=== PATIENT | female | born 1975 | race Caucasian/White ===

== ENCOUNTER → 2020-04-29 12:45 | Outpatient (REF) | payer OTHER, SELFPAY ==
--- NOTE | 2020-04-29 14:28 | ECG_ITS ---
Test Reason : RO6.02 Blood Pressure : / mmHG Vent. Rate : 089 BPM Atrial Rate : 089 BPM P-R Int : 178 ms QRS Dur : 166 ms QT Int : 414 ms P-R-T Axes : 062 001 133 degrees QTc Int : 503 ms Normal sinus rhythm Left bundle branch block Abnormal ECG When compared with ECG of 08-MAR-2016 20:16, Left bundle branch block is now Present Referred By: Hellen Giraldo Electronically Signed By:NAEEM MCCANN MD
== END ==
LOC: HO.CARD 12:45
PROVIDERS: PCP Family Medicine; Referring Provider Family Medicine; Visit Provider Surgery
DX: R06.02 Shortness of breath (principal); E66.9 Obesity, unspecified; E11.9 Type 2 diabetes mellitus without complications; K59.09 Other constipation; Z79.899 Other long term (current) drug therapy; Z79.84 Long term (current) use of oral hypoglycemic drugs; Z87.891 Personal history of nicotine dependence; Z71.3 Dietary counseling and surveillance
CPT/HCPCS: 93005

== ENCOUNTER → 2020-05-07 10:12 | Outpatient (BNVA) | payer OTHER, SELFPAY | PROVIDERS: PCP Family Medicine; Referring Provider Family Medicine; Visit Provider Physician Assistant | DX: Z76.89 Persons encountering health services in other specified circumstances (principal) ==

== ENCOUNTER → 2020-06-02 10:49 | Outpatient (BNVA) | payer OTHER, SELFPAY | PROVIDERS: PCP Family Medicine; Visit Provider Physician Assistant | DX: Z76.89 Persons encountering health services in other specified circumstances (principal) ==

== ENCOUNTER 2020-06-06 12:34 | Outpatient (REF) | payer OTHER, SELFPAY ==
[2020-06-06 13:17] LABS: MANUAL DIFF FLAG NO
[2020-06-06 13:20] LABS: Basophils Absolute Auto 0.1 X10*3/uL (0.0-0.2); Basophils Percent Auto 0.6 % (0-2); Eosinophils Absolute Auto 0.1 X10*3/uL (0.0-0.4); Eosinophils Percent Auto 1.2 % (0-4); Hematocrit 41.3 % (37-47); Hemoglobin 13.4 g/dl (12.0-16.0); Imm Gran Abs Auto 0.03 X10*3/uL (0.00-0.03); Imm Gran Pct Auto 0.3 % (0.0-0.4); Lymphocytes Absolute Auto 3.1 X10*3/uL (1.2-4.9); Lymphocytes Percent Auto 28.8 % (20-40); Mean Corpuscular HGB Conc 32.4 g/dl (31.0-35.0); Mean Corpuscular Hemoglobin 29.3 pg (27.0-33.0); Mean Corpuscular Volume 90.2 fL (80-98); Monocytes Absolute Auto 0.7 X10*3/uL (0.1-1.2); Monocytes Percent Auto 6.8 % (2-11); Neutrophils Absolute Auto 6.6 X10*3/uL (2.0-8.3); Neutrophils Percent Auto 62.3 % (45-73); Platelet Count 274 X10*3/uL (160-400); Red Blood Count 4.58 X10*6/uL (4.20-5.50); Red Cell Distribution Width 12.5 % (11.0-16.0); White Blood Count 10.6 X10*3/uL (4.8-10.8)
[2020-06-06 13:49] LABS: Albumin Level 4.2 g/dL (3.5-5.0); Anion Gap 13 (12-20); Blood Urea Nitrogen 17 mg/dL (9-16); Carbon Dioxide 27 mmol/L (22-29); Chloride 105 mmol/L (96-108); Estimated Glomerular Filt Rate > 60; Glucose Random 112 mg/dL (60-115); Potassium 4.5 mmol/l (3.3-5.1); Sodium 140 mmol/L (135-145)
[2020-06-06 14:07] LABS: Glucose Urine UA NEG (NEG); Leukocyte Esterase Urine NEG (NEG); Nitrite Urine NEG (NEG); PH 5.5 (5.0-8.0); Specific Gravity - Urine 1.025 (1.005-1.025); Urine Blood NEG (NEG); Urine Ketones NEG (NEG); Urine Protein NEG (NEG-TRACE)
[2020-06-06 14:09] LABS: Appearance Urine CLEAR; Color Urine YELLOW
== END 2020-06-06 12:35 | disposition home or self-care (01) ==
LOC: HO.LAB 12:34
PROVIDERS: Visit Provider Surgery
DX: Z01.818 Encounter for other preprocedural examination (principal)
CPT/HCPCS: 36415; 80048; 81003; 82040; 85025

== ENCOUNTER 2020-06-11 14:37 | Inpatient (IN) | payer OTHER, SELFPAY ==
[2020-06-05 11:52] VITALS: BMI 39.6
--- NOTE | 2020-06-10 13:00 | P.CONAN_ITS ---
Documented by User: Reina Wahl 06/10/20 13:07 HPI - Anesthesia Eval Consult details Narrative: 44yo F for Gastrectomy Sleeve Cardiac cleared at low risk. No futher testing warranted. [facility] Past Medical History Medical History (Updated 06/10/20 @ 13:01 by Reina Wahl) ADD (attention deficit disorder) Cervicalgia Depression GERD (gastroesophageal reflux disease) History of colitis History of melanoma History of thyroid nodule Left bundle branch block (LBBB) on electrocardiogram PCOS (polycystic ovarian syndrome) Sleep apnea Type 2 diabetes mellitus Family History Family History Father Asthma Heart disease HTN (hypertension) Type 2 diabetes mellitus Skin cancer Mother Skin cancer PCOS (polycystic ovarian syndrome) Son Asthma Daughter No problems noted. Paternal Uncle Lung cancer Sister No problems noted. Surgical History Surgical History (Updated 06/05/20 @ 11:10 by Jada Solomon) History of foot surgery History of fundoplication History of melanoma excision Hx of shoulder surgery S/P carpal tunnel release S/P cervical spinal fusion S/P laparoscopic cholecystectomy Social History Social History (Updated 06/05/20 @ 11:32 by Jada Solomon) Alcohol intake: current Alcohol intake frequency: a few times a month Smoking Status: Former smoker Narrative Narrative: Pt with w/u for CP 01/2020. Pt was under a lot of stress after witnessing family member . EKG without acute change, trops negative, MIBI false postive d/t LBBB. Cath showed no evidence of ischemia. Meds Allergies Allergy/AdvReac Type Severity Reaction Status Date / Time Bactrim Allergy Unknown does not Uncoded 06/05/20 11:38 work while on Metformin Home Medications Medication Instructions Recorded Confirmed Type atorvastatin 40 mg tablet 40 mg PO BEDTIME 04/29/20 06/05/20 History bupropion HCl 300 mg 24 hr tablet, 150 mg PO QAM 04/29/20 06/05/20 History extended release buspirone 10 mg tablet 25 mg PO BID 04/29/20 06/05/20 History dulaglutide 0.75 mg/0.5 mL 0.75 mg SUBCUT QWEEK 04/29/20 06/05/20 History subcutaneous pen injector duloxetine 60 mg capsule,delayed 60 mg PO BEDTIME 04/29/20 06/05/20 History release flash glucose sensor #1 ea 10/27/20 History gabapentin 600 mg tablet 600 mg PO BEDTIME 04/29/20 06/05/20 History lisinopril 10 1 tab PO DAILY 04/29/20 06/05/20 History mg-hydrochlorothiazide 12.5 mg tablet mesalamine 400 mg capsule (with 800 mg PO TID 04/29/20 06/05/20 History delayed release tablets inside) metformin 500 mg tablet,extended 2,000 mg PO DAILY 04/29/20 06/05/20 History release 24 hr pen needle, diabetic 31 gauge x #1200 ea 04/29/20 History 5/16 solifenacin 5 mg tablet 5 mg PO QAM 04/29/20 06/05/20 History trazodone 50 mg tablet 50 mg PO BEDTIME 04/29/20 06/05/20 History triamcinolone acetonide 55 mcg 1 spray INTRANASAL NEEDED 04/29/20 06/05/20 History nasal spray aerosol insulin NPH isoph U-100 human 60 unit SUBCUT BEDTIME 06/05/20 06/05/20 History [Humulin N NPH U-100 Insulin] Exam Exam Date and Time: June 10, 2020 1300 Height,Weight and Vital Signs: Height 5 ft 4 in Weight 104.78 kg Pertinent Lab Results Pertinent Lab Results: Laboratory Tests 06/06/20 12:50 Blood Type O Positive Antibody Screen NEGATIVE Laboratory Tests 03/22/20 06/06/20 06/06/20 08:02 12:50 12:50 WBC 10.6 Hgb 13.4 Hct 41.3 Plt Count 274 Sodium 140 Potassium 4.5 Chloride 105 Carbon Dioxide 27 BUN 17 H Creatinine 0.82 Cholesterol 101 Narrative Narrative: EKG 04/2020 Normal sinus rhythm Left bundle branch block Assessment and Plan Assessment Anesthesia Assessment: Chart Reviewed Documented by User: Gaby Anti 06/11/20 10:37 [facility] Past Medical History Medical History (Updated 06/10/20 @ 13:01 by Reina Wahl) ADD (attention deficit disorder) Cervicalgia Depression GERD (gastroesophageal reflux disease) History of colitis History of melanoma History of thyroid nodule Left bundle branch block (LBBB) on electrocardiogram PCOS (polycystic ovarian syndrome) Sleep apnea Type 2 diabetes mellitus Family History Family History Father Asthma Heart disease HTN (hypertension) Type 2 diabetes mellitus Skin cancer Mother Skin cancer PCOS (polycystic ovarian syndrome) Son Asthma Daughter No problems noted. Paternal Uncle Lung cancer Sister No problems noted. Surgical History Surgical History (Updated 06/05/20 @ 11:10 by Jada Solomon) History of foot surgery History of fundoplication History of melanoma excision Hx of shoulder surgery S/P carpal tunnel release S/P cervical spinal fusion S/P laparoscopic cholecystectomy Social History Social History (Updated 06/05/20 @ 11:32 by Jada Solomon) Alcohol intake: current Alcohol intake frequency: a few times a month Smoking Status: Former smoker Meds Allergies Allergy/AdvReac Type Severity Reaction Status Date / Time Bactrim Allergy Unknown does not Uncoded 06/05/20 11:38 work while on Metformin Home Medications Medication Instructions Recorded Confirmed Type atorvastatin 40 mg tablet 40 mg PO BEDTIME 04/29/20 06/05/20 History bupropion HCl 300 mg 24 hr tablet, 150 mg PO QAM 04/29/20 06/05/20 History extended release buspirone 10 mg tablet 25 mg PO BID 04/29/20 06/05/20 History dulaglutide 0.75 mg/0.5 mL 0.75 mg SUBCUT QWEEK 04/29/20 06/05/20 History subcutaneous pen injector duloxetine 60 mg capsule,delayed 60 mg PO BEDTIME 04/29/20 06/05/20 History release flash glucose sensor #1 ea 04/29/20 History gabapentin 600 mg tablet 600 mg PO BEDTIME 04/29/20 06/05/20 History lisinopril 10 1 tab PO DAILY 04/29/20 06/05/20 History mg-hydrochlorothiazide 12.5 mg tablet mesalamine 400 mg capsule (with 800 mg PO TID 04/29/20 06/05/20 History delayed release tablets inside) metformin 500 mg tablet,extended 2,000 mg PO DAILY 04/29/20 06/05/20 History release 24 hr pen needle, diabetic 31 gauge x #1200 ea 04/29/20 History 5/16 solifenacin 5 mg tablet 5 mg PO QAM 04/29/20 06/05/20 History trazodone 50 mg tablet 50 mg PO BEDTIME 04/29/20 06/05/20 History triamcinolone acetonide 55 mcg 1 spray INTRANASAL NEEDED 04/29/20 06/05/20 History nasal spray aerosol insulin NPH isoph U-100 human 60 unit SUBCUT BEDTIME 06/05/20 06/05/20 History [Humulin N NPH U-100 Insulin] Exam Airway Mallampati Class: I TM Dist: >3cm Neck ROM: Full Loose/Missing/Broken Teeth: No Heart: RRR Lungs: CTA Assessment and Plan Assessment Anesthesia Assessment: Anesthesia Plan Discussed and Chart Reviewed Final Anesthetic Review NPO: Yes ASA Class: III Final Preanesthetic Review: Meds/Allgs Chart Reviewed, Consent Obtained/Reviewed and Anes Risks/Benef Reviewed Patient Risk: Intermediate Procedure Risk: Low Anesthetic Plan Anesthetic Plan: GA Disposition: Standard PACU
--- NOTE | 2020-06-10 17:24 | MHC.SHP ---
Pre-Procedural Eval Section B Chief Complaint: obesity Allergies: Allergies Allergy/AdvReac Type Severity Reaction Status Date / Time Bactrim Allergy Unknown does not Uncoded 06/05/20 11:38 work while on Metformin Plan Patient has been examined and remains a candidate for the planned procedure
[2020-06-11] VITALS (13 sets, daily range): BP systolic 130–160; BP diastolic 66–95; PULSE 91–103; RESP 12–20; TEMP 36.3–38.1; O2SAT 96–99
[2020-06-11 09:55] LABS: COVID-19 Test Negative (Negative); IDNOW Serial# 9DD0AD1C
[2020-06-11] MEDS: Lactated Ringers 1,000 ML 125 ML IVCONT ×3 (11:04→23:20)
[2020-06-11 14:26] LABS: Glucose, Whole Blood 122 mg/dL (60-115)
--- NOTE | 2020-06-11 14:37 | P.BOP_ITS ---
Brief Operative Note Date of Service: 06/11/20 Pre-op diagnosis: gastroesophageal reflux disease, sleep apnea, BMI 39, obesity, type 2 diabetes, history of Grace fundoplication Post-op diagnosis: other ( same plus hiatal hernia) Procedure: laparoscopic takedown of Grace fundoplication, repair of hiatal hernia, laparoscopic sleeve gastrectomy, Keith block, intraoperative endoscopy Implants: none Surgeon: Hellen Girlado MD Anesthesia: GETA Sample Stitcher: Monica Rebollar Estimated blood loss (mL): 30 Pathology: other ( partial gastrectomy) Condition: stable Disposition: PACU
--- NOTE | 2020-06-11 14:39 | P.OP_ITS ---
Operative Note Operative Note Date of Service: 06/11/20 Narrative: Patient was brought into the operating room and placed on the operating room table in the supine position. General anesthesia was induced. Normal DVT prophylaxis was instituted and the patient received 2 grams of cefotetan preoperatively. The abdomen was then prepped and draped in the normal sterile fashion. A safety time-out was performed. A mixture of 1% lidocaine with epinephrine and ?% Marcaine plain was used to a nesthetize the planned incision site in the left upper quadrant. A #11 scalpel was used to make a 5 mm left upper quadrant transverse incision through which a veress needle was placed. Three pops were heard going through the fascia. A saline drop test was used to confirm that the veress needle was intraabdominal. An optiview technique was then used to place a 5mm port in the left upper quadrant. A 5 mm 30 degree laproscope was then placed through this port and the abdominal cavity was surveyed and was normal. The patient was placed in reverse Trendelenburg positioning. A ray liver retractor was then placed in the subxyphoid position and it was used to hold up the left lobe of the liver to the abdominal wall. This was secured to the bed using the liver retractor eldridge. A IZABELA block was then performed for pain control on the right side of the abdomen. A 5 mm port was placed in the right upper quadrant near the falciform ligament. A 12 mm port was then placed in the mid epigastrium. One additional 5 mm port was placed in the left upper quadrant just to the left of the placement of the first port. I then performed a IZABELA block on the left side of the abdomen. Patient had a history of a Grace fundoplication many years ago. The medial stomach was adherent to the overlying left lobe of the liver. We took down the adhesions of the stomach to the left lobe of the liver. We cleared off the phrenoesophageal ligament bilaterally. We never saw any sutures of the stomach to itself or to the right or left crura. Once we cleared all the adhesions surrounding the renal esophageal ligament and took down the remainder of the short gastric vessels, we realized there was no evidence of a wrapping of the stomach. The stomach was lying flat the esophagus appeared to be in normal condition without any evidence of wrap. There was a hiatal hernia that was about 2-3 cm in size. I reapproximated the left and right crura anteriorly with a total of 2 stitches of 2-0 ethibond and a laparoscopic knot pusher. There was no residual hiatal hernia. We divided the short gastric vessels from about 4-5 cm from the pylorus. I had anesthesia place a 34 Maldivian orogastric tube into the distal antrum to use as a sizing tool for gastric pouch size. I divided the short gastric vessels up to the angle of His. We then started the creation of the gastric pouch by firing a 60 mm purple load endostapler up the stomach about 4-5 cm from the pylorus. We completed the creation of the gastric pouch using a total of 4 firings of a 60 mm purple load stapler. We had anesthesia remove the orogastric tube, then we clamped across the distal antrum using a fired 60 mm endostapler. We flattened the patient and then instilled normal saline surrounding the newly created staple line. I then perfo rmed an on-table endoscopy. I passed the gastroscopy into the posterior oropharynx and down the esophagus evaluating the esophageal mucosa which was normal. There was no evidence of hiatal hernia. I passed the gastroscope into the gastric pouch and insufflated the gastric pouch. There was healthy pink mucosa and no evidence of active bleeding. There was no evidence of leak on laparoscopy. I desufflated the gastric pouch and removed the endoscope. I removed the endostapler from the abdomen and suctioned the fluid from the left upper quadrant. I then removed the partial gastrectomy specimen through the epigastric 12 mm port site. I reapproximated the 12 mm port using a 0 maxon suture with a laparoscopic suture passer. I instilled local anesthetic into the fascial closure site and tied the suture down at a pressure of 8-10 mm of Hg. There was no residual fascial defect. We removed the liver retractor and the left upper quadrant 5 mm ports under direct visualization. There was no evidence of any active bleeding. I desufflated the abdomen through the last remaining port and removed the laparoscope and 5 mm port. We reapproximated all incisions with a 4-0 monocryl subcuticular stitch. We cleaned and dried the abdominal skin and applied dermabond skin glue. All count were correct at the end of the case. The patient was awake and in stable condition prior to extubation and transfer to the recovery room.
[2020-06-11] MEDS: oxyCODONE HCl Immed Release 5 MG TABLET 10 MG PO (15:12)
[2020-06-11] MEDS: Famotidine/PF 20 MG/2 ML VIAL IVPUSH ×2 (15:13→20:48)
[2020-06-11] MEDS: HYDROmorphone HCl 0.5 MG/0.5 ML SYRINGE 0.25 MG IVPUSH ×2 (16:42→20:48)
[2020-06-11 16:46] LABS: Glucose, Whole Blood 159 mg/dL (60-115)
[2020-06-11] MEDS: ondansetron HCL 4 MG/2 ML VIAL IVPUSH ×2 (16:47→23:20)
[2020-06-11] MEDS: oxyCODONE HCl Immed Release 5 MG TABLET PO (19:18)
[2020-06-11 20:29] LABS: Glucose, Whole Blood 172 mg/dL (60-115)
[2020-06-11] MEDS: Insulin Lispro 100 UNIT/ML 3 ML VIAL SUBCUT (20:48)
[2020-06-11] MEDS: busPIRone HCl 10 MG TABLET 25 MG PO (20:49)
[2020-06-11] MEDS: traZODone HCL 50 MG TABLET PO (20:49)
[2020-06-11] MEDS: Gabapentin 600 MG TABLET PO (20:49)
[2020-06-11] MEDS: DULoxetine HCl 60 MG CAPSULE.DR PO (20:49)
[2020-06-11] MEDS: 0.9 % Sodium Chloride Flush 3 ML SYRINGE IVFLUSH (20:50)
[2020-06-12 00:50] VITALS: RESP 17
[2020-06-12] MEDS: HYDROmorphone HCl 0.5 MG/0.5 ML SYRINGE 0.25 MG IVPUSH ×2 (00:50→04:44)
[2020-06-12 03:27] VITALS: BP 134/69; PULSE 93; RESP 20; TEMP 37.1; O2SAT 95
[2020-06-12] MEDS: Metoclopramide HCl 10 MG/2 ML VIAL IVPUSH (04:04)
[2020-06-12] MEDS: Omeprazole 40 MG CAPSULE.DR PO (04:27)
[2020-06-12 04:44] VITALS: RESP 18
[2020-06-12] MEDS: ondansetron HCL 4 MG/2 ML VIAL IVPUSH (05:54)
[2020-06-12 06:36] LABS: MANUAL DIFF FLAG NO
[2020-06-12 06:53] LABS: Basophils Absolute Auto 0.1 X10*3/uL (0.0-0.2); Basophils Percent Auto 0.3 % (0-2); Eosinophils Percent Auto 0.1 % (0-4); Hematocrit 37.7 % (37-47); Hemoglobin 12.6 g/dl (12.0-16.0); Imm Gran Pct Auto 0.6 % (0.0-0.4); Lymphocytes Absolute Auto 2.8 X10*3/uL (1.2-4.9); Lymphocytes Percent Auto 16.1 % (20-40); Mean Corpuscular HGB Conc 33.4 g/dl (31.0-35.0); Mean Corpuscular Hemoglobin 29.6 pg (27.0-33.0); Mean Corpuscular Volume 88.5 fL (80-98); Mean Platelet Volume 10.9 fL (9.4-12.3); Monocytes Percent Auto 5.9 % (2-11); Neutrophils Absolute Auto 13.4 X10*3/uL (2.0-8.3); Platelet Count 268 X10*3/uL (160-400); Red Blood Count 4.26 X10*6/uL (4.20-5.50); Red Cell Distribution Width 12.3 % (11.0-16.0); White Blood Count 17.4 X10*3/uL (4.8-10.8)
[2020-06-12 07:24] LABS: Anion Gap 13 (12-20); Blood Urea Nitrogen 13 mg/dL (9-16); Calcium 8.6 mg/dL (8.4-10.2); Carbon Dioxide 26 mmol/L (22-29); Chloride 105 mmol/L (96-108); Estimated Glomerular Filt Rate > 60; Glucose Random 113 mg/dL (60-115); Potassium 4.4 mmol/l (3.3-5.1); Sodium 140 mmol/L (135-145)
[2020-06-12 07:46] VITALS: BP 145/78; PULSE 83; RESP 20; TEMP 36.8; O2SAT 96
[2020-06-12 08:27] LABS: Glucose, Whole Blood 119 mg/dL (60-115)
[2020-06-12] MEDS: busPIRone HCl 10 MG TABLET 25 MG PO (08:28)
[2020-06-12] MEDS: buPROPion HCl XL 150 MG TAB.ER.24H PO (08:28)
[2020-06-12] MEDS: Famotidine/PF 20 MG/2 ML VIAL IVPUSH (08:28)
[2020-06-12] MEDS: lisinopriL 10 MG TABLET PO (08:29)
[2020-06-12] MEDS: Lactated Ringers 1,000 ML 125 ML IVCONT (08:29)
--- NOTE | 2020-06-12 09:51 | HO.POSTANES ---
Post Anesthesia Evaluation Post Anesthesia Evaluation Vital Signs: Vital Signs Temp Pulse Resp BP Pulse Ox 06/12/20 07:46 98.3 F 83 20 145/78 H 96 06/12/20 04:44 18 06/12/20 03:27 98.7 F 93 20 134/69 95 06/12/20 00:50 17 06/11/20 23:14 98.7 F 91 20 145/95 H 97 Anesthesia: General Endotracheal-GETA Mental Status: Awake Pain Control: Satisfactory Nausea/Vomiting: None Hydration: Adequate Anesthesia-Related Issues: No Anes. Related Issues
--- NOTE | 2020-06-12 10:17 | PM.PNGS ---
Subjective Subjective Date of Service: 06/12/20 Interval history: Pod #1 s/p lap takedown Grace fundoplication, sleeve gastrectomy, and hiatal hernia repair. Doing well. Tolerating stage 3 diet, ambulating in hallway. Pain well controlled. Denies nausea or vomiting. Vitals and labs reviewed and are within limit for post op day 1. On exam, patient is well appearing, abdomen is soft, nd, mild appropriate incisional tenderness. Incisions c/d/I with dermabond in place. Plan: d/c home today. Follow up with me in 2 weeks. Physical Exam Vital Signs: Vital Signs: Last Vital Signs Temp 98.3 F 06/12/20 07:46 Pulse 83 06/12/20 07:46 Resp 20 06/12/20 07:46 BP 145/78 H 06/12/20 07:46 Pulse Ox 96 06/12/20 07:46 Body Mass Index 39.6 Const: General: cooperative, healthy appearing, comfortable, no acute distress and awake GI: Inspection: Yes incision (Clean dry intact with Dermabond in place) and Yes obesity Palpation (GI): Soft to palpation and Tenderness to palpation present (GI) (Mild appropriate incisional tenderness) Extrem: General: Yes normal to inspection, Yes no pedal edema and Yes no calf tenderness Progress Note: A&P Assessment and plan (1) History of sleeve gastrectomy: Status: Acute Assessment and Plan: This is a 45-year-old lady on postoperative day 1. Status post Grace fundoplication takedown, sleeve gastrectomy, and paraesophageal hernia repair. Patient is doing well she is tolerating stage 3 diet, her pain is well controlled. She will be discharged home to follow up with me again in 2 weeks. (2) Status post repair of paraesophageal diaphragmatic hernia: Status: Acute Fall Risk Details Current Medications: Current Medications Generic Name Dose Route Start Last Admin Trade Name Freq PRN Reason Stop Dose Admin Albuterol Sulfate 2.5 mg 06/11/20 10:33 Albuterol Sulfate (0.083%) 2.5 Mg/3 Ml Vial.Neb INHALE ONCE PRN Wheezing Bupropion HCl 150 mg 06/11/20 14:30 06/12/20 08:28 Bupropion Hcl Xl 150 Mg Tab.Er.24h PO 150 mg DAILY CHERRY Administration Buspirone HCl 25 mg 06/11/20 21:00 06/12/20 08:28 Buspirone Hcl 10 Mg Tablet PO 25 mg BID CHERRY Administration Duloxetine HCl 60 mg 06/11/20 21:00 06/11/20 20:49 Duloxetine Hcl 60 Mg Capsule.Dr PO 60 mg BEDTIME CHERRY Administration Famotidine 20 mg 06/11/20 14:45 06/12/20 08:28 Famotidine/Pf 20 Mg/2 Ml Vial IVPUSH 20 mg BID CHERRY Administration Fentanyl 50 mcg 06/11/20 10:33 Fentanyl Citrate/Pf 100 Mcg/2 Ml Vial IVPUSH Q5M PRN Pain, Severe (Pain Scale 7-10) Fentanyl 25 mcg 06/11/20 10:33 Fentanyl Citrate/Pf 100 Mcg/2 Ml Vial IVPUSH Q5M PRN Pain, Moderate (Pain Scale 4-6 Gabapentin 600 mg 06/11/20 21:00 06/11/20 20:49 Gabapentin 600 Mg Tablet PO 600 mg BEDTIME CHERRY Administration Hydromorphone HCl 0.25 mg 06/11/20 14:37 06/12/20 04:44 Hydromorphone Hcl 0.5 Mg/0.5 Ml Syringe IVPUSH 0.25 mg Q4H PRN Administration Pain, Moderate (Pain Scale 4-6 Lactated Ringer's 1,000 mls @ 125 mls/hr 06/11/20 09:00 06/12/20 08:29 Lr IVCONT 125 mls/hr .Q8H CHERRY Administration Promethazine HCl 6.25 mg/ 50.25 mls @ 201 mls/hr 06/11/20 10:33 Sodium Chloride IV ONCE PRN Nausea and Vomiting Acetaminophen 1,000 mg in 100 mls @ 16.7 mls/hr 06/11/20 18:00 06/12/20 05:53 Ofirmev IV 16.7 mls/hr .Q6H CHERRY Administration Insulin Human Lispro 0 unit 06/11/20 16:30 06/12/20 08:34 Insulin Lispro 100 Unit/Ml 3 Ml Vial SUBCUT Not Given QIDACHS [facility] Lisinopril 10 mg 06/12/20 09:00 06/12/20 08:29 Lisinopril 10 Mg Tablet PO 10 mg DAILY CHERRY Administration Protocol Metoclopramide HCl 10 mg 06/11/20 14:37 06/12/20 04:04 Metoclopramide Hcl 10 Mg/2 Ml Vial IVPUSH 10 mg Q6H PRN Administration Nausea Non-Formulary Medication 5 mg 06/11/20 14:30 Solifenacin PO QAM CHERRY Ondansetron HCl 4 mg 06/11/20 14:45 06/12/20 05:54 Ondansetron Hcl 4 Mg/2 Ml Vial IVPUSH 4 mg Q8H CHERRY Administration Sodium Chloride 3 ml 06/11/20 16:00 06/12/20 08:30 0.9 % Sodium Chloride Flush 3 Ml Syringe IVFLUSH Not Given QSHIFT CHERRY Trazodone HCl 50 mg 06/11/20 21:00 06/11/20 20:49 Trazodone Hcl 50 Mg Tablet PO 50 mg BEDTIME CHERRY Administration Time Spent With Patient Time: Total time spent is greater than 50% in coordination of care (as documented) at patient's floor/unit and/or counseling patient: Time with patient: less than 15 minutes
--- NOTE | 2020-06-12 11:04 | MHC.CM.PN ---
PT ADMITTED S/P LAP GASTRIC SLEEVE, DISCHARGE HOME W/NO SERVICES, TO TRANSPORT
--- NOTE | 2020-06-12 11:47 | MHC.CM.PN ---
DISCHARGE NOTE: PT DISCHARGED HOME, SELF CARE
--- NOTE | 2020-07-01 11:09 | P.DS_ITS ---
DS: Providers Provider Date of admission: 06/11/20 14:37 Primary care physician: Andree Yoo MD DS: Diagnosis Discharge Diagnosis (1) History of sleeve gastrectomy: Status: Acute (2) Status post repair of paraesophageal diaphragmatic hernia: Status: Acute DS: Medications Discharge Medications Home Medications: Home Medications Medication Instructions Recorded Confirmed atorvastatin 40 mg tablet 40 mg PO BEDTIME 04/29/20 06/24/20 bupropion HCl 300 mg 24 hr tablet, 150 mg PO QAM 04/29/20 06/24/20 extended release buspirone 10 mg tablet 25 mg PO BID 04/29/20 06/24/20 duloxetine 60 mg capsule,delayed 60 mg PO BEDTIME 04/29/20 06/24/20 release flash glucose sensor #1 ea 04/29/20 06/24/20 gabapentin 600 mg tablet 600 mg PO BEDTIME 04/29/20 06/24/20 lisinopril 10 1 tab PO DAILY 04/29/20 06/24/20 mg-hydrochlorothiazide 12.5 mg tablet mesalamine 400 mg capsule (with 800 mg PO TID 04/29/20 06/24/20 delayed release tablets inside) solifenacin 5 mg tablet 5 mg PO QAM 04/29/20 06/24/20 trazodone 50 mg tablet 50 mg PO BEDTIME 04/29/20 06/24/20 triamcinolone acetonide 55 mcg 1 spray INTRANASAL NEEDED 04/29/20 06/24/20 nasal spray aerosol calcium citrate 1,000 mg tablet 1,000 mg PO BID tab 06/24/20 06/24/20 [id number]-[id number] 45 mg-folic cap PO 06/24/20 06/24/20 acid 800 mcg-vit K 120 mcg capsule Previous Rx's Medication Instructions Recorded acetaminophen 500 mg tablet 1,000 mg PO Q6H PRN #30 tab 06/02/20 ondansetron HCl 4 mg tablet 4 mg PO Q6H PRN #30 tab 06/02/20 simethicone 80 mg chewable tablet 80 mg PO TID-QID PRN #30 tab 06/02/20 omeprazole 40 mg capsule,delayed 20 mg PO BID #60 cap 06/03/20 release DS: Summary Time Spent with Patient Time attestation: DATE OF SERVICE: June 11, 2020 ADMITTING DIAGNOSES: morbid obesity DISCHARGE DIAGNOSES: same, s/p laparoscopic sleeve gastrectomy and hiatal hernia PROCEDURE PERFORMED: laparoscopic sleeve gastrectomy and repair of hiatal hernia DISCHARGE MEDICATIONS: 1. Simethicone 80mg q4h prn gas 2. Ondansetron 4mg po tid prn nausea 3. Famotidine 20mg po bid 4. Docusate sodium 100mg po bid DISCHARGE INSTRUCTIONS: The patient should continue on the stage III bariatric diet, which includes 3 protein shakes of at least 20- 30g of protein on a daily basis. The patient was encouraged to avoid drinking liquids with her protein shakes. She should wait 30-45 minutes in between her meals and drinking water. She should drink at least 40-60 ounces of water on a daily basis. She should ambulate while at home to avoid any blood clots in her lower extremities. She should call with any questions or concerns such as increase in abdominal pain, persistent nausea, vomiting, redness and drainage from her incisions, fever, chills, shortness of breast, or chest pain beyond what is normal for her. The patient should avoid all heavy lifting greater than 5 pounds for the next 4 weeks. The patient is already scheduled to follow up with me in 2 weeks' time, but should call the office with any questions prior to that follow up appointment. The patient should not advance her diet until she is seen in the office for the 2 week appointment. HOSPITAL COURSE: The patient was admitted after undergoing laparoscopic sleeve gastrectomy. She was started on stage II diet and was tolerating well without nausea or vomiting. Her pain was controlled on IV Dilaudid. All labs were within normal limits. On post-operative day #2 she was feeling better, nausea and epigastric pain improved and she was tolerating stage III bariatric diet well. She was discharged home. DISCHARGE DISPOSITION: Home.Total time spent providing and/or coordinating discharge services: 30 minutes Physical Exam Vital Signs: Vital Signs: Last Vital Signs Temp 98.3 F 06/12/20 07:46 Pulse 83 06/12/20 07:46 Resp 20 06/12/20 07:46 BP 145/78 H 06/12/20 07:46 Pulse Ox 96 06/12/20 07:46 Body Mass Index 39.6 DS: Data Data Completed and Pending Completed studies during hospitalization [Text1]: Pending at discharge 06/11/20 13:36 Surgical [PTH] Routine Procedures Excision of Stomach, Percutaneous Endoscopic Approach, Vertical (06/11/20) Repair Diaphragm, Percutaneous Endoscopic Approach (06/11/20) Repair Esophagogastric Junction, Percutaneous Endoscopic Approach (06/11/20) Labs on day of discharge: 06/06/20 12:50 Type and Screen Routine 06/11/20 08:56 Acetaminophen [Ofirmev] 1,000 mg in 100 ml IV PREOP cefoTEtan disod/Dextrose,Iso [Cefotan] 2 gm in 50 ml IV PREOP 06/11/20 08:56 Glucose, blood poc AM PRE-OP 06/11/20 09:00 Lactated Ringers [Lr] 1,000 ml IVCONT 125 mls/hr 06/11/20 09:15 COVID-19 ID NOW ([place]) Stat 06/11/20 09:38 Glucose, Whole Blood Routine 06/11/20 10:33 Albuterol Sulfate (0.083%) [Ventolin (0.083%)] 2.5 mg INHALE ONCE PRN Promethazine HCL [Phenergan] 6.25 mg 0.9 % Sodium Chloride [Ns] 50 ml IV ONCE fentaNYL citrate/PF [Sublimaze] 25 mcg IVPUSH Q5M PRN fentaNYL citrate/PF [Sublimaze] 50 mcg IVPUSH Q5M PRN oxyCODONE HCl Immed Release [Roxicodone] 10 mg PO ONCE PRN oxyCODONE HCl Immed Release [Roxicodone] 5 mg PO ONCE PRN 06/11/20 10:49 Acetaminophen [Ofirmev] 1,000 mg in 100 ml IV As directed cefoTEtan disodium [Cefotan] 2 gm .ROUTE .STK-MED ONE 06/11/20 11:49 Ketamine HCl/NS 50 mg IVPUSH .STK-MED ONE Lidocaine HCl 2 % MPF [Xylocaine 2 % MPF] 5 ml .ROUTE .STK-MED ONE Midazolam HCl/PF [Versed] 2 mg .ROUTE .STK-MED ONE Rocuronium [place] [Zemuron] 100 mg IV .STK-MED ONE dexAMETHasone sod phosphate [Decadron] 4 mg .ROUTE .STK-MED ONE fentaNYL citrate/PF [Sublimaze] 50 mcg .ROUTE .STK-MED ONE ondansetron HCL [Zofran] 4 mg .ROUTE .STK-MED ONE propofoL [Diprivan] 200 mg IVPUSH .STK-MED ONE 06/11/20 12:06 Bupivacaine MPF 0.25 % [Sensorcaine-MPF 0.25% 10 ML] 10 ml .ROUTE .STK-MED ONE Lidocaine HCl 1%/Epi 1:100,000 [Xylocaine 1 %-Epi 1:100,000] 20 ml .ROUTE .STK-MED ONE 06/11/20 12:14 Lidocaine HCl 1%/Epi 1:100,000 [Xylocaine 1 %-Epi 1:100,000] 20 ml .ROUTE .STK-MED ONE 06/11/20 12:40 Esmolol HCl [Brevibloc] 100,000 mcg .ROUTE .STK-MED ONE 06/11/20 13:00 Sugammadex Sodium [Bridion] 200 mg IVPUSH .K-MED ONE 06/11/20 13:36 Surgical [PTH] Routine 06/11/20 13:37 HYDROmorphone HCl [Dilaudid] 2 mg .ROUTE .STK-MED ONE 06/11/20 14:30 buPROPion HCl XL [Wellbutrin XL] 150 mg PO DAILY solifenacin 5 mg PO QAM 06/11/20 14:34 Transfer Order Routine 06/11/20 14:37 Ambulate Q4H WHILE AWAKE Compression Therapy QSHIFT Head of bed elevation DIRECTED Incentive Spirometry Q1HR WHILE AWAKE Intake and Output Q4HR Up ad mitul .Continous Vital Signs Q4H Code Status Routine HYDROmorphone HCl [Dilaudid] 0.25 mg IVPUSH Q4H PRN Metoclopramide HCl [Reglan] 10 mg IVPUSH Q6H PRN 06/11/20 14:45 Acetaminophen [Ofirmev] 1,000 mg in 100 ml IV 16.7 mls/hr Famotidine/PF [Pepcid/PF] 20 mg IVPUSH BID ondansetron HCL [Zofran] 4 mg IVPUSH Q8H 06/11/20 Lunch Bariatric Phase 2 Diet 06/11/20 16:00 0.9 % Sodium Chloride Flush [NS Flush] 3 ml IVFLUSH QSHIFT 06/11/20 16:30 Insulin Lispro [Humalog] See Dose Instructions SUBCUT QIDACHS 06/11/20 16:36 Glucose, Whole Blood Routine 06/11/20 18:00 Acetaminophen [Ofirmev] 1,000 mg in 100 ml IV 16.7 mls/hr 06/11/20 20:14 Glucose, blood poc QIDACHS 06/11/20 20:15 Glucose, Whole Blood Routine 06/11/20 21:00 DULoxetine HCl [Cymbalta] 60 mg PO BEDTIME Gabapentin [Neurontin] 600 mg PO BEDTIME busPIRone HCl [BuSpar] 25 mg PO BID traZODone HCL [Desyrel] 50 mg PO BEDTIME 06/11/20 23:16 cefoTEtan disodium [Cefotan] 2 gm .ROUTE .STK-MED ONE 06/12/20 00:00 cefoTEtan disodium [Cefotan] 2 gm 0.9 % Sodium Chloride [Ns] 100 ml IV POSTOP@0000 06/12/20 04:10 Omeprazole [PriLOSEC] 40 mg PO ONCE ONE 06/12/20 06:13 Basic Metabolic Panel DAILY@0600 Complete Blood Count Auto Diff DAILY@0600 06/12/20 07:49 Glucose, Whole Blood Routine 06/12/20 09:00 lisinopriL [Zestril] 10 mg PO DAILY Laboratory Last Values WBC 17.4 X10*3/uL (4.8-10.8) H 06/12/20 06:13 RBC 4.26 X10*6/uL (4.20-5.50) 06/12/20 06:13 Hgb 12.6 g/dl (12.0-16.0) 06/12/20 06:13 Hct 37.7 % (37-47) 06/12/20 06:13 MCV 88.5 fL (80-98) 06/12/20 06:13 MCH 29.6 pg (27.0-33.0) 06/12/20 06:13 MCHC 33.4 g/dl (31.0-35.0) 06/12/20 06:13 RDW 12.3 % (11.0-16.0) 06/12/20 06:13 Plt Count 268 X10*3/uL (160-400) 06/12/20 06:13 MPV 10.9 fL (9.4-12.3) 06/12/20 06:13 Immature Gran % (Auto) 0.6 % (0.0-0.4) H 06/12/20 06:13 Neut % (Auto) 77.0 % (45-73) H 06/12/20 06:13 Lymph % (Auto) 16.1 % (20-40) L 06/12/20 06:13 [place] % (Auto) 5.9 % (2-11) 06/12/20 06:13 Eos % (Auto) 0.1 % (0-4) 06/12/20 06:13 Baso % (Auto) 0.3 % (0-2) 06/12/20 06:13 Lymph # (Auto) 2.8 X10*3/uL (1.2-4.9) 06/12/20 06:13 [place] # (Auto) 1.0 X10*3/uL (0.1-1.2) 06/12/20 06:13 Eos # (Auto) 0.0 X10*3/uL (0.0-0.4) 06/12/20 06:13 Baso # (Auto) 0.1 X10*3/uL (0.0-0.2) 06/12/20 06:13 Abs Immat Gran (auto) 0.10 X10*3/uL (0.00-0.03) H 06/12/20 06:13 Absolute Neuts (auto) 13.4 X10*3/uL (2.0-8.3) H 06/12/20 06:13 Absolute Nucleated RBC 0.000 X10*3/uL (0.0-0.012) 06/12/20 06:13 Nucleated RBC % (auto) 0.0 /100WBC (0.0-0.2) 06/12/20 06:13 Sodium 140 mmol/L (135-145) 06/12/20 06:13 Potassium 4.4 mmol/l (3.3-5.1) 06/12/20 06:13 Chloride 105 mmol/L (96-108) 06/12/20 06:13 Carbon Dioxide 26 mmol/L (22-29) 06/12/20 06:13 Anion Gap 13 (12-20) 06/12/20 06:13 BUN 13 mg/dL (9-16) 06/12/20 06:13 Creatinine 0.76 mg/dL (0.5-1.4) 06/12/20 06:13 Estim Creat Clear Calc 108.0 06/12/20 06:13 Estimated GFR > 60 06/12/20 06:13 POC Glucose 119 mg/dL (60-115) H 06/12/20 07:49 Random Glucose 113 mg/dL (60-115) 06/12/20 06:13 Calcium 8.6 mg/dL (8.4-10.2) 06/12/20 06:13 COVID-19 ([facility]) Negative (Negative) 06/11/20 09:15 COVID-19 Clin Com See Note 06/11/20 09:15 Blood Type O Positive 06/06/20 12:50 Antibody Screen NEGATIVE 06/06/20 12:50 Discharge Plan Discharge Patient Disposition: Home, Self-Care Referrals: Andree Yoo MD [Primary Care Provider] - Discharge Medications: Continued omeprazole 40 mg capsule,delayed release(DR/EC) 20 mg PO BID Qty: 60 RF: 2 mesalamine 400 mg capsule (with del rel tablets) 800 mg PO TID RF: 0 solifenacin 5 mg tablet 5 mg PO QAM RF: 0 duloxetine 60 mg capsule,delayed release(DR/EC) 60 mg PO BEDTIME RF: 0 bupropion HCl 300 mg tablet extended release 24 hr 150 mg PO QAM RF: 0 lisinopril-hydrochlorothiazide 10-12.5 mg tablet 1 tab PO DAILY RF: 0 buspirone 10 mg tablet 25 mg PO BID RF: 0 trazodone 50 mg tablet 50 mg PO BEDTIME RF: 0 gabapentin 600 mg tablet 600 mg PO BEDTIME RF: 0 atorvastatin 40 mg tablet 40 mg PO BEDTIME RF: 0 (DME) flash glucose sensor Kit See Rx Instructions ea topical Q2W Qty: 1 RF: 0 triamcinolone acetonide 55 mcg aerosol,spray 1 spray intranasal NEEDED RF: 0 acetaminophen [Tylenol Extra Strength] 500 mg tablet 1,000 mg PO Q6H PRN (Reason: pain) Qty: 30 RF: 1 simethicone [Gas Relief (simethicone)] 80 mg tablet,chewable 80 mg PO TID-QID PRN (Reason: abdominal distention) Qty: 30 RF: 1 ondansetron HCl [Zofran] 4 mg tablet 4 mg PO Q6H PRN (Reason: nausea and vomiting) Qty: 30 RF: 1 Discontinued Humulin N NPH U-100 Insulin 100 unit/mL suspension 60 unit subcut BEDTIME RF: 0 metformin 500 mg tablet extended release 24 hr 2,000 mg PO DAILY RF: 0 famotidine [Pepcid AC] 20 mg tablet 20 mg PO DAILY Qty: 30 RF: 1 No Action Bariatric Multivitamins 45 mg iron- 800 mcg-120 mcg capsule PO RF: 0 calcium citrate 1,000 mg tablet 1,000 mg PO BID RF: 0 Discharge Orders: Discharge Order (Routine); Ordered 06/12/20 Ordered By: Hellen Giraldo Activity on Discharge: No heavy lifting Discharge Date/Time: 06/12/20 11:33 Activity Restrictions/Additional Instructions: No tub baths, sex or returning to work until discussed at first post op appointment. No exercise, alcohol, tobacco or illegal drug use. Continue to use incentive spirometer hourly while awake. Walk in home for 5- 10 minutes every 2 hours during the first week. Continue phase 3 diet until first post op appointment. Follow all instructions in the bariatric handbook and call with any questions.Discharge Instructions 1. Please call your doctor or come back to the emergency room should any new symptoms arise. 2. You will receive a courtesy call from [facility] 24-48 hours after discharge. 3. Activity: abstain from alcohol, practice limited stair climbing, no bending, no driving, no exercise, no illicit substances, no lifting, no sex, no tub bath, no work. 4. Diet: continue stage 3 protein shakes until your [address] Giraldo. 5. Dressing Change/Wound Care: Your incision is covered by surgical glue. If the area is tender, you may apply an ice pack for short intervals (no more than 20 minutes on, followed by at least 20 minutes off). Do not apply heat. Do not use creams, lotions, or topical antibiotics unless instructed to do so by your surgeon. These can cause infection or allergic reaction. 6. Call your doctor if: - Your temperature exceeds 101.5 F - You experience excessive pain or swelling - You have an unexpected reaction to medication - You have excessive bleeding - You experience continued vomiting/nausea - Your incision begins to separate - Your incision shows signs of infection such as increased redness, swelling, excessive pain, heat, or drainage (light blood or clear fluid is normal) 7. General instructions: No lifting greater than 5 lbs for the next 4 weeks[address] within 24 hours of taking narcotic pain medications. If you do not move your bowels in the next 2 days, please take milk of magnesia over the counter. Please follow the post op diet and do not advance your diet until you are seen in the office in about 2 weeks. Please walk around your home every hour or two to prevent blood clots from forming in your legs. You do not need to wake from sleeping to walk. Please sleep in a bed or couch to prevent kinking at the hips and knees. Please take your incentive spirometer (your lung english composition instructor) home with you and use it for the next few days to prevent pneumonias. You may shower, no hot tubs, baths or swimming pools. Please call the office with any questions or concerns such as increasing abdominal pain, fever, chills, shortness of breath, chest pain, leg pain or swelling, or redness or drainage from your incisions. Please stay on stage 3 diet which includes sugar free clear liquids such as ice pops and jello and broth and crystal light. Avoid all carbonation. Please drink 3 protein shakes with at least 25-30 grams of protein daily or 3 of the Celebrate 4:1 shakes which can be purchased in our office. The Celebrate shakes have all of the bariatric vitamins you need if you consume these shakes. If you are drinking other protein shakes, you will need to purchase the Celebrate multivitamins and calcium that we provide in the office (they will provide all the vitamins you need). Please make sure you are consuming at least 40-60 ounces of water in addition to your 3 protein shakes daily. Do not hesitate to contact the office with any questions at . DATE OF SERVICE: June 11, 2020 ADMITTING DIAGNOSES: obesity, s/p Grace fundoplication DISCHARGE DIAGNOSES: same, s/p sleeve gastrectomy and paraesophageal hernia repair with Grace fundoplication takedown PROCEDURE PERFORMED: DISCHARGE MEDICATIONS: 1. Simethicone 80mg q4h prn gas 2. Ondansetron 4mg po tid prn nausea 3. Famotidine 20mg po bid 4. Docusate sodium 100mg po bid DISCHARGE INSTRUCTIONS: The patient should continue on the stage III bariatric diet, which includes 3 protein shakes of at least 20- 30g of protein on a daily basis. The patient was encouraged to avoid drinking liquids with her protein shakes. She should wait 30-45 minutes in between her meals and drinking water. She should drink at least 40-60 ounces of water on a daily basis. She should ambulate while at home to avoid any blood clots in her lower extremities. She should call with any questions or concerns such as increase in abdominal pain, persistent nausea, vomiting, redness and drainage from her incisions, fever, chills, shortness of breast, or chest pain beyond what is normal for her. The patient should avoid all heavy lifting greater than 5 pounds for the next 4 weeks. The patient is already scheduled to follow up with me in 2 weeks' time, but should call the office with any questions prior to that follow up appointment. The patient should not advance her diet until she is seen in the office for the 2 week appointment. HOSPITAL COURSE: The patient was admitted after undergoing laparoscopic sleeve gastrectomy. She was started on stage II diet and was tolerating well without nausea or vomiting. Her pain was controlled on IV Dilaudid. All labs were within normal limits. On post-operative day #2 she was feeling better, nausea and epigastric pain improved and she was tolerating stage III bariatric diet well. She was discharged home. DISCHARGE DISPOSITION: Home. Visit Report Forms: Patient Portal Discharge page Care Plan Goals: weight loss Health Concerns: obesity Plan of Treatment: see discharge instructions
== END 2020-06-12 11:33 | disposition home or self-care (01) | DRG 403 ==
PROVIDERS: Nurse Practitioner; Surgery; Admitting Provider Physician Assistant; PCP Family Medicine; Visit Provider Physician Assistant
PROC: 0DB64Z3 Excision of Stomach, Percutaneous Endoscopic Approach, Vertical (ICD-10-PCS; CPT 43845; principal; 2020-06-11 10:00)
DX: E66.01 Morbid (severe) obesity due to excess calories (principal); E11.9 Type 2 diabetes mellitus without complications; K21.9 Gastro-esophageal reflux disease without esophagitis; Z68.39 Body mass index [BMI] 39.0-39.9, adult; G47.30 Sleep apnea, unspecified; K44.9 Diaphragmatic hernia without obstruction or gangrene; Z98.890 Other specified postprocedural states; Z20.828 Contact with and (suspected) exposure to other viral communicable diseases; Z79.4 Long term (current) use of insulin; Z79.899 Other long term (current) drug therapy
CPT/HCPCS: 36415; 80048; 82947; 85025; 86850; 86900; 86901; 87635; 88307; 88342; 99024; C1776; J0131; J1100; J1170; J2250; J2405; J2765; J3010

== ENCOUNTER → 2020-06-24 10:09 | Outpatient (BNVA) | payer OTHER, SELFPAY | PROVIDERS: PCP Family Medicine; Visit Provider Surgery | DX: Z76.89 Persons encountering health services in other specified circumstances (principal) ==

== ENCOUNTER → 2020-07-10 09:52 | Outpatient (BNVA) | payer OTHER, SELFPAY | PROVIDERS: PCP Family Medicine; Visit Provider Physician Assistant | DX: Z76.89 Persons encountering health services in other specified circumstances (principal) ==

== ENCOUNTER → 2020-08-12 12:42 | Outpatient (BNVA) | payer OTHER, SELFPAY | PROVIDERS: PCP Family Medicine; Visit Provider Dietitian, Registered ==

== ENCOUNTER → 2020-10-10 14:46 | Outpatient (BNVA) | payer OTHER, SELFPAY | PROVIDERS: PCP Family Medicine; Visit Provider Physician Assistant ==

== ENCOUNTER → 2020-12-17 10:28 | Outpatient (BNVA) | payer OTHER, SELFPAY | PROVIDERS: PCP Family Medicine; Visit Provider Physician Assistant ==

== ENCOUNTER → 2021-03-30 13:01 | Outpatient (BNVA) | payer OTHER, SELFPAY | PROVIDERS: PCP Family Medicine; Referring Provider Family Medicine; Visit Provider Surgery ==

== ENCOUNTER 2021-04-03 06:51 | Outpatient (REF) | payer OTHER, SELFPAY ==
[2021-04-03 06:57] LABS: MANUAL DIFF FLAG NO
[2021-04-03 07:17] LABS: Basophils Absolute Auto 0.1 X10*3/uL (0.0-0.2); Basophils Percent Auto 0.6 % (0-2); Eosinophils Absolute Auto 0.3 X10*3/uL (0.0-0.4); Eosinophils Percent Auto 3.1 % (0-4); Hematocrit 36.1 % (37-47); Imm Gran Abs Auto 0.01 X10*3/uL (0.00-0.03); Imm Gran Pct Auto 0.1 % (0.0-0.4); Lymphocytes Percent Auto 33.8 % (20-40); Mean Corpuscular HGB Conc 33.2 g/dl (31.0-35.0); Mean Corpuscular Hemoglobin 30.2 pg (27.0-33.0); Mean Corpuscular Volume 90.9 fL (80-98); Mean Platelet Volume 10.4 fL (9.4-12.3); Monocytes Absolute Auto 0.6 X10*3/uL (0.1-1.2); Monocytes Percent Auto 6.3 % (2-11); Neutrophils Percent Auto 56.1 % (45-73); Platelet Count 249 X10*3/uL (160-400); Red Blood Count 3.97 X10*6/uL (4.20-5.50); Red Cell Distribution Width 12.7 % (11.0-16.0); White Blood Count 8.8 X10*3/uL (4.8-10.8)
[2021-04-03 07:26] LABS: Estimated Average Glucose 154 mg/dL
[2021-04-03 07:51] LABS: Alanine Aminotransferase 10 U/L (0-31); Albumin Level 3.9 g/dL (3.5-5.0); Alkaline Phosphatase 97 U/L (39-117); Anion Gap 9 (12-20); Aspartate Amino Transferase 11 U/L (5-31); Bilirubin Total 0.4 mg/dL (0.0-1.0); Blood Urea Nitrogen 13 mg/dL (9-16); C Reactive Protein 0.16 mg/dL (< or = 0.50); Calcium 9.1 mg/dL (8.4-10.2); Carbon Dioxide 29 mmol/L (22-29); Chloride 106 mmol/L (96-108); Cholesterol 108 mg/dL; Estimated Glomerular Filt Rate > 60; Glucose Fasting 132 mg/dL (60-99); HDL Cholesterol 34 mg/dL; Iron 80 mcg/dL (30-160); LDL Cholesterol Calculated 54 mg/dl; Percent Iron Saturation 26 % (15-50); Sodium 140 mmol/L (135-145); Total Iron Binding Capacity 309 mcg/dL (228-428); Total Protein 6.2 g/dL (6.5-8.0); Triglycerides 100 mg/dL; Unsaturated Iron Binding 229 ug/dL
[2021-04-03 08:04] LABS: Ferritin 21 ng/mL (10-250); TSH reflex Free T4 1.63 uIU/mL (0.32-4.0); Vitamin D 25-OH Total 36.7 ng/mL (>30)
[2021-04-03 08:30] LABS: Vitamin B12 466 pg/mL (200-900)
[2021-04-06 13:27] LABS: Calcium (PTHI) 8.9 mg/dL (8.6-10.2); PTHI 51 pg/mL (14-64)
[2021-04-08 03:17] LABS: Zinc 79 mcg/dL (60-130)
[2021-04-09 00:12] LABS: Vitamin A 45 mcg/dL (38-98)
[2021-04-10 11:31] LABS: Vitamin B1 7 nmol/L (8-30)
== END 2021-04-03 06:52 | disposition home or self-care (01) ==
LOC: HO.LAB 06:51
PROVIDERS: Referring Provider Surgery; Visit Provider Physician Assistant
DX: E66.01 Morbid (severe) obesity due to excess calories (principal); Z68.36 Body mass index [BMI] 36.0-36.9, adult; Z87.19 Personal history of other diseases of the digestive system; Z90.3 Acquired absence of stomach [part of]; Z98.890 Other specified postprocedural states
CPT/HCPCS: 36415; 80053; 80061; 82306; 82607; 82728; 82746; 83036; 83540; 83970; 84425; 84443; 84590; 84630; 85025; 86140

== ENCOUNTER 2023-07-21 10:24 | Outpatient (REF) | payer BC, SELFPAY ==
[2023-07-21 11:10] LABS: Estimated Average Glucose 128 mg/dL; Hemoglobin A1c % 6.1 % (<6.0)
== END 2023-07-21 10:25 | disposition home or self-care (01) ==
LOC: HO.LAB 10:24
PROVIDERS: PCP Family Medicine; Visit Provider Family Medicine
DX: E11.42 Type 2 diabetes mellitus with diabetic polyneuropathy (principal)
CPT/HCPCS: 36415; 83036

== ENCOUNTER 2023-12-12 09:37 | Outpatient (AMB) | payer OTHER, SELFPAY ==
--- NOTE | 2023-12-12 10:05 | HO.SPINEOV ---
Vital Signs 12/12/23 10:10 Height 5 ft 3 in Weight 240 lb BMI 42.5 Intake Visit Reasons: sciatica pain Intake Note: Ms. Okeefe is here today c/o SI Joint pain on both sides. Pega Developer Required: No Allergies Bactrim Allergy (Unknown, Uncoded 04/13/23 15:25) does not work while on Metformin Physical Exam Vital Signs: BMI result Body Mass Index 42.5 Assessment & Plan Assessment & Plan (1) Chronic SI joint pain: Code(s): M53.3 - Sacrococcygeal disorders, not elsewhere classified; G89.29 - Other chronic pain Category: Medical Plan Dear Dr Parson, Thank you for referring Mrs Okeefe to our office today. 48-year-old female with history of L3-S1 fusion, done by Dr. Longoria and Dr Parson, the last 1 in 2022 where she had a large herniated disc at L3-4 and had an extension of her fusion. She has had chronic SI joint pain for many years, even predating her original spinal fusion surgery. The pain is located along the bilateral SI joint toward the buttock. She has pain primarily when sitting but if standing or walking for too long she will also have the discomfort. Sleeping seems to be okay. Long car rides a very difficult. She undergoes periodic SI joint injections, the last 1 being done just a few weeks ago. Generally they will last for number of days but then the effect will wear off and she is right back to where she was originally. She has tried physical therapy without any success. She also takes anti-inflammatories and Tylenol to try to help deal with the pain. She takes Celebrex specifically as her anti-inflammatories, she can not take traditional anti-inflammatories as they give her gastritis. She is coming in today for evaluation of possible SI joint fusion. PMH: She is history of polycystic ovarian syndrome, fibromyalgia, depression, anxiety, left bundle branch block. She is followed by Dr. Francisco at [facility], she had a full workup for this which was negative. History of hypertension, diabetes. Her last A1c was 6.1. She was recently diagnosed by eradicator with ankylosing spondylitis and was started on Humira and Celebrex with decent results. History of C5-6 and C6-7 anterior cervical fusion. She tells me this some kind of complication with the C6-7 and she had have a posterior decompression and fixation. She had a gastric sleeve, cholecystectomy. Denies any heart attacks, strokes, liver disease, kidney disease, bleeding disorders, blood clots Social hx: She has not smoke, drink or use any recreational drugs Medications: Wellbutrin, Cymbalta, BuSpar, pregabalin, Humira, Humulin, Trulicity, Celebrex, atorvastatin, hydrochlorothiazide, mesalamine Allergies: None Physical exam: Patient is awake alert oriented no acute distress, she has full strength of bilateral lower extremities, gait is normal, she has positive SI joint provocative tests including finger Erin test, lateral compression test, Gaenslen test and BRITT testing all give her reproducible discomfort in the SI joint region. She has well-healed incisions in the midline of her lumbar region as well as the paraspinal regions. Imaging review: There are lumbar x-rays and a recent lumbar MRI done at [facility] these were reviewed shows good positioning of interbody cages and hardware. Impression: 48-year-old female h/o L3-S1 fusion, presenting for evaluation of bilateral SI joint pain, left greater than right. She has many of the classic symptoms, and reproducible pain on physical examination with SI joint provocative test. She has had numerous serial SI joint injections which do give her predictable relief for a number of days. She is also higher risk for SI joint issues because of the L3-S1 fusion giving her adjacent segment issues. She also had 2 natural childbirths which can also predispose to SI joint pain. Typically this is something Dr. Romero would offer SI joint fusion. The patient would like to start on the left side because that is where she has more discomfort. We did discuss the Transfasten procedure at length. She understands she will have to be nonweightbearing to her left leg for 3 weeks after mobilize with crutches. She will also have to be offer Trulicity 1 week leading up to surgery, and her Humira 2 weeks prior to surgery. I will review her clinical situation with Dr. Romero and get back to her with the final date and plan for surgery. Thank you for allowing us to care for your patient. The total time spent with this visit with this patient was 45 minutes reviewing history, physical exam, lumbar imaging review, and implementation of treatment plan or further diagnostic testing Cuauhtemoc Romero MD,PhD [facility] Coding Level of Care Code New Pt Level 4 (24348) Diagnoses Chronic SI joint pain M53.3; G89.29
[2023-12-12 10:10] VITALS: BMI 42.5
== END 2023-12-12 11:11 | disposition home or self-care (01) ==
PROVIDERS: PCP Family Medicine; Visit Provider Physician Assistant
DX: M53.3 Sacrococcygeal disorders, not elsewhere classified (principal); G89.29 Other chronic pain
CPT/HCPCS: 99204

== ENCOUNTER → 2023-12-12 09:37 | Outpatient (BNVA) | payer OTHER, SELFPAY | PROVIDERS: PCP Family Medicine; Visit Provider Physician Assistant ==

== ENCOUNTER → 2024-05-08 23:59 | Outpatient (BNV) | payer OTHER, SELFPAY | PROVIDERS: PCP Family Medicine; Visit Provider Internal Medicine | DX: R07.9 Chest pain, unspecified (principal); I95.9 Hypotension, unspecified | CPT/HCPCS: 99223 ==

== ENCOUNTER 2024-12-25 14:12 | Outpatient (AMB) | payer OTHER, SELFPAY ==
--- NOTE | 2024-12-25 14:17 | A.OFFVIS_ITS ---
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 The chest pain began approximately four and a half years ago and is described as constant, throbbing, stabbing, tingling, tiring, hurting, aching, heavy, tight squeezing, radiating, and spreading. The pain is worse at the end of the day, rated at 6/10, and improves slightly upon waking, rated at 4/10. The patient has a history of fibromyalgia diagnosed in 2008, post laminectomy sydrome and sacroiliac joint pain which contributes to her chronic pain syndrome. She experiences widespread body pain, including allodynia , which she describes as her skin hurting like having the flu. She has been managing her fibromyalgia and chronic pain with hydromorphine and pregabalin, which has provided some relief, although she still experiences significant stiffness and pain upon waking. The patient has a significant surgical history, including L3-S1 fusion and C5-C7 cervical fusions. She also underwent sleeve gastrectomy, shoulder surgery and carpal tunnel release on both wrists. She reports persistent pain at previous incision sites and in her shoulders, where she states she has a calcium buildup in the rotator cuff. Patient also reports history of migraines with occipital neuralgia and has underwent head and brain imaging at [facility] within past 1.5 years. The patient has a history of non-ischemic cardiomyopathy, for which she was hospitalized last May and received a pacemaker. Post-procedure, she developed esophageal spasms, which were treated with Dilaudid. She continues to experience chest pain and palpitations, which can occur at any time, including at rest, and are exacerbated by stress and exercise. The patient has a history of melanoma, diagnosed 22 years ago, and a thyroid nodule, both of which are currently resolved. She is a former smoker, having quit after 30 years, and consumes alcohol socially. She denies any illicit drug use. The patient is currently in psychological counseling for depression and receives massage therapy every two weeks, which provides about 40% pain relief. She has a history of previous nerve blocks and is on medications including tizanidine, pregabalin, and Mounjaro injections. - Onset: Approximately four and a half years ago - Quality: Constant, throbbing, stabbing, pulsing, tingling, tiring, hurting, aching, heavy, tight squeezing, radiating, spreading - Severity: 6/10 at the end of the day, 4/10 upon waking - Location: Chest, radiating and spreading - Exacerbating factors: Stress, exercise, end of the day - Relieving factors: Waking up, massage therapy - Affect: The patient is currently in psychological counseling for depression. - Analgesia: Pain managed with tizanidine, pregabalin, and Mounjaro injections. Pain levels are 6/10 at the end of the day and 4/10 upon waking. - Adverse Effects: Hypertension caused by Dilaudid, leading to its cessation. - Activities of Daily Living: Pain impacts daily life, with significant stiffness and pain upon waking. - Aberrant Drug Related Behaviors: None reported. [facility] Medical History Fusion of spine Migraine Fibromyalgia Thyroid nodule Hyperlipidemia Left bundle branch block (LBBB) on electrocardiogram History of colitis History of thyroid nodule PCOS (polycystic ovarian syndrome) Sleep apnea History of melanoma GERD (gastroesophageal reflux disease) Type 2 diabetes mellitus Depression Cervicalgia ADD (attention deficit disorder) Surgical History H/O ovarian cystectomy Hx of cholecystectomy Status post repair of paraesophageal diaphragmatic hernia History of sleeve gastrectomy Hx of shoulder surgery S/P laparoscopic cholecystectomy History of melanoma excision S/P carpal tunnel release S/P cervical spinal fusion History of foot surgery History of fundoplication Family History Father Asthma Heart disease HTN (hypertension) Type 2 diabetes mellitus Skin cancer Mother Skin cancer PCOS (polycystic ovarian syndrome) Son Asthma Daughter No problems noted. Paternal Uncle Lung cancer Sister No problems noted. Social History Household Members: Spouse Housing: House Are you a primary career development coordinator/teacher to a significant other at home: No Do you presently have visiting nurse or other home services: No Alcohol intake: current Alcohol intake frequency: a few times a month Comment: pt sleeping Patient Tobacco Use Status: Former Tobacco user Second Hand Smoke Exposure: No service: No Current occupational status: employed Review of Systems Const Details: - Cardiovascular: Reports chest wall pain with chest pain, palpitations, and hypertension. Denies syncope. - Musculoskeletal: Reports widespread body pain, stiffness, and allodynia. - Neurological: Reports dizziness upon bending. Reports migraines with nausea, occipital neuralgia and tinnitus. - Gastrointestinal: Reports esophageal spasms. - Genitourinary: Reports urinary incontinence. - Psychiatric: Reports depression. All systems reviewed & are unremarkable except as noted in HPI and below Physical Exam Vital Signs: Last Vital Signs Pulse 84 12/25/24 14:22 BP 147/93 H 12/25/24 14:22 Pulse Ox 97 12/25/24 14:22 Oxygen Delivery Method Room Air 12/25/24 14:22 BMI result Body Mass Index 34.9 General: Appears afebrile. Alert and oriented. Mood and affect appropriate. Follows and participates in conversation appropriately. Respiratory effort is unlabored. No cough. Able to transition from sit to stand unassisted. Ambulates with bilaterally normal heel strike and toe off. Chest Chest palpation & inspection: normal inspection of the chest, tenderness pectoral muscle on the left diffusely and sternum, Pacemaker present and No rash Results Reviewed Results Reviewed: Assessment & Plan Assessment & Plan (1) Chest wall pain: Code(s): R07.89 - Other chest pain Category: Medical (2) Thoracic radiculitis: Code(s): M54.14 - Radiculopathy, thoracic region Category: Medical (3) Post laminectomy syndrome: Code(s): M96.1 - Postlaminectomy syndrome, not elsewhere classified Category: Medical (4) Intercostal neuralgia: Code(s): G58.8 - Other specified mononeuropathies Category: Medical Plan The plan involves addressing the patient's chronic pain, particularly focusing on the chest wall pain associated with microvascular dysfunction and fibromyalgia. Given the history of non-ischemic cardiomyopathy and pacemaker insertion, we will obtain medical release to review most recent cardiovascular evaluation to rule out any ongoing cardiac causes of the chest pain. The patient will continue with her current medications, including tizanidine, pregabalin, and Mounjaro injections, while exploring additional pain management options such as therapeutic injections or nerve blocks. She will continue hydromorphine through her current PCP as this allows her to be more functional and less symptomatic. The patient is advised to continue psychological counseling for depression and engage in regular physical activity to manage fibromyalgia symptoms. Massage therapy will be continued as it provides partial relief. Schedule Left T6-T7 Intercostal nerve block with local and fluoroscopy. If no relief, will consider thoracic RADHA and trigger point injections. Expectations, risks and benefits were reviewed. Patient is aware she will be contacted to schedule this procedure. All questions and concerns have been answered and patient agreed with the plan. Follow up after injections and sooner as needed. Patient was informed and verbally consented to the use of an ambient scribe for clinic note documentation during this visit. Coding Level of Care Code New Pt Level 4 (63958) Diagnoses Chest wall pain R07.89 Thoracic radiculitis M54.14 Post laminectomy syndrome M96.1 Intercostal neuralgia G58.8
[2024-12-25 14:22] VITALS: BP 147/93; PULSE 84; O2SAT 97; BMI 34.9
--- OUTSIDE RECORDS SUMMARY | 2024-12-25 17:18 | XMS_ITS | Patient Health Record ---
Author Organization [facility] Address [address] [place] [phone] Care Team Providers Care Clutch Assembler Name Role Phone PRISCILA SALCEDO M.D. Primary Care Provider Unav ailable Corona Hernandez Unavailable [phone] Delaney Heath Unavailable Unavailable Allergies Allergen (clinical drug ingredient) Drug/Non Drug Allergy documented on EMR Reaction Allergy Type Onset Date Status acetaminophen / oxycodone Percocet Unknown Drug Allergy Active oxycodone OxyContin Unknown Drug Allergy Active Reason For Referral No Information Medications Medication SIG (Take, Route, Frequency, Duration) Notes Start Date End Date Status busPIRone HCl 10 MG 2 1/2 tablet Orally Twice a day Active Linzess 290 MCG TAKE 1 CAPSULE AT LEAST 30 MINUTES BEFORE THE FIRST MEAL OF THE DAY for 30 Active Cymbalta 60 MG 1 capsule Orally Once a day for 30 day(s) Active Bariatric Multivitamins/Iron Active Hyoscyamine Sulfate 0.125 MG 1 or 2 tablets under the tongue and allow to dissolve Sublingual Use every 4 to 6 hours if needed for abdominal pain for 30 days Please remind patient to stop her Dicyclomine when she starts her Hyoscyamine. Thanks 11/15/2024 Active Dicyclomine HCl 10 MG 1-2 Orally Every 6 hours prn abdominal pain/cramps/discom fort for 30 day(s) prn 07/24/2019 Active Magnesium Active Mesalamine 400 MG TAKE TWO CAPSULES BY MOUTH THREE TIMES A DAY for 30 Active Myrbetriq 50 MG 1 tablet Orally Once a day for 30 day(s) Active Mounjaro 10 MG/0.5ML INJECT CONTENTS OF 1 PEN UNDER THE SKIN ONCE WEEKLY Subcutaneous for 28 Active Aspir-Low Active Atorvastatin Calcium 40 MG 1 tablet Orally Once a day Active Isosorbide Dinitrate 5 MG TAKE ONE TABLET BY MOUTH TWICE A DAY Oral for 30 Active CeleBREX 100 MG 1 capsule with food Orally Once a day for 30 day(s) Active Farxiga 10 MG TAKE ONE TABLET BY MOUTH EVERY DAY Oral for 30 Active traZODone HCl 50 MG 1 tablet at bedtime as needed Orally Once a day Active Pregabalin 150 MG Oral for 30 Not-Taking Wellbutrin XL 300 MG 1 tablet in the morning Orally Once a day Active Zofran 4 MG 1 tablet Orally Q 6 hours prn nausea for 30 days 11/08/2016 Not-Taking Ondansetron 4 MG 1 tablet on the tongue and allow to dissolve Orally Every 4 to 6 hours if needed for nausea for 30 days 09/19/2024 Active Omeprazole 40 MG 1 capsule 1/2 to 1 hour before morning meal Orally Once a day for 30 days Active Immunizations Vaccine Route Administration Date Status Comme nts Influenza Unknown 03/15/2018 Administered Influenza Unknown 04/05/2019 Administered Influenza Unknown 04/20/2022 Administered Influenza Unknown 05/24/2023 Administered Social History Tobacco Use: Social History Observation Description Date Details (start date - stop date) Former Smoker NA - NA Tobacco Use/Smoking Question Answer Notes Patient is a former smoker When did you start smoking? 11 years old When did you stop smoking? 4 years ago How long has it been since you last smoked? 1-5 years Additional Findings: Tobacco Non-User Ex-cigaret te smoker Alcohol Screen Question Answer Notes Did you have a drink contain ing alcohol in the past year? Yes How often did you have a dri nk containing alcohol in the past year? Monthly or less (1 point) How many drinks did you have on a typical day when you were drinking in the past year? 1 or 2 drinks (0 point) How often did you have 6 or more drinks on one occasion in the past year? Never (0 point) Points 1 Interpretation Negative Section Notes: Smoker; no sig alcohol Stopped smoking 05/2016; no sig alcohol Stopped smoking 05/2016; no sig alcohol Stopped smoking 05/2016; no sig alcohol Stopped smoking 05/2016; no sig alcohol Stopped smoking 05/2016; no sig alcohol Stopped smoking 05/2016; no sig alcohol Stopped smoking 05/2016; no sig alcohol Stopped smoking 05/2016; no sig alcohol Stopped smoking 05/2016; no sig alcohol Problems Problem Type SNOMED Code ICD Code Onset Dates Problem Status W/U Status Risk Notes Problem Colon cancer screening (516123995) Colon cancer screening (Z12.11) Active confirmed Problem Esophageal reflux (815561605) Esophageal reflux (K21.9) Active confirmed Problem 36144305 Colitis (K52.9) Active confirmed Problem 09137229 Hiatal hernia (K44.9) Active confirmed Problem 23395248 Rectal bleed (K62.5) Active confirmed Problem 02853121 Rectal pain (K62.89) Active confirmed Problem 06396683 Constipation, unspecified constipation type (K59.00) Active confirmed Problem History of colitis (451456505) History of colitis (Z87.19) Active confirmed Problem Gastroesophageal reflux disease (903500233) GERD (gastroesophage al reflux disease) (K21.9) Active confirmed Problem 122997667 Irritable bowel syndrome with constipation (K58.1) Active confirmed Problem History of adenomatous polyp of colon (842173003) History of adenomatous polyp of colon (Z86.0101) Active confirmed Vital Signs Temperature 97.8 degrees Fahrenheit 01/11/2024 Blood pressure diastolic 00 mm Hg 07/17/2024 Height 63 in 07/17/2024 Blood pressure systolic 00 mm Hg 07/17/2024 Weight 220 lbs 07/17/2024 BMI 38.97 kg/m2 07/17/2024 Procedures Procedure Date Ordered Date Performed Result Body Sit e COLONOSCOPY 11/14/2024 N/A Encounters Encounter Location Date Provider Diagnosis [facility] [address] [place] [phone] 01/11/2024 Corona Hernandez Constipation, unspecified constipation type K59.00 ; Colitis K52.9 ; GERD (gastroesophageal reflux disease) K21.9 and Esophageal reflux K21.9 [facility] [address] [place] [phone] 07/17/2024 Corona Hernandez Constipation, unspecified constipation type K59.00 ; Colitis K52.9 ; Esophageal reflux K21.9 and Irritable bowel syndrome with constipation K58.1 [facility] [address] [place] [phone] 04/04/2024 Corona Hernandez [facility] [address] [place] [phone] 09/13/2024 Corona Hernandez [facility] [address] [place] [address] 09/21/2024 Corona Hernandez [facility] [address] [place] [address] 09/25/2024 Corona Hernandez [facility] [address] [place] [address] 11/14/2024 Corona Hernandez History of adenomato us polyp of colon Z86.0101 ; Colon cancer screening Z12.11 and History of colitis Z87.19 [facility] [address] [place] [phone] 11/28/2024 Corona Hernandez Assessments Encounter Date Diagnosis (ICD Code) Assessment Notes Treatment Notes Treatment Clinical Notes Section Notes 01/11/2024 Colitis (ICD-10 - K52.9) Overall, Sara appears well. Her colitis remains in clinical remission on her current regimen of mesalamine. I did advise her to continue that on a long-term basis. We did review that she will be due for a followup colonoscopy for screening purposes in 2024. In regard to her constipation it does appear that she has had some mild to moderate improvement as she will have several days in a row without any difficulties, but unfortunately will Then have several days in a row in which she does have constipation and discomfort. I advised her that she should continue her daily Linzess, she showed Increase her stool softeners to twice a day. I also advised her that she might want to go back to using just a little bit of MiraLax daily to see if that can help prevent the episodes of constipation. We also discussed her intermittent use of narcotic pain medication for her back may be the triggering factor for her intermittent episodes of constipation. Therefore, I did advise her that when she does use her pain medications she should take some extra MiraLax around those days to hopefully prevent any narcotic-induced constipation. At this point I advised her to see me in 6 months for followup office visit. When I see her at that visit I will schedule her for a colonoscopy sometime in 2024. I did advise her to contact me in the interim if she has any problems or questions I can be of assistance with. Sara was comfortable with this plan. Thank you again for allowing me to participate in Sara's care. I shall continue to keep you advised of her progress. 01/11/2024 Constipation, unspecified constipation type (ICD-10 - K59.00) Continue the daily Linzess Continue the same Mesalamine regimen Increase the stool softeners to twice a day on a regular basis You can use a little Miralax every day WHEN YOU TAKE A PAIN MEDICATION YOU SHOULD INCREASE THE MIRALAX TO PREVENT CONSTIPATION Continue Miralax and stool softeners Overall, Sara appears well. Her colitis remains in clinical remission on her current regimen of mesalamine. I did advise her to continue that on a long-term basis. We did review that she will be due for a followup colonoscopy for screening purposes in 2024. In regard to her constipation it does appear that she has had some mild to moderate improvement as she will have several days in a row without any difficulties, but unfortunately will Then have several days in a row in which she does have constipation and discomfort. I advised her that she should continue her daily Linzess, she showed Increase her stool softeners to twice a day. I also advised her that she might want to go back to using just a little bit of MiraLax daily to see if that can help prevent the episodes of constipation. We also discussed her intermittent use of narcotic pain medication for her back may be the triggering factor for her intermittent episodes of constipation. Therefore, I did advise her that when she does use her pain medications she should take some extra MiraLax around those days to hopefully prevent any narcotic-induced constipation. At this point I advised her to see me in 6 months for followup office visit. When I see her at that visit I will schedule her for a colonoscopy sometime in 2024. I did advise her to contact me in the interim if she has any problems or questions I can be of assistance with. Sara was comfortable with this plan. Thank you again for allowing me to participate in Sara's care. I shall continue to keep you advised of her progress. 07/17/2024 Colitis (ICD-10 - K52.9) Continue mesalamine for the colitis Overall, Sara appears to be doing well from a GI standpoint. Her colitis appears to be inactive at this time. I advised her to continue her current regimen of mesalamine, as well as her bowel regimen in general in regard to the previous constipation. We did review that she is theoretically due for a colonoscopy this year given the previous history of a tubular adenoma removed in 2019 and her last colonoscopy being in early 2019. However, given all of the recent cardiac history and some ongoing testing, I advised her that it would be best to wait until at least later in the year such that she can be cleared by her carpenters supervisor for the anesthesia and the procedure. She is not having any worrisome symptoms to suggest the need for a more urgent colonoscopy. Her reflux also seems to be stable on her omeprazole and I advised her to continue that as well. If things remain well I will plan to see her in the Fall for a followup visit. If her cardiac issues are stabilized and we can obtain clearance from her carpenters supervisor, I would then plan to schedule her for a colonoscopy thereafter. I did advise her to call me prior to that appointment if she has any problems or questions I can be of assistance with. Sara was comfortable with this plan. Thank you again for allowing me to participate in Sara's care. I shall continue to keep you advised of her progress 07/17/2024 Constipation, unspecified constipation type (ICD-10 - K59.00) Continue bowel regimen Overall, Sara appears to be doing well from a GI standpoint. Her colitis appears to be inactive at this time. I advised her to continue her current regimen of mesalamine, as well as her bowel regimen in general in regard to the previous constipation. We did review that she is theoretically due for a colonoscopy this year given the previous history of a tubular adenoma removed in 2019 and her last colonoscopy being in early 2019. However, given all of the recent cardiac history and some ongoing testing, I advised her that it would be best to wait until at least later in the year such that she can be cleared by her carpenters supervisor for the anesthesia and the procedure. She is not having any worrisome symptoms to suggest the need for a more urgent colonoscopy. Her reflux also seems to be stable on her omeprazole and I advised her to continue that as well. If things remain well I will plan to see her in the Fall for a followup visit. If her cardiac issues are stabilized and we can obtain clearance from her carpenters supervisor, I would then plan to schedule her for a colonoscopy thereafter. I did advise her to call me prior to that appointment if she has any problems or questions I can be of assistance with. Sara was comfortable with this plan. Thank you again for allowing me to participate in Sara's care. I shall continue to keep you advised of her progress 11/14/2024 Colon cancer screening (ICD-10 - Z12.11) 11/14/2024 History of adenomatous polyp of colon (ICD-10 - Z86.0101) 01/11/2024 GERD (gastroesophagea l reflux disease) (ICD-10 - K21.9) Overall, Sara appears well. Her colitis remains in clinical remission on her current regimen of mesalamine. I did advise her to continue that on a long-term basis. We did review that she will be due for a followup colonoscopy for screening purposes in 2024. In regard to her constipation it does appear that she has had some mild to moderate improvement as she will have several days in a row without any difficulties, but unfortunately will Then have several days in a row in which she does have constipation and discomfort. I advised her that she should continue her daily Linzess, she showed Increase her stool softeners to twice a day. I also advised her that she might want to go back to using just a little bit of MiraLax daily to see if that can help prevent the episodes of constipation. We also discussed her intermittent use of narcotic pain medication for her back may be the triggering factor for her intermittent episodes of constipation. Therefore, I did advise her that when she does use her pain medications she should take some extra MiraLax around those days to hopefully prevent any narcotic-induced constipation. At this point I advised her to see me in 6 months for followup office visit. When I see her at that visit I will schedule her for a colonoscopy sometime in 2024. I did advise her to contact me in the interim if she has any problems or questions I can be of assistance with. Sara was comfortable with this plan. Thank you again for allowing me to participate in Sara's care. I shall continue to keep you advised of her progress. 07/17/2024 Esophageal reflux (ICD-10 - K21.9) Overall, Sara appears to be doing well from a GI standpoint. Her colitis appears to be inactive at this time. I advised her to continue her current regimen of mesalamine, as well as her bowel regimen in general in regard to the previous constipation. We did review that she is theoretically due for a colonoscopy this year given the previous history of a tubular adenoma removed in 2019 and her last colonoscopy being in early 2019. However, given all of the recent cardiac history and some ongoing testing, I advised her that it would be best to wait until at least later in the year such that she can be cleared by her carpenters supervisor for the anesthesia and the procedure. She is not having any worrisome symptoms to suggest the need for a more urgent colonoscopy. Her reflux also seems to be stable on her omeprazole and I advised her to continue that as well. If things remain well I will plan to see her in the Fall for a followup visit. If her cardiac issues are stabilized and we can obtain clearance from her carpenters supervisor, I would then plan to schedule her for a colonoscopy thereafter. I did advise her to call me prior to that appointment if she has any problems or questions I can be of assistance with. Sara was comfortable with this plan. Thank you again for allowing me to participate in Sara's care. I shall continue to keep you advised of her progress 11/14/2024 History of colitis (ICD-10 - Z87.19) 01/11/2024 Esophageal reflux (ICD-10 - K21.9) Overall, Sara appears well. Her colitis remains in clinical remission on her current regimen of mesalamine. I did advise her to continue that on a long-term basis. We did review that she will be due for a followup colonoscopy for screening purposes in 2024. In regard to her constipation it does appear that she has had some mild to moderate improvement as she will have several days in a row without any difficulties, but unfortunately will Then have several days in a row in which she does have constipation and discomfort. I advised her that she should continue her daily Linzess, she showed Increase her stool softeners to twice a day. I also advised her that she might want to go back to using just a little bit of MiraLax daily to see if that can help prevent the episodes of constipation. We also discussed her intermittent use of narcotic pain medication for her back may be the triggering factor for her intermittent episodes of constipation. Therefore, I did advise her that when she does use her pain medications she should take some extra MiraLax around those days to hopefully prevent any narcotic-induced constipation. At this point I advised her to see me in 6 months for followup office visit. When I see her at that visit I will schedule her for a colonoscopy sometime in 2024. I did advise her to contact me in the interim if she has any problems or questions I can be of assistance with. Sara was comfortable with this plan. Thank you again for allowing me to participate in Sara's care. I shall continue to keep you advised of her progress. 07/17/2024 Irritable bowel syndrome with constipation (ICD-10 - K58.1) Overall, Sara appears to be doing well from a GI standpoint. Her colitis appears to be inactive at this time. I advised her to continue her current regimen of mesalamine, as well as her bowel regimen in general in regard to the previous constipation. We did review that she is theoretically due for a colonoscopy this year given the previous history of a tubular adenoma removed in 2018 and her last colonoscopy being in early 2019. However, given all of the recent cardiac history and some ongoing testing, I advised her that it would be best to wait until at least later in the year such that she can be cleared by her carpenters supervisor for the anesthesia and the procedure. She is not having any worrisome symptoms to suggest the need for a more urgent colonoscopy. Her reflux also seems to be stable on her omeprazole and I advised her to continue that as well. If things remain well I will plan to see her in the Fall for a followup visit. If her cardiac issues are stabilized and we can obtain clearance from her carpenters supervisor, I would then plan to schedule her for a colonoscopy thereafter. I did advise her to call me prior to that appointment if she has any problems or questions I can be of assistance with. Sara was comfortable with this plan. Thank you again for allowing me to participate in Sara's care. I shall continue to keep you advised of her progress 07/17/2024 Other We will schedule a colonoscopy for you when I see you in the Fall Overall, Sara appears to be doing well from a GI standpoint. Her colitis appears to be inactive at this time. I advised her to continue her current regimen of mesalamine, as well as her bowel regimen in general in regard to the previous constipation. We did review that she is theoretically due for a colonoscopy this year given the previous history of a tubular adenoma removed in 2018 and her last colonoscopy being in early 2019. However, given all of the recent cardiac history and some ongoing testing, I advised her that it would be best to wait until at least later in the year such that she can be cleared by her carpenters supervisor for the anesthesia and the procedure. She is not having any worrisome symptoms to suggest the need for a more urgent colonoscopy. Her reflux also seems to be stable on her omeprazole and I advised her to continue that as well. If things remain well I will plan to see her in the Fall for a followup visit. If her cardiac issues are stabilized and we can obtain clearance from her carpenters supervisor, I would then plan to schedule her for a colonoscopy thereafter. I did advise her to call me prior to that appointment if she has any problems or questions I can be of assistance with. Sara was comfortable with this plan. Thank you again for allowing me to participate in Sara's care. I shall continue to keep you advised of her progress Plan Of Treatment Pending Test Test Name Order Date COLONOSCOPY 11/14/2024 Future Test Test Name Order Date COLONOSCOPY 04/02/2014 COLONOSCOPY 08/29/2018 Next Appt Details Provider Name:Corona Hernandez , 02/08/2025 11:50:00 AM, [address] [facility] , [place], [place], [id number], Provider Name:Corona Hernandez , 03/20/2025 04:20:00 PM, [address] [place] [address], [address], [place], [address], Insurance Providers Payer Name Payer Address Payer Phone Subscriber Number Group Number Insured Name Patient Relationship to Insured Coverage Start Date Coverage End Date [facility] [address] [place] [phone] [id number] GENO SARA Self - patient is the insured Medical (General) History Medical History History ICD Code GERD/HH--did well after refl ux surgery in 2003, but has been on Omeprazole since approx 2010 for reflux; hiatal hernia repaired again during her sleeve gastrectomy surgery in June, Multiple skin cancers, including a melan shavon removed in 2002 NIDDM Denies ID,CVA,Lung disease,renal disease Depression Chest pain--at [facility] in 03/2014--neg. nuc lear ETT and ECHO Sleep apnea-uses CPAP nightly IDDM EGD in March of 2016 rev ealed a small hiatal hernia, but no sign of any esophagitis or ulcer disease-there was some mild gastritis but biopsies were negative for H. pylori-the previous fundoplication seemed intact Colonoscopy in 2013 was nega tive for any polyps, inflammatory bowel disease, nor microscopic colitis--she did have internal hemorrhoids Left bundle branch block Colonoscopy in August 2018 revealed a small tubular adenoma, inflammatory colon polyp, and no evidence of colitis at that time--the terminal ileum appeared normal at that time Hospitalization and colonosc opy in July of 2019 for the evaluation of abdominal pain, rectal bleeding, and CAT scan describing colitis in the area of the transverse colon--- her colonoscopy revealed a segmental colitis involving the transverse colon--the bowel proximal and distal to this appeared normal--biopsies from the transverse colon revealed changes consistent with chronic active colitis and were negative for granulomas; biopsies from the normal appearing descending colon were normal as well--she was started on mesalamine Upper endoscopy 01/2020 with a small HH, no esophagitis, gastric bx neg for Hpylori Sees Dr. Giraldo for weigh t loss and may be having a gastric sleeve surgery in 07/2020 Neg. cardiac catheterization 2019-cardio logist is Dr. Francisco Occipital neuralgia sy with steroi d injections She reports Ankylosing spondylitis Since 02/2024 heart failure --needed CT, MRI, Cardiac ECHO, Cardiac cath, and a pacemaker--seeing Dr. Canela at [facility] Surgical History Surgery Date(Month/Year) Melanoma removed from scalp 2002 Ovarian cyst removal C5/C6 fusion--Dr. Longoria 04/1010 C6/C7 fusion--Dr. 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 Vidal Anal fissure [place] [address] Delaney Bariatric Surgery--sleeve ga strectomy and repair of hiatal hernia---Dr. Giraldo 06/2020 L3-S1 back surgery in 02/2021 L4-L5 back surgery 10/2022 Pacemaker 05/2024
== END 2024-12-25 15:10 | disposition home or self-care (01) ==
LOC: HO.PMC 14:13
PROVIDERS: PCP Family Medicine; Referring Provider Family Medicine; Visit Provider Nurse Practitioner Family
DX: R07.89 Other chest pain (principal); M54.14 Radiculopathy, thoracic region; M96.1 Postlaminectomy syndrome, not elsewhere classified
CPT/HCPCS: 99204

== ENCOUNTER 2025-01-14 12:43 | Outpatient (AMB) | payer OTHER, SELFPAY ==
--- NOTE | 2025-01-14 12:45 | A.OFFVIS_ITS ---
Vital Signs 01/14/25 12:46 Height 5 ft 3 in Weight 196 lb BMI 34.7 BP 144/91 H Blood Pressure Location Lt brachial Position Sitting Respiration 16 Pulse 89 Pulse Source Pulse Oximeter Pulse Oximetry (%) 97 Oxygen Delivery Method Room Air Intake Visit Reasons: Left T6-T7 intercostal NB Cotton Grower Required: No Home Improvement Advisor: Home Improvement Advisor Present Accompanied by: Júnior Aguilar Allergies amlodipine Allergy (Unknown, Verified 01/14/25 12:47) Dizziness Bactrim Allergy (Unknown, Uncoded 01/14/25 12:47) does not work while on Metformin Medication List - Last Reconciled 01/14/25 by Britany Mcgraw LPN aspirin 81 mg PO DAILY bupropion HCl XL 150 mg PO QAM carvedilol 3.125 mg PO BID duloxetine 60 mg PO BEDTIME flash glucose sensor As directed hpbfyhnrczhc-bkb-xzek-FA-vit K 45 mg iron- 800 mcg-120 mcg (Bariatric Multivitamins) caps PO omeprazole 40 mg PO DAILY pregabalin (Lyrica) 150 mg PO BID sucralfate (Carafate) 1 g PO BID tirzepatide (Mounjaro) 10 mg subcut QWEEK tizanidine 4 mg PO TID trazodone 50 mg PO BEDTIME HPI HPI Left T6-T7 intercostal NB: Details: History of Present Illness The patient is a 49-year-old female presenting with chronic pain management concerns. She reports experiencing pain at the pacemaker pocket site, which is a known complication of having a battery implanted under the skin. The pain has been persistent since the pacemaker was replaced due to initial lead misplacement, and it has been exacerbated by her pre-existing C-spine issues and generalized hyperesthesia, with central sensitization. The patient also has a history of fibromyalgia, which has been present for three to four years, characterized by widespread pain and allodynia. She manages her fibromyalgia with medications including Dilaudid, Cymbalta, and Lyrica, although she uses Dilaudid sparingly. The patient has a history of heart failure, which led to the placement of the pacemaker after her ejection fraction dropped to 25%. Her ejection fraction has improved to 50% following the pacemaker insertion. She has undergone multiple surgeries, including neck surgery at C6-7 and L3-S1 posterior fusion, and has a history of skin cancer excisions. Pain Description - Onset: Pocket pain began after pacemaker revision for lead displacement. - Quality: Described as persistent and exacerbated by pre-existing neck issues. - Location: Pacemaker pocket site. - Radiation: Not explicitly mentioned. - Exacerbating factors: Sensitive nerves due to neck issues. - Relieving factors: Not explicitly mentioned. - Interference: Affects daily activities and psychological wellbeing. Physical Exam - Examination of pacemaker pocket site revealed exquisite tenderness overlying the battery. Pain Management - Affect: Pain impacts psychological wellbeing, causing frustration and emotional distress. - Analgesia: Current medications include Dilaudid, Cymbalta, and Lyrica; Dilaudid used sparingly due to concerns about senior care hyperalgesia. - Adverse Effects: Potential for increased allodynia with prolonged Dilaudid use. - Activities of Daily Living: Pain interferes with daily activities and work, requiring intermittent leave. - Aberrant Drug Related Behaviors: No aberrant behaviors reported; Dilaudid used as needed for flares. [facility] Medical History (Updated 01/16/25 @ 12:05 by Pool Read MD) Fusion of spine Migraine Fibromyalgia Thyroid nodule Hyperlipidemia Left bundle branch block (LBBB) on electrocardiogram History of colitis History of thyroid nodule PCOS (polycystic ovarian syndrome) Sleep apnea History of melanoma GERD (gastroesophageal reflux disease) Type 2 diabetes mellitus Depression Cervicalgia ADD (attention deficit disorder) Surgical History H/O ovarian cystectomy Hx of cholecystectomy Status post repair of paraesophageal diaphragmatic hernia History of sleeve gastrectomy Hx of shoulder surgery S/P laparoscopic cholecystectomy History of melanoma excision S/P carpal tunnel release S/P cervical spinal fusion History of foot surgery History of fundoplication Family History Father Asthma Heart disease HTN (hypertension) Type 2 diabetes mellitus Skin cancer Mother Skin cancer PCOS (polycystic ovarian syndrome) Son Asthma Daughter No problems noted. Paternal Uncle Lung cancer Sister No problems noted. Social History Household Members: Spouse Housing: House Are you a primary daycare director to a significant other at home: No Do you presently have visiting nurse or other home services: No Alcohol intake: current Alcohol intake frequency: a few times a month Comment: pt sleeping Patient Tobacco Use Status: Former Tobacco user Second Hand Smoke Exposure: No service: No Current occupational status: employed Physical Exam Vital Signs: Last Vital Signs Pulse 89 01/14/25 12:46 Resp 16 01/14/25 12:46 BP 144/91 H 01/14/25 12:46 Pulse Ox 97 01/14/25 12:46 Oxygen Delivery Method Room Air 01/14/25 12:46 BMI result Body Mass Index 34.7 Assessment & Plan Assessment & Plan (1) Complication of cardiac pulse generator: Code(s): T82.9XXA - Unspecified complication of cardiac and vascular prosthetic device, implant and graft, initial encounter Category: Medical (2) Post laminectomy syndrome: Code(s): M96.1 - Postlaminectomy syndrome, not elsewhere classified Category: Medical (3) Fibromyalgia: Code(s): M79.7 - Fibromyalgia Category: Medical (4) 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 - Recommend trial of low dose naltrexone to manage allodynia and diffuse neuropathic symptoms, with titration starting at 1.5 mg and increasing to a maximum of 6 mg as tolerated. - Advise against further increasing Lyrica dosage due to potential fluid retention and heart failure risk. - Suggest consultation with a pain psychologist for cognitive behavioral therapy to manage pain-related psychological distress and improve strategies mechanisms for exacerbations. - Discuss options for pocket site pain management with implanting garbage man. - Follow-up in four months to assess response to low dose naltrexone and overall pain management. Patient was informed and verbally consented to the use of an ambient scribe for clinic note documentation during this visit. Discussion Notes I discussed with the patient the potential benefits of low dose naltrexone for managing allodynia and fibromyalgia symptoms, explaining the titration process and potential interference with Dilaudid use. We also talked about the importance of not increasing Lyrica dosage due to heart failure risks and the potential benefits of cognitive behavioral therapy with a pain psychologist to address psychological distress related to chronic pain. A follow-up appointment was scheduled for four months to evaluate the effectiveness of the treatment plan. Patient Instructions - Start low dose naltrexone as directed, beginning with 1.5 mg and titrate as instructed. - Do not increase Lyrica dosage without consulting your healthcare provider. - Consider scheduling an appointment with a pain psychologist for cognitive behavioral therapy. - Follow up in four months to review progress and adjust treatment as necessary. 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
[2025-01-14 12:46] VITALS: BP 144/91; PULSE 89; RESP 16; O2SAT 97; BMI 34.7
--- OUTSIDE RECORDS SUMMARY | 2025-01-14 13:37 | XMS_ITS | Clinical Summary ---
Author Organization [facility] Address [address] [place] [id number] Care Team Providers Care Certified Medical Dosimetrist Name Role Phone Andree Yoo MD Primary Care Provider [phone] Allergies Active Allergy Reactions Criticality Noted Date [...] Blood Gluc Sensor (FreeStyle Karmen 3 Sensor) [facility] USE TO TEST BLOOD SUGAR CONTINUOUSLY DIRECTED [...] EDT - 12/11/2024 10:09 PM EDT Emergency [facility] Emergency Department [address] [place] [address] Patrick Aguila MD Chest pain (Primary Dx); [...] Info) Description 03/18/2025 3:30 PM EDT Consult [facility] Cardiology [address] [place] [address] Karo Gonzales MD [address] [place] [facility] [address] [place] [address] Health Maintenance Due Date Last Done Comments [...] resultswithin the time period is included. Pathologist [facility] High Sensitivity Troponin T 12 <15 ng/L 12/11/2024 7:13 PM EDT [facility] Delta (Change) 4(H) <3 12/11/2024 7:13 PM EDT [facility] Comment:Decreased Blood Blood specimen / Unknown 12/11/2024 6:22 PM EDT 12/11/2024 6:47 PM EDT [facility] BLOOD ORDERAB LES Final Result [address] [address], [address] [address] * XR Chest 2 views (12/11/2024 4:13 PM EDT) Anatomical Region Laterality Modality Chest Computed Radiogr aphy 12/11/2024 4:13 PM EDT Impressions 12/11/2024 10:38 PM EDT No acute pulmonary disease. Interpreted by: Gume Kent DO Warp Preparer Attending addendum: Ill-defined sclerotic lesion involving the [...] pulmonary disease. Interpreted by: Gume Kent DO Warp Preparer Attending addendum: Ill-defined sclerotic lesion involving the right humeral head/proximal humerus, likely enchondroma. I personally reviewed the images and the resident's preliminary report and made the MINOR addendum above (RADPAL2). us [facility] IMG DIAGNOSTIC IM AGING ORDERABLES Final Result * 10 Min ECG 12 lead (12/11/2024 3:13 PM EDT) [facility] Ventricular rate 76 BPM EKG [facility] Atrial rate 76 BPM EKG [facility] P-R interval 142 ms EKG [facility] QRS duration 134 ms EKG [facility] Q-T interval 412 ms EKG [facility] QTC calculation (Bazett) 464 ms EKG [facility] P axis 24 degrees EKG [facility] R axis -42 degrees EKG [facility] T axis 53 degrees EKG [facility] 12/11/2024 3:13 PM EDT Narrative EKG [facility] - 12/11/2024 3:24 PM EDT Atrial-sensed ventricular-paced rhythm Abnormal ECG No previous ECGs available Confirmed by MD Farooq Chad ([id number]) on 12/11/2024 3:23:59 PM Procedure Note Alex Farooq MD - 12/11/2024 Atrial-sensed ventricular-paced rhythm Abnormal ECG No previous ECGs available Confirmed by MD Farooq Chad ([id number]) on 12/11/2024 3:23:59 PM Hung Burns MD ECG ORDERABLES Final Result [facility] * (ABNORMAL) Complete Blood Count, with Differential (12/11/2024 2:58 PM EDT) White Blood Cell Count 11.3(H) 4.0 - 11.0 Thou/uL 12/11/2024 3:48 PM EDT [facility] Platelet Count 286 150 - 450 Thou/uL 12/11/2024 3:48 PM EDT [facility] Hemoglobin 14.9 11.7 - 15.7 g/dL 12/11/2024 3:48 PM EDT [facility] Hematocrit 46.9 35.0 - 47.0 % 12/11/2024 3:48 PM EDT [facility] Red Blood Cell Count 5.02 4.00 - 5.40 Mil/uL 12/11/2024 3:48 PM T [facility] MCV 93 80 - 100 fL 12/11/2024 3:48 PM EDT [facility] MCH 29.7 27.0 - 31.0 pg 12/11/2024 3:48 PM EDT [facility] MCHC 31.8 30.0 - 36.0 g/dL 12/11/2024 3:48 PM EDT [facility] RDW 13.4 11.5 - 14.5 % 12/11/2024 3:48 PM EDT [facility] MPV 10.6 7.5 - 12.5 fL 12/11/2024 3:48 PM EDT [facility] Neutrophils Auto 69.1 % 12/12/19 3:48 PM EDT [facility] Immature Granulocytes 0.4 % 12/11/2024 3:48 PM EDT [facility] Lymphocytes Auto 22.0 % 12/12/19 3:48 PM EDT [facility] Monocytes Auto 7.1 % 12/11/2024 3:48 PM EDT [facility] Eosinophils Auto 0.9 % 12/12/19 3:48 PM EDT [facility] Basophils Auto 0.5 % 12/11/2024 3:48 PM EDT [facility] Abs Neutrophils Auto 7.80(H) 2.00 - 7.50 Thou/uL 12/11/2024 3:48 PM EDT [facility] Abs Immature Granulocytes 0.05 0.00 - 0.10 Thou/uL 12/11/2024 3:48 PM EDT [facility] Abs Lymphocytes Auto 2.48 1.50 - 4.50 Thou/uL 12/11/2024 3:48 PM EDT [facility] Abs Monocytes Auto 0.80 0.20 - 1.50 Thou/uL 12/11/2024 3:48 PM EDT [facility] Abs Eosinophils Auto 0.10 0.00 - 0.70 Thou/uL 12/11/2024 3:48 PM EDT [facility] Abs Basophils Auto 0.06 0.00 - 0.20 Thou/uL 12/11/2024 3:48 PM EDT [facility] Blood Blood specimen / Unknown 12/11/2024 2:58 PM EDT 12/11/2024 3:36 PM EDT [facility] BLOOD ORDERAB LES Final Result [address] [address], [address] [address] * Magnesium (12/11/2024 2:58 PM EDT) Magnesium 2.3 1.6 - 2.7 mg/dL 12/11/2024 4:11 PM EDT [facility] Blood Blood specimen / Unknown 12/11/2024 2:58 PM EDT 12/11/2024 3:36 PM EDT [facility] BLOOD ORDERAB LES Final Result [address] [address], [address] [address] * (ABNORMAL) Comprehensive Metabolic Panel (12/11/2024 2:58 PM EDT) Glucose 118(H) 65 - 99 mg/dL 12/11/2024 4:11 PM T [facility] Comment:Fasting: <100 mg/dL, Non-Fasting: <200 mg/dL (ADA 2004) Blood Urea Nitrogen (BUN) 22(H) 8 - 21 mg/dL 12/11/2024 4:11 PM [facility] Creatinine 1.0 0.4 - 1.1 mg/dL 12/11/2024 4:11 PM [facility] eGFR 68 >59 12/11/2024 4:11 PM [facility] Comment:CKD-EPI (2020) in mL /min/1.73 sq meters. Sodium 143 136 - 145 mmol/L [facility] Potassium 4.7 3.4 - 5.3 mmol/L 12/11/2024 4:11 PM [facility] Chloride 107 98 - 107 mmol/L 12/11/2024 4:11 PM [facility] CO2 26 22 - 33 mmol/L 12/11/2024 4:11 PM [facility] Calcium 9.5 8.7 - 10.5 mg/dL 12/11/2024 4:11 PM [facility] Alkaline Phosphatase 101 32 - 122 U/L 12/11/2024 4:11 PM EDT [facility] Aspartate Aminotrans (AST) 16 10 - 50 U/L 12/11/2024 4:11 PM EDT [facility] Alanine Aminotrans (ALT) 18 10 - 50 U/L 12/11/2024 4:11 PM EDT [facility] Bilirubin, Total 0.2 0.2 - 1.0 mg/dL 12/11/2024 4:11 PM EDT [facility] Protein, Total 6.7 6.3 - 8.3 g/dL 12/11/2024 4:11 PM EDT [facility] Albumin 4.0 3.5 - 5.0 g/dL 12/11/2024 4:11 PM EDT [facility] BUN/Creatinine Ratio 22 10.0 - 25.0 Ratio 12/11/2024 4:11 PM EDT [facility] Globulin 2.7 1.5 - 3.9 g/dL 12/11/2024 4:11 PM EDT [facility] Albumin/Globulin Ratio 1.5 1.0 - 3.0 Ratio 12/11/2024 4:11 PM EDT [facility] Anion Gap 10 7 - 17 12/11/2024 4:11 PM EDT [facility] Blood Blood specimen / Unknown 12/11/2024 2:58 PM EDT 12/11/2024 3:36 PM EDT [facility] BLOOD ORDERAB LES Final Result [address] [address], [address] [address] from Last 3 Months Insurance [facility] Care Teams Certified Medical Dosimetrist Relationship Specialty Start Date End Date Andree Yoo MD [address] [place] [address] PCP - General Family Medicine 12/05/24
--- OUTSIDE RECORDS SUMMARY | 2025-01-14 13:37 | XMS_ITS | Clinical Summary ---
Author Organization [facility] Address [address] [place] [address] Care Team Providers Care Composition Worker Name Role Phone Andree Yoo MD Primary Care Provider [phone] Medications Medication Sig Dispensed Refills Start Date [...] Gluc Sensor (FreeStyle Karmen 14 Day Sensor) [facility] USE TO TEST GLUCOSE DIRECTED AND CHANGE [...] test strip 1 strip. 0 01/15/2011 Active lisinopril-hydroC HLOROthiazide (PRINZIDE,ZESTORE TIC) tablet 10-12.5 mg Take 1 tablet by mouth daily. 0 04/27/2017 Active LORazepam (ATIVAN) 0.5 MG tablet Take 1 tablet (0.5 mg total) by mouth daily as needed. 0 07/18/2021 Active traZODone (DESYREL) 50 MG tablet TAKE ONE TO TWO TABLETS BY MOUTH EVERY DAY AT BEDTIME 0 03/18/2023 Active Humira, 2 Pen, 40 MG/0.4ML prefilled pen injectorIndicatio ns:Inflammatory bowel disease,Ankylosin g spondylitis of lumbosacral region (HCC),IBD (inflammatory bowel disease) INJECT 40 MG SUBCUTANEOUSLY EVERY 14 DAYS 4 each 5 01/09/2024 Active pregabalin (LYRICA) 75 MG capsuleIndication s:Inflammatory bowel disease TAKE ONE CAPSULE BY MOUTH EVERY MORNING AND TAKE TWO CAPSULES BY MOUTH EVERY EVENING 540 capsule 0 01/16/2024 Active celecoxib (CeleBREX) 200 MG capsule Take 1 capsule (200 mg total) by mouth daily. 30 capsule 2 01/11/2024 Active Problems Problem Noted Date Diagnosed Date [...] Group Subscriber ID Effective Dates Phone Address [facility] [id number] 2023-Present [address] [facility] [address] [place] [phone] O Care Teams Composition Worker Relationship Specialty Start Date End Date Andree Yoo MD [address] [place] [address] PCP - General Family Medicine 12/29/20
--- OUTSIDE RECORDS SUMMARY | 2025-01-14 13:37 | XMS_ITS | Clinical Summary ---
Author Organization Samanta g[facility] Address [address] [place] [address] Care Team Providers Care Commercial Attorney Name Role Phone Andree Yoo MD Primary Care Provider [phone] Allergies Active Allergy Reactions Criticality Noted Date [...] The MRI of the cervical spine from [facility] dated October 02, 2024 shows mild degenerative [...] of the cervical spine from today at [facility] show some retrolisthesis of C4 [...] 09/03/19 25 Coronary artery disease invo lving [place] coronary artery of [place] heart without angina pectoris 08/03/2024 Atypical chest pain 08/03/2024 Fibromyalgia 08/03/2024 Irritable bowel syndrome with constipation 08/03 Type 2 diabetes mellitus wit hout complication, without long-term current use of insulin ([facility] V24, CMS/[facility] V28) 08/03/2024 Dyslipidemia 08/03/2024 Ulcerative colitis without c omplications (CMS/[facility] V24, CMS/HCC V28) 08/03/2024 Chronic tension-type headache, not intractable 0 08/03/2024 CONSTANCE (generalized anxiety disorder) 08/03/2024 History of gastric restrictive surgery Class 2 severe obesity due t o excess calories with serious comorbidity and body mass index (BMI) of 36.0 to 36.9 in adult [place] [place] [facility] [place] 08/03/2024 Routine general medical exam ination at a health care facility 08/03/2024 Nutritional deficiency 08/03/2024 Vitamin D deficiency 08/03/2024 Chronic systolic congestive heart failure [place] [place] [facility] [place] 08/03/2024 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 [place] [id number] Anahi Mcfarland MD Advice Only (MRI/ED) 10/17/2024 7:50 PM EDT - 10/19/2024 1:08 PM EDT Hospital Encounter [facility] Medical Surgical Unit [address] [place] [address] Juan R Nielsen MD Surendran, [...] HISTORICAL CHOLECYSTECTOMY OTHER SURGICAL HISTORY 04/20/2009 PROCEDURE: OR ARTHRD ANT INTERBODY MIN DSC CRV BELOW [...] mellitus type 2 wit h neurological manifestations ([facility] V24, [facility] V28) 10/19/2011 DX:Diabetes mellitus type 2 with neurological manifestations (HCC) History of melanoma 04/13/2006 DX:History o f melanoma; COMMENT: S/p melanoma, basal cell, squamous cell skin cancers , ++ family hx of same IMO update Leukocytosis 01/08/2011 DX:Leukocytosis Morbid obesity with BMI of 4 0.0-44.9, adult (CMS/HCC V24, CMS/[facility] V28) 04/13/2006 DX:Morbid obesity wit h BMI of 40.0-44.9, adult ([facility]) Obstructive sleep apnea 07/12/2017 DX:Obstr uctive sleep apnea Proteinuria 07/19/2017 DX:Proteinuria Thyroid nodule 12/16/2011 DX:Thyroid nodul e; COMMENT: 6 x9 mm, seen on MRI of cervical spine 12/2011 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 (CMS/HCC V24, [facility]/HCC V28) 07/19/2017 DX:Type 2 diabetes mellitus [...] topic Pneumococcal Vaccine: 50+ Years Completed 07/28/2023 HIB Vaccines Aged Out No [...] complication, without long-term current use of insulin ([facility] V24, [facility] V28) Routine general medical examination at a [facility] care facility COLONOSCOPY Routine 08/30/2018 2:38 PM EST from Last 3 Months or Most Recently Relevant to Health Maintenance Results * ECG-Annotated (12/29/2024) us Provider Onbase ECG ORDERABLES Final Result * ECG 12 lead (12/28/2024 2:25 PM EDT) Only the most recent of2 resultswithin the time period is included. Ventricular Rate ECG 74 BPM GEMUSE Atrial Rate 74 BPM GEMUSE P-R Interval 150 ms GEMUSE QRS Duration 138 ms GEMUSE Q-T Interval 430 ms GEMUSE QTc 477 ms GEMUSE P Wave [place] 24 degrees GEMUSE R [place] -42 degrees GEMUSE T [place] 53 degrees GEMUSE ECG Interpretation Atrial-sense d ventricular- paced rhythm Abnormal ECG When compared with ECG of 28-DEC-2024 11:26, (unconfirmed ) Vent. rate has decreased BY 9 BPM Confirmed by Marcelo FLORES YUFENG ([id number]) on 12/28/2024 7:34:04 PM GEMUSE 12/28/2024 2:25 PM EDT 12/28/2024 7:34 PM EDT us Francesco Velasquez MD ECG ORDERABLES Final Resul t GEMUSE * Troponin I high sensitivity (12/28/2024 2:11 PM EDT) Only the most recent of2 resultswithin the time period is included. High Sensitivity Troponin I 3 <=54 ng/L LAB CHEMISTRY METHOD 12/28/2024 2:53 PM EDT [facility] Blood Venous blood specimen / Unknown Venipuncture / Unknown 12/28/2024 2:11 PM EDT 12/28/2024 2:15 PM EDT Narrative [facility] - 12/28/2024 2:53 PM EDT High levels of biotin in samples may falsely decrease hsTroponin values. Use caution when interpreting hsTroponin results in patients taking biotin who exhibit renal impairment (eGFR <60) or in patients taking more than 20 mg/day of biotin. us Francesco Velasquez MD LAB BLOOD ORDERABLES Final Result [facility] [address] [place] [address], [place] [phone] * XR Thoracic Spine 2 Views (12/28/2024 [...] Signed Date: 12/28/2024 12:30 ET Workstation ID: [id number] Transcribed By: Self Edit Transcribed Date: 12/28/2024 [...] Signed Date: 12/28/2024 12:30 ET Workstation ID: [id number] Transcribed By: Self Edit Transcribed Date: 12/28/2024 12:29 ET us Francesco Velasquez MD IMG XR PROCEDURES Final Res ult * CBC auto differential (12/28/2024 11:39 AM EDT) Only the most recent of3 resultswithin the time period is included. WBC 9.6 4.8 - 10.8 K/mcL LAB HEMETOLOGY METHOD 12/28/2024 12:25 PM EDT [facility] RBC 4.60 3.80 - 4.80 M/mcL LAB HEMETOLOGY METHOD 12/28/2024 12:25 PM EDT [facility] Hemoglobin 14.4 11.5 - 16.0 g/dL LAB HEMETOLOGY METHOD 12/28/2024 12:25 PM EDT [facility] Hematocrit 43.7 35.0 - 47.0 % LAB HEMETOLOGY METHOD 12/28/2024 12:25 PM EDT [facility] MCV 94.6 79.0 - 98.0 FL LAB HEMETOLOGY METHOD 12/28/2024 12:25 PM EDT [facility] MCH 31.2 27.0 - 32.0 pcg LAB HEMETOLOGY METHOD 12/28/2024 12:25 PM EDT [facility] MCHC 33.0 32.0 - 37.0 g/dL LAB HEMETOLOGY METHOD 12/28/2024 12:25 PM EDT [facility] RDW 13.5 11.0 - 15.0 % LAB HEMETOLOGY METHOD 12/28/2024 12:25 PM EDT [facility] Platelets 253 130 - 400 K/mcL LAB HEMETOLOGY METHOD 12/28/2024 12:25 PM EDT [facility] MPV 10.5 7.0 - 11.0 FL LAB HEMETOLOGY METHOD 12/28/2024 12:25 PM EDT [facility] NRBC 0.0 <1.0 % LAB HEMETOLOGY METHOD 12/28/2024 12:25 PM EDT [facility] NRBC Absolute 0.00 <0.10 K/mcL LAB HEMETOLOGY METHOD 12/28[facility]24 [facility] Neutrophils Relative 69.5 % LAB HEMETOLOGY METHOD 12/28/2024 12:25 PM EDT [facility] Lymphocytes Relative 21.8 % LAB HEMETOLOGY METHOD 12/28/2024 12:25 PM EDT [facility] Monocytes Relative 6.4 % LAB HEMETOLOGY METHOD 12/28/2024 12:25 PM EDT [facility] Eosinophils Relative 1.3 % LAB HEMETOLOGY METHOD 12/28/2024 12:25 PM EDT [facility] Basophils Relative 0.7 % LAB HEMETOLOGY METHOD 12/28/2024 12:25 PM EDT [facility] Immature Granulocytes Relative 0.3 % LAB HEMETOLOGY METHOD 12/28/2024 12:25 PM EDT [facility] Neutrophils Absolute 6.68 1.50 - 7.00 K/mcL LAB HEMETOLOGY METHOD 12/28/2024 12:25 PM EDT [facility] Lymphocytes Absolute 2.10 1.00 - 5.00 K/mcL LAB HEMETOLOGY METHOD 12/28/2024 12:25 PM EDT [facility] Monocytes Absolute 0.62 0.20 - 1.00 K/mcL LAB HEMETOLOGY METHOD 12/28/2024 12:25 PM EDT [facility] Eosinophils Absolute 0.13 0.00 - 0.50 K/mcL LAB HEMETOLOGY METHOD 12/28/2024 12:25 PM EDT [facility] Basophils Absolute 0.07 0.00 - 0.20 K/mcL LAB HEMETOLOGY METHOD 12/28/2024 12:25 PM EDT [facility] Immature Granulocytes Absolute 0.03 0.00 - 0.03 K/mcL LAB HEMETOLOGY METHOD 12/28/2024 12:25 PM EDT [facility] Blood Venous blood specimen / Unknown Venipuncture / Unknown 12/28/2024 11:39 AM EDT 12/28/2024 11:53 AM EDT us Francesco Velasquez MD LAB BLOOD ORDERABLES Final Result [facility]) [facility] [address] [place] [address], * B-type natriuretic peptide (12/28/2024 11:39 AM EDT) BNP 22 <=100 pcg/mL LAB CHEMISTRY METHOD 12/28/2024 12:38 PM EDT [facility] Blood Venous blood specimen / Unknown Venipuncture / Unknown 12/28/2024 11:39 AM EDT 12/28/2024 11:53 AM EDT Francesco Velasquez MD LAB BLOOD ORDERABLES Final Result Performing Organization Address [facility]/ZIP Co de Phone Number [facility] [address] [place] [address], [place] [phone] * Magnesium (12/28/2024 11:39 AM EDT) Only the most recent of2 resultswithin the time period is included. Magnesium 2.2 1.9 - 2.6 mg/dL LAB CHEMISTRY METHOD 12/28/2024 12:23 PM EDT [facility] Blood Venous blood specimen / Unknown Venipuncture / Unknown 12/28/2024 11:39 AM EDT 12/28/2024 11:53 AM EDT Francesco Velasquez MD LAB BLOOD ORDERABLES Final Result Performing Organization Address [facility]/ZIP Co de Phone Number [facility] [address] [place] [address], [place] [phone] * Lipase (12/28/2024 11:39 AM EDT) Lipase 39 13 - 75 unit/L LAB CHEMISTRY METHOD 12/28/2024 12:23 PM EDT [facility] Blood Venous blood specimen / Unknown Venipuncture / Unknown 12/28/2024 11:39 AM EDT 12/28/2024 11:53 AM EDT Francesco Velasquez MD LAB BLOOD ORDERABLES Final Result Performing Organization Address [facility]/ZIP Co de Phone Number [facility] [address] [place] [address], [place] [phone] * (ABNORMAL) Comprehensive metabolic panel (12/28/2024 11:39 AM EDT) Sodium 142 133 - 145 mmol/L LAB CHEMISTRY METHOD 12/28/2024 12:23 PM [facility] Potassium 4.3 3.5 - 5.5 mmol/L LAB CHEMISTRY METHOD 12/28/2024 12:23 PM [facility] Chloride 111(H) 96 - 110 mmol/L LAB CHEMISTRY METHOD 12/28/2024 12:23 PM [facility] CO2 28 21 - 32 mmol/L LAB CHEMISTRY METHOD 12/28/2024 12:23 PM [facility] Anion Gap 3 3 - 11 LAB CHEMISTRY METHOD 12/28/2024 12:23 PM [facility] Glucose 120(H) 70 - 100 mg/dL LAB CHEMISTRY METHOD 12/28/2024 12:23 PM [facility] BUN 13 5 - 25 mg/dL LAB CHEMISTRY METHOD 12/28/2024 12:23 PM [facility] Creatinine 0.87 0.50 - 1.10 mg/dL LAB CHEMISTRY METHOD 12/28/2024 12:23 PM [facility] eGFR 81 >=60 mL/min/1. 73m2 LAB CHEMISTRY METHOD 12/28/2024 12:23 PM [facility] Comment:Calculation based on the Chronic Kidney Disease Epidemiology Collaboration (CKD-EPI) equation refit without adjustment for race. BUN/Creatinine Ratio 14.9 LAB CHEMISTRY METHOD 12/28/2024 12:23 PM [facility] Calcium 8.6 8.5 - 10.5 mg/dL LAB CHEMISTRY METHOD 12/28/2024 12:23 PM [facility] AST (SGOT) 12 10 - 42 unit/L LAB CHEMISTRY METHOD 12/28/2024 12:23 PM [facility] ALT (SGPT) 23 10 - 60 unit/L LAB CHEMISTRY METHOD 12/28/2024 12:23 PM EDT [facility] Alkaline Phosphatase 140(H) 42 - 121 unit/L LAB CHEMISTRY METHOD 12/28/2024 12:23 PM EDT [facility] Total Protein 6.4 6.0 - 8.0 g/dL LAB CHEMISTRY METHOD 12/28/2024 12:23 PM EDT [facility] Albumin 3.4 3.2 - 5.0 g/dL LAB CHEMISTRY METHOD 12/28/2024 12:23 PM EDT [facility] Total Bilirubin 0.3 0.0 - 1.4 mg/dL LAB CHEMISTRY METHOD 12/28/2024 12:23 PM EDT [facility] Blood Venous blood specimen / Unknown Venipuncture / Unknown 12/28/2024 11:39 AM EDT 12/28/2024 11:53 AM EDT Francesco Velasquez MD LAB BLOOD ORDERABLES Final Result [facility] [address] [place] [address], [place] [phone] * (ABNORMAL) POCT Glucose, blood (10/19/2024 11:18 AM EDT) Only the most recent of6 resultswithin the time period is included. Glucose POCT 106(H) 70 - 100 mg/dL 10/19/2024 11:19 AM EDT [facility] Blood Capillary blood specimen / Unknown 10/19/2024 11:18 AM EDT 10/19/2024 11:21 AM EDT Nilda Melgar MD LAB POINT OF CARE T EST DOCKED DEVICE UNSOLICITED RESULTS Final Result [facility] [address] [place] [address], [place] [phone] * MR Lumbar Spine wo and w [...] Signed Date: 10/18/2024 12:37 ET Workstation ID: [id number] Transcribed By: Self Edit Transcribed Date: 10/18/2024 [...] Signed Date: 10/18/2024 12:37 ET Workstation ID: [id number] Transcribed By: Self Edit Transcribed Date: 10/18/2024 12:30 ET Kylie FATIMA IMG MRI PROCEDURES Final Resu lt * (ABNORMAL) Basic metabolic panel (10/18/2024 5:34 AM EDT) Only the most recent of2 resultswithin the time period is included. Sodium 138 133 - 145 mmol/L LAB CHEMISTRY METHOD 10/18/2024 7:06 AM [facility] Potassium 3.5 3.5 - 5.5 mmol/L LAB CHEMISTRY METHOD 10/18/2024 7:06 AM [facility] Chloride 104 96 - 110 mmol/L LAB CHEMISTRY METHOD 10/18/2024 7:06 AM [facility] CO2 28 21 - 32 mmol/L LAB CHEMISTRY METHOD 10/18/2024 7:06 AM [facility] Anion Gap 6 3 - 11 LAB CHEMISTRY METHOD 10/18/2024 7:06 AM [facility] Glucose 126(H) 70 - 100 mg/dL LAB CHEMISTRY METHOD 10/18/2024 7:06 AM [facility] BUN 17 5 - 25 mg/dL LAB CHEMISTRY METHOD 10/18/2024 7:06 AM [facility] Creatinine 0.88 0.50 - 1.10 mg/dL LAB CHEMISTRY METHOD 10/18/2024 7:06 AM [facility] eGFR 80 >=60 mL/min/1. 73m2 LAB CHEMISTRY METHOD 10/18/2024 7:06 AM EDT [facility] Comment:Calculation based on the Chronic Kidney Disease Epidemiology Collaboration (CKD-EPI) equation refit without adjustment for race. BUN/Creatinine Ratio 19.3 LAB CHEMISTRY METHOD 10/18/2024 7:06 AM EDT [facility] Calcium 8.8 8.5 - 10.5 mg/dL LAB CHEMISTRY METHOD 10/18/2024 7:06 AM EDT [facility] Blood Venous blood specimen / Unknown Venipuncture / Unknown 10/18/2024 5:34 AM EDT 10/18/2024 6:26 AM EDT us Juan R Nielsen MD LAB BLOOD ORDERABLES Arabella hdz Result [facility] [address] [place] [address], * (ABNORMAL) Hemoglobin A1c (08/17/2024 10:04 AM EST) Hemoglobin A1C 6.2(H) <5.7 % of total Hgb [email or web address] Comment: For someone without known diabetes, a [...] 10:04 AM EST 08/17/2024 10:08 AM EST Narrative [facility] - 08/23/2024 2:28 PM EST FASTING:NO PATIENT NOT FASTING; ADVISED TO RETURN FOR COLLECTION. FASTING: NO us Samanta Arciniega MD LAB BLOOD ORDERABLES Final Res ult [facility] ([facility]) [facility] [address] [place] [phone] * COLONOSCOPY (08/30/2018 2:38 PM EST) Anatomical Region Laterality Modality Endoscopy us Corona Hernandez MD GI~PROCEDURE ORDERABLES Final Re sult from Last 3 Months or Most Recently Relevant to Health Maintenance Insurance [facility] Advance Directives * Full Code - Default [...] currently active code status orders. Care Teams Commercial Attorney Relationship Specialty Start Date End Date Andree Yoo MD [address] [place] [address] PCP - General Internal Medicine 09/25/24
--- OUTSIDE RECORDS SUMMARY | 2025-01-14 13:37 | XMS_ITS ---
Author Name [facility] Organization Unknown Results Test Name/Text Value Interpretation Date Range Source Troponin T SerPl-mCnc 12.0 ng/L 12/11/2024 - [facility] Delta 4.0 Above high normal 12/11/2024 - 3 H [facility] Delta NO PREVIOUS RESULT 12/11/2024 - [facility] Troponin T SerPl-mCnc 16.0 ng/L Above high normal 12/11/2024 - 15 [facility] Magnesium SerPl-mCnc 2.3 mg/dL 12/11/2024 1.6 - 2. 7 [facility] Chloride SerPl-sCnc 107.0 mmol/L 12/11/2024 98 - 1 07 [facility] ALT SerPl-cCnc 18.0 U/L 12/11/2024 10 - 50 [facility] T ALP SerPl-cCnc 101.0 U/L 12/11/2024 32 - 122 [facility] T Prot SerPl-mCnc 6.7 g/dL 12/11/2024 6.3 - 8.[address] Anion Gap Bld-sCnc 10.0 12/11/2024 7 - 17 [facility] Bilirub SerPl-mCnc 0.2 mg/dL 12/11/2024 0.2 - 1 [facility] GFR/BSA.pred SerPlBld JQO-PQM-JeNStm 68.0 12/11/2024 59 - [facility]CT Potassium SerPl-sCnc 4.7 mmol/L 12/11/2024 3.4 - 5 .3 [facility] Albumin SerPl-mCnc 4.0 g/dL 12/11/2024 3.5 - 5 [facility] Globulin Ser Calc-mCnc 2.7 g/dL 12/11/2024 1.5 - 3.9 [facility]CT Creat SerPl-mCnc 1.0 mg/dL 12/11/2024 0.4 - 1.1 HH CCT Sodium SerPl-sCnc 143.0 mmol/L 12/11/2024 136 - 14 5 [facility]CT Calcium SerPl-mCnc 9.5 mg/dL 12/11/2024 8.7 - 10.5 [facility]CT Glucose SerPl-mCnc 118.0 mg/dL Above high normal 12/11/2024 65 - 99 [facility]CT AST SerPl-cCnc 16.0 U/L 12/11/2024 10 - 50 [facility] T Albumin/Glob SerPl 1.5 Ratio 12/11/2024 1 - 3 [facility] CO2 SerPl-sCnc 26.0 mmol/L 12/11/2024 22 - 33 HH CCT BUN SerPl-mCnc 22.0 mg/dL Above high normal 12/11/2024 8 - 2 1 [facility] BUN/Creat SerPl 22.0 Ratio 12/11/2024 10 - 25 HH CCT Imm Granulocytes/leuk NFr Bld Auto 0.4 % 12/11/2024 [facility] Neutrophils num Bld Auto 7.8 Thou/uL Above high normal 12/11/2024 2 - 7.5 [facility] Imm Granulocytes num Bld Auto 0.05 Thou/uL 12/11/2024 0 - 0.1 [facility] Basophils/leuk NFr Bld Auto 0.5 % 12/11/2024 [facility] Monocytes num Bld Auto 0.8 Thou/uL 12/11/2024 0.2 - 1.5 [facility] Basophils num Bld Auto 0.06 Thou/uL 12/11/2024 0 - 0.2 [facility] Neutrophils/leuk NFr Bld Auto 69.1 % 12/11/2024 [facility] RDW RBC Auto-Rto 13.4 % 12/11/2024 11.5 - 14.5 [facility] Monocytes/leuk NFr Bld Auto 7.1 % 12/11/2024 [facility] Lymphocytes/leuk NFr Bld Auto 22.0 % 12/11/2024 [facility] Hgb Bld-mCnc 14.9 g/dL 12/11/2024 11.7 - 15.7 HH[facility] T PMV Bld Auto 10.6 fL 12/11/2024 7.5 - 12.5 [facility] Eosinophil num Bld Auto 0.1 Thou/uL 12/11/2024 0 - 0.7 [facility] WBC num Bld Auto 11.3 Thou/uL Above high normal 12/11/2024 4 - 11 [facility] RBC num Bld Auto 5.02 Mil/uL 12/11/2024 4 - 5.4 [facility] Platelet num Bld Auto 286.0 Thou/uL 12/11/2024 150 - 450 [facility] MCV RBC Auto 93.0 fL 12/11/2024 80 - 100 H[facility] Hct VFr Bld Auto 46.9 % 12/11/2024 35 - 47 HH CCT MCHC RBC Auto-mCnc 31.8 g/dL 12/11/2024 30 - 36 [facility]CT Lymphocytes num Bld Auto 2.48 Thou/uL 12/11/2024 1.5 - 4.5 H[facility]CT MCH RBC Qn Auto 29.7 pg 12/11/2024 27 - [address] Eosinophil/leuk NFr Bld Auto 0.9 % 12/11/2024 [facility] History of Medication Use Medication Directions Dispensed Refills Start Date End Date Stat us tiZANidine (ZANAFLEX) 4 mg tablet 09/03/2024 active isosorbide mononitrate (IMDUR) 30 mg 24 hr tablet Take 2 tablets (60 mg total) by mouth 1 (one) time each day in the morning. 07/20/2024 active solifenacin (VESICARE) 5 MG tablet 5 mg. 10/10/2023 active HumuLIN N NPH Insulin KwikPen 100 unit/mL (3 mL) injection pen INJECT 40 UNITS UNDER THE SKIN ONCE DAILY OR DIRECTED 10/04/2023 active Linzess 290 MCG Cap capsule 290 mcg. 10/04/2023 active HYDROcodone-acetaminophen (NORCO) 5-325 mg per tablet Take 1 tablet by mouth every 6 (six) hours if needed. 08/17/2023 active mesalamine (DELZICOL) [address] capsule Take 800 mg by mouth 3 (three) times a day. 08/15/2023 active methocarbamol (ROBAXIN) 750 MG tablet Take 1 tablet (750 mg total) by mouth 4 (four) times a day for 14 days. 08/09/2023 4 active celecoxib (CeleBREX) 200 MG capsule Take 1 capsule (200 mg total) by mouth daily. 08/09/2023 active methocarbamol (ROBAXIN) 750 MG tablet 750 mg. 08/09/2023 active imiquimod (ALDARA) 5 % cream APPLY A THIN LAYER TO AFFECTED AREAS ABOVE LIP, RIGHT CHEEK AND RIGHT CALF ONCE DAILY ON TUESDAY-TUESDAY FOR 6 WEEKS. EXPECT REDNESS CRUSTING 08/04/2023 active nystatin-triamcinolone (MYCOLOG II) cream 400 mg. 08/04/2023 active pregabalin (Lyrica) 75 MG capsule Take 3 capsules (225 mg total) by mouth 2 (two) times a day. Take (75 mg) in the morning and (150 mg) in the evening by mouth 2 times a day 07/20/2023 active pregabalin (LYRICA) 75 MG capsule Take 225 mg by mouth. 07/20/2023 active traZODone (DESYREL) 50 MG tablet TAKE ONE TO TWO TABLETS BY MOUTH EVERY DAY AT BEDTIME 03/18/2023 active ondansetron (ZOFRAN) 4 MG tablet Take 1 tablet (4 mg total) by mouth. 12/16/2022 active Diclofenac Sodium 1 % GEL Apply 2 g topically. 12/01/2022 active dulaglutide (Trulicity) 3 mg/0.5 mL prefilled pen injection 3 mg. 11/04/2022 active dulaglutide (Trulicity) 3 MG/0.5ML subcutaneous pen-injector INJECT ONE PEN UNDER THE SKIN ONCE A WEEK DIRECTED 11/04/2022 active buPROPion (WELLBUTRIN SR) 150 MG 12 hr tablet Take 1 tablet (150 mg total) by mouth 2 (two) times a day. 01/12/2022 active dicyclomine (BENTYL) 10 MG capsule 1-2 Orally Every 6 hours prn abdominal pain/cramps/disc omfort for 30 day(s) 07/24/2019 active DULoxetine (CYMBALTA) DR capsule 60 mg Take 1 capsule (60 mg total) by mouth daily. 05/30/2018 active glucose blood (FREESTYLE LITE) test strip 1 strip. 01/15/2011 active aspirin 81 mg chewable tablet Chew 1 tablet (81 mg total) 1 (one) time each day. active atorvastatin (LIPITOR) 40 mg tablet Take 1 tablet (40 mg total) by mouth at bedtime. active buPROPion SR (WELLBUTRIN SR) 150 mg 12 hr tablet Take 1 tablet (150 mg total) by mouth 2 (two) times a day. Do not crush, chew, or split. active busPIRone (BUSPAR) 10 mg tablet Take 1 tablet (10 mg total) by mouth 2 (two) times a day. active carvediloL (COREG) 3.125 mg tablet Take 1 tablet (3.125 mg total) by mouth 2 (two) times a day with meals. active celecoxib (CeleBREX) 100 mg capsule 1 capsule (100 mg total) 1 (one) time each day at the same time. active dapagliflozin propanediol (Farxiga) 10 mg tablet Take 1 tablet (10 mg total) by mouth 1 (one) time each day. active darifenacin (ENABLEX) 7.5 mg 24 hr tablet Take 1 tablet (7.5 mg total) by mouth 1 (one) time each day. active dicyclomine (BENTYL) 10 mg capsule TAKE ONE TO TWO CAPSULES BY MOUTH EVERY 6 HOURS NEEDED FOR ABDOMINAL PAIN/CRAMPS/DISC OMFORT active DULoxetine (CYMBALTA) [address] capsule Take 1 capsule (30 mg total) by mouth 1 (one) time each day. Do not crush or chew. Take 2 tablets in a.m. and 1 tablet at noon. active erenumab-aooe (Aimovig Autoinjector) 140 mg/mL injection Inject 1 mL (140 mg total) under the skin every 28 (twenty-eight) days. active hydroCHLOROthiazide (MICROZIDE) 12.5 mg capsule Take 1 capsule (12.5 mg total) by mouth 1 (one) time each day. active linaCLOtide (Linzess) 290 mcg capsule Take 1 capsule (290 mcg total) by mouth 1 (one) time each day. active lisinopril-hydroCHLOROthi azide (PRINZIDE,ZESTORETIC) 10-12.5 mg per tablet Take 1 tablet by mouth 1 (one) time each day. active mesalamine (DELZICOL) 400 mg capsule (with del rel tablets) DR capsule Take 2 capsules (800 mg total) by mouth 2 (two) times a day. active mirabegron (Myrbetriq) 50 mg tablet extended release 24 hr 24 hr tablet 1 tablet (50 mg total) 1 (one) time each day at the same time. active omeprazole (PriLOSEC) [address] capsule TAKE ONE CAPSULE BY MOUTH EVERY DAY 30 MINUTES TO 1 HOUR PRIOR TO FIRST MEAL active pregabalin (LYRICA) 150 mg capsule Take 1 capsule (150 mg total) by mouth 2 (two) times a day. active tirzepatide (Mounjaro) 10 mg/0.5 mL injection Inject 0.5 mL (10 mg total) under the skin every 7 (seven) days. active traZODone (DESYREL) 100 mg tablet Take 1 tablet (100 mg total) by mouth at bedtime. active valproic acid (DEPAKENE) 250 mg capsule TAKE 1 CAPSULE BY MOUTH 3 TIMES A DAY W/ FOOD X3 DAYS, TWICE A DAY X3 DAYS, THEN ONCE A DAY X3 DAYS active Problems Problem Status Onset Date Problem Type Date of Resolution Source Chronic midline low back pain with left-sided sciatica active 2024-09-04 Problem[address] [facility] Degenerative disc disease, lumbar active 2021-08-12 ProblemAct [facility] Class 2 severe obesity due to excess calories with serious comorbidity and body mass index (BMI) of 36.0 to 36.9 in adult active 2024-08-03 ProblemAct [facility] EMG Chronic systolic congestive heart failure active 2024-08-03 ProblemAct [facility] Vitamin D deficiency active 2024-08-03 ProblemAct [facility] Dyslipidemia active 2024-08-03 ProblemAct [facility] Chronic left SI joint pain active 2021-10-20 ProblemAct [facility] CONSTANCE (generalized anxiety disorder) active 2024-08-03 ProblemAct [facility] Ulcerative colitis without complications active 2024-08-03 ProblemAct [facility] Nutritional deficiency active 2024-08-03 ProblemAct [facility] Cervical spondylosis with radiculopathy active 2024-09-04 ProblemAct [facility] Fibromyalgia active 2024-08-03 ProblemAct [facility] Type 2 diabetes mellitus without complication, without long-term current use of insulin active 2024-08-03 ProblemAct [facility] Coronary artery disease involving [place] coronary artery of [place] heart without angina pectoris active 2024-08-03 ProblemAct [facility] Mild episode of recurrent major depressive disorder active 2024-08-03 ProblemAct [facility] G History of gastric restrictive surgery active 2024-08-03 ProblemAct [facility] G Irritable bowel syndrome with constipation active 2024-08-03 ProblemAct [facility] Atypical chest pain active 2024-08-03 ProblemAct [facility] Presence of permanent cardiac pacemaker active 2024-09-02 ProblemAct [facility] Gastroesophageal reflux disease active 2006-04-13 ProblemAct [facility] Hypertension active 2024-09-04 ProblemAct [facility] Chronic tension-type headache, not intractable active 2024-08-03 ProblemAct [facility] Postlaminectomy syndrome, lumbar region active 2023-04-11 ProblemAct [facility] Inflammatory bowel disease active EncounterDiagnosisAct CTTHNE MG Lumbar radiculopathy active 2023-04-11 ProblemAct [facility] Primary generalized hypertrophic osteoarthrosis active EncounterDiagnosisAct [facility]TH NEMG Ankylosing spondylitis of lumbosacral region (HCC) active EncounterDiagnosisAct [facility] MG Fibromyalgia active EncounterDiagnosisAct [facility]THNEMG Biceps muscle strain, left, initial encounter active [facility] Vaccine Date Source Lot Number Status Influenza trivalent, 0.5mL, preservative free (Fluarix; FluLaval; Fluzone) ages 6mo and older (Afluria) 3 years and older 03/29/2024 [facility] [id number] completed Influenza Quadrivalent, 0.5m l, preservative free (Fluarix; FluLaval; Fluzone) ages 6mo and older (Afluria) 3yo and older 08/15/2023 [facility] [id number] completed Pneumococcal conjugate 20 va lent (Prevnar 20, PCV 20) 2mo and older 07/28/2023 [facility] [id number] comple shahid Influenza trivalent, with pr eservative (Fluzone; Afluria) 6mo and older 05/24/2023 [facility] completed Influenza Quadrivalent, 0.5m l, preservative free (Fluarix; FluLaval; Fluzone) ages 6mo and older (Afluria) 3yo and older 06/05/2022 [facility] [id number] completed Influenza trivalent, with pr eservative (Fluzone; Afluria) 6mo and older 04/20/2022 [facility] completed Influenza Quadravalent, MDCK , 0.5ml, preservative free (Flucelvax) 6mo and older 05/03/2021 [facility]_NEMG [id number] completed Influenza Quadrivalent, 0.5m l, preservative free (Fluarix; FluLaval; Fluzone) ages 6mo and older (Afluria) 3yo and older 04/08/2020 [facility]_NEM [id number] completed Influenza Quadrivalent, 0.5m l, preservative free (Fluarix; FluLaval; Fluzone) ages 6mo and older (Afluria) 3yo and older 07/13/2019 [facility]_NEM [id number] completed Influenza trivalent, with pr eservative (Fluzone; Afluria) 6mo and older 04/05/2019 [facility]_NEM completed Influenza Quadravalent, MDCK , 0.5ml, preservative free (Flucelvax) 6mo and older 07/09/2018 [facility] completed Influenza trivalent, with pr eservative (Fluzone; Afluria) 6mo and older 03/15/2018 [facility] completed Influenza trivalent, with pr eservative (Fluzone; Afluria) 6mo and older 08/04/2016 [facility] completed Influenza trivalent, with pr eservative (Fluzone; Afluria) 6mo and older 04/13/2015 [facility] completed Influenza trivalent, with pr eservative (Fluzone; Afluria) 6mo and older 03/24/2013 [facility] [id number] completed Influenza trivalent, with pr eservative (Fluzone; Afluria) 6mo and older 03/18/2012 [facility] completed Influenza trivalent, with pr eservative (Fluzone; Afluria) 6mo and older 03/25/2011 [facility] [id number] completed Tdap Tetanus diptheria acell ular pertussis (Boostrix; Adacel) 7yo and older 07/04/2010 [facility] completed Influenza trivalent, with pr eservative (Fluzone; Afluria) 6mo and older 05/07/2010 [facility] [id number] completed H1N1 Inj Preservative Free 05/07/2009 [facility] [id number] completed Influenza trivalent, with pr eservative (Fluzone; Afluria) 6mo and older 03/13/2009 [facility] [id number] completed Influenza trivalent, with pr eservative (Fluzone; Afluria) 6mo and older 05/01/2008 [facility] [id number] completed Influenza trivalent, with pr eservative (Fluzone; Afluria) 6mo and older 05/18/2007 [facility] [id number] completed MMR, measles mumps and rubel la Live (Priorix; M-M-R II) 12mo and older 12/15/2004 [facility] completed Td, Unspecified 11/27/2004 [facility] completed Encounters Encounter Type Encounter Reason Primary Diagnosis Location Date Emergency Chest pain, unspecified Chest pain, unspecified [facility] 12/11/2024 Ambulatory Weight Loss Other chest pain [facility] 08/17/2024 Ambulatory Establish Care Atherosclerotic heart disease of [place] coronary artery without angina pectoris [facility] 08/03/2024 Ambulatory Strain of muscle, fascia and tendon of other parts of biceps, left arm, initial encounter Strain of muscle, fascia and tendon of other parts of biceps, left arm, initial encounter [facility] 10/18/2023 Ambulatory Dorsalgia, unspecified Dorsalgia, unspecified [facility] 04/11/2023 Care Team Organization Name Specialty Phone Email Start Date End Da te [facility] 12/12/202420[address] [facility] 12/05/2024 [facility] [place] [facility] 10/19/2023 01/09/2025 [facility] 07/26/2023 07/26/2023 [facility] 04/17/2023 10/09/2024 [facility] 04/11/2023 04/11/2023 [facility] PRISCILA SALCEDO Primary Care 04/11/2023 023
--- OUTSIDE RECORDS SUMMARY | 2025-01-14 13:37 | XMS_ITS | Data Portability ---
Author Organization [facility], [address] Address [address] [place] [address] Assessment No assessment recorded. Plan of Treatment Reminders Order Date Submit Date Provider Last Modified By Organization Details Last Modified Time Details Appointments None recorded. Lab rapid strep group A, throat 2023 024 [email or web address] _[facility], [address] [place] [address], [phone], 4 09:10:36 SARS CoV 2 (COVID-19) Ag, QL, IA, upper respiratory specimen 2023 024 [email or web address] _[facility], [address] [place] [address], [phone], 4 09:11:43 Referral None recorded. Procedures None recorded. Surgeries None recorded. Imaging XR, wrist, 3 or more view - Feb 05, pt was holding her dogs leash so her dog can stand still pt believe that the pulling made her wrist to hurt 2023 024 [email or web address] [facility], [address] [place], [address], 12:45:32 Medication Orders None recorded. Patient TargetsNo targets recorded. Patient Instructions Encounter Date Encounter Id Patient Instructions Last Modified By Organization Details Last Modified Time 03/08/2024 [id number] wrist sprain: care instructions [email or web address] Not available 03/08/2024 12:39:20 Reason for Referral None Reported. Results Created Date Observation Date Name Description Value Unit Range Abnormal Flag Note LastModifiedBy Organization Detail LastModifiedTime 12/22/19 24 12/22/2023 SARS CoV 2 (COVI D-19) Ag, QL, IA, upper respi rator y speci men Unknown Analyte negati ve Not Available _ [facility] [address] [place], [address], 12/22/2023 09:10:34 12/22/19 24 12/22/2023 rapid strep group A, throa t Unknown Analyte negati ve Not Available _ [address] [place], [address], 12/22/2023 08:44:29 03/08/20 24 03/08/2024 XR, wrist , 3 or more view No observ ation record ed. [email or web address] [facility] [address] [place], [address], 03/08/2024 19:40:19 Result Notes None recorded. Problems Name Problem SNOMED Code Status Onset Date Resolution Date Notes Provider Name and Address Organization Details Recorded Time Seasonal allergic rhinitis 029835918 Active 2023 Francesco Chow DO [address] , [place], [address], [place] - [facility] 4 09:09:29 Pain of left wrist 478747660486027 Active 2023 Val Herman NP [address] [place], [address], [place] - [facility] 4 12:02:55 Sprain of left wrist 062982682120900 04 Active 2023 Val Herman NP [address] [place], [address], [place] - [facility] 4 [...] Updated DateTime 4 160.02 cm 42.9 kg/m2 989793. 35 g 98.6 [degF] 18 /min 97 % 97 % 91 /min 118/81 mm[Hg] Spring Fowler PA - [facility] 4 08:35:21 Date Recorded Body height Body mass index (BMI) Body weight Oxygen saturation Oxygen saturation in Arterial blood by Pulse oximetry Heart rate Body temperature Systolic And Diastolic Provider Name and Address Organization Details Last Updated DateTime 4 160.02 cm 40.9 kg/m2 494023. 84 g 98 % 98 % 88 [...] SNOMED-CT Code Diagnosis ICD10 Code Diagnosis Note [id number] [address] [address] [address] 10/28/2020 17:19:50 10/28/2020 18:49:55 [id number] [facility] [address] [facility] [address] 04/30/2020 10:52:01 04/30/2020 12:21:11 [id number] Francesco Chow DO [address] [facility] [address] 12/22/2023 08:15:21 12/22/2023 09:15:24 Seasonal allergic rhinitis 014369580 J30.2 See pcp in 3-4 days. Go to ER if anything worsens. Otc tylenol as needed for pain. Symptomati c treatment. All of patients questions have been answered. Patient has understand ing and agreement of all of this. [id number] [place] [address] [address] 03/08/2024 10:46:38 03/08/2024 12:45:32 Pain of left wrist [id number] 34849 M25.532 Sprain of left wrist 313 [id number] S63.502A Prop up your arm on a [...] Pepe Member ID Guarantor Name 03/08/2024 1 [facility] [id number] Sara Okeefe [id number] Sara Okeefe Notes Date Note Type Note Provider Name and Address Organization Details Recorded Time 12/22/2023 text/html sore throat since Tuesday, swollen gland, and pain. has hx of eczema. has post nasal drip and itchy eyes. no fevers. no abd pain or nausea. no head ache. no sinus pressure or pain Francesco Chow, DO [address] [place], [address], [facility] Code 12/22/2023 10:07:21 03/08/2024 text/html 48 YOF presents with left wrist pain . on Feb 05, pt was holding her dogs leash so her dog can stand still pt believe that the pulling made her wrist to hurt Val Herman, FORMULATOR [address] [place], [address], [place] [facility] 03/13/2024 08:25:18 OBGyn Episode No OBEpisode recorded.
== END 2025-01-14 13:22 | disposition home or self-care (01) ==
LOC: HO.PMC 12:44
PROVIDERS: Visit Provider Internal Medicine
DX: G89.29 Other chronic pain (principal); M96.1 Postlaminectomy syndrome, not elsewhere classified; M79.7 Fibromyalgia; T82.9XXA Unspecified complication of cardiac and vascular prosthetic device, implant and graft, initial encounter
CPT/HCPCS: 99214

== ENCOUNTER 2025-02-08 11:37 | Day surgery (SDC) | payer OTHER, SELFPAY ==
--- OUTSIDE RECORDS SUMMARY | 2025-01-08 11:56 | XMS_ITS ---
Author Organization [facility] Address [address] [place] [address] Care Team Providers Care Vp Digital Marketing Social Media And Crm Name Role Phone PRISCILA SALCEDO M.D. Primary Care Provider Unav ailable HernandezCorona Unavailable [phone] Delaney Heath Unavailable Unavailable Problems Problem Type SNOMED Code ICD Code Onset Dates Problem Status W/U Status Risk Notes Problem Epigastric abdominal pain (R10.13) Active confirmed Procedures Procedure Date Ordered Date Performed Result Body Sit e UPPER GI ENDOSCOPY 01/08/2025 N/A Encounters Encounter Location Date Provider Diagnosis [facility] [address] [place] [address] 01/08/2025 Corona Heranndez Epigastric abdominal pain R10.13 and GERD (gastroesophageal reflux disease) K21.9 Assessments Encounter Date Diagnosis (ICD Code) Assessment Notes Treatment Notes Treatment Clinical Notes Section Notes 01/08/2025 Epigastric abdominal pain (ICD-10 - R10.13) 01/08/2025 GERD (gastroesophage al reflux disease) (ICD-10 - K21.9) Plan Of Treatment Pending Test Test Name Order Date UPPER GI ENDOSCOPY 01/08/2025 Next Appt Details Provider Name:Corona Hernandez , 02/08/2025 11:50:00 AM, [address] [place] [address] , [place], [place], [phone], Provider Name:Corona Hernandez , 03/20/2025 04:20:00 PM, [address] [place] [address], [address], [place], [address], Progress Notes * CAROLYN LORAOB: 3 (49 yo F)Acc No.[id number]:01/08/2025 Patient: TEMO CARRANZA :1975 A ge:49 Y S ex:Female Address:[address] [place] [address] Subjective: * Chief Complaints: * * Medical History: * Surgical History: * Hospitalization/Major Diagno stic Procedure: * Medications: Objective: * Vitals: * Physical Examination: Assessment: * Assessment: 1. E pigastric abdominal pain - R10.13 (Primary) 2 . G ERD (gastroesophageal reflux disease) - K21.9 Plan: * Treatment: 2.?GERD (gastroesophageal reflux disease)?Procedure: UPPER GI ENDOSCOPY* with MAC * Procedure Codes: 4 3235 UPPR GI ENDOSCOPY, DIAGNOSIS * true * Date: Generated for Clinton mckinley/Aranza/Mjitting on: 0 01/10/2025 02:32 PM EDT
--- OUTSIDE RECORDS SUMMARY | 2025-01-10 14:33 | XMS_ITS | Clinical Summary ---
Author Organization [facility] Address [address] [place] [address] Care Team Providers Care Insulation Packer Name Role Phone Andree Yoo MD Primary Care Provider [phone] Medications Medication Sig Dispensed Refills Start Date End Date Status acetaminophen (TYLENOL) 500 MG tablet Take 2 tablets (1,000 mg total) by mouth. 0 02/24/2022 Active atorvastatin (LIPITOR) tablet 40 mg TAKE ONE TABLET BY MOUTH ONCE A DAY AT BEDTIME 0 06/08/2022 Active buPROPion (WELLBUTRIN SR) 150 MG 12 hr tablet Take 1 tablet (150 mg total) by mouth 2 (two) times a day. 0 01/12/2022 Active Continuous Blood Gluc Sensor (FreeStyle Karmen 14 Day Sensor) [facility] [place] GLUCOSE DIRECTED AND CHANGE EVERY 14 DAYS 0 10/07/2021 Active Diclofenac Sodium 1 % GEL Apply 2 g topically. 0 12/01/2022 Active dulaglutide (Trulicity) 3 MG/0.5ML subcutaneous pen-injector INJECT ONE PEN UNDER THE SKIN ONCE A WEEK DIRECTED 0 11/04/2022 Active dicyclomine (BENTYL) 10 MG capsule 1-2 Orally Every 6 hours prn abdominal pain/cramps/discomf ort for 30 day(s) 0 07/24/2019 Active DULoxetine (CYMBALTA) DR capsule 60 mg Take 1 capsule (60 mg total) by mouth daily. 0 05/30/2018 Active glucose blood (FREESTYLE LITE) test strip 1 strip. 0 01/15/2011 Active lisinopril-hydroCH LOROthiazide (PRINZIDE,ZESTORET IC) tablet 10-12.5 mg Take 1 tablet by mouth daily. 0 04/27/2017 Active LORazepam (ATIVAN) 0.5 MG tablet Take 1 tablet (0.5 mg total) by mouth daily as needed. 0 07/18/2021 Active traZODone (DESYREL) 50 MG tablet TAKE ONE TO TWO TABLETS BY MOUTH EVERY DAY AT BEDTIME 0 03/18/2023 Active Humira, 2 Pen, 40 MG/0.4ML prefilled pen injectorIndication s:Inflammatory bowel disease,Ankylosing spondylitis of lumbosacral region (HCC),IBD (inflammatory bowel disease) INJECT 40 MG SUBCUTANEOUSLY EVERY 14 DAYS 4 each 5 01/09/2024 Active celecoxib (CeleBREX) 200 MG capsule Take 1 capsule (200 mg total) by mouth daily. 30 capsule 2 01/11/2024 Active pregabalin (LYRICA) 75 MG capsuleIndications :Inflammatory bowel disease TAKE ONE CAPSULE BY MOUTH EVERY MORNING AND TAKE TWO CAPSULES BY MOUTH EVERY EVENING 540 capsule 0 01/16/2024 Active Active Problems Problem Noted Date Diagnosed Date Postlaminectomy syndrome, lumbar region 04/11/20 23 Lumbar radiculopathy 04/11/2023 Social History Tobacco Use Types Packs/Day Years Used Date Smoking Tobacco: Former Cigarettes 6 Smokeless Tobacco: Never Tobacco Cessation:Counseling Given: Yes Alcohol Use Standard Drinks/Week Comments Not Currently 0 (1 standard drink = 0.6 oz pur e alcohol) Sex and Gender Information Value Date Recorded Sex Assigned at Female 03/09/2023 7:04 AM EDT Gender Identity Not on file Sexual Orientation Not on file Job Start Date Occupation Industry Not on file Not on file Not on file Last Filed Vital Signs Vital Sign Reading Time Taken Comments Blood Pressure 108/70 08/09/2023 12:25 PM EST Pulse 90 08/09/2023 12:25 PM EST Temperature 36.7 C (98.1 F) 04/11/2023 1:04 PM EDT Respiratory Rate 16 03/31/2023 2:39 PM EDT Oxygen Saturation 98% 08/09/2023 12:25 PM EST Inhaled Oxygen Concentration - - Weight 100.2 kg (221 lb) 08/09/2023 12:25 PM EST Height 160 cm (5' 3 ) 08/09/2023 12:25 PM EST Body Mass Index 39.15 08/09/2023 12:25 PM EST Plan of Treatment Health Maintenance Due Date Last Done Comments Hepatitis B Vaccines (1 of 3 - 3-dose series) 1975 Hepatitis C Screening 1975 Depression Screening 1985 BMI Counseling 1991 Preventative Health Evaluation 1991 Cervical Cancer Screening (Pap Smear) 1994 Colon Cancer Screening (Colonoscopy) 2018 DTap / Tdap / Td (2 - Td or Tdap) 07/04/2020 07/04/2010 Breast Cancer Screening (Mammogram) 2023 Shingrix-Zoster Vaccine (1 of 2) 2023 COVID-19 Vaccine ( season) 2024 10/07/2020, 09/16/2020 Influenza Vaccine (#1) 2025 , 07/13/2019, 07/09/2018, Additional history exists Pneumococcal Vaccine Aged Out 10/13/2012 No long er eligible based on patient's age to complete this topic RSV Ped < 20 months Aged Out No longe r eligible based on patient's age to complete this topic Insurance Payer Benefit Plan / Group Subscriber ID Effective Dates Phone Address [facility] [id number] 2023-Present [address] [address] HMO Care Teams Insulation Packer Relationship Specialty Start Date End Date Andree Yoo MD [address] [place] [address] PCP - General Family Medicine 12/29/20
--- OUTSIDE RECORDS SUMMARY | 2025-01-10 14:33 | XMS_ITS | Data Portability ---
Author Organization [facility] Address [address] [place] [address] Assessment No assessment recorded. Plan of Treatment Reminders Order Date Submit Date Provider Last Modified By Organization Details Last Modified Time Details Appointments None recorded. Lab rapid strep group A, throat 2023 024 [email or web address] [facility], [address] [place] [address], [phone], 4 09:10:36 SARS CoV 2 (COVID-19) Ag, QL, IA, upper respiratory specimen 2023 024 [email or web address] _[facility], [address] [place] [address], [phone], 4 09:11:43 Referral None recorded. Procedures None recorded. Surgeries None recorded. Imaging XR, wrist, 3 or more view - Feb 05, pt was holding her dogs leash so her dog can stand still pt believe that the pulling made her wrist to hurt 2023 024 [facility], [address] [place], [address], 12:45:32 Medication Orders None recorded. Patient TargetsNo targets recorded. Patient Instructions Encounter Date Encounter Id Patient Instructions Last Modified By Organization Details Last Modified Time 03/08/2024 [id number] wrist sprain: care instructions [email or web address] Not available 03/08/2024 12:39:20 Reason for Referral None Reported. Results Created Date Observation Date Name Description Value Unit Range Abnormal Flag Note LastModifiedBy Organization Detail LastModifiedTime 12/22/19 24 12/22/2023 SARS CoV 2 (COVI D-19) Ag, QL, IA, upper respi rator y speci men Unknown Analyte negati ve Not Available _ [facility] [address] [place], [address], 12/22/2023 09:10:34 12/22/19 24 12/22/2023 rapid strep group A, throa t Unknown Analyte negati ve Not Available _ [address] [place], [address], 12/22/2023 08:44:29 03/08/20 24 03/08/2024 XR, wrist , 3 or more view No observ ation record ed. [email or web address] [facility] [address] [place], [address], 03/08/2024 19:40:19 Result Notes None recorded. Problems Name Problem SNOMED Code Status Onset Date Resolution Date Notes Provider Name and Address Organization Details Recorded Time Seasonal allergic rhinitis 491695709 Active 2023 Francesco Chow DO [address] [place] , [place], [address], [place] - [facility] 4 09:09:29 Pain of left wrist 689008321249775 Active 2023 Val Herman NP [address] [place], [address], [place] - [facility] 4 12:02:55 Sprain of left wrist 182043651981422 04 Active 2023 Val Herman NP [address] [place], [address], [place] - [facility] 4 12:38:22 Problem Notes None recorded. Medical Equipment None Reported. Allergies No known drug allergies Medications Name Sig Start Date Stop Date Status Note LastModified by Organization Details LastModified Time celecoxib 200 mg capsule TAKE ONE CAPSULE BY MOUTH EVERY DAY 03/08 completed Not Available Not Available Not Available cyclobenzap rine 10 mg tablet TAKE ONE TABLET BY MOUTH DAILY AT BEDTIME 03/08 completed Not Available Not Available Not Available atorvastati n 40 mg tablet TAKE ONE TABLET BY MOUTH AT BEDTIME active Not Available Not Available No t Available bupropion HCl SR 150 mg tablet,12 hr sustained-r elease TAKE ONE TABLET BY MOUTH TWICE A DAY active Not Available Not Available No t Available carvedilol 12.5 mg tablet Take 1 tablet twice a day by oral route. active Not Available Not Available No t Available sulfasalazi ne 500 mg tablet TAKE 1 TABLET BY MOUTH DAILY FOR 5 DAYS, THEN TAKE 1 TABLET TWICE DAILY FOR 5 DAYS, THEN TAKE 2 TABLETS 3 TIMES DAILY FOR 5 DAYS, THEN TAKE 12/21 completed Not Available Not Available Not Available trazodone 50 mg tablet TAKE ONE TO TWO TABLETS BY MOUTH ONCE A DAY AT BEDTIME active Not Available Not Available No t Available cefpodoxime 200 mg tablet TAKE ONE TABLET BY MOUTH TWICE A DAY FOR 7 DAYS 12/21 completed Not Available Not Available Not Available tizanidine 4 mg tablet TAKE ONE TABLET BY MOUTH THREE TIMES A DAY NEEDED 12/21 completed Not Available Not Available Not Available hydrocodone 5 mg-acetamin ophen 325 mg tablet TAKE ONE TABLET BY MOUTH EVERY 6 HOURS NEEDED active Not Available Not Available No t Available ondansetron HCl 4 mg tablet TAKE ONE TABLET BY MOUTH EVERY 8 HOURS active Not Available Not Available No t Available gabapentin 250 mg/5 mL oral solution TAKE 9ML BY MOUTH THREE TIMES A DAY 12/21 completed Not Available Not Available Not Available tramadol 50 mg tablet TAKE ONE TABLET BY MOUTH THREE TIMES A DAY NEEDED 12/21 completed Not Available Not Available Not Available hydromorpho ne 2 mg tablet TAKE ONE TABLET BY MOUTH THREE TIMES A DAY NEEDED FOR PAIN 12/21 completed Not Available Not Available Not Available methocarbam ol 750 mg tablet TAKE ONE TABLET BY MOUTH FOUR TIMES A DAY FOR 14 DAYS 12/21 completed Not Available Not Available Not Available imiquimod 5 % topical cream packet APPLY A THIN LAYER TO AFFECTED AREAS ABOVE LIP, RIGHT CHEEK AND RIGHT CALF ONCE DAILY ON TUESDAY- FOR 6 WEEKS. EXPECT REDNESS CRUSTING active Not Available Not Available No t Available cephalexin 500 mg capsule TAKE ONE CAPSULE BY MOUTH EVERY 6 HOURS 12/21 completed Not Available Not Available Not Available dexamethaso ne 4 mg tablet TAKE ONE TABLET BY MOUTH 3 TIMES A DAY 12/21 completed Not Available Not Available Not Available buspirone 10 mg tablet TAKE TWO TABLETS BY MOUTH TWICE A DAY active Not Available Not Available No t Available nystatin-tr iamcinolone 100,000 unit/g-0.1 % topical cream APPLY IN THE IN THE MORNING AND IN THE EVENING TO ABDOMINAL FOLD WHEN DERMATITI S IS FLARING. USE ONLY FOR 7-10 DAYS AT A TIME. 12/21 completed Not Available Not Available Not Available gabapentin 300 mg capsule TAKE ONE AND ONE HALF BY MOUTH THREE TIMES A DAY 12/21 completed Not Available Not Available Not Available lisinopril 10 mg-hydrochl orothiazide 12.5 mg tablet TAKE ONE TABLET BY MOUTH EVERY DAY 03/08 completed Not Available Not Available Not Available estradiol 0.01% (0.1 mg/gram) vaginal cream INSERT 1 GRAM VAGINALLY EVERY DAY AT BEDTIME FOR 14 DAYS. AFTER 14 DAYS INSERT 1 GRAM VAGINALLY TWICE A WEEK 12/21 completed Not Available Not Available Not Available dicyclomine 10 mg capsule TAKE ONE TO TWO CAPSULES BY MOUTH EVERY 6 HOURS NEEDED FOR ABDOMINAL PAIN/CRAM PS/DISCOM FORT active Not Available Not Available No t Available duloxetine 30 mg capsule,del ayed release TAKE ONE CAPSULE BY MOUTH EVERY DAY IN THE MORNING active Not Available Not Available No t Available duloxetine 60 mg capsule,del ayed release TAKE ONE CAPSULE BY MOUTH EVERY EVENING AT BEDTIME active Not Available Not Available No t Available solifenacin 5 mg tablet TAKE ONE TABLET BY MOUTH EVERY MORNING 03/08 completed Not Available Not Available Not Available darifenacin ER 7.5 mg tablet,exte nded release 24 hr TAKE ONE TABLET BY MOUTH EVERY DAY active Not Available Not Available No t Available pregabalin 75 mg capsule TAKE ONE CAPSULE BY MOUTH EVERY MORNING AND TAKE TWO CAPSULES BY MOUTH EVERY EVENING active Not Available Not Available No t Available BD Ultra-Fine Short Pen Needle 31 gauge x 5/16 USE A NEW NEEDLE EACH TIME TO INJECT INSULIN ONCE DAILY active Not Available Not Available No t Available Linzess 290 mcg capsule TAKE ONE CAPSULE BY MOUTH AT LEAST 30 MINUTES BEFORE THE FIRST MEAL OF THE DAY ON AN EMPTY STOMACH ONCE A DAY active Not Available Not Available No t Available Humulin N NPH U-100 Insulin KwikPen 100 unit/mL (3 mL) subcutaneou s INJECT 40 UNITS UNDER THE SKIN ONCE DAILY OR DIRECTED active Not Available Not Available No t Available Farxiga 10 mg tablet Take 1 tablet every day by oral route. active Not Available Not Available No t Available Entresto active Not Available Not Avai lable Not Available mesalamine 400 mg capsule (with delayed release tablets inside) TAKE TWO CAPSULES BY MOUTH THREE TIMES A DAY active Not Available Not Available No t Available Humira(CF) Pen 40 mg/0.4 mL subcutaneou s kit 03/08 completed Not Available Not Available Not Available Trulicity 3 mg/0.5 mL subcutaneou s pen injector ONE INJECTION ONCE WEEKLY 03/08 completed Not Available Not Available Not Available FreeStyle Karmen 3 Sensor device CHANGE SENSOR EVERY 14 DAYS active Not Available Not Available No t Available Vitals Date Recorded Body height Body mass index (BMI) Body weight Body temperature Respiratory rate Oxygen saturation Oxygen saturation in Arterial blood by Pulse oximetry Heart rate Systolic And Diastolic Provider Name and Address Organization Details Last Updated DateTime 4 160.02 cm 42.9 kg/m2 144788. 35 g 98.6 [degF] 18 /min 97 % 97 % 91 /min 118/81 mm[Hg] Spring Fowler PA - [facility] 4 08:35:21 Date Recorded Body height Body mass index (BMI) Body weight Oxygen saturation Oxygen saturation in Arterial blood by Pulse oximetry Heart rate Body temperature Systolic And Diastolic Provider Name and Address Organization Details Last Updated DateTime 4 160.02 cm 40.9 kg/m2 301174. 84 g 98 % 98 % 88 /min 99.2 [degF] 110/74 mm[Hg] Spring Fowler PA - [facility] 4 11:10:11 Social History Question Answer Notes LastModified by Organizat ion Details LastModified Time Tobacco Smoking Status Never Smoker Spring lomeli PA - [facility] 03/08/2024 11:17:30 Have You Had A Flu Shot This Season? Yes Information not available 12/22/2023 If No, Would You Like A Flu Shot Today? No Information not available 12/22/2023 Have You Had Direct Contact, Or Contact During Intimacy, With Monkeypox Rash, Scabs, Or Body Fluids From A Person With Monkeypox? No Information not available 12/22/2023 What Is Your Relationship Status? Information not available 12/22/2023 Have You Recently Traveled Abroad? No Information not available 12/22/2023 Are You Currently In School? No Information not available 12/22/2023 Sex: Unknown Functional Status Question Answer Note LastModified by Organizat ion Details LastModified Time How many times per week do you consume alcohol? Less than 1 time per week Information not available 03/08/2024 Do you or have you ever used any other forms of tobacco or nicotine? No Information not available 12/22/2023 What is your level of alcohol consumption? Occasional Information not available 12/22/2023 Are you currently employed? Yes Information not available 12/22/2023 Mental Status None recorded. Family History Nothing Reported. Medical History No medical history recorded. Gynecological History Statement/Question Response Is there any chance of ? No LMP N/A Obstetrics History GPAL:G 0 P 0 0 0 0 Past Encounters Encounter ID Performer Location Encounter Start Date Encounter Closed Date Diagnosis/Indication Diagnosis SNOMED-CT Code Diagnosis ICD10 Code Diagnosis Note [id number] [address] [address] [address] 10/28/2020 17:19:50 10/28/2020 18:49:55 [id number] [facility] [address] [facility] [address] 04/30/2020 10:52:01 04/30/2020 12:21:11 [id number] Francesco Chow [place] [address] [facility] [address] 12/22/2023 08:15:21 12/22/2023 09:15:24 Seasonal allergic rhinitis 347952343 J30.2 See pcp in 3-4 days. Go to ER if anything worsens. Otc tylenol as needed for pain. Symptomati c treatment. All of patients questions have been answered. Patient has understand ing and agreement of all of this. [id number] [place] [address] [address] 03/08/2024 10:46:38 03/08/2024 12:45:32 Pain of left wrist 3997523907 35892 M25.532 Sprain of left wrist 784 [id number] 4317334 S63.502A Prop up your arm on a pillow when you ice it or anytime you sit or lie down for the next 3 days. Try to keep your wrist above the level of your heart. This will help reduce swelling.P ut ice or cold packs on your wrist for 10 to 20 minutes at a time. Try to do this every 1 to 2 hours for the next 3 days (when you are awake) or until the swelling goes down. Put a thin cloth between the ice pack and your skin.After 2 or 3 days, if your swelling is gone, apply a heating pad set on low or a warm cloth to your wrist. This helps keep your wrist flexible. Some doctors suggest that you go back and forth between hot and cold.If you have an elastic bandage, keep it on for the next 24 to 36 hours. The bandage should be snug but not so tight that it causes numbness or tingling. To rewrap the wrist, wrap the bandage around the hand a few times, beginning at the fingers. Then wrap it around the hand between the thumb and index finger, ending by circling the wrist several times.If your doctor gave you a splint or brace, wear it as directed to protect your wrist until it has healed.Alexandro e pain medicines exactly as directed.I f the doctor gave you a prescripti on medicine for pain, take it as prescribed .If you are not taking a prescripti on pain medicine, ask your doctor if you can take an over-the-c ounter medicine.T ry not to use your injured wrist and hand. Health Concerns Section Related Observation LastModified by Organization Detai ls LastModified Time None Recorded Concern Status LastModified by Organization Details LastModified Time None Recorded Advance Directives Directive None Recorded Payers Insurance Date Sequence Insurance Name Policy Number Policy Pepe Covered Member ID Pepe Member ID Guarantor Name 03/08/2024 1 [facility] [id number] Sara Okeefe [id number] Sara Okeefe Notes Date Note Type Note Provider Name and Address Organization Details Recorded Time 12/22/2023 text/html sore throat since Tuesday, swollen gland, and pain. has hx of eczema. has post nasal drip and itchy eyes. no fevers. no abd pain or nausea. no head ache. no sinus pressure or pain Francesco Chow, DO [address] [place], [address], [employer] 12/22/2023 10:07:21 03/08/2024 text/html 48 YOF presents with left wrist pain . on Feb 05, pt was holding her dogs leash so her dog can stand still pt believe that the pulling made her wrist to hurt Val Herman, [employer] [address] [place], [address], [place] [facility] 03/13/2024 08:25:18 OBGyn Episode No OBEpisode recorded.
--- OUTSIDE RECORDS SUMMARY | 2025-01-10 14:33 | XMS_ITS | Clinical Summary ---
Author Organization [facility] Address [address] [place] [id number] Care Team Providers Care Assessment Expert Name Role Phone Andree Yoo MD Primary Care Provider [phone] Allergies Active Allergy Reactions Criticality Noted Date Comments Amlodipine Other (See Comments) Low 12/11/2024 Medications traZODone (DESYREL) 50 MG tablet 50 mg. 4 Active SUMAtriptan (IMITREX) 50 MG tablet Take 50 mg by mouth. 3 Active solifenacin (VESICARE) 5 MG tablet 5 mg. 4 Active pregabalin (LYRICA) 75 MG capsule Take 225 mg by mouth. 4 Active nystatin-triamc inolone (MYCOLOG II) cream 400 mg. 4 Active methocarbamol (ROBAXIN) 750 MG tablet 750 mg. 4 Active mesalamine (DELZICOL) [address] capsule Take 800 mg by mouth 3 (three) times a day. 4 Active lisinopril-hydr oCHLOROthiazide (PRINZIDE,ZESTO RETIC) 10-12.5 MG per tablet Take 1 tablet by mouth daily. 4 Active Linzess 290 MCG Cap capsule 290 mcg. 4 Active B-D ULTRAFINE III SHORT PEN 31G X 8 MM Misc USE A NEW NEEDLE EACH TIME TO INJECT INSULIN ONCE DAILY 4 Active HumuLIN N KWIKPEN 100 UNIT/ML prefilled pen injection INJECT 40 UNITS UNDER THE SKIN ONCE DAILY OR DIRECTED 4 Active imiquimod (ALDARA) 5 % cream APPLY A THIN LAYER TO AFFECTED AREAS ABOVE LIP, RIGHT CHEEK AND RIGHT CALF ONCE DAILY ON TUESDAY-TUESDAY FOR 6 WEEKS. EXPECT REDNESS CRUSTING 4 Active DULoxetine (CYMBALTA) 60 MG capsule TAKE ONE CAPSULE BY MOUTH EVERY EVENING AT BEDTIME 4 Active DULoxetine (CYMBALTA) 30 MG capsule Take 30 mg by mouth every morning. 4 Active dulaglutide (Trulicity) 3 mg/0.5 mL prefilled pen injection 3 mg. 3 Active diclofenac (VOLTAREN) 1 % gel Apply 2 g topically. 3 Active cyclobenzaprine (FLEXERIL) 10 MG tablet Take 10 mg by mouth nightly. 4 Active Continuous Blood Gluc Sensor (FreeStyle Karmen 3 Sensor) [facility] [place] USE TO TEST BLOOD SUGAR CONTINUOUSLY DIRECTED 4 Active celeCOXIB (CeleBREX) 200 MG capsule Take 200 mg by mouth daily. 4 Active busPIRone (BUSPAR) 10 MG tablet Take 20 mg by mouth 2 (two) times a day. 4 Active buPROPion (WELLBUTRIN SR) 150 MG 12 hr tablet Take 150 mg by mouth 2 (two) times a day. 4 Active atorvastatin (LIPITOR) 40 MG tablet Take 40 mg by mouth nightly. 4 Active Adalimumab-adaz 40 MG/0.4ML Solution Auto-injector Inject 40 mg under the skin. 4 Active Encounters Date Type Department Care Team Description 12/11/2024 2:52 PM EDT - 12/11/2024 10:09 PM EDT Emergency [facility] Emergency Department [address] [place] [address] Patrick Aguila MD Chest pain (Primary Dx); Dizziness Discharge Disposition: Left Against Medical Advice/ AMA 12/11/2024 Travel from Last 3 Months Social History Tobacco Use Types Packs/Day Years Used Date Smoking Tobacco: Never Smokeless Tobacco: Never Comments Unknown Sex and Gender Information Value Date Recorded Sex Assigned at Female 12/11/2024 2:57 PM EDT Legal Sex Female 1:00 PM EST Gender Identity Female 12/11/2024 2:57 PM EDT Sexual Orientation Heterosexual (straight) 12/11 2:57 PM EDT Last Filed Vital Signs Vital Sign Reading Time Taken Comments Blood Pressure 138/91 12/11/2024 6:23 PM EDT Pulse 100 12/11/2024 6:23 PM EDT Temperature 36.6 C (97.9 F) 12/11/2024 6:23 PM EDT Respiratory Rate 16 12/11/2024 6:23 PM EDT Oxygen Saturation 98% 12/11/2024 6:23 PM EDT Inhaled Oxygen Concentration - - Weight - - Height 160 cm (5' 3 ) 10/18/2023 1:47 PM EDT Body Mass Index - - Plan of Treatment Upcoming Encounters Date Type Department Care Team (Late st Contact Info) Description 03/18/2025 3:30 PM EDT Consult [facility] [address] [place] [address] Karo Gonzales MD [address] [place] [address] Health Maintenance Due Date Last Done Comments Hepatitis C Virus Screening 1973 HIV Screening 1986 DTaP/Tdap/Td Vaccines (1 - Tdap) 1992 Hepatitis B Vaccines (1 of 3 - 19+ 3-dose series) 1992 Pneumococcal Vaccines 50+ (1 of 2 - PCV) 1992 Zoster (Shingles) Vaccine (1 of 2) 1992 Pap Smear (Ages 21-65) 1994 Mammogram 2013 Colonoscopy 2018 COVID-19 Vaccine (3 - Pfizer risk series) 11/04/2020 10/07/2020, 09/16/2020 Influenza Vaccine 02/01/2025 03/29/2024, , 08/15/2023, Additional history exists Procedures Procedure Name Priority Date/Time Associated Diagnosis Comments HIGH SENSITIVITY TROPONIN T CARD 12/11/2024 6:22 PM EDT XR CHEST 2 VIEWS STAT 12/11/2024 4:13 PM EDT ECG 12-LEAD ED Critical 12/11/2024 3:13 PM EDT MAGNESIUM STAT 12/11/2024 2:58 PM EDT HIGH SENSITIVITY TROPONIN T CARD 12/11/2024 2:58 PM EDT COMPREHENSIVE METABOLIC PANEL STAT 12/11/2024 2:58 PM EDT COMPLETE BLOOD COUNT, WITH DIFFERENTIAL STAT 12/11/2024 2:58 PM EDT from Last 3 Months Results * (ABNORMAL) Troponin T, High Sensitivity (12/11/2024 6:22 PM EDT) Only the most recent of2 resultswithin the time period is included. Pathologist [facility] High Sensitivity Troponin T 12 <15 ng/L 12/11/2024 7:13 PM EDT [facility] Delta (Change) 4(H) <3 12/11/2024 7:13 PM EDT [facility] Comment:Decreased Blood Blood specimen / Unknown 12/11/2024 6:22 PM EDT 12/11/2024 6:47 PM EDT [facility] LAB BLOOD ORDERAB LES Final Result [address] [address], [address] [address] * XR Chest 2 views (12/11/2024 4:13 PM EDT) Anatomical Region Laterality Modality Chest Computed Radiogr aphy 12/11/2024 4:13 PM EDT Impressions 12/11/2024 10:38 PM EDT No acute pulmonary disease. Interpreted by: Gume Kent DO Asset Management Analyst Attending addendum: Ill-defined sclerotic lesion involving the right humeral head/proximal humerus, likely enchondroma. I personally reviewed the images and the resident's preliminary report and made the MINOR addendum above ([email or web address]). Narrative 12/11/2024 10:38 PM EDT EXAMINATION: XR CHEST 2 VIEWS CLINICAL INFORMATION: CP COMPARISON: Chest radiograph from 03/22/2020 and 03/11/2016. TECHNIQUE: Frontal and lateral views of the chest was obtained. FINDINGS: Left pectoral pacemaker leads overlie the expected locations the right atrium, right ventricle and coronary sinus. Cervical fusion hardware. Lungs are well expanded. No focal consolidation. No pleural effusion or overt edema. No pneumothorax. The cardiomediastinal silhouette is within normal limits. No acute osseous abnormality. Sclerotic lesion in the right humeral head is similar to prior and likely represents bone island. Procedure Note Abimael Light MD - 12/11/2024 EXAMINATION: XR CHEST 2 VIEWS CLINICAL INFORMATION: CP COMPARISON: Chest radiograph from 03/22/2020 and 03/11/2016. TECHNIQUE: Frontal and lateral views of the chest was obtained. FINDINGS: Left pectoral pacemaker leads overlie the expected locations the right atrium, right ventricle and coronary sinus. Cervical fusion hardware. Lungs are well expanded. No focal consolidation. No pleural effusion or overt edema. No pneumothorax. The cardiomediastinal silhouette is within normal limits. No acute osseous abnormality. Sclerotic lesion in the right humeral head is similar to prior and likely represents bone island. IMPRESSION: No acute pulmonary disease. Interpreted by: Gume Kent DO Asset Management Analyst Attending addendum: Ill-defined sclerotic lesion involving the right humeral head/proximal humerus, likely enchondroma. I personally reviewed the images and the resident's preliminary report and made the MINOR addendum above ([email or web address]). us [facility] IMG DIAGNOSTIC IM AGING ORDERABLES Final Result * 10 Min ECG 12 lead (12/11/2024 3:13 PM EDT) [facility] Ventricular rate 76 BPM EKG [facility] Atrial rate 76 BPM EKG [facility] P-R interval 142 ms EKG [facility] QRS duration 134 ms EKG [facility] Q-T interval 412 ms EKG [facility] QTC calculation (Bazett) 464 ms EKG [facility] P axis 24 degrees EKG [facility] R axis -42 degrees EKG [facility] T axis 53 degrees EKG [facility] 12/11/2024 3:13 PM EDT Narrative EKG [facility] - 12/11/2024 3:24 PM EDT Atrial-sensed ventricular-paced rhythm Abnormal ECG No previous ECGs available Confirmed by MD Farooq Chad ([id number]) on 12/11/2024 3:23:59 PM Procedure Note Alex Farooq MD - 12/11/2024 Atrial-sensed ventricular-paced rhythm Abnormal ECG No previous ECGs available Confirmed by MD Farooq Chad ([id number]) on 12/11/2024 3:23:59 PM Hung Burns MD ECG ORDERABLES Final Result [facility] * (ABNORMAL) Complete Blood Count, with Differential (12/11/2024 2:58 PM EDT) White Blood Cell Count 11.3(H) 4.0 - 11.0 Thou/uL 12/11/2024 3:48 PM EDT [facility] Platelet Count 286 150 - 450 Thou/uL 12/11/2024 3:48 PM EDT [facility] Hemoglobin 14.9 11.7 - 15.7 g/dL 12/11/2024 3:48 PM EDT [facility] Hematocrit 46.9 35.0 - 47.0 % 12/11/2024 3:48 PM EDT [facility] Red Blood Cell Count 5.02 4.00 - 5.40 Mil/uL 12/11/2024 3:48 PM T [facility] MCV 93 80 - 100 fL 12/11/2024 3:48 PM EDT [facility] MCH 29.7 27.0 - 31.0 pg 12/11/2024 3:48 PM EDT [facility] MCHC 31.8 30.0 - 36.0 g/dL 12/11/2024 3:48 PM EDT [facility] RDW 13.4 11.5 - 14.5 % 12/11/2024 3:48 PM EDT [facility] MPV 10.6 7.5 - 12.5 fL 12/11/2024 3:48 PM EDT [facility] Neutrophils Auto 69.1 % 12/12/19 3:48 PM EDT [facility] Immature Granulocytes 0.4 % 12/11/2024 3:48 PM EDT [facility] Lymphocytes Auto 22.0 % 12/12/19 3:48 PM EDT [facility] Monocytes Auto 7.1 % 12/11/2024 3:48 PM EDT [facility] Eosinophils Auto 0.9 % 12/12/19 3:48 PM EDT [facility] Basophils Auto 0.5 % 12/11/2024 3:48 PM EDT [facility] Abs Neutrophils Auto 7.80(H) 2.00 - 7.50 Thou/uL 12/11/2024 3:48 PM EDT [facility] Abs Immature Granulocytes 0.05 0.00 - 0.10 Thou/uL 12/11/2024 3:48 PM EDT [facility] Abs Lymphocytes Auto 2.48 1.50 - 4.50 Thou/uL 12/11/2024 3:48 PM EDT [facility] Abs Monocytes Auto 0.80 0.20 - 1.50 Thou/uL 12/11/2024 3:48 PM EDT [facility] Abs Eosinophils Auto 0.10 0.00 - 0.70 Thou/uL 12/11/2024 3:48 PM EDT [facility] Abs Basophils Auto 0.06 0.00 - 0.20 Thou/uL 12/11/2024 3:48 PM EDT [facility] Blood Blood specimen / Unknown 12/11/2024 2:58 PM EDT 12/11/2024 3:36 PM EDT [facility] BLOOD ORDERAB LES Final Result [address] [address], [address] [address] * Magnesium (12/11/2024 2:58 PM EDT) Magnesium 2.3 1.6 - 2.7 mg/dL 12/11/2024 4:11 PM EDT [facility] Blood Blood specimen / Unknown 12/11/2024 2:58 PM EDT 12/11/2024 3:36 PM EDT [facility] BLOOD ORDERAB LES Final Result [address] [address], [address] [address] * (ABNORMAL) Comprehensive Metabolic Panel (12/11/2024 2:58 PM EDT) Glucose 118(H) 65 - 99 mg/dL 12/11/2024 4:11 PM T [facility] Comment:Fasting: <100 mg/dL, Non-Fasting: <200 mg/dL (ADA 2004) Blood Urea Nitrogen (BUN) 22(H) 8 - 21 mg/dL 12/11/2024 4:11 PM [facility] Creatinine 1.0 0.4 - 1.1 mg/dL 12/11/2024 4:11 PM [facility] eGFR 68 >59 12/11/2024 4:11 PM [facility] Comment:CKD-EPI (2020) in mL /min/1.73 sq meters. Sodium 143 136 - 145 mmol/L [facility]24 [facility] Potassium 4.7 3.4 - 5.3 mmol/L 12/11/2024 4:11 PM [facility] Chloride 107 98 - 107 mmol/L 12/11/2024 4:11 PM [facility] CO2 26 22 - 33 mmol/L 12/11/2024 4:11 PM [facility] Calcium 9.5 8.7 - 10.5 mg/dL 12/11/2024 4:11 PM [facility] Alkaline Phosphatase 101 32 - 122 U/L 12/11/2024 4:11 PM EDT [facility] Aspartate Aminotrans (AST) 16 10 - 50 U/L 12/11/2024 4:11 PM EDT [facility] Alanine Aminotrans (ALT) 18 10 - 50 U/L 12/11/2024 4:11 PM EDT [facility] Bilirubin, Total 0.2 0.2 - 1.0 mg/dL 12/11/2024 4:11 PM EDT [facility] Protein, Total 6.7 6.3 - 8.3 g/dL 12/11/2024 4:11 PM EDT [facility] Albumin 4.0 3.5 - 5.0 g/dL 12/11/2024 4:11 PM EDT [facility] BUN/Creatinine Ratio 22 10.0 - 25.0 Ratio 12/11/2024 4:11 PM EDT [facility] Globulin 2.7 1.5 - 3.9 g/dL 12/11/2024 4:11 PM EDT [facility] Albumin/Globulin Ratio 1.5 1.0 - 3.0 Ratio 12/11/2024 4:11 PM EDT [facility] Anion Gap 10 7 - 17 12/11/2024 4:11 PM EDT [facility] Blood Blood specimen / Unknown 12/11/2024 2:58 PM EDT 12/11/2024 3:36 PM EDT [facility] BLOOD ORDERAB LES Final Result [address] [address], [address] [address] from Last 3 Months Insurance [facility] Care Teams Assessment Expert Relationship Specialty Start Date End Date Andree Yoo MD [address] [place] [address] PCP - General Family Medicine 12/05/24
--- OUTSIDE RECORDS SUMMARY | 2025-01-10 14:33 | XMS_ITS | Clinical Summary ---
Author Organization [facility] Address [address] [place] [address] Care Team Providers Care Diesel Instructor Name Role Phone Andree Yoo MD Primary Care Provider Allergies Active Allergy Reactions Criticality Noted Date Comments Amlodipine 12/28/2024 Medications aspirin 81 mg chewable tablet Chew 1 tablet (81 mg total) 1 (one) time each day. Active buPROPion SR (WELLBUTRIN SR) 150 mg 12 hr tablet Take 1 tablet (150 mg total) by mouth 2 (two) times a day. Do not crush, chew, or split. Active busPIRone (BUSPAR) 10 mg tablet Take 1 tablet (10 mg total) by mouth 2 (two) times a day. Active dapagliflozin propanediol (Farxiga) 10 mg tablet Take 1 tablet (10 mg total) by mouth 1 (one) time each day. Active atorvastatin (LIPITOR) 40 mg tablet Take 1 tablet (40 mg total) by mouth at bedtime. Active traZODone (DESYREL) 100 mg tablet Take 1 tablet (100 mg total) by mouth at bedtime. Active DULoxetine (CYMBALTA) [address] capsule Take 1 capsule (30 mg total) by mouth 1 (one) time each day. Do not crush or chew. Take 2 tablets in a.m. and 1 tablet at noon. Active pregabalin (LYRICA) 150 mg capsule Take 1 capsule (150 mg total) by mouth 2 (two) times a day. Active carvediloL (COREG) 3.125 mg tablet Take 1 tablet (3.125 mg total) by mouth 2 (two) times a day with meals. Active imiquimod (ALDARA) 5 % cream APPLY A THIN LAYER TO AFFECTED AREAS ABOVE LIP, RIGHT CHEEK AND RIGHT CALF ONCE DAILY ON TUESDAY- Y FOR 6 WEEKS. EXPECT REDNESS CRUSTING 4 Active omeprazole (PriLOSEC) [address] capsule TAKE ONE CAPSULE BY MOUTH EVERY DAY 30 MINUTES TO 1 HOUR PRIOR TO FIRST MEAL Active tiZANidine (ZANAFLEX) 4 mg tablet 5 Active FreeStyle Karmen 3 Sensor device CHANGE SENSOR EVERY 14 DAYS 5 Active erenumab-aooe (Aimovig Autoinjector) 140 mg/mL injection Inject 1 mL (140 mg total) under the skin. 5 Active ondansetron ODT (ZOFRAN-ODT) 4 mg disintegrating tablet DISSOLVE ONE TABLET BY MOUTH EVERY 4 TO 6 HOURS NEEDED FOR NAUSEA 5 Active Mounjaro 10 mg/0.5 mL injection Inject 0.5 mL (10 mg total) under the skin every 7 (seven) days. 5 Active cyclobenzaprine (FLEXERIL) 10 mg tablet Take 1 tablet (10 mg total) by mouth 3 (three) times a day for 10 days. 30 each 5 Active Active Problems Problem Noted Date Diagnosed Date Intractable back pain 10/17/2024 Hypertension 09/04/2024 Cervical spondylosis with radiculopathy 09/05/19 25 Assessment & Plan (10/04/2024 1:55 PM EDT): Ms. Lora came in for follow up regarding her neck, interscapular, and arm symptoms. Over the past few days it seems like it is more interscapular and into the right trapezius whereas previously it had been more intense in the left lateral arm. She also describes some numbness in the left foot but says that that predates her most recent lumbar surgeries. She is neurologically intact. The MRI of the cervical spine from [facility] dated October 02, 2024 shows mild degenerative changes above her C5-7 fusion without any significant stenosis. I told the patient and her that the MRI looked clean and I did not see anything to explain her symptoms. I question whether or not this could be her fibromyalgia and encouraged her to discuss this with her primary. Follow-up with us in the future on an as-needed basis. Assessment & Plan (09/04/2024 1:46 PM EST): Ms. Lora describes about a month of neck pain with radiation to the left upper extremity and down the left leg. She takes Celebrex without relief. On examination, she has good strength throughout. Her extremity reflexes are a little bit be exaggerated with some spread of reflexes. X-rays of the cervical spine from today at [facility] show some retrolisthesis of C4 on C5 in neutral that increases slightly in extension. It resolves in flexion. Given her symptoms, surgical history, and mild instability I think it is appropriate to obtain a new MRI of the cervical spine. She will follow-up afterwards. Chronic midline low back pain with left-sided sc iatica 09/04/2024 Assessment & Plan (09/04/2024 4:21 PM EST): Ms. Lora describes midline low back pain that radiates down the left leg. She is s/p L3-S1 fusion. She was contemplating SI joint fusions with Dr. Romero, but after some weight loss she felt like the SI joing were not so much of an issue. She is neurologically intact without lower extremity hyperreflexia or myelopathic findings. X-rays of the lumbar spine with flexion and extension views show good appearance of her fusion construct from L3-S1 without any abnormal motion or instability. Given her neck and upper extremity symptoms, I am going to order an MRI of the cervical spine. Presence of permanent cardiac pacemaker 09/03/19 25 Coronary artery disease invo lving [place] coronary artery of [place] heart without angina pectoris 08/03/2024 Atypical chest pain 08/03/2024 Fibromyalgia 08/03/2024 Irritable bowel syndrome with constipation 08/03 Type 2 diabetes mellitus wit hout complication, without long-term current use of insulin ([facility] V24, [facility] V28) 08/03/2024 Dyslipidemia 08/03/2024 Ulcerative colitis without c omplications ([facility] V24, CMS/HCC V28) 08/03/2024 Chronic tension-type headache, not intractable 0 08/03/2024 CONSTANCE (generalized anxiety disorder) 08/03/2024 History of gastric restrictive surgery Class 2 severe obesity due t o excess calories with serious comorbidity and body mass index (BMI) of 36.0 to 36.9 in adult ([facility]24, [facility] V28) 08/03/2024 Routine general medical exam ination at a health care facility 08/03/2024 Nutritional deficiency 08/03/2024 Vitamin D deficiency 08/03/2024 Chronic systolic congestive heart failure ([facility] V24, [facility] V28) 08/03/2024 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 Xavier is about 18 months status post left L4-5 and L5-S1 TLIF. She has had trouble with the left SI joint in the past, went to physical therapy, and had some relief after a steroid injection. Her current pain is getting better but seems to be related to the SI joint once again. I offered her a prescription for physical therapy and or a prescription for an SI joint belt. She said that she would do the exercises at home that she had learned during her last therapy round. She also said that she intends to lose some weight as she is sure that will help. We discussed the book Eat to Live, by Dr. Pepe Aranda. I encouraged her on her weight loss plans. She will call if things do not continue in the right direction. Degenerative disc disease, lumbar 08/12/2021 Overview (09/04/2024): Last Assessment & Plan: Ms. Lora is here for 1 year follow-up after her L3-4 decompression for huge central disc herniation, stenosis and cauda equina syndrome followed by PLIF and fusion extension to S1 on 10/04/2022. She finds some irritation at the incisions when she leans back in a chair but otherwise, her lower back is okay. She is tender at the bilateral SI joints only, seated SLR is positive bilaterally at 90 degrees. There is no weakness on exam. Review of the AP/lateral and flexion/extension x-rays today show that all hardware is in good position with no instability. There appears to be more posterolateral bone growth particular seen on the lateral views then through the interbody grafts though disc height has been maintained in all 3 levels. Her fusion is progressing and all hardware remains in satisfactory position. No further surveillance imaging will be ordered at this time. Gastroesophageal reflux disease 04/13/2006 Overview (09/04/2024): Fundoplication 2005 Encounters Date Type Department Care Team Description 12/28/2024 3:43 PM EDT - 12/28/2024 8:31 PM EDT Emergency [facility] Emergency [address] [place] [id number] Justin Baxter MD Atypical chest pain (Primary Dx) Discharge Disposition: Left Against Medical Advice 10/19/2024 Telephone Neurosurgery [facility] [address] [place] [id number] Anahi Mcfarland MD Advice Only (MRI/ED) 10/17/2024 7:50 PM EDT - 10/19/2024 1:08 PM EDT Hospital Encounter [facility] Medical Surgical Unit [address] [place] [address] Juan R Nielsen MD Surendran, Anupama, MD Intractable back pain (Primary Dx) Discharge Disposition: Home or Self Care from Last 3 Months Immunizations Name Administration Dates Next Due H1N1 Inj Preservative Free 05/07/2009 Influenza Quadravalent, MDCK , 0.5ml, preservative free (Flucelvax) 6mo and older 05/03/2021,07/09/2018 Influenza Quadrivalent, 0.5m l, preservative free (Fluarix; FluLaval; Fluzone) ages 6mo and older (Afluria) 3yo and older 08/15/2023,06/05/2022,04/08/2020,2019 Influenza trivalent, 0.5mL, preservative free (Fluarix; FluLaval; Fluzone) ages 6mo and older (Afluria) 3 years and older 03/29/2024 Influenza trivalent, with preservative (Fluzone; Afluria) 6mo and older 05/24/2023,04/20/2022,04/05/2019,2017,08/04/2016,04/13/2015,03/24/2013,0 03/18/2012,03/25/2011,05/07/2010, 009,05/01/2008,05/18/2007 MMR, measles mumps and rubel la Live (Priorix; M-M-R II) 12mo and older 12/15/2004 Pneumococcal conjugate 20 va lent (Prevnar 20, PCV 20) 2mo and older 07/28/2023 Td, Unspecified 11/27/2004 Tdap Tetanus diptheria acell ular pertussis (Boostrix; Adacel) 7yo and older 07/04/2010 Surgical History Surgery Date Site/Laterality Comments OTHER SURGICAL HISTORY PROCEDURE: HISTORY OTHER; COMMENT: multiple skin cancers removed, melanoma in situ, early squamous cell in situ, and numerous basal cell CHOLECYSTECTOMY 07/2004 PROCEDURE: HISTORICAL CHOLECYSTECTOMY OTHER SURGICAL HISTORY 04/20/2009 PROCEDURE: WA ARTHRD ANT INTERBODY MIN DSC CRV BELOW C2; COMMENT: C4 FOOT SURGERY PROCEDURE: HISTORICAL FOOT SURGERY; COMMENT: B/L bunion OTHER SURGICAL HISTORY PROCEDURE: HISTORY OTHER; COMMENT: fundoplication BACK SURGERY 02/17/2021 PROCEDURE: HISTORICAL BACK SURGERY; COMMENT: Left L4-5, left L5-S1 TLIF, Dr. Mcfarland BACK SURGERY 10/04/2022 PROCEDURE: HISTORICAL BACK SURGERY; COMMENT: L3-4 decompression and discectomy with fusion extension L3-S1, Dr. Mcfarland NECK SURGERY 07/14/2011 PROCEDURE: HISTORICAL NECK SURGERY; COMMENT: Exploration C5-6 fusion with C6-7 ACDF, Dr. Longoria NECK SURGERY 04/2009 PROCEDURE: HISTORICAL NECK SURGERY; COMMENT: C5-6 ACDF, Dr. Longoria NECK SURGERY 10/2014 PROCEDURE: HISTORICAL NECK SURGERY; COMMENT: C6-7 posterior cervical fixation for nonunion, Dr. Longoria OTHER SURGICAL HISTORY 2020 PROCEDURE: HISTORY OTHER; COMMENT: Gastric sleeve surgery SKIN BIOPSY 08/01/2023 PROCEDURE:SKIN BIOPSY;COMMENT:Facial PACEMAKER 1 HR Medical History Medical History Date Comments Polycystic ovaries 04/13/2006 DX:Polycystic ovaries Esophageal reflux 04/13/2006 DX:Esophageal reflux Historical Medical DX 04/13/2006 DX:Other a nd unspecified malignant neoplasm of scalp and skin of neck Tobacco use disorder 04/25/2007 DX:Tobacco use disorder; COMMENT: x20 years, 1/4 ppd Cervicalgia 09/01/2009 DX:Cervicalgia ADD (attention deficit disorder) 04/13/2006 DX:ADD (attention deficit disorder); COMMENT: Behavioral health- Dr. Walsh Cervical adenopathy 01/07/2011 DX:Cervical adenopathy; COMMENT: Parapharyngeal on MRI 01/06/11, neg direct visualization on 01/19/11 Dr Fontenot, ultrasound of neck ordered for 1 month on adenopathy Depression 06/13/2009 DX:Depression Diabetes mellitus type 2 wit h neurological manifestations ([facility] V24, [facility] V28) 10/19/2011 DX:Diabetes mellitus type 2 with neurological manifestations (HCC) History of melanoma 04/13/2006 DX:History o f melanoma; COMMENT: S/p melanoma, basal cell, squamous cell skin cancers , ++ family hx of same IMO update Leukocytosis 01/08/2011 DX:Leukocytosis Morbid obesity with BMI of 4 0.0-44.9, adult ([facility] V24, [facility] V28) 04/13/2006 DX:Morbid obesity wit h BMI of 40.0-44.9, adult ([facility]) Obstructive sleep apnea 07/12/2017 DX:Obstr uctive sleep apnea Proteinuria 07/19/2017 DX:Proteinuria Thyroid nodule 12/16/2011 DX:Thyroid nodul e; COMMENT: 6 x9 mm, seen on MRI of cervical spine 12/2011 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 (CMS/HCC V24, [facility] V28) 07/19/2017 DX:Type 2 diabetes mellitus with nephropathy (HCC) Chronic coronary microvascul ar dysfunction Family History Medical History Relation Name Comments Asthma Father Diabetes Father Heart attack Father 53yo Hypertension Father Other cancer Father MULTIPLE SKIN C ANCERS-100 Diabetes Maternal Grandmother Bipolar disorder Mother Other cancer Mother multiple skin c ancers Diabetes Paternal Grandmother Asthma Son Relation Name Status Comments Father Alive Maternal Grandfather (Age 63) em physema Maternal Grandmother (Age 70) Mother Alive Paternal Grandfather Paternal Grandmother (Age 75) na tural causes Son Social History Tobacco Use Types Packs/Day Years Used Date Smoking Tobacco: Former Cigarettes Smokeless Tobacco: Never Tobacco Cessation:Counseling Given: Not Answered Alcohol Use Standard Drinks/Week Comments Not Currently 0 (1 standard drink = 0.6 oz pur e alcohol) Interpersonal Safety Answer Date Record ed Physical Abuse 10/18/2024 Verbal Abuse 10/18/2024 Comments Unknown Sex and Gender Information Value Date Recorded Sex Assigned at Not on file Legal Sex Female 7:08 PM EST Gender Identity Not on file Sexual Orientation Not on file Obstetrics History Last Filed Vital Signs Vital Sign Reading Time Taken Comments Blood Pressure 133/85 12/28/2024 7:33 PM EDT Pulse 86 12/28/2024 7:33 PM EDT Temperature 36.9 C (98.4 F) 12/28/2024 7:46 PM EDT Respiratory Rate 20 12/28/2024 7:33 PM EDT Oxygen Saturation 97% 12/28/2024 7:33 PM EDT Inhaled Oxygen Concentration - - Weight 89.4 kg (197 lb) 12/28/2024 11:31 AM EDT Height 160 cm (5' 3 ) 12/28/2024 11:31 AM EDT Body Mass Index 34.9 12/28/2024 11:31 AM EDT Plan of Treatment Health Maintenance Due Date Last Done Comments Breast Cancer Screening 1973 Diabetes: Annual Foot Exam 1983 Diabetes: Annual Retina Eye Exam 1983 Hepatitis B Vaccines (1 of 3 - 19+ 3-dose series) 1992 Cervical Cancer Screening: Pap Smear 1994 DTaP,Tdap,and Td Vaccines (3 - Td or Tdap) 07/04/2020 07/04/2010, 11/27/2004 Cholesterol Screening (Lipid Panel) 06/05/2022 Depression Screening 06/05/2022 HIV Screening 06/05/2022 Hepatitis C Screening 06/05/2022 Social Influencers of Health Screening 06/05/2022 Diabetes: Annual Urine Albumin-Creatinine Ratio (uACR) 06/18/2022 Zoster Vaccines (1 of 2) 2023 COVID-19 Vaccine ( season) 2024 10/07/2020, 09/16/2020 Diabetes: Blood Sugar Control Test (HGBA1C) 02/14/2025 08/17/2024 Influenza Vaccine (#1) 2025 , 08/15/2023, 05/24/2023, Additional history exists Diabetes: Annual GFR (Glomerular Filtration Rate) 12/28/2025 12/28/2024, 12/11/2024, 10/18/2024, Additional history exists Hypertension/CHF/CAD Annual BMP Blood Test 12/28/2025 12/28/2024, 12/11/2024, 10/18/2024, Additional history exists Colorectal Cancer Screening: Colonoscopy 11/14/2034 11/14/2024, 08/30/2018 MMR Vaccines Aged Out 12/15/2004 No longer eligi ble based on patient's age to complete this topic Pneumococcal Vaccine: 50+ Years Completed 07/28/2023 Pneumococcal Vaccine: Pediatrics (0 to 5 Years) and At-Risk Patients (6 to 49 Years) Completed 07/28/2023 HIB Vaccines Aged Out No longer eligi ble based on patient's age to complete this topic HPV Vaccines Aged Out No longer eligi ble based on patient's age to complete this topic Hepatitis A Vaccines Aged Out No long er eligible based on patient's age to complete this topic IPV Vaccines Aged Out No longer eligi ble based on patient's age to complete this topic Meningococcal ACWY Vaccine Aged Out N o longer eligible based on patient's age to complete this topic Meningococcal B Vaccine Aged Out No l onger eligible based on patient's age to complete this topic RSV Immunization Patients Under 20 months Aged Out No longer eligible based on patient's age to complete this topic Varicella Vaccines Aged Out No longer eligible based on patient's age to complete this topic Procedures Procedure Name Priority Date/Time Associated Diagnosis Comments ECG ANNOTATED 12/29/2024 ECG 12-LEAD STAT 12/28/2024 2:25 PM EDT TROPONIN I HIGH SENSITIVITY STAT 12/28/2024 2:11 PM EDT XR THORACIC SPINE 2 VIEWS STAT 12/28/2024 11:59 AM EDT CBC WITH AUTO DIFFERENTIAL STAT 12/28/2024 11:39 AM EDT B-TYPE NATRIURETIC PEPTIDE STAT 12/28/2024 11:39 AM EDT MAGNESIUM STAT 12/28/2024 11:39 AM EDT LIPASE STAT 12/28/2024 11:39 AM EDT COMPREHENSIVE METABOLIC PANEL STAT 12/28/2024 11:39 AM EDT CBC AND DIFFERENTIAL STAT 12/28/2024 11:39 AM EDT TROPONIN I HIGH SENSITIVITY STAT 12/28/2024 11:39 AM EDT ECG 12-LEAD STAT 12/28/2024 11:26 AM EDT POCT GLUCOSE BLOOD Routine 10/19/2024 11 :18 AM EDT POCT GLUCOSE BLOOD Routine 10/19/2024 8: 01 AM EDT POCT GLUCOSE BLOOD Routine 10/18/2024 7: 33 PM EDT POCT GLUCOSE BLOOD Routine 10/18/2024 3: 33 PM EDT MR LUMBAR SPINE WO AND W CONTRAST STAT 10/18/2024 12:26 PM EDT POCT GLUCOSE BLOOD Routine 10/18/2024 11 :17 AM EDT POCT GLUCOSE BLOOD Routine 10/18/2024 8: 07 AM EDT CBC WITH AUTO DIFFERENTIAL Routine 10/18/2024 5:34 AM EDT CBC AND DIFFERENTIAL Routine 10/18/2024 5:34 AM EDT BASIC METABOLIC PANEL Routine 10/18/2024 5:34 AM EDT CBC WITH AUTO DIFFERENTIAL STAT 10/17/2024 6:33 PM EDT MAGNESIUM STAT 10/17/2024 6:33 PM EDT BASIC METABOLIC PANEL STAT 10/17/2024 6:33 PM EDT CBC AND DIFFERENTIAL STAT 10/17/2024 6:33 PM EDT HEMOGLOBIN A1C Routine 08/17/2024 10:04 AM EST Type 2 diabetes mellitus without complication, without long-term current use of insulin ([facility] V24, [facility] V28) Routine general medical examination at a [facility] COLONOSCOPY Routine 08/30/2018 2:38 PM EST from Last 3 Months or Most Recently Relevant to Health Maintenance Results * ECG-Annotated (12/29/2024) us Provider Onbase MD ECG ORDERABLES Final Result * ECG 12 lead (12/28/2024 2:25 PM EDT) Only the most recent of2 resultswithin the time period is included. Ventricular Rate ECG 74 BPM GEMUSE Atrial Rate 74 BPM GEMUSE P-R Interval 150 ms GEMUSE QRS Duration 138 ms GEMUSE Q-T Interval 430 ms GEMUSE QTc 477 ms GEMUSE P Wave [place] 24 degrees GEMUSE R [place] -42 degrees GEMUSE T [place] 53 degrees GEMUSE ECG Interpretation Atrial-sense d ventricular- paced rhythm Abnormal ECG When compared with ECG of 28-DEC-2024 11:26, (unconfirmed ) Vent. rate has decreased BY 9 BPM Confirmed by Marcelo FLORES, JOHNNY ([id number]) on 12/28/2024 7:34:04 PM GEMUSE 12/28/2024 2:25 PM EDT 12/28/2024 7:34 PM EDT us Francesco Velasquez MD ECG ORDERABLES Final Resul t GEMUSE * Troponin I high sensitivity (12/28/2024 2:11 PM EDT) Only the most recent of2 resultswithin the time period is included. High Sensitivity Troponin I 3 <=54 ng/L LAB CHEMISTRY METHOD 12/28/2024 2:53 PM EDT [facility] Blood Venous blood specimen / Unknown Venipuncture / Unknown 12/28/2024 2:11 PM EDT 12/28/2024 2:15 PM EDT Narrative [facility] - 12/28/2024 2:53 PM EDT High levels of biotin in samples may falsely decrease hsTroponin values. Use caution when interpreting hsTroponin results in patients taking biotin who exhibit renal impairment (eGFR <60) or in patients taking more than 20 mg/day of biotin. Francesco Velasquez MD LAB BLOOD ORDERABLES Final Result Performing Organization Address [facility] Co de Phone Number [facility] [address] [place] [address], [place] [phone] * XR Thoracic Spine 2 Views (12/28/2024 11:59 AM EDT) Anatomical Region Laterality Modality Spine, T-spine Radiographic Afsaneh ging 12/28/2024 12:2 9 PM EDT Impressions 12/28/2024 12:30 PM EDT FINDINGS/IMPRESSION: Slight dextroconvex curvature. Thoracic kyphosis is preserved. Postsurgical fixation hardware seen in the cervical spine. No acute fracture. Multilevel degenerative loss of disc space height with endplate spurring and facet arthritis seen throughout the thoracic spine. Left chest wall pacemaker noted. Postsurgical changes seen in the left upper quadrant. -------- FINAL REPORT -------- Dictated By: JOSE SULLIVAN Dictated Date: 12/28/2024 12:29 ET Assigned Physician: JOSE SULLIVAN Reviewed and Electronically Signed By: JOSE SULLIVAN Signed Date: 12/28/2024 12:30 ET Workstation ID: [id number] Transcribed By: Self Edit Transcribed Date: 12/28/2024 12:29 ET Narrative 12/28/2024 12:30 PM EDT XR THORACIC SPINE 2 VIEWS INDICATION: Pain TECHNIQUE: XR THORACIC SPINE 2 VIEWS COMPARISON: No priors available. Procedure Note Jose Sullivan MD - 12/28/2024 XR THORACIC SPINE 2 VIEWS INDICATION: Pain TECHNIQUE: XR THORACIC SPINE 2 VIEWS COMPARISON: No priors available. IMPRESSION: FINDINGS/IMPRESSION: Slight dextroconvex curvature. Thoracic kyphosis ispreserved. Postsurgical fixation hardware seen in the cervical spine. Noacute fracture. Multilevel degenerative loss of disc space height withendplate spurring and facet arthritis seen throughout the thoracic spine.Left chest wall pacemaker noted. Postsurgical changes seen in the leftupper quadrant. -------- FINAL REPORT -------- Dictated By: JOSE SULLIVAN Dictated Date: 12/28/2024 12:29 ET Assigned Physician: JOSE SULLIVAN Reviewed and Electronically Signed By: JOSE SULLIVAN Signed Date: 12/28/2024 12:30 ET Workstation ID: [id number] Transcribed By: Self Edit Transcribed Date: 12/28/2024 12:29 ET us Francesco Velasquez MD IMG XR PROCEDURES Final Res ult * CBC auto differential (12/28/2024 11:39 AM EDT) Only the most recent of3 resultswithin the time period is included. WBC 9.6 4.8 - 10.8 K/mcL LAB HEMETOLOGY METHOD 12/28/2024 12:25 PM EDT [facility] RBC 4.60 3.80 - 4.80 M/[facility] LAB HEMETOLOGY METHOD 12/28/2024 12:25 PM EDT [facility] Hemoglobin 14.4 11.5 - 16.0 g/dL LAB HEMETOLOGY METHOD 12/28/2024 12:25 PM EDT [facility] Hematocrit 43.7 35.0 - 47.0 % LAB HEMETOLOGY METHOD 12/28/2024 12:25 PM EDT [facility] MCV 94.6 79.0 - 98.0 FL LAB HEMETOLOGY METHOD 12/28[facility]24 [facility] MCH 31.2 27.0 - 32.0 pcg LAB HEMETOLOGY METHOD 12/28/2024 12:25 PM EDT [facility] MCHC 33.0 32.0 - 37.0 g/dL LAB HEMETOLOGY METHOD 12/28/2024 12:25 PM EDT [facility] RDW 13.5 11.0 - 15.0 % LAB HEMETOLOGY METHOD 12/28/2024 [facility] Platelets 253 130 - 400 K/mcL LAB HEMETOLOGY METHOD 12/28/2024 12:[facility] MPV 10.5 7.0 - 11.0 FL LAB HEMETOLOGY METHOD 12/28/2024 12:[facility] NRBC 0.0 <1.0 % LAB HEMETOLOGY METHOD 12/28/2024 12:[facility] NRBC Absolute 0.00 <0.10 K/mcL LAB HEMETOLOGY METHOD 12/28/2024 12:[facility] Neutrophils Relative 69.5 % LAB HEMETOLOGY METHOD 12/28/2024 12:25 PM EDT [facility] Lymphocytes Relative 21.8 % LAB HEMETOLOGY METHOD 12/28/2024 12:[facility] Monocytes Relative 6.4 % LAB HEMETOLOGY METHOD 12/28/2024 12:[facility] Eosinophils Relative 1.3 % LAB HEMETOLOGY METHOD 12/28/2024 12:25 PM EDT [facility] Basophils Relative 0.7 % LAB HEMETOLOGY METHOD 12/28/2024 12:25 PM EDT [facility] Immature Granulocytes Relative 0.3 % LAB HEMETOLOGY METHOD 12/28/2024 12:25 PM EDT [facility] Neutrophils Absolute 6.68 1.50 - 7.00 K/mcL LAB HEMETOLOGY METHOD 12/28/2024 12:25 PM EDT [facility] Lymphocytes Absolute 2.10 1.00 - 5.00 K/mcL LAB HEMETOLOGY METHOD 12/28/2024 12:25 PM EDT [facility] Monocytes Absolute 0.62 0.20 - 1.00 K/mcL LAB HEMETOLOGY METHOD 12/28/2024 12:25 PM EDT [facility] Eosinophils Absolute 0.13 0.00 - 0.50 K/mcL LAB HEMETOLOGY METHOD 12/28/2024 12:25 PM EDT [facility] Basophils Absolute 0.07 0.00 - 0.20 K/mcL LAB HEMETOLOGY METHOD 12/28/2024 12:25 PM EDT [facility] Immature Granulocytes Absolute 0.03 0.00 - 0.03 K/mcL LAB HEMETOLOGY METHOD 12/28/2024 12:25 PM EDT [facility] Blood Venous blood specimen / Unknown Venipuncture / Unknown 12/28/2024 11:39 AM EDT 12/28/2024 11:53 AM EDT us Francesco Velasquez MD LAB BLOOD ORDERABLES Final Result [facility] [address] [place] [address], * B-type natriuretic peptide (12/28/2024 11:39 AM EDT) BNP 22 <=100 pcg/mL LAB CHEMISTRY METHOD 12/28/2024 12:38 PM EDT [facility] Blood Venous blood specimen / Unknown Venipuncture / Unknown 12/28/2024 11:39 AM EDT 12/28/2024 11:53 AM EDT Francesco Velasquez MD LAB BLOOD ORDERABLES Final Result Performing Organization Address [facility] Co de Phone Number [facility] [address] [place] [address], [place] [phone] * Magnesium (12/28/2024 11:39 AM EDT) Only the most recent of2 resultswithin the time period is included. Magnesium 2.2 1.9 - 2.6 mg/dL LAB CHEMISTRY METHOD 12/28/2024 12:23 PM EDT [facility] Blood Venous blood specimen / Unknown Venipuncture / Unknown 12/28/2024 11:39 AM EDT 12/28/2024 11:53 AM EDT Francesco Velasquez MD LAB BLOOD ORDERABLES Final Result Performing Organization Address [facility] de Phone Number [facility] [address] [place] [address], [place] [phone] * Lipase (12/28/2024 11:39 AM EDT) Lipase 39 13 - 75 unit/L LAB CHEMISTRY METHOD 12/28/2024 12:23 PM EDT [facility] Blood Venous blood specimen / Unknown Venipuncture / Unknown 12/28/2024 11:39 AM EDT 12/28/2024 11:53 AM EDT Francesco Velasquez MD LAB BLOOD ORDERABLES Final Result Performing Organization Address City/[facility]/ZIP Co de Phone Number [facility] [address] [place] [address], [place] [phone] * (ABNORMAL) Comprehensive metabolic panel (12/28/2024 11:39 AM EDT) Sodium 142 133 - 145 mmol/L LAB CHEMISTRY METHOD 12/28/2024 12:23 PM [facility] Potassium 4.3 3.5 - 5.5 mmol/L LAB CHEMISTRY METHOD 12/28/2024 12:23 PM [facility] Chloride 111(H) 96 - 110 mmol/L LAB CHEMISTRY METHOD 12/28/2024 12:23 PM [facility] CO2 28 21 - 32 mmol/L LAB CHEMISTRY METHOD 12/28/2024 12:23 PM [facility] Anion Gap 3 3 - 11 LAB CHEMISTRY METHOD 12/28/2024 12:23 PM [facility] Glucose 120(H) 70 - 100 mg/dL LAB CHEMISTRY METHOD 12/28/2024 12:23 PM [facility] BUN 13 5 - 25 mg/dL LAB CHEMISTRY METHOD 12/28/2024 12:23 PM [facility] Creatinine 0.87 0.50 - 1.10 mg/dL LAB CHEMISTRY METHOD 12/28/2024 12:23 PM [facility] eGFR 81 >=60 mL/min/1. 73m2 LAB CHEMISTRY METHOD 12/28/2024 12:23 PM [facility] Comment:Calculation based on the Chronic Kidney Disease Epidemiology Collaboration (CKD-EPI) equation refit without adjustment for race. BUN/Creatinine Ratio 14.9 LAB CHEMISTRY METHOD 12/28/2024 12:23 PM [facility] Calcium 8.6 8.5 - 10.5 mg/dL LAB CHEMISTRY METHOD 12/28/2024 12:23 PM [facility] AST (SGOT) 12 10 - 42 unit/L LAB CHEMISTRY METHOD 12/28/2024 12:23 PM EDT [facility] ALT (SGPT) 23 10 - 60 unit/L LAB CHEMISTRY METHOD 12/28/2024 12:23 PM EDT [facility] Alkaline Phosphatase 140(H) 42 - 121 unit/L LAB CHEMISTRY METHOD 12/28/2024 12:23 PM EDT [facility] Total Protein 6.4 6.0 - 8.0 g/dL LAB CHEMISTRY METHOD 12/28/2024 12:23 PM EDT [facility] Albumin 3.4 3.2 - 5.0 g/dL LAB CHEMISTRY METHOD 12/28/2024 12:23 PM EDT [facility] Total Bilirubin 0.3 0.0 - 1.4 mg/dL LAB CHEMISTRY METHOD 12/28/2024 12:23 PM EDT [facility] Blood Venous blood specimen / Unknown Venipuncture / Unknown 12/28/2024 11:39 AM EDT 12/28/2024 11:53 AM EDT us Francesco Velasquez MD LAB BLOOD ORDERABLES Final Result [facility] [address] [place] [address], [place] [phone] * (ABNORMAL) POCT Glucose, blood (10/19/2024 11:18 AM EDT) Only the most recent of6 resultswithin the time period is included. Glucose POCT 106(H) 70 - 100 mg/dL 10/19/2024 11:19 AM EDT [facility] Blood Capillary blood specimen / Unknown 10/19/2024 11:18 AM EDT 10/19/2024 11:21 AM EDT us Nilda Melgar MD LAB POINT OF CARE T EST DOCKED DEVICE UNSOLICITED RESULTS Final Result [facility] [address] [place] [address], * MR Lumbar Spine wo and w Contrast (10/18/2024 12:26 PM EDT) Anatomical Region Laterality Modality L-spine, Spine Magnetic Resonan ce 10/18/2024 12:3 0 PM EDT Impressions 10/18/2024 12:37 PM EDT L3-S1 fusion. Susceptibility artifact from the fusion hardware limits assessment of some of the neural foramina. No spinal stenosis. No appreciable significant foraminal stenosis. -------- FINAL REPORT -------- Dictated By: John Worrell Dictated Date: 10/18/2024 12:30 ET Assigned Physician: John Worrell Reviewed and Electronically Signed By: John Worrell Signed Date: 10/18/2024 12:37 ET Workstation ID: [id number] Transcribed By: Self Edit Transcribed Date: 10/18/2024 12:30 ET Narrative 10/18/2024 12:37 PM EDT PROCEDURE: MRI of the lumbar spine with intravenous contrast. HISTORY: Low back pain, cauda equina syndrome suspected. TECHNIQUE: Sagittal and axial multisequence MRI of the lumbar spine with and without intravenous contrast administration. IV contrast dose: 20 mL intravenous Dotarem from a 20 mL vial with 0 mL discarded. COMPARISON: CT abdomen and pelvis 09/04/2024. Radiographs 09/04/2024. MRI 10/22/2023. FINDINGS: Bilateral postsurgical scarring in the paramedian lumbar soft tissues. Prominent left and moderate right paraspinous muscular atrophy in the lower lumbar and sacral regions. No other paraspinous soft tissue findings. Normal position of the conus at L1-2. No abnormal enhancement of the conus or nerve roots of the cauda equina. Alignment is normal. No compression deformity. Bilateral daryl and pedicle screw fusion with interbody cage devices L3-S1. Lumbar disc levels: L1-2: No significant disc or facet abnormality. No spinal or foraminal stenosis. L2-3: Slight widening of the facet joints and mild ligamentum flavum hypertrophy suggestive of facet joint hypermobility. Minimal degenerative irregularity of the facet joints. Minimal symmetric disc bulge. No spinal or foraminal stenosis. L3-4: Fusion level. Central laminotomy. Assessment limited by susceptibility artifact. There is a small left central focal protrusion which does not appear to result in neural impingement. No spinal or foraminal stenosis. L4-5: Fusion level. Assessment limited by susceptibility artifact. The left neural foramen in particular is difficult to evaluate. No visible spinal or foraminal stenosis. L5-S1: Fusion level. Assessment limited by susceptibility artifact. No appreciable spinal or foraminal stenosis. Procedure Note John Worrell MD - 10/18/2024 PROCEDURE: MRI of the lumbar spine with intravenous contrast. HISTORY: Low back pain, cauda equina syndrome suspected. TECHNIQUE: Sagittal and axial multisequence MRI of the lumbar spine withand without intravenous contrast administration. IV contrast dose: 20 mL intravenous Dotarem from a 20 mL vial with 0 mLdiscarded. COMPARISON: CT abdomen and pelvis 09/04/2024. Radiographs 09/04/2024.MRI 10/22/2023. FINDINGS: Bilateral postsurgical scarring in the paramedian lumbar soft tissues.Prominent left and moderate right paraspinous muscular atrophy in thelower lumbar and sacral regions. No other paraspinous soft tissuefindings. Normal position of the conus at L1-2. No abnormal enhancement of theconus or nerve roots of the cauda equina. Alignment is normal. No compression deformity. Bilateral daryl and pediclescrew fusion with interbody cage devices L3-S1. Lumbar disc levels: L1-2: No significant disc or facet abnormality. No spinal or foraminalstenosis. L2-3: Slight widening of the facet joints and mild ligamentum flavumhypertrophy suggestive of facet joint hypermobility. Minimal degenerativeirregularity of the facet joints. Minimal symmetric disc bulge. Nospinal or foraminal stenosis. L3-4: Fusion level. Central laminotomy. Assessment limited bysusceptibility artifact. There is a small left central focal protrusionwhich does not appear to result in neural impingement. No spinal orforaminal stenosis. L4-5: Fusion level. Assessment limited by susceptibility artifact. Theleft neural foramen in particular is difficult to evaluate. No visiblespinal or foraminal stenosis. L5-S1: Fusion level. Assessment limited by susceptibility artifact. Noappreciable spinal or foraminal stenosis. IMPRESSION: L3-S1 fusion. Susceptibility artifact from the fusion hardware limitsassessment of some of the neural foramina. No spinal stenosis. Noappreciable significant foraminal stenosis. -------- FINAL REPORT -------- Dictated By: John Worrell Dictated Date: 10/18/2024 12:30 ET Assigned Physician: John Worrell Reviewed and Electronically Signed By: John Worrell Signed Date: 10/18/2024 12:37 ET Workstation ID: [id number] Transcribed By: Self Edit Transcribed Date: 10/18/2024 12:30 ET Kylie FATIMA IMG MRI PROCEDURES Final Resu lt * (ABNORMAL) Basic metabolic panel (10/18/2024 5:34 AM EDT) Only the most recent of2 resultswithin the time period is included. Sodium 138 133 - 145 mmol/L LAB CHEMISTRY METHOD 10/18/2024 7:06 AM [facility] Potassium 3.5 3.5 - 5.5 mmol/L LAB CHEMISTRY METHOD 10/18/2024 7:06 AM [facility] Chloride 104 96 - 110 mmol/L LAB CHEMISTRY METHOD 10/18/2024 7:06 AM [facility] CO2 28 21 - 32 mmol/L LAB CHEMISTRY METHOD 10/18/2024 7:06 AM [facility] Anion Gap 6 3 - 11 LAB CHEMISTRY METHOD 10/18/2024 7:06 AM [facility] Glucose 126(H) 70 - 100 mg/dL LAB CHEMISTRY METHOD 10/18/2024 7:06 AM [facility] BUN 17 5 - 25 mg/dL LAB CHEMISTRY METHOD 10/18/2024 7:06 AM [facility] Creatinine 0.88 0.50 - 1.10 mg/dL LAB CHEMISTRY METHOD 10/18/2024 7:06 AM EDT [facility] eGFR 80 >=60 mL/min/1. 73m2 LAB CHEMISTRY METHOD 10/18/2024 7:06 AM EDT [facility] Comment:Calculation based on the Chronic Kidney Disease Epidemiology Collaboration (CKD-EPI) equation refit without adjustment for race. BUN/Creatinine Ratio 19.3 LAB CHEMISTRY METHOD 10/18/2024 7:06 AM EDT [facility] Calcium 8.8 8.5 - 10.5 mg/dL LAB CHEMISTRY METHOD 10/18/2024 7:06 AM EDT [facility] Blood Venous blood specimen / Unknown Venipuncture / Unknown 10/18/2024 5:34 AM EDT 10/18/2024 6:26 AM EDT Juan R Nielsen MD LAB BLOOD ORDERABLES Arabella hdz Result [facility] [address] [place] [address], * (ABNORMAL) Hemoglobin A1c (08/17/2024 10:04 AM EST) Hemoglobin A1C 6.2(H) <5.7 % of total Hgb i2 [employer] [facility] Comment: For someone without known diabetes, a hemoglobin A1c value between 5.7% and 6.4% is consistent with prediabetes and should be confirmed with a follow-up test. For someone with known diabetes, a value <7% indicates that their diabetes is well controlled. A1c targets should be individualized based on duration of diabetes, age, comorbid conditions, and other considerations. This assay result is consistent with an increased risk of diabetes. Currently, no consensus exists regarding use of hemoglobin A1c for diagnosis of diabetes for children. Blood Venous blood specimen / Unknown 08/17/2024 10:04 AM EST 08/17/2024 10:08 AM EST Lianne RAML) - 08/23/2024 2:28 PM EST FASTING:NO PATIENT NOT FASTING; ADVISED TO RETURN FOR COLLECTION. FASTING: NO us Samanta Arciniega MD LAB BLOOD ORDERABLES Final Res ult [facility] [address] [place] [phone] * COLONOSCOPY (08/30/2018 2:38 PM EST) Anatomical Region Laterality Modality Endoscopy us Corona Hernandez MD GI~PROCEDURE ORDERABLES Final Re sult from Last 3 Months or Most Recently Relevant to Health Maintenance Insurance [facility] Advance Directives * Full Code - Default (Latest Code Status on File) Date Activated Date Inactivated Comments 10/18/2024 12:46 AM 10/19/2024 3:13 PM This is ord er is used when code status has not been discussed with the patient, or code status is otherwise unknown/unconfirmed To update the patient's code status, place a code status order. Do not modify or discontinue any currently active code status orders. Care Teams Diesel Instructor Relationship Specialty Start Date End Date Andree Yoo MD [address] [place] [id number] PCP - General Internal Medicine 09/25/24
--- OUTSIDE RECORDS SUMMARY | 2025-01-10 14:33 | XMS_ITS | Patient Health Record ---
Author Organization [facility] Address [address] [place] [address] Care Team Providers Care Internal Grinder Set Up Operator Name Role Phone Spring Costa MD Primary Care Provider Unavail able Skip Barrios Unavailable [phone] Reason For Referral No Information Medications Medication SIG (Take, Route, Frequency, Duration) Notes Start Date End Date Status Physical Therapy . . . 2-3x/week; Durat ion: 3-4 weeks 12/05/2015 Not-Taking buPROPion HCl 75 MG Orally Active Naprosyn twice a day Not-Taki ng Walking Boot/Pneumatic As directed Wear Daily; Duration: Until further notice Active Custom Orthotics as directed A ctive Night Splint AFO - L1930 as directed Active metFORMIN HCl 2000 mg 4 tablets Orally o nce a day; Duration: 30 day(s) Active Custom Orthotics as directed A ctive VESIcare 5 mg once a day Activ e AFO-fixed . 1 . PTB AFO brace le ft leg for calcaneal stress fx; Duration: . 03/18/2017 Active Blood Pressure as directed Act tessa Extra Depth Diabetic Shoes with 3 Pair Custom heat-molded multi-density innersoles for 1 year Dx: 05/31/2017 A ctive Lisinopril-hydroCHLOROth iazide 10-12.5 MG 1 tablet Orally Once a day Active Work Note . . . patient must hav e handicapped privileges for 6 months 05/31/2017 Active Omeprazole 20 MG 1 capsule Orally Onc e a day Active Cymbalta Active Gabapentin 400 MG 1 capsule Orally onc e a day Active Effexor Not-Taking traZODone HCl 50 MG Orally Active Immunizations Vaccine Route Administration Date Status Comme nts Influenza Unknown 03/17/2015 Administered Influenza Unknown 03/17/2016 Administered Influenza Unknown 04/25/2017 Administered Pneumococcal Unknown 09/30/2015 Administered Social History Tobacco Use: Social History Observation Description Date Details (start date - stop date) Former Smoker NA - NA Tobacco Use/Smoking Question Answer Notes Are you a: former smoker When did you stop smoking? 04/2016 Additional Findings: Tobacco Non-User Current no n-smoker Alcohol Screen Question Answer Notes Did you have a drink contain ing alcohol in the past year? Yes How often did you have a dri nk containing alcohol in the past year? Monthly or less (1 point) Points 1 Interpretation Negative Tobacco use other than smoking: Question Answer Notes Are you an other tobacco user? No Problems Problem Type SNOMED Code ICD Code Onset Dates Problem Status W/U Status Risk Notes Problem Localized, primary osteoarthritis of the ankle and/or foot (670281858) Primary osteoarthritis, right ankle and foot (M19.071) Active confirmed Problem Acquired hallux valgus (01404198) Hallux valgus (acquired), right foot (M20.11) Active confirmed Problem Polyneuropathy due to type 2 diabetes mellitus (167178871) Type 2 diabetes mellitus with diabetic polyneuropathy (E11.42) Active confirmed Plan Of Treatment Pending Test Test Name Order Date X ray : Foot, right 2V 04/21/2016 X ray : Foot, left 3V 05/05/2015 10509-Iixc Destruction, -05/25/2013 07874-Yzsi Destruction, 07-1711/14/2012 24147-Ahzg Destruction, 07-1712/12/2012 12181-Ykdn Destruction, 07-1701/16/2013 47231-Pqhs Destruction, -01/19/2013 59318-Zrch Destruction, 07-1703/23/2013 63810-Savy Destruction, -04/27/2013 16046-Axeyrkiz Plate 04/27/2013 75564-Jbxjzlsd Plate 05/23/2015 15119-Vetvjyye Plate Each Additional 87949-BWP 04/11/2015 58365 I&D ABSCESS- SIMPLE,SINGLE 015 96354 I&D ABSCESS- SIMPLE,SINGLE 015 07789 I&D ABSCESS- SIMPLE,SINGLE 015 86186-TXZS SKIN LESIONS, OVER 4 10/19/19 12 86863-JCMD NAIL(S) 10/19/2011 98661-GLZZ NAIL(S) 11/14/2012 Medical (General) History Medical History History ICD Code Arthritis skin cancer depression diabetic joint implants/screws bone tumor right arm Surgical History Surgery Date(Month/Year) C 5&6 fusion 07/14/2011 C 6&7 fusion 04/20/2010 right shoulder surgery 06/2012 left shoulder surgery 01/14/17 Hospitalization History Reason Date(Month/Year) [facility]-Left shoulder surgery 10/2012 [facility]- biopsy 03/15/13 [facility] ER- ?cellulitis 05/2015 pt was at [facility] for foot infection -06/02/2015 [facility] for gastroitis 03/08 -03/12/16 elevated heart rate [facility] Hosp.stay for 24 hrs 01/07/17
--- NOTE | 2025-02-07 12:17 | HO.ANESPROP2 ---
Documented by User: Reina Wahl NP 02/07/25 12:40 HPI - Anesthesia Eval Consult details Narrative: 49yo F for Upper Endoscopy and Colonoscopy Cardiac optimized. Follows [facility] cardiology for nonischemic cardiomyopathy with chronic left bundle branch block status post pacemaker, 50% LAD occlusion on 2019 for cardiac catheterization, chronic chest pain, vasospastic angina. Last office visit 12/2024 notes many symptoms with multiple ED visits for chest pain. [facility] ED 02/06/25 with CP relieved by dilaudid. Reassuring trops/EKG, 01/2025 ECHO, 08/2024 stress. Anesthesia Pre-Procedure Meds Is the patient on any of the following meds?: GLP1/DPP4 PMFSH Active Problems Active Problems: All Active Problems Central sensitization to pain (Acute) Complication of cardiac pulse generator (Acute) Intercostal neuralgia (Acute) Post laminectomy syndrome (Acute) Thoracic radiculitis (Acute) Chest wall pain (Acute) Chronic SI joint pain (Acute) BMI 38.0-38.9,adult (Acute) Body mass index (BMI) of 36.0-36.9 in adult (Acute) Shortness of breath (Acute) Preoperative examination (Acute) Chronic constipation (Acute) Obesity (BMI 30-39.9) (Acute) Fibromyalgia (Acute) Status post repair of paraesophageal diaphragmatic hernia (Acute) History of sleeve gastrectomy (Acute) Past Medical History Medical History IUD (intrauterine device) in place Chest pain Hiatal hernia Ankylosing spondylitis Hx of cardiac pacemaker Arrhythmia CHF (congestive heart failure) Constipation Fusion of spine Migraine Fibromyalgia Thyroid nodule Hyperlipidemia Left bundle branch block (LBBB) on electrocardiogram History of colitis History of thyroid nodule PCOS (polycystic ovarian syndrome) Sleep apnea History of melanoma GERD (gastroesophageal reflux disease) Type 2 diabetes mellitus Depression Cervicalgia ADD (attention deficit disorder) Family History Family History Father Asthma Heart disease HTN (hypertension) Type 2 diabetes mellitus Skin cancer Mother Skin cancer PCOS (polycystic ovarian syndrome) Son Asthma Daughter No problems noted. Paternal Uncle Lung cancer Sister No problems noted. Surgical History Surgical History History of esophagogastroduodenoscopy (EGD) History of back surgery Hx of shoulder surgery H/O colonoscopy Hx of cardiac catheterization H/O ovarian cystectomy Status post repair of paraesophageal diaphragmatic hernia History of sleeve gastrectomy Hx of shoulder surgery S/P laparoscopic cholecystectomy History of melanoma excision S/P carpal tunnel release S/P cervical spinal fusion History of foot surgery History of fundoplication Social History Social History Household Members: Spouse Housing: House Are you a primary career services director to a significant other at home: No Do you presently have visiting nurse or other home services: No Alcohol intake: current Alcohol intake frequency: holidays/special occasions only Comment: pt sleeping Patient Tobacco Use Status: Former Tobacco user Second Hand Smoke Exposure: No Use of substances other than those prescribed or required for medical reasons: Yes Substance Use Type Other:: gummies for pain Are you DNR?: No Advance Directives: No Advance Directives Information Provided: Yes : No Poor oral hygiene: No service: No Current occupational status: employed Meds Allergies Allergy/AdvReac Type Severity Reaction Status Date / Time amlodipine Allergy Unknown Dizziness Verified 01/14/25 12:47 nitroglycerin AdvReac Severe Headache Verified 02/08/25 12:37 Bactrim AdvReac Unknown does not Uncoded 02/08/25 12:37 work while on Metformin Home Medications ?Medication ?Instructions ?Recorded ?Confirmed ?Last Taken ?Type bupropion HCl 300 mg 24 hr tablet, 150 mg PO QAM 04/29/20 02/07/25 Unknown History extended release duloxetine 60 mg capsule,delayed 60 mg PO DAILY 04/29/20 02/07/25 Unknown History release flash glucose sensor #1 ea 04/29/20 03/30/21 Unknown History trazodone 50 mg tablet 50 mg PO BEDTIME 04/29/20 02/07/25 Unknown History qepojqoo-qsgkcbuw-welb 45 mg-folic 1 cap PO DAILY 06/24/20 02/07/25 Unknown History acid 800 mcg-vit K 120 mcg capsule (Bariatric Multivitamins) tizanidine 4 mg tablet 4 mg PO BEDTIME 03/30/21 02/07/25 Unknown History aspirin 81 mg tablet 81 mg PO DAILY 12/25/24 02/07/25 02/07/25 History carvedilol 3.125 mg tablet 3.125 mg PO BID 12/25/24 02/07/25 02/08/25 History omeprazole 40 mg capsule,delayed 40 mg PO DAILY 12/25/24 02/07/25 02/08/25 History release pregabalin 150 mg capsule (Lyrica) 150 mg PO BID 12/25/24 02/07/25 Unknown History tirzepatide 10 mg/0.5 mL 10 mg subcut QWEEK 12/25/24 02/07/25 01/27/25 History subcutaneous pen injector (Mounjaro) atorvastatin 40 mg tablet 40 mg PO BEDTIME 02/07/25 02/07/25 Unknown History buspirone 10 mg tablet 20 mg PO BID 02/07/25 02/07/25 Unknown History linaclotide 290 mcg capsule 290 mcg PO QAM 02/07/25 02/07/25 Unknown History (Linzess) lorazepam 0.5 mg tablet 0.5 mg PO BEDTIME PRN Anxiety 02/07/25 02/07/25 Unknown History meclizine 12.5 mg tablet 12.5 mg PO TID PRN dizziness 02/07/25 02/07/25 Unknown History dapagliflozin propanediol 10 mg 10 mg PO DAILY 02/08/25 02/08/25 02/04/25 History tablet (Farxiga) Exam Pertinent Lab Results Pertinent Lab Results: 02/06/25 [facility] labs CBC WNL BMP WNL Trops WNL Probnp WNL Narrative Narrative: EKG 02/06/25 A-sensed V-paced @ 92 Pacer interrogation 01/2025: Nml lead and device function. [address]/SVT lasting up to 34 seconds. ECHO 01/2025 Summary The left ventricular size is normal. Left ventricular wall thickness is normal. The LV systolic function is low normal . The left ventricular ejection fraction is 52% by bi-plane Layne's method. There are no regional wall motion abnormalities. There is abnormal septal motion consistent with LBBB or RV pacemaker . Normal diastolic function. GLS is normal, GLS avg is -19.1%. The aortic valve is trileaflet . There is no aortic regurgitation. There is no aortic stenosis. The right ventricle is normal in size and function. A pacer/ICD wire is seen in the right ventricle. There is no pericardial effusion. Nuc Stress 08/2024 Summary 1. Myocardial perfusion imaging is normal without any fixed or reversible perfusion defect after Regadenoson stress test. 2. LV function is normal at rest and with stress, with normal wall motion and thickening. 3. EKG portion of the stress test is reported separately. Cardiac MRI 2023 IMPRESSION: 1. Normal left ventricular size and wall thickness. Globally moderately reduced left ventricular systolic function. LVEF = 38 %. No regional wall motion abnormalities however there is significant septal dyssynchrony in the setting of a left bundle branch block. T1 mapping reveals borderline elevated T1 values which may be due to motion artifact. No increased T2 signal to suggest myocardial edema. Post-contrast imaging demonstrates non-ischemic appearing faint mid myocardial delayed enhancement in the basal to mid septal segments as well as non-ischemic mid myocardial delayed enhancement in the basal to mid inferior RV insertion site which extends subepicardially to the mid to apical inferior segments.. Findings are consistent with non-ischemic cardiomyopathy, most likely attributable to ventricular dyssynchrony. 2. Normal right ventricular size with mildly reduced RV systolic function. RVEF = 40 %. 3. The left atrium is normal in size. The right atrium is normal in size. 4. There is at least mild tricuspid regurgitation. Phase contrast flow quantitation to calculate regurgitant volumes was not performed. 5. No pericardial thickening, enhancement, or effusion. Assessment and Plan Assessment Anesthesia Assessment: Chart Reviewed Documented by User: Hieu Vilchis MD 02/08/25 16:37 [facility] Past Medical History Medical History IUD (intrauterine device) in place Chest pain Hiatal hernia Ankylosing spondylitis Hx of cardiac pacemaker Arrhythmia CHF (congestive heart failure) Constipation Fusion of spine Migraine Fibromyalgia Thyroid nodule Hyperlipidemia Left bundle branch block (LBBB) on electrocardiogram History of colitis History of thyroid nodule PCOS (polycystic ovarian syndrome) Sleep apnea History of melanoma GERD (gastroesophageal reflux disease) Type 2 diabetes mellitus Depression Cervicalgia ADD (attention deficit disorder) Functional capacity: independent ambulation Family History Family History Father Asthma Heart disease HTN (hypertension) Type 2 diabetes mellitus Skin cancer Mother Skin cancer PCOS (polycystic ovarian syndrome) Son Asthma Daughter No problems noted. Paternal Uncle Lung cancer Sister No problems noted. Family history of problems with anesthesia: No Surgical History Surgical History History of esophagogastroduodenoscopy (EGD) History of back surgery Hx of shoulder surgery H/O colonoscopy Hx of cardiac catheterization H/O ovarian cystectomy Status post repair of paraesophageal diaphragmatic hernia History of sleeve gastrectomy Hx of shoulder surgery S/P laparoscopic cholecystectomy History of melanoma excision S/P carpal tunnel release S/P cervical spinal fusion History of foot surgery History of fundoplication History of Problems with Anesthesia: No Social History Social History Household Members: Spouse Housing: House Are you a primary career services director to a significant other at home: No Do you presently have visiting nurse or other home services: No Alcohol intake: current Alcohol intake frequency: holidays/special occasions only Comment: pt sleeping Patient Tobacco Use Status: Former Tobacco user Second Hand Smoke Exposure: No Use of substances other than those prescribed or required for medical reasons: Yes Substance Use Type Other:: gummies for pain Are you DNR?: No Advance Directives: No Advance Directives Information Provided: Yes : No Poor oral hygiene: No service: No Current occupational status: employed Meds Allergies Allergy/AdvReac Type Severity Reaction Status Date / Time amlodipine Allergy Unknown Dizziness Verified 01/14/25 12:47 nitroglycerin AdvReac Severe Headache Verified 02/08/25 12:37 Bactrim AdvReac Unknown does not Uncoded 02/08/25 12:37 work while on Metformin Home Medications ?Medication ?Instructions ?Recorded ?Confirmed ?Last Taken ?Type bupropion HCl 300 mg 24 hr tablet, 150 mg PO QAM 04/29/20 02/07/25 Unknown History extended release duloxetine 60 mg capsule,delayed 60 mg PO DAILY 04/29/20 02/07/25 Unknown History release flash glucose sensor #1 ea 04/29/20 03/30/21 Unknown History trazodone 50 mg tablet 50 mg PO BEDTIME 04/29/20 02/07/25 Unknown History msqgwnem-tlkdjymj-yiti 45 mg-folic 1 cap PO DAILY 06/24/20 02/07/25 Unknown History acid 800 mcg-vit K 120 mcg capsule (Bariatric Multivitamins) tizanidine 4 mg tablet 4 mg PO BEDTIME 03/30/21 02/07/25 Unknown History aspirin 81 mg tablet 81 mg PO DAILY 12/25/24 02/07/25 02/07/25 History carvedilol 3.125 mg tablet 3.125 mg PO BID 12/25/24 02/07/25 02/08/25 History omeprazole 40 mg capsule,delayed 40 mg PO DAILY 12/25/24 02/07/25 02/08/25 History release pregabalin 150 mg capsule (Lyrica) 150 mg PO BID 12/25/24 02/07/25 Unknown History tirzepatide 10 mg/0.5 mL 10 mg subcut QWEEK 12/25/24 02/07/25 01/27/25 History subcutaneous pen injector (Mounjaro) atorvastatin 40 mg tablet 40 mg PO BEDTIME 02/07/25 02/07/25 Unknown History buspirone 10 mg tablet 20 mg PO BID 02/07/25 02/07/25 Unknown History linaclotide 290 mcg capsule 290 mcg PO QAM 02/07/25 02/07/25 Unknown History (Tapan) lorazepam 0.5 mg tablet 0.5 mg PO BEDTIME PRN Anxiety 02/07/25 02/07/25 Unknown History meclizine 12.5 mg tablet 12.5 mg PO TID PRN dizziness 02/07/25 02/07/25 Unknown History dapagliflozin propanediol 10 mg 10 mg PO DAILY 02/08/25 02/08/25 02/04/25 History tablet (Farxiga) Exam Exam Date and Time: 02/08/25 Airway Mallampati Class: II TM Dist: >3cm Neck ROM: Full Heart: rrr Lungs: cta Other: normal Assessment and Plan Assessment Anesthesia Assessment: Anesthesia Plan Discussed Final Anesthetic Review Family History of Problems with Anesthesia: No History of Problems with Anesthesia: No NPO: Yes ASA Class: II Final Preanesthetic Review: No Changes in Pt Med Stat, Meds/Allgs Chart Reviewed, Consent Obtained/Reviewed and Anes Risks/Benef Reviewed Patient Risk: Intermediate Procedure Risk: Low Anesthetic Plan Anesthetic Plan: GA and MAC: Disposition: Standard PACU
[2025-02-08 12:45] VITALS: BMI 33.5
[2025-02-08 12:51] VITALS: BP 136/85; PULSE 78; RESP 16; TEMP 36.4; O2SAT 98
[2025-02-08 13:00] LABS: Glucose, Whole Blood 91 mg/dL (60-115)
[2025-02-08] MEDS: Lactated Ringers 1,000 ML 100 ML IVCONT (13:09)
[2025-02-08 14:00] VITALS: BP 126/79; PULSE 79; RESP 16; O2SAT 99
--- NOTE | 2025-02-08 14:06 | PC.NURSE ---
medicated per md order for extreme anxiety.
[2025-02-08 16:16] VITALS: BP 105/55; PULSE 73; RESP 18; TEMP 36.2; O2SAT 99
--- NOTE | 2025-02-08 16:27 | P.BOP_ITS ---
Brief Operative Note Date of Service: 02/08/25 Pre-op diagnosis: GERD, Abdominal pain, Screening Post-op diagnosis: other (Hiatal hernia, Gastritis, Diverticulosis, Poor colon prep) Procedure: EGD with bx, Colonoscopy to the cecum and TI Surgeon: Corona Hernandez MD Anesthesia: MAC Was an Compliance Tester used for this Procedure?: No Estimated blood loss (mL): 2.0 Pathology: other (A. Prepyloric antrum B. Gastric antrum C. EG Junction at 36cm) Condition: stable Disposition: PACU
[2025-02-08 16:31] VITALS: BP 107/64; PULSE 67; RESP 15; O2SAT 99
[2025-02-08 16:46] VITALS: BP 122/78; PULSE 76; RESP 16; TEMP 37.1; O2SAT 96
--- NOTE | 2025-02-08 21:11 | OP_ITS ---
DATE OF SERVICE: 02/08/2025 SURGEON: Corona Hernandez MD INDICATIONS: The patient presents for evaluation of abdominal discomfort, gastroesophageal reflux, history of colitis, history of tubular adenoma of the colon, colorectal cancer screening. Full consent was obtained from her for this, including risks of bleeding and perforation. PREOPERATIVE DIAGNOSIS: POSTOPERATIVE DIAGNOSIS: PROCEDURE PERFORMED: Esophagogastroduodenoscopy with biopsies, and colonoscopy to the cecum and terminal ileum. ESTIMATED BLOOD LOSS: COMPLICATIONS: ANESTHESIA: Medication used, monitored anesthesia care. ASSISTANTS: SPECIMENS: PREOPERATIVE DIAGNOSES: Gastroesophageal reflux, abdominal discomfort, personal history of tubular adenoma of the colon, history of colitis, colorectal cancer screening. POSTOPERATIVE DIAGNOSES: Gastroesophageal reflux, abdominal discomfort, personal history of tubular adenoma of the colon, history of colitis, colorectal cancer screening, hiatal hernia, rule out intestinal metaplasia at pre-pyloric antrum, gastritis, poor prep in colon, diverticulosis, and internal hemorrhoids. DESCRIPTION OF PROCEDURE: The patient was placed in the left lateral decubitus position. The Olympus video gastroscope was passed in the posterior oropharynx and upper esophagus under direct vision. The scope was passed slowly to the distal esophagus. The gastroesophageal junction appeared at 36 cm. There was some slight irregularity and possible areas of Oliveros mucosa that were less than 1 cm in length and were just short finger like projections. There was certainly no evidence of any circumferential Oliveros mucosa. There was no esophagitis. There appeared to be a small hiatal hernia. There was some proximal narrowing of the stomach consistent with her known gastric sleeve surgery. This was easily passed and the pylorus was reached. The duodenum was cannulated to the 2nd and 3rd portions. The duodenum including the bulb appeared normal without mass or ulceration. Scope was withdrawn back into the stomach. In the area of the pre-pyloric antrum there were changes consistent with a probable intestinal metaplasia. Multiple biopsies were obtained from it. There was no ulceration or mass. There was good peristalsis. The remainder of the antrum and body had changes of a chronic gastritis, but no erosions or ulceration. Biopsies were obtained from both the probable intestinal metaplasia in the pre-pyloric antrum and from the gastric antrum itself. The scope was able to be retroflexed visualizing the proximal stomach carefully. I was able to visualize her previous fundoplication. Alongside and above the fundoplication was extension of the stomach, possibly representing some component of paraesophageal hernia. All the mucosa in the proximal stomach did appear normal. The scope was straightened. The scope was withdrawn back in the esophagus and biopsies were obtained at the EG junction at 36 cm. Proximal to that the esophageal mucosa appeared normal. The scope was withdrawn from the patient. She was turned around for the colonoscopy. The digital rectal exam revealed no abnormalities. The Olympus video pediatric colonoscope was entered into the rectum and advanced to the cecum. Advancement was quite difficult due to both poor prep and adhesions. However, with 2 people applying about abdominal pressure and after copious irrigation and suctioning, I was able to reach and visualize the cecum for the most part very well. The appendiceal orifice appeared normal. The ileocecal valve appeared normal. The terminal ileum was cannulated and appeared normal. The scope was withdrawn back in the colon. The scope was then slowly withdrawn assessing all mucosal surfaces carefully. Visualization of the colon was just fair at best with a lot of overlying mucosal stool, which required a lot of irrigation and suctioning. The sigmoid and descending colon had a lot more liquid and some portions of solid stool, which required some irrigation, but really could not be cleared. I did not visualize any sign of polyps, colitis, nor angiodysplasia, but again visualization was quite limited, particularly in the sigmoid and descending colon. There was some diverticulosis noted in the sigmoid colon. In the rectum, scope was retroflexed visualizing internal hemorrhoids, but no other pathology. The rectal mucosa that could be visualized appeared normal. The scope was straightened and withdrawn from the patient. She tolerated both procedures well and was returned to the recovery area in stable condition. IMPRESSION: 1. Gastritis and probable intestinal metaplasia. 2. Hiatal hernia. 3. Rule out Oliveros esophagus. 4. Diverticulosis. 5. Internal hemorrhoids. 6. Poor prep in colon. PLAN: The results of the biopsies will be checked. She will continue her current regimen of omeprazole for the reflux and mesalamine for the colitis. Given her ongoing upper GI complaints including pain, I am going to have her undergo an eventual barium swallow to assess for any component of a paraesophageal hernia. if there is no dysplasia within the intestinal metaplasia then we may want to have her undergo repeat endoscopy in the next 2 to 3 years. If H pylori is present in the gastric biopsies, I would recommend we treat that as well. In regard to the colonoscopy, I would recommend we repeat that with a 2-day prep, although that is certainly not urgent. She was advised not to use any aspirin and NSAIDs for 1 week. She will be followed up in the office as well. This has all been discussed in detail with the patient's , as well as with the patient. MD QUINCY Romero/PAUL / [id number] MTDD
== END 2025-02-08 17:09 | disposition home or self-care (01) ==
PROVIDERS: PCP Family Medicine; Visit Provider Internal Medicine
PROC: (CPT 45378; principal; 2025-02-08 13:40)
DX: Z12.11 Encounter for screening for malignant neoplasm of colon (principal); Z86.0101 Personal history of adenomatous and serrated colon polyps; K57.30 Diverticulosis of large intestine without perforation or abscess without bleeding; K64.8 Other hemorrhoids; K56.50 Intestinal adhesions [bands], unspecified as to partial versus complete obstruction; R10.9 Unspecified abdominal pain; K52.9 Noninfective gastroenteritis and colitis, unspecified; K21.9 Gastro-esophageal reflux disease without esophagitis; K44.9 Diaphragmatic hernia without obstruction or gangrene; K29.50 Unspecified chronic gastritis without bleeding; Z98.84 Bariatric surgery status; Z79.899 Other long term (current) drug therapy
CPT/HCPCS: 45378; 43239; 82947; 88305; 88313; 88342; J2003; J2250; J2704; J3010

== ENCOUNTER 2025-02-19 09:41 | Outpatient (REF) | payer OTHER, SELFPAY ==
--- NOTE | ~2025-02-19 | FL_ITS ---
EXAMINATION: XR UPPER GI SERIES WITH SMALL BOWEL CLINICAL INFORMATION: Status post gastric sleeve 4-5 years ago. Now presents with epigastric pain. COMPARISON: None available. TECHNIQUE: Routine upper GI air contrast study was performed in upright and lying position. FINDINGS: Following oral administration of thick barium and effervescent granules there is normal propagation bolus from the oral cavity through the pharynx, esophagus into stomach without any evidence of obstruction, narrowing or stricture. No extrinsic compression seen. There is no laryngeal penetration or aspiration. Minimal retention of barium seen in the valleculae and piriform sinuses. On placing patient prone and supine lying there is evidence of previous gastric sleeve surgery with undulated stomach appearing as 2 different parts of stomach. The upper part is in epigastric region and contains moderate retained barium and gas. The lower half has very minimal barium, gastric secretions and air. This finding is unchanged bladder is supine and prone lying or upright view. This may be related to patient's complaint of epigastric pain. There is no gastroesophageal reflux or hiatal hernia seen. No visible finding of cervical spine, lumbar spine hardware for fusion. There are pacer electrodes in right atrium and right ventricle and postsurgical changes in the left upper quadrant from gastric sleeve surgery. FLUOROSCOPY TIME: 3 minutes and 8 seconds. DOSE AREA PRODUCT: 3608 uGy-m2 (microgray-meter squared) FL/FL upper GI w air w Ba Swallow IMPRESSION: Undulated stomach appearing as 2 separate segments of stomach. The upper segment is in epigastric region and has moderate barium and gas. The lower gastric segment has less amount of barium and more gas and secretions. The mucosal pattern is unremarkable in the esophagus and stomach. No reflux or hiatal hernia.. Electronically signed by: Taiwo Mcghee MD 02/19/2025 10:56 AM EDT
--- OUTSIDE RECORDS SUMMARY | 2025-02-19 10:48 | XMS_ITS | Patient Health Record ---
Author Organization [facility] Address [address] [facility] [place] [address] Care Team Providers Care Geological Engineering Teacher Name Role Phone Spring Costa MD Primary Care Provider Unavail able Skip Barrios Unavailable [phone] Reason For Referral No Information Medications Medication [...] primary osteoarthritis of the ankle and/or foot (634487867) Primary osteoarthritis, right ankle and foot (M19.071) Active confirmed Problem Acquired hallux valgus (86738769) Hallux valgus (acquired), right foot (M20.11) Active confirmed Problem Polyneuropathy due to type 2 diabetes mellitus (701964014) Type 2 diabetes mellitus with diabetic polyneuropathy (E11.42) Active confirmed Plan Of Treatment Pending Test Test Name Order Date X ray : Foot, right 2V 04/21/2016 X ray : Foot, left 3V 05/05/2015 26299-Fffo Destruction, -05/25/2013 27508-Fobi Destruction, 07-1711/14/2012 30067-Dsob Destruction, 07-1712/12/2012 25572-Dpjg Destruction, 07-1701/16/2013 07927-Tivm Destruction, -01/19/2013 48613-Bzyc Destruction, 07-1703/23/2013 54753-Lduv Destruction, -04/27/2013 02996-Wjmnwcgg Plate 04/27/2013 74813-Sneyhzuw Plate 05/23/2015 95732-Eglroiwq Plate Each Additional 11708-EZI 04/11/2015 22379 I&D ABSCESS- SIMPLE,SINGLE 015 80676 I&D ABSCESS- SIMPLE,SINGLE 015 99783 I&D ABSCESS- SIMPLE,SINGLE 015 77793-YLWU SKIN LESIONS, OVER 4 10/19/19 12 48725-VGBG NAIL(S) 10/19/2011 79996-QFPB NAIL(S) 11/14/2012 Medical (General) History Medical History History ICD Code Arthritis skin cancer depression diabetic joint implants/screws bone tumor right arm Surgical History Surgery Date(Month/Year) C 5&6 fusion 07/14/2011 C 6&7 fusion 04/20/2010 right shoulder surgery 06/2012 left shoulder surgery 01/14/17 Hospitalization History Reason Date(Month/Year) [facility]-Left shoulder surgery 10/2012 [facility]- biopsy 03/15/13 [facility] ER- ?cellulitis 05/2015 pt was at [facility] for foot infection -06/02/[place] [facility] [place] 03/08 -03/12/16 elevated heart rate [facility] Hosp.stay for 24 hrs 01/07/17
--- OUTSIDE RECORDS SUMMARY | 2025-02-19 10:48 | XMS_ITS | Patient Health Record ---
Author Organization [facility] Address [address] [place] [address] Care Team Providers Care Regulator Assembler Name Role Phone PRISCILA SALCEDO M.D. Primary Care Provider Unav juan francisco Corona Hernandez Unavailable [phone] Delaney Heath Unavailable Unavailable Allergies Allergen (clinical drug ingredient) Drug/Non Drug Allergy documented on EMR Reaction Allergy Type Onset Date Status acetaminophen / oxycodone Percocet Unknown Drug Allergy Active oxycodone OxyContin Unknown Drug Allergy Active Results Component Value Reference Range Notes Glucose, Whole Blood Reviewed date:02/13/2025 06:09:46 PM Interpretation: Performing Lab:[address] [address] Notes/Report: Glucose, Whole Blood 91 60-115 mg/dL METER # : [id number] Pathology Reviewed date:02/17/2025 10:56:38 PM Interpretation: Performing Lab:[address] [address] Notes/Report: Reason For Referral No Information Medications Medication [...] Status Risk Notes Problem Colon cancer screening (104542679) Colon cancer screening (Z12.11) Active confirmed Problem Esophageal reflux (783696335) Esophageal reflux (K21.9) Active confirmed Problem Epigastric pain (79628890) Epigastric abdominal pain (R10.13) Active confirmed Problem 87841980 Colitis (K52.9) Active confirmed Problem 93439541 Hiatal hernia (K44.9) Active confirmed Problem 68443576 Rectal bleed (K62.5) Active confirmed Problem 31737769 Rectal pain (K62.89) Active confirmed Problem 97072857 Constipation, unspecified constipation type (K59.00) Active confirmed Problem History of colitis (094084031) History of colitis (Z87.19) Active confirmed Problem Gastroesophageal reflux disease (282077270) GERD (gastroesophage al reflux disease) (K21.9) Active confirmed Problem 694954764 Irritable bowel syndrome with constipation (K58.1) Active confirmed Problem History of adenomatous polyp of colon (437305195) History of adenomatous polyp of colon (Z86.0101) Active confirmed Vital Signs Blood pressure diastolic 00 mm Hg 07/17/2024 Height 63 in 07/17/2024 Blood pressure systolic 00 mm Hg 07/17/2024 Weight 220 lbs 07/17/2024 BMI 38.97 kg/m2 07/17/2024 Procedures Procedure Date Ordered Date Performed Result Body Sit e COLONOSCOPY 11/14/2024 N/A UPPER GI ENDOSCOPY 01/08/2025 N/A Encounters Encounter Location Date Provider Diagnosis [facility] [address] [place] [id number] 02/08/2025 Corona Hernandez [facility] [address] [place] [id number] 07/17/2024 Corona Hernandez Constipation, unspecified constipation type K59.00 ; Colitis K52.9 ; Esophageal reflux K21.9 and Irritable bowel syndrome with constipation K58.1 [facility] [address] [place] [id number] 04/04/2024 Corona Hernandez [facility] [address] [place] [id number] 09/13/2024 Corona Hernandez [facility] [address] [place] [id number] 09/21/2024 Corona Hernandez [facility] [address] [place] [id number] 09/25/2024 Corona Hernandez [facility] [address] [place] [id number] 11/14/2024 Corona Hernandez History of adenomato us polyp of colon Z86.0101 ; Colon cancer screening Z12.11 and History of colitis Z87.19 [facility] [address] [place] [id number] 11/28/2024 Corona Hernandez [facility] [address] [place] [id number] 12/31/2024 Corona Hernandez [facility] [address] [place] [id number] 01/08/2025 Corona Hernandez Epigastric abdominal pain R10.13 and GERD (gastroesophageal reflux disease) K21.9 [facility] [address] [place] [id number] 02/10/2025 Corona Hernandez Epigastric abdominal pain R10.13 [facility] [address] [place] [id number] 02/18/2025 Corona Hernandez Assessments Encounter Date Diagnosis (ICD Code) Assessment Notes Treatment Notes Treatment Clinical Notes Section Notes 07/17/2024 Colitis (ICD-10 - K52.9) Continue mesalamine [...] that she can be cleared by her night time nanny for the anesthesia and the procedure. She [...] and we can obtain clearance from her night time nanny, I would then plan to schedule her [...] that she can be cleared by her night time nanny for the anesthesia and the procedure. She [...] and we can obtain clearance from her night time nanny, I would then plan to schedule her [...] adenomatous polyp of colon (ICD-10 - Z86.0101) 01/08/2025 Epigastric abdominal pain (ICD-10 - R10.13) 01/08/2025 GERD (gastroesophagea l reflux disease) (ICD-10 - K21.9) 02/10/2025 Epigastric abdominal pain (ICD-10 - R10.13) 07/17/2024 Esophageal reflux (ICD-10 - K21.9) Overall, [...] that she can be cleared by her night time nanny for the anesthesia and the procedure. She [...] and we can obtain clearance from her night time nanny, I would then plan to schedule her [...] 11/14/2024 History of colitis (ICD-10 - Z87.19) 07/17/2024 Irritable bowel syndrome with constipation (ICD-10 [...] that she can be cleared by her night time nanny for the anesthesia and the procedure. She [...] and we can obtain clearance from her night time nanny, I would then plan to schedule her [...] that she can be cleared by her night time nanny for the anesthesia and the procedure. She [...] and we can obtain clearance from her night time nanny, I would then plan to schedule her [...] Name Order Date UPPER GI ENDOSCOPY 01/08/2025 COLONOSCOPY 11/14/2024 XR BARIUM SWALLOW-ESOPHAGUS 02/10/2025 XR GI SERIES 02/10/2025 Future Test Test Name Order Date COLONOSCOPY 04/02/2014 COLONOSCOPY 08/29/2018 Next Appt Details Provider Name:Corona Hernandez , 03/20/2025 04:20:00 PM, [address] [place] [address], [address], [place], [address], Insurance Providers Payer Name Payer Address Payer Phone Subscriber Number Group Number Insured Name Patient Relationship to Insured Coverage Start Date Coverage End Date [facility] [address] [place] [phone] [id number] SARA LORA Self - patient is the insured Medical (General) History Medical History History ICD Code GERD/HH--did well after refl ux surgery in 2003, but has been on Omeprazole since approx 2010 for reflux; hiatal hernia repaired again during her sleeve gastrectomy surgery in June, Multiple skin cancers, including a melan shavon removed in 2002 NIDDM Denies MD,CVA,Lung disease,renal disease Depression Chest pain--at [facility] in 03/2014--neg. nuc lear ETT and ECHO [...] 2019-cardio logist is Dr. Francisco Occipital neuralgia heaaches with steroi d injections She reports Ankylosing spondylitis Since 02/2024 heart failure --needed CT, MRI, Cardiac ECHO, Cardiac cath, and a pacemaker--seeing Dr. Canela at [facility] Surgical History Surgery Date(Month/Year) Melanoma removed from scalp 2002 Ovarian cyst removal C5/C6 fusion--Dr. Longoria 04/1010 C6/C7 fusion--Dr. Longoria 07/2011 shoulder [id number] 06/22 12 shoulder surgery-left--impingement x3 2012 Laparoscopic [...]
--- OUTSIDE RECORDS SUMMARY | 2025-02-19 10:49 | XMS_ITS | Clinical Summary ---
Author Organization [facility] Address [address] [place] [address] Care Team Providers Care Maintenance Shop Clerk Name Role Phone Andree Yoo MD Primary Care Provider [phone] Medications Medication Sig Dispensed Refills Start Date [...] Gluc Sensor (FreeStyle Karmen 14 Day Sensor) [facility] USE TO TEST GLUCOSE DIRECTED AND CHANGE [...] 5 01/09/2024 Active pregabalin (LYRICA) 75 MG capsuleIndications :Inflammatory [...] on patient's age to complete this topic Care Teams Maintenance Shop Clerk Relationship Specialty Start Date End Date Andree Yoo MD [address] [place] [address] PCP - General Family Medicine 12/29/20
--- OUTSIDE RECORDS SUMMARY | 2025-02-19 10:49 | XMS_ITS | Clinical Summary ---
Author Organization Samanta gomez Address [address] [place] [address] Care Team Providers Care Library Specialist Name Role Phone Andree Yoo MD Primary [...] The MRI of the cervical spine from [facility] dated October 02, 2024 shows mild [...] of the cervical spine from today at [facility] show some retrolisthesis of C4 [...] 09/03/19 25 Coronary artery disease invo lving creek coronary artery of creek heart without angina pectoris 08/03/2024 Atypical chest pain 08/03/2024 Fibromyalgia 08/03/2024 Irritable bowel syndrome with constipation 08/03 Type 2 diabetes mellitus wit hout complication, without long-term current use of insulin ([facility] V24, CMS/[facility] V28) 08/03/2024 Dyslipidemia 08/03/2024 Ulcerative colitis without c omplications (CMS/[facility] V24, CMS/HCC V28) 08/03/2024 Chronic tension-type headache, not intractable 0 08/03/2024 CONSTANCE (generalized anxiety disorder) 08/03/2024 History of gastric restrictive surgery Class 2 severe obesity due t o excess calories with serious comorbidity and body mass index (BMI) of 36.0 to 36.9 in adult ([facility] V24, [facility] V28) 08/03/2024 Routine general medical exam ination at a health care facility 08/03/2024 Nutritional deficiency 08/03/2024 Vitamin D deficiency 08/03/2024 Chronic systolic congestive heart failure ([facility] V24, [facility] V28) 08/03/2024 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 ([facility] V24) 08/03/2024 Chronic left SI joint pain [...] Encounters Date Type Department Care Team Description 01/28/2025 8:48 PM EDT - 01/28/2025 11:41 PM EDT Emergency [facility] Emergency [address] [place] [address] Darius Winston MD Chest pain, unspecified type (Primary Dx); Chronic post-operative pain Discharge Disposition: Home or Self Care 01/23/2025 Telephone [facility] Cardiology [facility] [address] [place] [phone] Andree Yoo MD Referral (Received routine paper referral - January) 01/22/2025 Telephone [facility] Dr [facility] [address] [place] [phone] Andree Yoo MD 01/21/2025 Telephone [facility] Dr [facility] Dr [address] [place] [phone] Andree Yoo MD Referral 12/28/2024 3:43 PM EDT - 12/28/2024 8:31 PM EDT Emergency [facility] Emergency [address] [place] [phone] Justin Baxter MD Atypical chest pain (Primary Dx) Discharge Disposition: Left Against Medical Advice from Last 3 Months Immunizations Name Administration [...] HISTORICAL CHOLECYSTECTOMY OTHER SURGICAL HISTORY 04/20/2009 PROCEDURE: TX ARTHRD ANT INTERBODY MIN DSC CRV BELOW [...] 04/25/2007 DX:Tobacco use disorder; COMMENT: x20 years, 07/07 ppd Cervicalgia 09/01/2009 DX:Cervicalgia ADD (attention deficit disorder) 04/13/2006 DX:ADD (attention deficit disorder); COMMENT: Behavioral health- Dr. Walsh Cervical adenopathy 01/07/2011 DX:Cervical adenopathy; COMMENT: Parapharyngeal on MRI 01/06/11, neg direct visualization on 01/19/11 Dr Fontenot, ultrasound of neck ordered for 1 month on adenopathy Depression 06/13/2009 DX:Depression Diabetes mellitus type 2 wit h neurological manifestations (CMS/HCC V24, CMS/HCC V28) 10/19/2011 DX:Diabetes mellitus type 2 with neurological manifestations (HCC) History of melanoma 04/13/2006 DX:History o f melanoma; COMMENT: S/p melanoma, basal cell, squamous cell skin cancers , ++ family hx of same IMO update Leukocytosis 01/08/2011 DX:Leukocytosis Morbid obesity with BMI of 4 0.0-44.9, adult (CMS/HCC V24, CMS/HCC V28) 04/13/2006 DX:Morbid obesity wit h BMI of 40.0-44.9, adult (HCC) Obstructive sleep apnea 07/12/2017 DX:Obstr uctive sleep apnea Proteinuria 07/19/2017 DX:Proteinuria Thyroid nodule 12/16/2011 DX:Thyroid nodul e; COMMENT: 6 x9 mm, seen on MRI of cervical spine 12/2011 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 (CMS/HCC V24, CMS/HCC V28) 07/19/2017 DX:Type 2 diabetes mellitus with [...] Sign Reading Time Taken Comments Blood Pressure 141/76 01/28/2025 11:37 PM EDT Pulse 84 01/28/2025 11:37 PM EDT Temperature 36.8 C (98.2 F) 01/28/2025 11:37 PM EDT Respiratory Rate 18 01/28/2025 11:37 PM EDT Oxygen Saturation 96% 01/28/2025 11:37 PM EDT Inhaled Oxygen Concentration - - Weight 89.8 kg (198 lb) 01/28/2025 5:09 PM EDT Height 160 cm (5' 3 ) 01/28/2025 5:09 PM EDT Body Mass Index 35.07 01/28/2025 5:09 PM EDT Plan of Treatment Health Maintenance Due Date Last Done Comments Breast Cancer Screening 1973 Diabetes: Annual Foot Exam 1983 Diabetes: Annual Retina Eye Exam 1983 Hepatitis B Vaccines (1 of 3 - 19+ 3-dose series) 1992 Cervical Cancer Screening: Pap Smear 1994 DTaP,Tdap,and Td Vaccines (3 - Td or Tdap) 07/04/2020 07/04/2010, 11/27/2004 Cholesterol Screening (Lipid Panel) 06/05/2022 HIV Screening 06/05/2022 Hepatitis C Screening 06/05/2022 Social Influencers of Health Screening 06/05/2022 Diabetes: Annual Urine Albumin-Creatinine Ratio (uACR) 06/18/2022 Zoster Vaccines (1 of 2) 2023 COVID-19 Vaccine ( season) 2024 10/07/2020, 09/16/2020 Depression Screening 07/04/2024 Diabetes: Blood Sugar Control Test (HGBA1C) 02/14/2025 08/17/2024 Influenza Vaccine (#1) 2025 , 08/15/2023, 05/24/2023, Additional history exists Diabetes: Annual GFR (Glomerular Filtration Rate) 01/28/2026 01/28/2025, 12/28/2024, 12/11/2024, Additional history exists Hypertension/CHF/CAD Annual BMP Blood Test 01/28/2026 01/28/2025, 12/28/2024, 12/11/2024, Additional history exists Colorectal Cancer Screening: Colonoscopy [...] Priority Date/Time Associated Diagnosis Comments ECG ANNOTATED 01/29/2025 CT ANGIO CHEST WO AND/OR W CONTRAST STAT 01/28/2025 9:58 PM EDT Chest pain, unspecified type CBC WITH AUTO DIFFERENTIAL STAT 01/28/2025 5:24 PM EDT CBC AND DIFFERENTIAL STAT 01/28/2025 5:24 PM EDT TROPONIN I HIGH SENSITIVITY STAT 01/28/2025 5:24 PM EDT LIPASE STAT 01/28/2025 5:24 PM EDT C-REACTIVE PROTEIN STAT 01/28/2025 5: 24 PM EDT LACTATE STAT 01/28/2025 5:24 PM EDT COMPREHENSIVE METABOLIC PANEL STAT 01/28/2025 5:24 PM EDT B-TYPE NATRIURETIC PEPTIDE STAT 01/28/2025 5:24 PM EDT ECG 12-LEAD STAT 01/28/2025 5:03 PM EDT ECG ANNOTATED 12/29/2024 ECG 12-LEAD STAT 12/28/2024 [...] ECG 12-LEAD STAT 12/28/2024 11:26 AM EDT HEMOGLOBIN A1C Routine 08/17/2024 10:04 AM EST Type 2 diabetes mellitus without complication, without long-term current use of insulin ([facility] V24, [facility] V28) Routine general medical examination at a [facility] COLONOSCOPY Routine 08/30/2018 2:38 PM EST from Last 3 Months or Most Recently Relevant to Health Maintenance Results * ECG-Annotated (01/29/2025) Only the most recent of2 resultswithin the time period is included. us Provider Onbase ECG ORDERABLES Final Result * CT Angio Chest wo and/or w Contrast (01/28/2025 9:58 PM EDT) Anatomical Region Laterality Modality Body Computed Tomogra phy 01/28/2025 10:2 4 PM EDT Impressions 01/28/2025 10:24 PM EDT 1. No pulmonary emboli, however distal segmental pulmonary arteries not well visualized secondary to motion artifact. This document has been electronically signed by: Wong Madden MD on 01/28/2025 22:24:44 Narrative 01/28/2025 10:24 PM EDT INDICATION: PE suspected, high prob CT angiography chest with contrast. 3D Postprocessing. Comparison: None provided Findings: Left subclavian pacemaker with leads in the right atrium, right ventricle and coronary sinus. Unremarkable thoracic aorta and great vessels. No aneurysm. No large or central pulmonary artery embolus. Distal segmental pulmonary arteries not well visualized secondary to motion artifact. The visualized thyroid and mediastinum are unremarkable. The lungs are clear. Previous gastric surgery Partially visualized cervical spine hardware. Procedure Note Wong Madden MD - 01/28/2025 INDICATION: PE suspected, high prob CT angiography chest with contrast. 3D Postprocessing. Comparison: None provided Findings: Left subclavian pacemaker with leads in the right atrium, rightventricle and coronary sinus. Unremarkable thoracic aorta and great vessels. No aneurysm. No large or central pulmonary artery embolus. Distal segmental pulmonary arteries not well visualized secondary to motion artifact. The visualized thyroid and mediastinum are unremarkable. The lungs are clear. Previous gastric surgery Partially visualized cervical spine hardware. IMPRESSION: 1. No pulmonary emboli, however distal segmental pulmonary arteries not well visualized secondary to motion artifact. This document has been electronically signed by: Wong Madden MD on 01/28/2025 22:24:44 us Darius Winston MD IMG CT PROCEDURES Final Result * Troponin I High Sensitivity (01/28/2025 5:24 PM EDT) Only the most recent of3 resultswithin the time period is included. [facility] High Sensitivity Troponin I 5 <=54 ng/L LAB CHEMISTRY METHOD 01/28/2025 6:28 PM EDT [facility] Blood Venous blood specimen / Unknown Venipuncture / Unknown 01/28/2025 5:24 PM EDT 01/28/2025 5:59 PM EDT Narrative [facility] - 01/28/2025 6:28 PM EDT High levels of biotin in samples may falsely decrease hsTroponin values. Use caution when interpreting hsTroponin results in patients taking biotin who exhibit renal impairment (eGFR <60) or in patients taking more than 20 mg/day of biotin. us Darius Winston MD LAB BLOOD ORDERABLES Final Resul t [facility] [address] [place] [address], * (ABNORMAL) CBC auto differential (01/28/2025 5:24 PM EDT) Only the most recent of2 resultswithin the time period is included. [facility] WBC 10.3 4.8 - 10.8 K/mcL LAB HEMETOLOGY METHOD 01/28/2025 6:[address] [facility] RBC 4.30 3.80 - 4.80 M/mcL LAB HEMETOLOGY METHOD 01/28/2025 6:[address] [facility] Hemoglobin 13.1 11.5 - 16.0 g/dL LAB HEMETOLOGY METHOD 01/28/2025 6:[address] [facility] Hematocrit 40.0 35.0 - 47.0 % LAB HEMETOLOGY METHOD 01/28/2025 6:[address] [facility] MCV 92.8 79.0 - 98.0 FL LAB HEMETOLOGY METHOD 01/28/2025 6:[address] [facility] MCH 30.4 27.0 - 32.0 pcg LAB HEMETOLOGY METHOD 01/28/2025 6:[address] [facility] MCHC 32.8 32.0 - 37.0 g/dL LAB HEMETOLOGY METHOD 01/28/2025 6:[address] [facility] RDW 13.1 11.0 - 15.0 % LAB HEMETOLOGY METHOD 01/28/2025 6:[address] [facility] Platelets 245 130 - 400 K/mcL LAB HEMETOLOGY METHOD 01/28/2025 6:[address] [facility] MPV 10.9 7.0 - 11.0 FL LAB HEMETOLOGY METHOD 01/28/2025 6:[address] [facility] NRBC 0.0 <1.0 % LAB HEMETOLOGY METHOD 01/28/2025 6:[address] [facility] NRBC Absolute 0.00 <0.10 K/mcL LAB HEMETOLOGY METHOD 01/28/2025 6:[address] [facility] Neutrophils Relative 61.4 % LAB HEMETOLOGY METHOD 01/28/2025 6:[address] [facility] Lymphocytes Relative 29.0 % LAB HEMETOLOGY METHOD 01/28/2025 6:[address] [facility] Monocytes Relative 7.2 % LAB HEMETOLOGY METHOD 01/28/2025 6:[address] [facility] Eosinophils Relative 1.2 % LAB HEMETOLOGY METHOD 01/28/2025 6:[address] [facility] Basophils Relative 0.8 % LAB HEMETOLOGY METHOD 01/28/2025 6:[address] [facility] Immature Granulocytes Relative 0.4 % LAB HEMETOLOGY METHOD 01/28/2025 6:[address] [facility] Neutrophils Absolute 6.30 1.50 - 7.00 K/mcL LAB HEMETOLOGY METHOD 01/28/2025 6:[address] [facility] Lymphocytes Absolute 2.98 1.00 - 5.00 K/mcL LAB HEMETOLOGY METHOD 01/28/2025 6:[address] [facility] Monocytes Absolute 0.74 0.20 - 1.00 K/mcL LAB HEMETOLOGY METHOD 01/28/2025 6:[address] [facility] Eosinophils Absolute 0.12 0.00 - 0.50 K/mcL LAB HEMETOLOGY METHOD 01/28/2025 6:[address] [facility] Basophils Absolute 0.08 0.00 - 0.20 K/mcL LAB HEMETOLOGY METHOD 01/28/2025 6:[address] [facility] Immature Granulocytes Absolute 0.04(H) 0.00 - 0.03 K/mcL LAB HEMETOLOGY METHOD 01/28/2025 6:[address] [facility] Blood Venous blood specimen / Unknown Venipuncture / Unknown 01/28/2025 5:24 PM EDT 01/28/2025 5:59 PM EDT us Darius Winston MD LAB BLOOD ORDERABLES Final Resul t Performing Organization Address [facility] Co de Phone Number [facility] [address] [place] [address], [place] [phone] * C-reactive protein (01/28/2025 5:24 PM EDT) C-Reactive Protein <0.29 <=0.50 mg/dL LAB CHEMISTRY METHOD 01/28/2025 6:38 PM EDT [facility] Blood Venous blood specimen / Unknown Venipuncture / Unknown 01/28/2025 5:24 PM EDT 01/28/2025 5:59 PM EDT us Darius Winston MD LAB BLOOD ORDERABLES Final Resul t Performing Organization Address [facility] Co de Phone Number [facility] [address] [place] [address], [place] [phone] * B-Type Natriuretic Peptide (BNP) (01/28/2025 5:24 PM EDT) Only the most recent of2 resultswithin the time period is included. BNP 21 <=100 pcg/mL LAB CHEMISTRY METHOD 01/28/2025 6:42 PM EDT [facility] Blood Venous blood specimen / Unknown Venipuncture / Unknown 01/28/2025 5:24 PM EDT 01/28/2025 5:59 PM EDT us Darius Winston MD LAB BLOOD ORDERABLES Final Resul t Performing Organization Address [facility] Co de Phone Number [facility] [address] [place] [address], [place] [phone] * Lipase (01/28/2025 5:24 PM EDT) Only the most recent of2 resultswithin the time period is included. Lipase 33 13 - 75 unit/L LAB CHEMISTRY METHOD 01/28/2025 6:38 PM EDT [facility] Blood Venous blood specimen / Unknown Venipuncture / Unknown 01/28/2025 5:24 PM EDT 01/28/2025 5:59 PM EDT us Darius Winston MD LAB BLOOD ORDERABLES Final Resul t Performing Organization Address City/[facility]/ZIP Co de Phone Number [facility] [address] [place] [address], [place] [phone] * Lactate (01/28/2025 5:24 PM EDT) [facility] Lactate 1.0 0.4 - 2.0 mmol/L LAB CHEMISTRY METHOD 01/28/2025 6:28 PM EDT [facility] Blood Venous blood specimen / Unknown Venipuncture / Unknown 01/28/2025 5:24 PM EDT 01/28/2025 5:59 PM EDT us Darius Winston MD LAB BLOOD ORDERABLES Final Resul t Performing Organization Address City/[facility]/ZIP Co de Phone Number [facility] [address] [place] [address], [place] [phone] * (ABNORMAL) Comprehensive Metabolic Panel (CMP) (01/28/2025 5:24 PM EDT) Only the most recent of2 resultswithin the time period is included. Pathologist [facility] Sodium 142 133 - 145 mmol/L LAB CHEMISTRY METHOD 01/28/2025 7:26 PM EDT [facility] Potassium 4.2 3.5 - 5.5 mmol/L LAB CHEMISTRY METHOD 01/28/2025 7:26 PM EDT [facility] Chloride 109 96 - 110 mmol/L LAB CHEMISTRY METHOD 01/28/2025 7:[address] [facility] CO2 30 21 - 32 mmol/L LAB CHEMISTRY METHOD 01/28/2025 7:[address] [facility] Anion Gap 3 3 - 11 LAB CHEMISTRY METHOD 01/28/2025 7:[address] [facility] Glucose 123(H) 70 - 100 mg/dL LAB CHEMISTRY METHOD 01/28/2025 7:[address] [facility] BUN 16 5 - 25 mg/dL LAB CHEMISTRY METHOD 01/28/2025 7:[address] [facility] Creatinine 0.90 0.50 - 1.10 mg/dL LAB CHEMISTRY METHOD 01/28/2025 7:[address] [facility] eGFR 78 >=60 mL/min/1. 73m2 LAB CHEMISTRY METHOD 01/28/2025 7:[address] [facility] Comment:Calculation based on the Chronic Kidney Disease Epidemiology Collaboration (CKD-EPI) equation refit without adjustment for race. BUN/Creatinine Ratio 17.8 LAB CHEMISTRY METHOD 01/28/2025 7:[address] [facility] Calcium 8.9 8.5 - 10.5 mg/dL LAB CHEMISTRY METHOD 01/28/2025 7:[address] [facility] AST (SGOT) 8(L) 10 - 42 unit/L LAB CHEMISTRY METHOD 01/28/2025 7:[address] [facility] ALT (SGPT) 19 10 - 60 unit/L LAB CHEMISTRY METHOD 01/28/2025 7:[address] [facility] Alkaline Phosphatase 121 42 - 121 unit/L LAB CHEMISTRY METHOD 01/28/2025 7:[address] [facility] Total Protein 6.3 6.0 - 8.0 g/dL LAB CHEMISTRY METHOD 01/28/2025 7:[address] [facility] Albumin 3.6 3.2 - 5.0 g/dL LAB CHEMISTRY METHOD 01/28/2025 7:26 PM EDT [facility] Total Bilirubin 0.4 0.0 - 1.4 mg/dL LAB CHEMISTRY METHOD 01/28/2025 7:26 PM EDT [facility] Blood Venous blood specimen / Unknown Venipuncture / Unknown 01/28/2025 5:24 PM EDT 01/28/2025 5:59 PM EDT Darius Winston MD LAB BLOOD ORDERABLES Final Resul t [facility] [address] [place] [address], [place] [phone] * ECG 12 lead (01/28/2025 5:03 PM EDT) Only the most recent of3 resultswithin the time period is included. Ventricular Rate ECG 88 BPM GEMUSE Atrial Rate 88 BPM GEMUSE P-R Interval 178 ms GEMUSE QRS Duration 130 ms GEMUSE Q-T Interval 396 ms GEMUSE QTc 479 ms GEMUSE P Wave Sullivan 71 degrees GEMUSE R Sullivan -49 degrees GEMUSE T Sullivan 77 degrees GEMUSE ECG Interpretation Atrial-sense d ventricular- paced rhythm Abnormal ECG When compared with ECG of 28-DEC-2024 14:25, Vent. rate has increased BY 14 BPM Confirmed by ANDERSON REINOSO ([id number]) on 01/28/2025 9:20:25 PM GEMUSE 01/28/2025 5:03 PM EDT 01/28/2025 9:20 PM EDT Francesco Velasquez MD ECG ORDERABLES Final Resul t GEMUSE * XR Thoracic Spine 2 Views (12/28/2024 [...] Signed Date: 12/28/2024 12:30 ET Workstation ID: [id number] Transcribed By: Self Edit Transcribed Date: 12/28/2024 [...] Signed Date: 12/28/2024 12:30 ET Workstation ID: [id number] Transcribed By: Self Edit Transcribed Date: 12/28/2024 12:29 ET us Francesco Velasquez MD IMG XR PROCEDURES Final Res ult * Magnesium (12/28/2024 11:39 AM EDT) Magnesium 2.2 1.9 - 2.6 mg/dL LAB CHEMISTRY METHOD 12/28/2024 12:23 PM EDT [facility] Blood Venous blood specimen / Unknown Venipuncture / Unknown 12/28/2024 11:39 AM EDT 12/28/2024 11:53 AM EDT Francesco Velasquez MD LAB BLOOD ORDERABLES Final Result Performing Organization Address City/[facility]/ZIP Co de Phone Number [facility] [address] [place] [address], [place] [phone] * (ABNORMAL) Hemoglobin A1c (08/17/2024 10:04 AM EST) Hemoglobin A1C 6.2(H) <5.7 % of total Hgb Perk Comment: For someone without known diabetes, a [...] AM EST 08/17/2024 10:08 AM EST Narrative [facility] - 08/23/2024 2:28 PM EST FASTING:NO PATIENT NOT FASTING; ADVISED TO RETURN FOR COLLECTION. FASTING: NO us Samanta Arciniega MD LAB BLOOD ORDERABLES Final Res ult [facility] ([facility]) Perk [address] [place] [phone] * COLONOSCOPY (08/30/2018 2:38 PM EST) Anatomical Region Laterality Modality Endoscopy Corona Hernandez MD GI~PROCEDURE ORDERABLES Final Re sult from Last 3 Months or Most Recently Relevant to Health Maintenance Insurance [facility] Advance Directives * Full Code - Default [...] currently active code status orders. Care Teams Library Specialist Relationship Specialty Start Date End Date Andree Yoo MD [address] [place] [address] PCP - General Internal Medicine 09/25/24
--- OUTSIDE RECORDS SUMMARY | 2025-02-19 10:49 | XMS_ITS | Clinical Summary ---
Author Organization [facility] Address [address] [place] [phone] Phone Care Team Providers Care Solar Sales Associate Name Role Phone Andree Yoo MD Primary Care Provider [phone] Allergies No known active allergies Medications No known medications Social History Tobacco Use Types Packs/Day Years Used Date Smoking Tobacco: Former Cigarettes Smokeless Tobacco: Never Tobacco Cessation:Counseling Given: Not Answered Alcohol Use Standard Drinks/Week Comments Yes 0 (1 standard drink = 0.6 oz pur e alcohol) social Education Answer Date Recorded Are you interested in more education? Not on debbi e 11/01/2022 Are you concerned about learning? Not on file 11/01/2022 No 11/01/2022 No 11/01/2022 Digital Access Answer Date Recorded No 11/29/2022 No 11/29/2022 Reliable internet access at home? Not on file 11/29/2022 Device with a working camera? Not on file Intimate Partner Violence Answer Date R ecorded Are you denied basic needs s uch as food, clothing, or medical care? No 07/30/2024 In the past 12 months have y ou been in a relationship with a person who hurts, threatens, or tries to control you? No 07/30/2024 Are you denied basic needs s uch as food, clothing, or medical care? No 07/30/2024 In the past 12 months have y ou been in a relationship with a person who hurts, threatens, or tries to control you? No 07/30/2024 Comments Unknown Sex and Gender Information Value Date Recorded Sex Assigned at Female 03/20/2024 3:01 PM EDT Legal Sex Female 10:38 PM EDT Gender Identity Female 03/20/2024 3:01 PM EDT Sexual Orientation Straight 03/20/2024 3: 01 PM EDT Last Filed Vital Signs Vital Sign Reading Time Taken Comments Blood Pressure 132/85 07/30/2024 9:09 PM EST Pulse 89 07/30/2024 9:09 PM EST Temperature 35.8 C (96.4 F) 07/30/2024 7:29 PM EST Respiratory Rate 20 07/30/2024 9:09 PM EST Oxygen Saturation 98% 07/30/2024 9:09 PM EST Inhaled Oxygen Concentration - - Weight 98.9 kg (218 lb) 07/30/2024 4:14 PM EST Height 162.6 cm (5' 4 ) 07/30/2024 4:14 PM EST Body Mass Index 37.42 07/30/2024 4:14 PM EST Plan of Treatment Health Maintenance Due Date Last Done Comments Adult Td,Tdap Booster 1973 LIPID PANEL 1973 DEPRESSION SCREENING 1985 SMOKING Hx and SMOKELESS TOB ACCO SCREENING 1986 HEPATITIS C SCREENING 1991 HIV ONE-TIME SCREENING (18-6 5 YEARS) 1991 PAP SMEAR 1994 SCREENING FOR DIABETES 2008 MAMMOGRAM 2013 COLOGUARD 2018 COLONOSCOPY 2018 COLORECTAL CANCER SCREENING 2018 FIT TEST 2018 FOBT 2018 SIGMOIDOSCOPY 2018 VIRTUAL COLONOSCOPY 2018 PNEUMOCOCCAL VACCINES (50+ y ears) (1 of 1 - PCV) 2023 ZOSTER VACCINES (1 of 2) 2023 COVID-19 VACCINE ( - 2023-2 5 season) 2024 HEPATITIS A VACCINES Aged Out No long er eligible based on patient's age to complete this topic HIB VACCINES Aged Out No longer eligi ble based on patient's age to complete this topic MENINGOCOCCAL VACCINES (ACWY) Aged Out No longer eligible based on patient's age to complete this topic MENINGOCOCCAL VACCINES (B) Aged Out N o longer eligible based on patient's age to complete this topic Medical Devices Not on file Insurance [facility] [place] [address] [place] [address] [facility] [address] [place] [address]O [facility] [address] [place] Care Teams Solar Sales Associate Relationship Specialty Start Date End Date Andree Yoo MD [address] [place] [address] PCP - General Family Medicine 03/20/24 Additional Source Comments The information contained in this document represents components of the legal health record. It is not the complete legal health record.[facility]
--- OUTSIDE RECORDS SUMMARY | 2025-02-19 10:49 | XMS_ITS | Clinical Summary ---
Author Organization [facility] Address [address] [place] [id number] Care Team Providers Care Web Search Evaluator Name Role Phone Andree Yoo MD Primary Care Provider [phone] Allergies Active Allergy Reactions Criticality Noted Date [...] Blood Gluc Sensor (FreeStyle Karmen 3 Sensor) [facility] [place] BLOOD SUGAR CONTINUOUSLY DIRECTED [...] EDT - 12/11/2024 10:09 PM EDT Emergency [facility] Emergency Department [address] [place] [address] Patrick Aguila MD Chest pain (Primary Dx); [...] Mass Index - - Plan of Treatment Health Maintenance Due Date [...] resultswithin the time period is included. Pathologist [facility] High Sensitivity Troponin T 12 <15 ng/L 12/11/2024 7:13 PM EDT [facility] Delta (Change) 4(H) <3 12/11/2024 7:13 PM EDT [facility] Comment:Decreased Blood Blood specimen / Unknown 12/11/2024 6:22 PM EDT 12/11/2024 6:47 PM EDT [facility] LAB BLOOD ORDERAB LES Final Result [address] [address], [address] [address] * XR Chest 2 views (12/11/2024 4:13 PM EDT) Anatomical Region Laterality Modality Chest Computed Radiogr aphy 12/11/2024 4:13 PM EDT Impressions 12/11/2024 10:38 PM EDT No acute pulmonary disease. Interpreted by: Gume Kent DO Radiation Officer Attending addendum: Ill-defined sclerotic lesion involving the [...] pulmonary disease. Interpreted by: Gume Kent DO Radiation Officer Attending addendum: Ill-defined sclerotic lesion involving the right humeral head/proximal humerus, likely enchondroma. I personally reviewed the images and the resident's preliminary report and made the MINOR addendum above ([id number]). [facility] IMG DIAGNOSTIC IM AGING ORDERABLES Final Result * 10 Min ECG 12 lead (12/11/2024 3:13 PM EDT) Ventricular rate 76 BPM EKG [facility] Atrial rate [address] [facility] P-R interval 142 ms EKG [facility] QRS duration 134 ms EKG [facility] Q-T interval 412 ms EKG [facility] QTC calculation (Bazett) 464 ms EKG [facility] P axis 24 degrees EKG [facility] R axis -42 degrees EKG [facility] T axis 53 degrees EKG [facility] 12/11/2024 3:13 PM EDT Narrative EKG [facility] - 12/11/2024 3:24 PM EDT Atrial-sensed ventricular-paced rhythm Abnormal ECG No previous ECGs available Confirmed by MD Farooq Chad ([id number]) on 12/11/2024 3:23:59 PM Procedure Note Alex Farooq MD - 12/11/2024 Atrial-sensed ventricular-paced rhythm Abnormal ECG No previous ECGs available Confirmed by MD Farooq Chad ([id number]) on 12/11/2024 3:23:59 PM Hung Burns MD ECG ORDERABLES Final Result EKG [facility] * (ABNORMAL) Complete Blood Count, with Differential (12/11/2024 2:58 PM EDT) White Blood Cell Count 11.3(H) 4.0 - 11.0 Thou/uL 12/11/2024 3:48 PM EDT [facility] Platelet Count 286 150 - 450 Thou/uL 12/11/2024 3:48 PM [facility] Hemoglobin 14.9 11.7 - 15.7 g/dL 12/11/2024 3:48 PM [facility] Hematocrit 46.9 35.0 - 47.0 % 12/11/2024 3:48 PM [facility] Red Blood Cell Count 5.02 4.00 - 5.40 Mil/uL 12/11/2024 3:48 PM [facility] MCV 93 80 - 100 fL 12/11/2024 3:48 PM [facility] MCH 29.7 27.0 - 31.0 pg 12/11/2024 3:48 PM [facility] MCHC 31.8 30.0 - 36.0 g/dL 12/11/2024 3:48 PM [facility] RDW 13.4 11.5 - 14.5 % 12/11/2024 3:48 PM [facility] MPV 10.6 7.5 - 12.5 fL 12/11/2024 3:48 PM [facility] Neutrophils Auto 69.1 % 12/12/19 3:48 PM EDT [facility] Immature Granulocytes 0.4 % 12/11/2024 3:48 PM EDT [facility] Lymphocytes Auto 22.0 % 12/12/19 3:48 PM EDT [facility] Monocytes Auto 7.1 % 12/11/2024 3:48 PM EDT [facility] Eosinophils Auto 0.9 % 12/12/19 3:48 PM EDT [facility] Basophils Auto 0.5 % 12/11/2024 3:48 PM EDT [facility] Abs Neutrophils Auto 7.80(H) 2.00 - 7.50 Thou/uL 12/11/2024 3:48 PM EDT [facility] Abs Immature Granulocytes 0.05 0.00 - 0.10 Thou/uL 12/11/2024 3:48 PM EDT [facility] Abs Lymphocytes Auto 2.48 1.50 - 4.50 Thou/uL 12/11/2024 3:48 PM EDT [facility] Abs Monocytes Auto 0.80 0.20 - 1.50 Thou/uL 12/11/2024 3:48 PM EDT [facility] Abs Eosinophils Auto 0.10 0.00 - 0.70 Thou/uL 12/11/2024 3:48 PM EDT [facility] Abs Basophils Auto 0.06 0.00 - 0.20 Thou/uL 12/11/2024 3:48 PM EDT [facility] Blood Blood specimen / Unknown 12/11/2024 2:58 PM EDT 12/11/2024 3:36 PM EDT [facility] LAB BLOOD ORDERAB LES Final Result [address] [address], [address] [address] * Magnesium (12/11/2024 2:58 PM EDT) Magnesium 2.3 1.6 - 2.7 mg/dL 12/11/2024 4:11 PM EDT [facility] Blood Blood specimen / Unknown 12/11/2024 2:58 PM EDT 12/11/2024 3:36 PM EDT [facility] LAB BLOOD ORDERAB LES Final Result [facility] [address] [place] [address], [facility] [address] [place] [address] * (ABNORMAL) Comprehensive Metabolic Panel (12/11/2024 2:58 PM EDT) Glucose 118(H) 65 - 99 mg/dL 12/11/2024 4:11 PM T [facility] Comment:Fasting: <100 mg/dL, Non-Fasting: <200 mg/dL (ADA 2004) Blood Urea Nitrogen (BUN) 22(H) 8 - 21 mg/dL 12/11/2024 4:11 PM [facility] Creatinine 1.0 0.4 - 1.1 mg/dL 12/11/2024 4:11 PM [facility] eGFR 68 >59 12/11/2024 4:11 PM [facility] Comment:CKD-EPI (2020) in mL /min/1.73 sq meters. Sodium 143 136 - 145 mmol/L 12/11/2024 4:11 PM [facility] Potassium 4.7 3.4 - 5.3 mmol/L 12/11/2024 4:11 PM [facility] Chloride 107 98 - 107 mmol/L 12/11/2024 4:11 PM [facility] CO2 26 22 - 33 mmol/L 12/11/2024 4:11 PM [facility] Calcium 9.5 8.7 - 10.5 mg/dL 12/11/2024 4:11 PM [facility] Alkaline Phosphatase 101 32 - 122 U/L 12/11/2024 4:11 PM [facility] Aspartate Aminotrans (AST) 16 10 - 50 U/L 12/11/2024 4:11 PM [facility] Alanine Aminotrans (ALT) 18 10 - 50 U/L 12/11/2024 4:11 PM [facility] Bilirubin, Total 0.2 0.2 - 1.0 mg/dL 12/11/2024 4:11 PM [facility] Protein, Total 6.7 6.3 - 8.3 g/dL 12/11/2024 4:11 PM EDT [facility] Albumin 4.0 3.5 - 5.0 g/dL 12/11/2024 4:11 PM EDT [facility] BUN/Creatinine Ratio 22 10.0 - 25.0 Ratio 12/11/2024 4:11 PM EDT [facility] Globulin 2.7 1.5 - 3.9 g/dL 12/11/2024 4:11 PM EDT [facility] Albumin/Globulin Ratio 1.5 1.0 - 3.0 Ratio 12/11/2024 4:11 PM EDT [facility] Anion Gap 10 7 - 17 12/11/2024 4:11 PM EDT [facility] Blood Blood specimen / Unknown 12/11/2024 2:58 PM EDT 12/11/2024 3:36 PM EDT [facility] BLOOD ORDERAB LES Final Result [address] [address], [address] [address] from Last 3 Months Insurance [facility] Care Teams Web Search Evaluator Relationship Specialty Start Date End Date Andree Yoo MD [address] [place] [id number] PCP - General Family Medicine 12/05/24
== END 2025-02-19 09:42 | disposition home or self-care (01) ==
LOC: HO.XRAY 09:41
PROVIDERS: Visit Provider Internal Medicine
DX: R10.13 Epigastric pain (principal)
CPT/HCPCS: 74246

== ENCOUNTER → 2025-02-19 09:46 | Outpatient (BNV) | payer OTHER, SELFPAY | PROVIDERS: Visit Provider Radiology Diagnostic Radiology | DX: R10.13 Epigastric pain (principal) | CPT/HCPCS: 74246 ==

== ENCOUNTER 2025-02-26 10:03 | Outpatient (AMB) | payer OTHER, SELFPAY ==
--- OUTSIDE RECORDS SUMMARY | 2025-02-08 06:30 | XMS_ITS ---
Author Organization [facility] Address [address] [facility] [address] [place] [phone] Care Team Providers Care Ski Maker Wood Name Role Phone PRISCILA SALCEDO M.D. Primary Care Provider Unav ailable Corona Hernandez Unavailable [phone] Delaney Heath Unavailable Unavailable REASON FOR VISIT screening, hx polyps gerd Encounters Encounter Location Date Provider Diagnosis [facility] [address] [place] [id number] 02/08/2025 Corona Hernandez Plan Of Treatment Next Appt Details Provider Name:Corona Stepan Hernandez , 03/20/2025 04:20:00 PM, [address] [place] [address], [address] [facility], [place], [address], Progress Notes * CAROLYN LORAOB: 3 (49 yo F)Acc No.[id number]:02/08/2025 EGD and COL/MAC Patient: TEMO CARRANZA Provider: Ruben Hernandez MD :1975 A ge:49 Y S ex:Female Date:02/08/2025 [facility] [id number] Pcp:PRISCILA SALCEDO M.D. Subjective: * Chief Complaints: [...] Hernandez MD Date: 0 02/08/2025 Generated for Clinton mckinley/Aranza/Aria on: 0 02/26/2025 10:46 AM EDT
--- NOTE | 2025-02-26 10:17 | MHC.OFFVISWM ---
VS Expanded 02/26/25 10:27 BP 120/76 Blood Pressure Location Rt brachial Blood Pressure Position Sitting Pulse 93 Pulse Source Pulse Oximeter Temp 97.6 F Temperature Source Temporal Artery Scan Pulse Oximetry 97 Oxygen Delivery Method Room Air Height 5 ft 4.5 in Weight 193 lb 3.2 oz BMI 32.6 Body Fat % 40.1 Body Fat Mass 77.4 Fat Free Mass 115.8 Visceral Fat Rating 10.0 Body Water % 42.7 Body Water Mass 82.4 Muscle Mass/Score 109.8 Basal Metabolic Rate/Score 1,593 Intake Visit Reasons: (OV) PO LSG 06/11/20 -SEE NOTE! Tire Layer Required: No Allergies amlodipine Allergy (Unknown, Verified 02/26/25 10:20) Dizziness nitroglycerin Adverse Reaction (Severe, Verified 02/26/25 10:20) Headache Bactrim Adverse Reaction (Unknown, Uncoded 02/08/25 12:37) does not work while on Metformin Medication List - Last Reconciled 02/26/25 by KUSHAL Bishop aspirin 81 mg PO DAILY atorvastatin 40 mg PO BEDTIME bupropion HCl XL 150 mg PO QAM buspirone 20 mg PO BID carvedilol 3.125 mg PO BID dapagliflozin propanediol (Farxiga) 10 mg PO DAILY duloxetine 60 mg PO DAILY flash glucose sensor As directed linaclotide (Linzess) 290 mcg PO QAM lorazepam 0.5 mg PO BEDTIME PRN ynagieelquhi-nme-yvzb-FA-vit K 45 mg iron- 800 mcg-120 mcg (Bariatric Multivitamins) 1 cap PO DAILY omeprazole 40 mg PO DAILY pregabalin (Lyrica) 150 mg PO BID simethicone (Gas-X Extra Strength) 125 mg PO QID PRN 30 days tirzepatide (Mounjaro) 10 mg subcut QWEEK tizanidine 4 mg PO BEDTIME trazodone 50 mg PO BEDTIME HPI Comments Details: Patient is a 57-year-old female who returns to the office today in follow-up. She is 4 years 8 months post sleeve gastrectomy with hiatal hernia repair performed by Dr. Deluna on 06/11/2020. She was last seen in the office on 03/30/2021. At that time, her weight was 226.6 lb with a BMI of 38.2. Weight today is 193.2 lb with a BMI of 32.6. Patient has been absent from the program for a number of years. Over the last year she has had difficulty with heart failure ultimately resulting in pacemaker placement followed by [facility]. She has had recurrent labile hypertension and of greater concern is recurrent chest pain. She has had full cardiac workups multiple times and has been cleared from a cardiac standpoint regarding those workups per her report. She states that over the last 2 months she has had upper abdominal pain, worse after eating. She had an upper endoscopy by Gastroenterology Dr. Hernandez and was told she has a recurrent hiatal hernia. She had an upper GI with fluoroscopy that was concerning for undulated stomach. Patient states that she would prefer to follow-up with her operative surgeon at [facility] and would like a referral there. meal plan: Diabetic meal plan including fruits vegetables and avoidance of excess carbs. not measuring quantity of protein Exercise plan: none due to chest pain PFSH Medical History IUD (intrauterine device) in place Chest pain Hiatal hernia Ankylosing spondylitis Hx of cardiac pacemaker Arrhythmia CHF (congestive heart failure) Constipation Fusion of spine Migraine Fibromyalgia Thyroid nodule Hyperlipidemia Left bundle branch block (LBBB) on electrocardiogram History of colitis History of thyroid nodule PCOS (polycystic ovarian syndrome) Sleep apnea History of melanoma GERD (gastroesophageal reflux disease) Type 2 diabetes mellitus Depression Cervicalgia ADD (attention deficit disorder) Surgical History History of esophagogastroduodenoscopy (EGD) History of back surgery Hx of shoulder surgery H/O colonoscopy Hx of cardiac catheterization H/O ovarian cystectomy Status post repair of paraesophageal diaphragmatic hernia History of sleeve gastrectomy Hx of shoulder surgery S/P laparoscopic cholecystectomy History of melanoma excision S/P carpal tunnel release S/P cervical spinal fusion History of foot surgery History of fundoplication Family History Father Asthma Heart disease HTN (hypertension) Type 2 diabetes mellitus Skin cancer Mother Skin cancer PCOS (polycystic ovarian syndrome) Son Asthma Daughter No problems noted. Paternal Uncle Lung cancer Sister No problems noted. Social History Household Members: Spouse Housing: House Are you a primary before and after school daycare worker to a significant other at home: No Do you presently have visiting nurse or other home services: No Alcohol intake: current Alcohol intake frequency: holidays/special occasions only Comment: pt sleeping Patient Tobacco Use Status: Former Tobacco user Second Hand Smoke Exposure: No service: No Current occupational status: employed Physical Exam Const General: healthy appearing and no acute distress Resp Effort & Inspection: normal respiratory effort Auscultation: clear to auscultation bilaterally Cardio Rate: regular rate Rhythm: regular rhythm GI Auscultation: normal bowel sounds Extrem General: Yes normal to inspection Assessment & Plan Assessment & Plan (1) Status post repair of paraesophageal diaphragmatic hernia: Code(s): Z98.890 - Other specified postprocedural states; Z87.19 - Personal history of other diseases of the digestive system Category: Surgical Plan: Patient would prefer to follow-up with her operative surgeon, Dr. Deluna. Referral has been sent accordingly per patient request. Additionally, patient's certainly could change her meal plan to something more structured, slowing down her eating and drinking. Would recommend fair life ready to drink shake, 30 g per shake, 1 in the morning, half at lunchtime and a meal in the evening with 7 forks of protein and 7 forks of vegetables. Additional 50 oz of fluids per day. Patient was advised that with a more structured meal plan her blood sugars may decrease as she will have less reliance on medications. Patient reports that she has been told she has a recurrent hiatal hernia. Review of fluoroscopy suggest this as a possibility. In looking at her medications, she takes Mounjaro. This can certainly contribute to decreased bowel motility. She takes Linzess for irritable bowel constipation type. She reports that she has a freestyle Karmen CGM. She reports that she is unable to exercise due to ongoing chest pain. She has been referred to cardiac rehab and is being managed by her screen and cyclone repairer at [facility]. She will follow up with Dr. Deluna per her request. She certainly may return to our office at any time in the future if she wishes. Orders: Referrals Bariatric Surgery Referral Z87.19 - Personal history of other diseases of the digestive system, Z98.890 - Other specified postprocedural states
[2025-02-26 10:27] VITALS: BP 120/76; PULSE 93; TEMP 36.4; O2SAT 97; BMI 32.6
--- OUTSIDE RECORDS SUMMARY | 2025-02-26 10:46 | XMS_ITS | Patient Health Record ---
Author Organization [facility] Address [address] [place] [address] Care Team Providers Care Manager Military Name Role Phone PRISCILA SALCEDO M.D. Primary Care Provider Unav ailCorona Maravilla Unavailable [phone] Delaney Heath Unavailable Unavailable Allergies Allergen (clinical drug ingredient) Drug/Non Drug Allergy documented on EMR Reaction Allergy Type Onset Date Status acetaminophen / oxycodone Percocet Unknown Drug Allergy Active oxycodone OxyContin Unknown Drug Allergy Active Results Component Value Reference Range Notes Glucose, Whole Blood Reviewed date:02/13/2025 06:09:46 PM Interpretation: Performing Lab:[facility], [address] [place] [id number] Notes/Report: Glucose, Whole Blood 91 60-115 mg/dL METER # : [id number] Pathology Reviewed date:02/17/2025 10:56:38 PM Interpretation: Performing Lab:[facility], [address] [place] [id number] Notes/Report: FL upper GI w air w Ba Swall ow Reviewed date:02/24/2025 08:36:56 PM Interpretation: Performing Lab: Notes/Report: [address] [address] Fluoroscopy Report Signed Patient: Sara Lora MR#: [id number] [birth year] : 1975 Acct:[id number] Age/Sex: 49 / F ADM Date: 02/19/25 Loc: [facility] Attending Dr: Corona Hernandez MD Ordering Physician: Corona Hernandez MD Date of Service: 02/19/25 Procedure(s): FL upper GI w air w Ba Swallow Accession Number(s): [id number] cc: Corona Hernandez MD EXAMINATION: XR UPPER GI SERIES WITH SMALL BOWEL CLINICAL INFORMATION: Status post gastric sleeve 4-5 years ago. Now presents with epigastric pain. COMPARISON: None available. TECHNIQUE: Routine upper GI air contrast study was performed in upright and lying position. FINDINGS: Following oral administration of thick barium and effervescent granules there is normal propagation bolus from the oral cavity through the pharynx, esophagus into stomach without any evidence of obstruction, narrowing or stricture. No extrinsic compression seen. There is no laryngeal penetration or aspiration. Minimal retention of barium seen in the valleculae and piriform sinuses. On placing patient prone and supine lying there is evidence of previous gastric sleeve surgery with undulated stomach appearing as 2 different parts of stomach. The upper part is in epigastric region and contains moderate retained barium and gas. The lower half has very minimal barium, gastric secretions and air. This finding is unchanged bladder is supine and prone lying or upright view. This may be related to patient's complaint of epigastric pain. There is no gastroesophageal reflux or hiatal hernia seen. No visible finding of cervical spine, lumbar spine hardware for fusion. There are pacer electrodes in right atrium and right ventricle and postsurgical changes in the left upper quadrant from gastric sleeve surgery. FLUOROSCOPY TIME: 3 minutes and 8 seconds. DOSE AREA PRODUCT: 3608 uGy-m2 (microgray-meter squared) FL/FL upper GI w air w Ba Swallow IMPRESSION: Undulated stomach appearing as 2 separate segments of stomach. The upper segment is in epigastric region and has moderate barium and gas. The lower gastric segment has less amount of barium and more gas and secretions. The mucosal pattern is unremarkable in the esophagus and stomach. No reflux or hiatal hernia.. Electronically signed by: Taiwo Mcghee MD 02/19/2025 10:56 AM EDT Dictated By: Taiwo Mcghee MD Signed By: <Electronically signed by Taiwo Mcghee MD in OV> 02/19/25 1056 DD/ 1000 TD/TT: 02/19/25 1016 Log Skidder: BON Reason For Referral No Information Medications Medication [...] Status Risk Notes Problem Colon cancer screening (496520434) Colon cancer screening (Z12.11) Active confirmed Problem Esophageal reflux (165332636) Esophageal reflux (K21.9) Active confirmed Problem Epigastric abdominal pain (R10.13) Active confirmed Problem 37195646 Colitis (K52.9) Active confirmed Problem 29146008 Hiatal hernia (K44.9) Active confirmed Problem 14926461 Rectal bleed (K62.5) Active confirmed Problem 55877778 Rectal pain (K62.89) Active confirmed Problem 15653432 Constipation, unspecified constipation type (K59.00) Active confirmed Problem History of colitis (447184095) History of colitis (Z87.19) Active confirmed Problem Gastroesophageal reflux disease (784083334) GERD (gastroesophage al reflux disease) (K21.9) Active confirmed Problem 954185129 Irritable bowel syndrome with constipation (K58.1) Active confirmed Problem History of adenomatous polyp of colon (795481643) History of adenomatous polyp of colon (Z86.0101) Active confirmed Vital Signs Blood pressure diastolic 00 mm Hg 07/17/2024 Height 63 in 07/17/2024 Blood pressure systolic 00 mm Hg 07/17/2024 Weight 220 lbs 07/17/2024 BMI 38.97 kg/m2 07/17/2024 Procedures Procedure Date Ordered Date Performed Result Body Sit e COLONOSCOPY 11/14/2024 N/A UPPER GI ENDOSCOPY 01/08/2025 N/A Encounters Encounter Location Date Provider Diagnosis [facility] [facility] [address] [place] [id number] 02/08/2025 Corona Hernandez [facility] [address] [place] [phone] 07/17/2024 Corona Hernandez Constipation, unspecified constipation type K59.00 ; Colitis K52.9 ; Esophageal reflux K21.9 and Irritable bowel syndrome with constipation K58.1 [facility] [address] [place] [phone] 04/04/2024 Corona Hernandez [facility] [address] [place] [phone] 09/13/2024 Corona Hernandez [facility] [address] [place] [phone] 09/21/2024 Corona Hernandez [facility] [address] [place] [phone] 09/25/2024 Corona Hernandez [facility] [address] [place] [phone] 11/14/2024 Corona Hernandez History of adenomato us polyp of colon Z86.0101 ; Colon cancer screening Z12.11 and History of colitis Z87.19 [facility] [address] [place] [phone] 11/28/2024 Corona Hernandez [facility] [address] [place] [phone] 12/31/2024 Corona Hernandez [facility] [address] [place] [phone] 01/08/2025 Corona Hernandez Epigastric abdominal pain R10.13 and GERD (gastroesophageal reflux disease) K21.9 [facility] [address] [place] [phone] 02/10/2025 Corona Hernandez Epigastric abdominal pain R10.13 [facility] [address] [place] [address] 02/18/2025 Corona Hernandez [facility] [address] [place] [address] 02/19/2025 Corona Hernandez Assessments Encounter Date Diagnosis (ICD [...] that she can be cleared by her cushion maker hand for the anesthesia and the procedure. She [...] and we can obtain clearance from her cushion maker hand, I would then plan to schedule her [...] that she can be cleared by her cushion maker hand for the anesthesia and the procedure. She [...] and we can obtain clearance from her cushion maker hand, I would then plan to schedule her [...] that she can be cleared by her cushion maker hand for the anesthesia and the procedure. She [...] and we can obtain clearance from her cushion maker hand, I would then plan to schedule her [...] that she can be cleared by her cushion maker hand for the anesthesia and the procedure. She [...] and we can obtain clearance from her cushion maker hand, I would then plan to schedule her [...] that she can be cleared by her cushion maker hand for the anesthesia and the procedure. She [...] and we can obtain clearance from her cushion maker hand, I would then plan to schedule her [...] COLONOSCOPY 08/29/2018 Next Appt Details Provider Name:Corona Ying David , 03/20/2025 04:20:00 PM, [address] [place] [address], [address], [place], [address], Insurance Providers Payer Name Payer Address Payer Phone Subscriber Number Group Number Insured Name Patient Relationship to Insured Coverage Start Date Coverage End Date [facility] [address] [place] [address] [id number] SARA LORA Self - patient is the insured Medical (General) History Medical History History ICD Code GERD/HH--did well after refl ux surgery in 2003, but has been on Omeprazole since approx 2010 for reflux; hiatal hernia repaired again during her sleeve gastrectomy surgery in June, Multiple skin cancers, including a melan shavon removed in 2002 NIDDM Denies GA,CVA,Lung disease,renal disease Depression Chest pain--at [facility] in 03/2014--neg. nuc lear ETT and [...] 2019-cardio logist is Dr. Francisco Occipital neuralgia [facility] with steroi d injections She reports Ankylosing spondylitis Since 02/2024 heart failure --needed CT, MRI, Cardiac ECHO, Cardiac cath, and a pacemaker--seeing Dr. Canela at [facility] Surgical History Surgery Date(Month/Year) Melanoma removed from scalp 2002 Ovarian cyst removal C5/C6 fusion--Dr. Longoria 04/1010 C6/C7 fusion--Dr. Longoria 07/2011 shoulder [id number] 06/22 12 shoulder surgery-left--impingement x3 2012 Laparoscopic [...]
--- OUTSIDE RECORDS SUMMARY | 2025-02-26 10:47 | XMS_ITS | Clinical Summary ---
Author Organization Samanta gomez Address [address] [place] [address] Care Team Providers Care Cnc Mill And Lathe Operator Name Role Phone Andree Yoo MD Primary [...] The MRI of the cervical spine from [facility] dated October 02, 2024 shows mild degenerative [...] of the cervical spine from today at [facility] show some retrolisthesis of C4 [...] 09/03/19 25 Coronary artery disease invo lving solomon coronary artery of solomon heart without angina pectoris 08/03/2024 Atypical chest pain 08/03/2024 Fibromyalgia 08/03/2024 Irritable bowel syndrome with constipation 08/03 Type 2 diabetes mellitus wit hout complication, without long-term current use of insulin ([facility] V24, [facility] V28) 08/03/2024 Dyslipidemia 08/03/2024 Ulcerative colitis without c omplications ([facility] V24, CMS/HCC V28) 08/03/2024 Chronic tension-type headache, not intractable 0 08/03/2024 CONSTANCE (generalized anxiety disorder) 08/03/2024 History of gastric restrictive surgery Class 2 severe obesity due t o excess calories with serious comorbidity and body mass index (BMI) of 36.0 to 36.9 in adult ([facility] V24, [facility] V28) 08/03/2024 Routine general medical exam ination at a health care facility 08/03/2024 Nutritional deficiency 08/03/2024 Vitamin D deficiency 08/03/2024 Chronic systolic congestive heart failure ([facility] V24, [facility] V28) 08/03/2024 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 ([facility] V24) 08/03/2024 Chronic left SI joint pain [...] EDT - 01/28/2025 11:41 PM EDT Emergency [facility] Emergency [address] [place] [address] Darius Winston MD Chest pain, unspecified type (Primary Dx); Chronic post-operative pain Discharge Disposition: Home or Self Care 01/23/2025 Telephone [facility] Dr Liriano [facility] Dr Ludwig [address] [place] [phone] Andree Yoo MD 01/22/2025 Telephone [facility] Dr Liriano [facility] Dr Ludwig [address] [place] [phone] Andree Yoo MD 01/21/2025 Telephone [facility] Dr Liriano [facility] Dr Ludwig [address] [place] [phone] Andree Yoo MD 12/28/2024 3:43 PM EDT - 12/28/2024 8:31 PM EDT Emergency [facility] Emergency [address] [place] [address] Justin Baxter MD Atypical chest [...] HISTORICAL CHOLECYSTECTOMY OTHER SURGICAL HISTORY 04/20/2009 PROCEDURE: ID ARTHRD ANT INTERBODY MIN DSC CRV BELOW [...] mellitus type 2 wit h neurological manifestations ([facility] V24, [facility] V28) 10/19/2011 DX:Diabetes mellitus type 2 with neurological manifestations (HCC) History of melanoma 04/13/2006 DX:History o f melanoma; COMMENT: S/p melanoma, basal cell, squamous cell skin cancers , ++ family hx of same IMO update Leukocytosis 01/08/2011 DX:Leukocytosis Morbid obesity with BMI of 4 0.0-44.9, adult (CMS/HCC V24, [facility] V28) 04/13/2006 DX:Morbid obesity wit h BMI of 40.0-44.9, adult (HCC) Obstructive sleep apnea 07/12/2017 DX:Obstr uctive sleep apnea Proteinuria 07/19/2017 DX:Proteinuria Thyroid nodule 12/16/2011 DX:Thyroid nodul e; COMMENT: 6 x9 mm, seen on MRI of cervical spine 12/2011 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 us Provider Onbase MD ECG ORDERABLES Final Result * CT Angio [...] of3 resultswithin the time period is included. [facility] High Sensitivity Troponin I 5 <=54 ng/L LAB CHEMISTRY METHOD 01/28/2025 6:28 PM EDT [facility] Blood Venous blood specimen / Unknown Venipuncture / Unknown 01/28/2025 5:24 PM EDT 01/28/2025 5:59 PM EDT Narrative [facility] - 01/28/2025 6:28 PM EDT High levels of biotin in samples may falsely decrease hsTroponin values. Use caution when interpreting hsTroponin results in patients taking biotin who exhibit renal impairment (eGFR <60) or in patients taking more than 20 mg/day of biotin. us Darius Winston MD LAB BLOOD ORDERABLES Final Resul t [facility] [address] [place] [address], [place] [phone] * (ABNORMAL) CBC auto differential (01/28/2025 5:24 PM EDT) Only the most recent of2 resultswithin the time period is included. [facility] WBC 10.3 4.8 - 10.8 K/mcL LAB HEMETOLOGY METHOD 01/28/2025 6:07 PM [facility] RBC 4.30 3.80 - 4.80 M/mcL LAB HEMETOLOGY METHOD 01/28/2025 6:07 PM [facility] Hemoglobin 13.1 11.5 - 16.0 g/dL LAB HEMETOLOGY METHOD 01/28/2025 6:07 PM [facility] Hematocrit 40.0 35.0 - 47.0 % LAB HEMETOLOGY METHOD 01/28/2025 6:07 PM [facility] MCV 92.8 79.0 - 98.0 FL LAB HEMETOLOGY METHOD 01/28/2025 6:07 PM [facility] MCH 30.4 27.0 - 32.0 pcg LAB HEMETOLOGY METHOD 01/28/2025 6:07 PM [facility] MCHC 32.8 32.0 - 37.0 g/dL LAB HEMETOLOGY METHOD 01/28/2025 6:07 PM [facility] RDW 13.1 11.0 - 15.0 % LAB HEMETOLOGY METHOD 01/28/2025 6:07 PM [facility] Platelets 245 130 - 400 K/mcL LAB HEMETOLOGY METHOD 01/28/2025 6:07 PM [facility] MPV 10.9 7.0 - 11.0 FL LAB HEMETOLOGY METHOD 01/28/2025 6:07 PM [facility] NRBC 0.0 <1.0 % LAB HEMETOLOGY METHOD 01/28/2025 6:07 PM [facility] NRBC Absolute 0.00 <0.10 K/mcL LAB HEMETOLOGY METHOD 01/28/2025 6:07 PM [facility] Neutrophils Relative 61.4 % LAB HEMETOLOGY METHOD 01/28/2025 6:07 PM [facility] Lymphocytes Relative 29.0 % LAB HEMETOLOGY METHOD 01/28/2025 6:07 PM [facility] Monocytes Relative 7.2 % LAB HEMETOLOGY METHOD 01/28/2025 6:07 PM [facility] Eosinophils Relative 1.2 % LAB HEMETOLOGY METHOD 01/28/2025 6:07 PM [facility] Basophils Relative 0.8 % LAB HEMETOLOGY METHOD 01/28/2025 6:07 PM [facility] Immature Granulocytes Relative 0.4 % LAB HEMETOLOGY METHOD 01/28/2025 6:07 PM [facility] Neutrophils Absolute 6.30 1.50 - 7.00 K/mcL LAB HEMETOLOGY METHOD 01/28/2025 6:07 PM [facility] Lymphocytes Absolute 2.98 1.00 - 5.00 K/mcL LAB HEMETOLOGY METHOD 01/28/2025 6:07 PM [facility] Monocytes Absolute 0.74 0.20 - 1.00 K/mcL LAB HEMETOLOGY METHOD 01/28/2025 6:07 PM [facility] Eosinophils Absolute 0.12 0.00 - 0.50 K/mcL LAB HEMETOLOGY METHOD 01/28/2025 6:07 PM [facility] Basophils Absolute 0.08 0.00 - 0.20 K/mcL LAB HEMETOLOGY METHOD 01/28/2025 6:07 PM [facility] Immature Granulocytes Absolute 0.04(H) 0.00 - 0.03 K/mcL LAB HEMETOLOGY METHOD 01/28/2025 6:07 PM [facility] Blood Venous blood specimen / Unknown Venipuncture / Unknown 01/28/2025 5:24 PM EDT 01/28/2025 5:59 PM EDT us Darius Winston MD LAB BLOOD ORDERABLES Final Resul t Performing Organization Address City/[facility]/ZIP Co de Phone Number [facility] [address] [place] [address], [place] [phone] * C-reactive protein (01/28/2025 5:24 PM EDT) C-Reactive Protein <0.29 <=0.50 mg/dL LAB CHEMISTRY METHOD 01/28/2025 6:38 PM EDT [facility] Blood Venous blood specimen / Unknown Venipuncture / Unknown 01/28/2025 5:24 PM EDT 01/28/2025 5:59 PM EDT us Darius Winston MD LAB BLOOD ORDERABLES Final Resul t Performing Organization Address [facility] Co de Phone Number [facility] [address] [place] [address], [place] [phone] * B-Type Natriuretic Peptide (BNP) (01/28/2025 5:24 PM EDT) Only the most recent of2 resultswithin the time period is included. BNP 21 <=100 pcg/mL LAB CHEMISTRY METHOD 01/28/2025 6:42 PM EDT [facility] Blood Venous blood specimen / Unknown Venipuncture / Unknown 01/28/2025 5:24 PM EDT 01/28/2025 5:59 PM EDT us Darius Winston MD LAB BLOOD ORDERABLES Final Resul t Performing Organization Address [facility]/ZIP Co de Phone Number [facility] [address] [place] [address], [place] [phone] * Lipase (01/28/2025 5:24 PM EDT) Only the most recent of2 resultswithin the time period is included. [facility] Lipase 33 13 - 75 unit/L LAB CHEMISTRY METHOD 01/28/2025 6:38 PM EDT [facility] Blood Venous blood specimen / Unknown Venipuncture / Unknown 01/28/2025 5:24 PM EDT 01/28/2025 5:59 PM EDT us Darius Winston MD LAB BLOOD ORDERABLES Final Resul t Performing Organization Address [facility]/ZIP Co de Phone Number [facility] [address] [place] [address], [place] [phone] * Lactate (01/28/2025 5:24 PM EDT) [facility] Lactate 1.0 0.4 - 2.0 mmol/L LAB CHEMISTRY METHOD 01/28/2025 6:28 PM EDT [facility] Blood Venous blood specimen / Unknown Venipuncture / Unknown 01/28/2025 5:24 PM EDT 01/28/2025 5:59 PM EDT us Darius Winston MD LAB BLOOD ORDERABLES Final Resul t Performing Organization Address [facility] de Phone Number [facility] [address] [place] [address], [place] [phone] * (ABNORMAL) Comprehensive Metabolic Panel (CMP) (01/28/2025 5:24 PM EDT) Only the most recent of2 resultswithin the time period is included. [facility] Sodium 142 133 - 145 mmol/L LAB CHEMISTRY METHOD 01/28/2025 7:26 PM EDT [facility] Potassium 4.2 3.5 - 5.5 mmol/L LAB CHEMISTRY METHOD 01/28/2025 7:26 PM EDT [facility] Chloride 109 96 - 110 mmol/L LAB CHEMISTRY METHOD 01/28/2025 7:26 PM EDT [facility] CO2 30 21 - 32 mmol/L LAB CHEMISTRY METHOD 01/28/2025 7:26 PM [facility] Anion Gap 3 3 - 11 LAB CHEMISTRY METHOD 01/28/2025 7:26 PM [facility] Glucose 123(H) 70 - 100 mg/dL LAB CHEMISTRY METHOD 01/28/2025 7:26 PM [facility] BUN 16 5 - 25 mg/dL LAB CHEMISTRY METHOD 01/28/2025 7:26 PM [facility] Creatinine 0.90 0.50 - 1.10 mg/dL LAB CHEMISTRY METHOD 01/28/2025 7:26 PM [facility] eGFR 78 >=60 mL/min/1. 73m2 LAB CHEMISTRY METHOD 01/28/2025 7:26 PM [facility] Comment:Calculation based on the Chronic Kidney Disease Epidemiology Collaboration (CKD-EPI) equation refit without adjustment for race. BUN/Creatinine Ratio 17.8 LAB CHEMISTRY METHOD 01/28/2025 7:26 PM [facility] Calcium 8.9 8.5 - 10.5 mg/dL LAB CHEMISTRY METHOD 01/28/2025 7:26 PM [facility] AST (SGOT) 8(L) 10 - 42 unit/L LAB CHEMISTRY METHOD 01/28/2025 7:26 PM [facility] ALT (SGPT) 19 10 - 60 unit/L LAB CHEMISTRY METHOD 01/28/2025 7:26 PM [facility] Alkaline Phosphatase 121 42 - 121 unit/L LAB CHEMISTRY METHOD 01/28/2025 7:26 PM [facility] Total Protein 6.3 6.0 - 8.0 g/dL LAB CHEMISTRY METHOD 01/28/2025 7:26 PM [facility] Albumin 3.6 3.2 - 5.0 g/dL LAB CHEMISTRY METHOD 01/28/2025 7:26 PM EDT [facility] Total Bilirubin 0.4 0.0 - 1.4 mg/dL LAB CHEMISTRY METHOD 01/28/2025 7:26 PM EDT [facility] Blood Venous blood specimen / Unknown Venipuncture / Unknown 01/28/2025 5:24 PM EDT 01/28/2025 5:59 PM EDT Darius Winston MD LAB BLOOD ORDERABLES Final Resul t Performing Organization Address City/[facility]/ZIP Co de Phone Number [facility] [address] [place] [address], [place] [phone] * ECG 12 lead (01/28/2025 5:03 PM EDT) Only the most recent of3 resultswithin the time period is included. Ventricular Rate ECG 88 BPM GEMUSE Atrial Rate 88 BPM GEMUSE P-R Interval 178 ms GEMUSE QRS Duration 130 ms GEMUSE Q-T Interval 396 ms GEMUSE QTc 479 ms GEMUSE P Wave [place]ither[place] 71 degrees GEMUSE R [place] -49 degrees GEMUSE T [place] 77 degrees GEMUSE ECG Interpretation Atrial-sense d ventricular- paced rhythm Abnormal ECG When compared with ECG of 28-DEC-2024 14:25, Vent. rate has increased BY 14 BPM Confirmed by ANDERSON REINOSO ([id number]) on 01/28/2025 9:20:25 PM GEMUSE 01/28/2025 5:03 PM EDT 01/28/2025 9:20 PM EDT us Francesco Velasquez MD ECG ORDERABLES Final Resul t Performing Organization Address City/[facility]/ZIP Co de Phone Number GEMUSE * XR Thoracic Spine 2 Views [...] Signed Date: 12/28/2024 12:30 ET Workstation ID: [id number] Transcribed By: Self Edit Transcribed Date: 12/28/2024 [...] Signed Date: 12/28/2024 12:30 ET Workstation ID: [id number] Transcribed By: Self Edit Transcribed Date: 12/28/2024 12:29 ET us Francesco Velasquez MD IMG XR PROCEDURES Final Res ult * Magnesium (12/28/2024 11:39 AM EDT) [facility] Magnesium 2.2 1.9 - 2.6 mg/dL LAB CHEMISTRY METHOD 12/28/2024 12:23 PM EDT [facility] Blood Venous blood specimen / Unknown Venipuncture / Unknown 12/28/2024 11:39 AM EDT 12/28/2024 11:53 AM EDT Francesco Velasquez MD LAB BLOOD ORDERABLES Final Result [facility] [address] [place] [address], [place] [phone] * (ABNORMAL) Hemoglobin A1c (08/17/2024 10:04 AM EST) Hemoglobin A1C 6.2(H) <5.7 % of total Hgb [facility] Comment: For someone without known diabetes, a [...] AM EST 08/17/2024 10:08 AM EST Narrative [facility] ([place]) - 08/23/2024 2:28 PM EST FASTING:NO PATIENT NOT FASTING; ADVISED TO RETURN FOR COLLECTION. FASTING: NO us Samanta Arciniega MD LAB BLOOD ORDERABLES Final Res ult [facility] ([place]) My[facility] [address] [place] [phone] * COLONOSCOPY (08/30/2018 2:38 PM EST) Anatomical Region Laterality Modality Endoscopy Corona Hernandez MD GI~PROCEDURE ORDERABLES Final Re sult from Last 3 Months or Most Recently Relevant to Health Maintenance Insurance [facility] Advance Directives * Full Code - Default [...] currently active code status orders. Care Teams Cnc Mill And Lathe Operator Relationship Specialty Start Date End Date Andree Yoo MD [address] [place] [id number] PCP - General Internal Medicine 09/25/24
--- OUTSIDE RECORDS SUMMARY | 2025-02-26 10:47 | XMS_ITS | Clinical Summary ---
Author Organization [facility] Address [address] [place] [address] Phone Care Team Providers Care Rn Maternity Name Role Phone Andree Yoo MD Primary Care Provider [phone] Allergies No known active allergies Medications No [...] VACCINE ( - 2023-2 5 season) 2024 INFLUENZA VACCINE (#1) 2025 HEPATITIS A VACCINES Aged Out No long [...] topic Medical Devices Not on file Insurance [facility] [address] [place] [place] [address] [place], [place] [address] [address] [place] Care Teams Rn Maternity Relationship Specialty Start Date End Date Andree Yoo MD [address] [place], [place] [phone] (Work) PCP - General Family Medicine 03/20/24 Additional Source Comments The information contained in this document represents components of the legal health record. It is not the complete legal health record.[facility]
--- OUTSIDE RECORDS SUMMARY | 2025-02-26 10:47 | XMS_ITS | Patient Health Record ---
Author Organization [facility] Address [address] [place] [address] Care Team Providers Care Senior Product Development Scientist Name Role Phone Spring Costa MD Primary Care Provider Unavail able Skip Barrios Unavailable [phone] Reason For Referral No Information Medications Medication [...] Problem Status W/U Status Risk Notes Problem Primary osteoarthritis, right ankle and foot (M19.071) Active confirmed Problem Acquired hallux valgus (26525253) Hallux valgus (acquired), right foot (M20.11) Active confirmed Problem Polyneuropathy due to type 2 diabetes mellitus (520523173) Type 2 diabetes mellitus with diabetic polyneuropathy (E11.42) Active confirmed Plan Of Treatment Pending Test Test Name Order Date X ray : Foot, right 2V 04/21/2016 X ray : Foot, left 3V 05/05/2015 04670-Bhgu Destruction, -05/25/2013 25803-Boec Destruction, -11/14/2012 91948-Dvko Destruction, 07-1712/12/2012 47448-Pbeu Destruction, 07-1701/16/2013 50707-Drsc Destruction, -01/19/2013 84664-Rxll Destruction, -03/23/2013 35051-Hbqk Destruction, -04/27/2013 64395-Gingewsh Plate 04/27/2013 99750-Zfheojcx Plate 05/23/2015 05064-Kfyqfzwj Plate Each Additional 77036-MNB 04/11/2015 51993 I&D ABSCESS- SIMPLE,SINGLE 015 05915 I&D ABSCESS- SIMPLE,SINGLE 015 94638 I&D ABSCESS- SIMPLE,SINGLE 015 70699-COTM SKIN LESIONS, OVER 4 10/19/19 12 93214-UGIC NAIL(S) 10/19/2011 03074-VIQD NAIL(S) 11/14/2012 Medical (General) History Medical History History ICD Code Arthritis skin cancer depression diabetic joint implants/screws bone tumor right arm Surgical History Surgery Date(Month/Year) C 5&6 fusion 07/14/2011 C 6&7 fusion 04/20/2010 right shoulder surgery 06/2012 left shoulder surgery 01/14/17 Hospitalization History Reason Date(Month/Year) [facility]Left shoulder surgery 10/2012 [facility]- biopsy 03/15/13 [facility] ER- ?cellulitis 05/2015 pt was at [facility] for foot infection -06[place]02/[place] [facility] [place] 03/08 -03/12/16 elevated heart rate [facility] Hosp.stay for 24 hrs 01/07/17
--- OUTSIDE RECORDS SUMMARY | 2025-02-26 10:47 | XMS_ITS | Clinical Summary ---
Author Organization [facility] Address [address] [place] [id number] Care Team Providers Care Sample Builder Name Role Phone Andree Yoo MD Primary Care Provider [phone] Allergies Active Allergy Reactions Criticality Noted Date [...] Blood Gluc Sensor (FreeStyle Karmen 3 Sensor) [facility] USE TO TEST BLOOD SUGAR CONTINUOUSLY DIRECTED [...] EDT - 12/11/2024 10:09 PM EDT Emergency [facility] Emergency Department [address] [place] [address] Patrick Aguila MD Chest pain (Primary Dx); [...] 12 <15 ng/L 12/11/2024 7:13 PM EDT [facility] Delta (Change) 4(H) <3 12/11/2024 7:13 PM EDT [facility] Comment:Decreased Blood Blood specimen / Unknown 12/11/2024 6:22 PM EDT 12/11/2024 6:47 PM EDT Nga [facility] LAB BLOOD ORDERAB LES Final Result [address] [address], [address] [address] * XR Chest 2 views (12/11/2024 4:13 PM EDT) Anatomical Region Laterality Modality Chest Computed Radiogr aphy 12/11/2024 4:13 PM EDT Impressions 12/11/2024 10:38 PM EDT No acute pulmonary disease. Interpreted by: Gume Kent DO Corporate Communications Manager Attending addendum: Ill-defined sclerotic lesion involving the [...] pulmonary disease. Interpreted by: Gume Kent DO Corporate Communications Manager Attending addendum: Ill-defined sclerotic lesion involving the right humeral head/proximal humerus, likely enchondroma. I personally reviewed the images and the resident's preliminary report and made the MINOR addendum above (RADPAL2). Nga FAT[facility] IMG DIAGNOSTIC IM AGING ORDERABLES Final Result * 10 Min ECG 12 lead (12/11/2024 3:13 PM EDT) Ventricular rate 76 BPM EKG [facility] Atrial rate 76 BPM EKG [facility] P-R interval 142 ms EKG [facility] QRS duration 134 ms EKG [facility] Q-T interval 412 ms EKG [facility] QTC calculation (Bazett) 464 ms EKG [facility] P axis 24 degrees EKG [facility] R axis -42 degrees EKG [facility] T axis 53 degrees EKG [facility] 12/11/2024 3:13 PM EDT Narrative EKG [facility] - 12/11/2024 3:24 PM EDT Atrial-sensed ventricular-paced rhythm Abnormal ECG No previous ECGs available Confirmed by MD Farooq Chad ([id number]) on 12/11/2024 3:23:59 PM Procedure Note Alex Farooq MD - 12/11/2024 Atrial-sensed ventricular-paced rhythm Abnormal ECG No previous ECGs available Confirmed by MD Farooq Chad ([id number]) on 12/11/2024 3:23:59 PM Hung Burns MD ECG ORDERABLES Final Result EKG [facility] * (ABNORMAL) Complete Blood Count, with Differential (12/11/2024 2:58 PM EDT) White Blood Cell Count 11.3(H) 4.0 - 11.0 Thou/uL 12/11/2024 3:48 PM EDT [facility] Platelet Count 286 150 - 450 Thou/uL 12/11/2024 3:48 PM [facility] Hemoglobin 14.9 11.7 - 15.7 g/dL 12/11/2024 3:48 PM [facility] Hematocrit 46.9 35.0 - 47.0 % 12/11/2024 3:48 PM [facility] Red Blood Cell Count 5.02 4.00 - 5.40 Mil/uL 12/11/2024 3:48 PM [facility] MCV 93 80 - 100 fL 12/11/2024 3:48 PM [facility] MCH 29.7 27.0 - 31.0 pg 12/11/2024 3:48 PM [facility] MCHC 31.8 30.0 - 36.0 g/dL 12/11/2024 3:48 PM [facility] RDW 13.4 11.5 - 14.5 % 12/11/2024 3:48 PM [facility] MPV 10.6 7.5 - 12.5 fL 12/11/2024 3:48 PM [facility] Neutrophils Auto 69.1 % 12/12/19 3:48 PM EDT [facility] Immature Granulocytes 0.4 % 12/11/2024 3:48 PM EDT [facility] Lymphocytes Auto 22.0 % 12/12/19 3:48 PM EDT [facility] Monocytes Auto 7.1 % 12/11/2024 3:48 PM EDT [facility] Eosinophils Auto 0.9 % 12/12/19 3:48 PM EDT [facility] Basophils Auto 0.5 % 12/11/2024 3:48 PM EDT [facility] Abs Neutrophils Auto 7.80(H) 2.00 - 7.50 Thou/uL 12/11/2024 3:48 PM EDT [facility] Abs Immature Granulocytes 0.05 0.00 - 0.10 Thou/uL 12/11/2024 3:48 PM EDT [facility] Abs Lymphocytes Auto 2.48 1.50 - 4.50 Thou/uL 12/11/2024 3:48 PM EDT [facility] Abs Monocytes Auto 0.80 0.20 - 1.50 Thou/uL 12/11/2024 3:48 PM EDT [facility] Abs Eosinophils Auto 0.10 0.00 - 0.70 Thou/uL 12/11/2024 3:48 PM EDT [facility] Abs Basophils Auto 0.06 0.00 - 0.20 Thou/uL 12/11/2024 3:48 PM EDT [facility] Blood Blood specimen / Unknown 12/11/2024 2:58 PM EDT 12/11/2024 3:36 PM EDT Nga FAT[facility] LAB BLOOD ORDERAB LES Final Result [address] [address], [address] [address] * Magnesium (12/11/2024 2:58 PM EDT) Magnesium 2.3 1.6 - 2.7 mg/dL 12/11/2024 4:11 PM EDT [facility] Blood Blood specimen / Unknown 12/11/2024 2:58 PM EDT 12/11/2024 3:36 PM EDT Nga FATIMA LAB BLOOD ORDERAB LES Final Result [facility] [address] [place] [address], [facility] [address] [place] [address] * (ABNORMAL) Comprehensive Metabolic Panel (12/11/2024 2:58 PM EDT) Glucose 118(H) 65 - 99 mg/dL 12/11/2024 4:11 PM T [facility] Comment:Fasting: <100 mg/dL, Non-Fasting: <200 mg/dL (ADA 2004) Blood Urea Nitrogen (BUN) 22(H) 8 - 21 mg/dL 12/11/2024 4:11 PM [facility] Creatinine 1.0 0.4 - 1.1 mg/dL 12/11/2024 4:11 PM [facility] eGFR 68 >59 12/11/2024 4:11 PM [facility] Comment:CKD-EPI (2020) in mL /min/1.73 sq meters. Sodium 143 136 - 145 mmol/L 12/11/2024 4:11 PM [facility] Potassium 4.7 3.4 - 5.3 mmol/L 12/11/2024 4:11 PM [facility] Chloride 107 98 - 107 mmol/L 12/11/2024 4:11 PM [facility] CO2 26 22 - 33 mmol/L 12/11/2024 4:11 PM [facility] Calcium 9.5 8.7 - 10.5 mg/dL 12/11/2024 4:11 PM [facility] Alkaline Phosphatase 101 32 - 122 U/L 12/11/2024 4:11 PM [facility] Aspartate Aminotrans (AST) 16 10 - 50 U/L 12/11/2024 4:11 PM [facility] Alanine Aminotrans (ALT) 18 10 - 50 U/L 12/11/2024 4:11 PM [facility] Bilirubin, Total 0.2 0.2 - 1.0 mg/dL 12/11/2024 4:11 PM [facility] Protein, Total 6.7 6.3 - 8.3 g/dL 12/11/2024 4:11 PM EDT [facility] Albumin 4.0 3.5 - 5.0 g/dL 12/11/2024 4:11 PM EDT [facility] BUN/Creatinine Ratio 22 10.0 - 25.0 Ratio 12/11/2024 4:11 PM EDT [facility] Globulin 2.7 1.5 - 3.9 g/dL 12/11/2024 4:11 PM EDT [facility] Albumin/Globulin Ratio 1.5 1.0 - 3.0 Ratio 12/11/2024 4:11 PM EDT [facility] Anion Gap 10 7 - 17 12/11/2024 4:11 PM EDT [facility] Blood Blood specimen / Unknown 12/11/2024 2:58 PM EDT 12/11/2024 3:36 PM EDT Nga [facility] LAB BLOOD ORDERAB LES Final Result [address] [address], [address] [address] from Last 3 Months Insurance [facility] Care Teams Sample Builder Relationship Specialty Start Date End Date Andree Yoo MD [address] [place] [id number] PCP - General Family Medicine 12/05/24
--- OUTSIDE RECORDS SUMMARY | 2025-02-26 10:47 | XMS_ITS | Clinical Summary ---
Author Organization [facility] Address [address] [place] [address] Care Team Providers Care Engineering Design Supervisor Name Role Phone Andree Yoo MD Primary Care Provider [phone] Medications Medication Sig Dispensed Refills Start Date [...] Gluc Sensor (FreeStyle Karmen 14 Day Sensor) [facility] USE TO TEST GLUCOSE DIRECTED AND CHANGE [...] age to complete this topic Care Teams Engineering Design Supervisor Relationship Specialty Start Date End Date Andree Yoo MD [address] [place] [address] PCP - General Family Medicine 12/29/20
== END 2025-02-26 11:01 | disposition home or self-care (01) ==
LOC: HO.HBS 10:04
PROVIDERS: Visit Provider Physician Assistant Surgical
DX: E66.9 Obesity, unspecified (principal); Z68.32 Body mass index [BMI] 32.0-32.9, adult; Z87.19 Personal history of other diseases of the digestive system; Z98.890 Other specified postprocedural states; Z90.3 Acquired absence of stomach [part of]; Z98.84 Bariatric surgery status
CPT/HCPCS: 99204

== ENCOUNTER 2025-04-16 12:09 | Outpatient (AMB) | payer OTHER, SELFPAY ==
--- OUTSIDE RECORDS SUMMARY | 2025-02-08 06:30 | XMS_ITS ---
Author Organization [facility] Address [address] [facility] [address] [place] [id number] Care Team Providers Care Logging Tractor Operator Name Role Phone PRISCILA SALCEDO M.D. Primary Care Provider Unav ailable Corona Hernandez Unavailable [phone] Delaney Heath Unavailable Unavailable REASON FOR VISIT screening, hx polyps gerd Encounters Encounter Location Date Provider Diagnosis [facility] Outpatient [address] [place] [id number] 02/08/2025 Corona Hernandez Plan Of Treatment Next Appt Details Provider Name:Corona Ying David , 07/31/2025 02:20:00 PM, [address] [place] [address], [address] [facility], [place], [address], Progress Notes * CAROLYN LORAOB: 3 (49 yo F)Acc No.[id number]:02/08/2025 EGD and COL/MAC Patient: TEMO CARRANZA Provider: Ruben Hernandez MD :1975 A ge:49 Y S ex:Female Date:02/08/2025 [facility] [id number] Pcp:PRISCILA SALCEDO M.D. Subjective: * Chief Complaints: * 1 . Screening, hx polyps gerd. * Medical History: Objective: * Vitals: Assessment: Plan: * Treatment: * * The named appointment provid er may or may not be the originator of this progress note, and it is not deemed complete until electronically signed by the appointment provider. Sign off status: Pending * Provider: Ruben Hernandez MD Date: 0 02/08/2025 Generated for Clinotn mckinley/Aranza/Aria on: 1 02:51 PM EDT
--- OUTSIDE RECORDS SUMMARY | 2025-03-20 10:20 | XMS_ITS ---
Author Organization [facility] Address [address] [place] [address] Care Team Providers Care Double Surface Operator Name Role Phone PRISCILA SALCEDO M.D. Primary Care Provider Unav ailable Corona Hernandez Unavailable [phone] Delaney Heath Unavailable Unavailable REASON FOR VISIT Patient presents today for colitis,gerd, constipation Encounters Encounter Location Date Provider Diagnosis [facility] [address] [place] [address] 03/20/2025 Corona Hernandez Plan Of Treatment Next Appt Details Provider Name:Corona Hernandez , 07/31/2025 02:20:00 PM, [address] [place] [address], [address], [place], [address], Progress Notes * CAROLYN LORAOB: 3 (49 yo F)Acc No.[id number]:03/20/2025 Progress Notes Patient: TEMO CARRANZA Provider: Ruben Hernandez MD :1975 A ge:49 Y S ex:Female Date:03/20/2025 Address: [id number] Pcp:PRISCILA SALCEDO M.D. Subjective: * Chief Complaints: * 1 . Patient presents today for colitis,gerd, constipation. * Medical History: Objective: * Vitals: Assessment: Plan: * Treatment: * * The named appointment provid er may or may not be the originator of this progress note, and it is not deemed complete until electronically signed by the appointment provider. Sign off status: Pending * Provider: Ruben Hernandez MD Date: 0 03/20/2025 Generated for Clinton mckinley/Aranza/Aria on: 1 02:50 PM EDT
--- NOTE | 2025-04-16 12:33 | MHC.OFFVIS ---
Vital Signs 04/16/25 12:48 Height 5 ft 4 in Weight 198 lb BMI 34.0 BP 130/80 Blood Pressure Location Rt brachial Position Sitting Respiration 16 Pulse 83 Pulse Source Pulse Oximeter Pulse Oximetry (%) 96 Oxygen Delivery Method Room Air Intake Visit Reasons: Re-Establish / Migraine Information Systems Architect Required: No Allergies amlodipine Allergy (Unknown, Verified 04/16/25 12:49) Dizziness nitroglycerin Adverse Reaction (Severe, Verified 04/16/25 12:49) Headache Bactrim Adverse Reaction (Unknown, Uncoded 04/16/25 12:49) does not work while on Metformin Medication List - Last Reconciled 04/16/25 by Nga Meyer, KATALINA aspirin 81 mg PO DAILY atorvastatin 40 mg PO BEDTIME bupropion HCl XL 150 mg PO QAM buspirone 20 mg PO BID carvedilol 3.125 mg PO BID dapagliflozin propanediol (Farxiga) 10 mg PO DAILY duloxetine 60 mg PO DAILY erenumab-aooe (Aimovig Autoinjector) 70 mg subcut QMONTH flash glucose sensor As directed linaclotide (Linzess) 290 mcg PO QAM lorazepam 0.5 mg PO BEDTIME PRN palqpavbkfec-nvk-lbgh-FA-vit K 45 mg iron- 800 mcg-120 mcg (Bariatric Multivitamins) 1 cap PO DAILY omeprazole 40 mg PO DAILY pregabalin (Lyrica) 150 mg PO BID simethicone (Gas-X Extra Strength) 125 mg PO QID PRN 30 days tirzepatide (Mounjaro) 10 mg subcut QWEEK tizanidine 4 mg PO BEDTIME trazodone 50 mg PO BEDTIME HPI Comments Details: Sara is a 49-year-old female patient with a past medical history of diabetes, fibromyalgia, dyslipidemia, hypertension, obesity, left bundle-branch block, cardiac catheterization, pacemaker, heart failure who is here today to reestablish care. Has been following her at [facility] for her migraines/chronic headaches. Headaches in the past has been responsive to occipital nerve blocks. I have been seeing her intermittently though she has had numerous health disruptions over the course of the last few years. I have also done memory evaluations on her in the past which were inconclusive. Her headaches have historically been moderate to severe with a throbbing pulsating pressure-like pain bilaterally to the occipital areas radiating retro orbitally and up to the top of the head. Headaches have been accompanied by light sensitivity, sound sensitivity, fatigue, difficulty with concentration, and dizziness. Time to time she would have blurred vision. She does endorse significant stress related to her own health however she does have some added stress in her family life as well including relationships with her children and other family members with health concerns. Most recently when I saw her last night [facility], she was placed on Aimovig 70 mg monthly for migraine control. She only received the Aimovig once back in February but forgot to greens picker her March dose. She has however had a profound improvement in headaches even just after the 1 dose of Aimovig. She has had approximately 2 migraines since February when she took her Aimovig dose and has been very happy with the outcome. Of higher concern for her today is her memory. She has been forgetting things in her day-to-day life including her Aimovig injections. She tells me that her has become slightly frustrated with her from time to time because she forgets things such as credit cards or what they have at home for groceries when she is in the grocery store and will by multiple of the same item. 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 We have in the past done an MRI of the brain and performed B12 and TSH testing. These tests were relatively unrevealing in terms of memory. I did recommend neuropsych testing but unfortunately these recommendations number came to fruition. [facility] Medical History IUD (intrauterine device) in place Chest pain Hiatal hernia Ankylosing spondylitis Hx of cardiac pacemaker Arrhythmia CHF (congestive heart failure) Constipation Fusion of spine Migraine Fibromyalgia Thyroid nodule Hyperlipidemia Left bundle branch block (LBBB) on electrocardiogram History of colitis History of thyroid nodule PCOS (polycystic ovarian syndrome) Sleep apnea History of melanoma GERD (gastroesophageal reflux disease) Type 2 diabetes mellitus Depression Cervicalgia ADD (attention deficit disorder) Surgical History History of esophagogastroduodenoscopy (EGD) History of back surgery Hx of shoulder surgery H/O colonoscopy Hx of cardiac catheterization H/O ovarian cystectomy Status post repair of paraesophageal diaphragmatic hernia History of sleeve gastrectomy Hx of shoulder surgery S/P laparoscopic cholecystectomy History of melanoma excision S/P carpal tunnel release S/P cervical spinal fusion History of foot surgery History of fundoplication Family History Father Asthma Heart disease HTN (hypertension) Type 2 diabetes mellitus Skin cancer Mother Skin cancer PCOS (polycystic ovarian syndrome) Son Asthma Daughter No problems noted. Paternal Uncle Lung cancer Sister No problems noted. Social History Household Members: Spouse Housing: House Are you a primary care information associate to a significant other at home: No Do you presently have visiting nurse or other home services: No Alcohol intake: current Alcohol intake frequency: holidays/special occasions only Comment: pt sleeping Patient Tobacco Use Status: Former Tobacco user Second Hand Smoke Exposure: No service: No Current occupational status: employed Review of Systems Const All systems reviewed & are unremarkable except as noted in HPI and below Physical Exam Exam Exam: MOCA: MOCA total: Executive:10/06 Namin/3 Attention:12/07 Language:08/06 Abstraction:08/05 Delayed recall:09/05 Orientation:12/07 Const General: cooperative, healthy appearing, comfortable and no acute distress Nutritional Appearance: well nourished Orientation/consciousness: patient oriented x3 Limitations: no limitations HEENT Head: Yes normal to inspection and Yes normocephalic Eyes General: appearance normal, both eyes and all related structures Visual Benton: normal visual benton by confrontation Alignment and Position: alignment normal Periorbital: periorbital findings normal Eyelids: Yes eyelids normal Conjunctivae: conjunctivae normal Sclerae: sclerae normal Neuro General: patient oriented x3 Cranial nerves: Yes CN's II-XII intact bilaterally and Yes Facial sensation intact/muscles of mastication intact Cognition (Neuro): normal cognition Gait exam (Neuro): Normal gait present Motor exam (neuro): no tremor noted Sensory Exam: double simultaneous stimulation for sensation normal Romberg Test: Negative Pupils: Normal pupillary reactivity/response: bilateral Psych Appearance: grossly normal Mental Status: mental status grossly normal Speech and movement: Normal speech and movement present and Clear speech present Affect: normal affect Attitude: cooperative Thought process: Normal thought process present Thought content: Normal thought content present Insight: Good insight present (Psych) Judgement: Good judgement present (Psych) Assessment & Plan Assessment & Plan (1) Memory deficit: Code(s): R41.3 - Other amnesia Category: Medical Plan: . (2) Migraine without aura and without status migrainosus, not intractable: Code(s): G43.009 - Migraine without aura, not intractable, without status migrainosus Category: Medical Plan Sara is a 49-year-old female patient with a past medical history of diabetes, fibromyalgia, dyslipidemia, hypertension, obesity, left bundle-branch block, cardiac catheterization, pacemaker, heart failure who is here today to reestablish care. I has been following for ongoing headaches and memory concerns. Overall, her migraines are well controlled at this time on Aimovig 70 mg monthly. We will continue this regimen. She continues to have significant concerns about her memory in his has greatly affected her relationships as well as work life. I will order updated labs including a B12 and TSH level and we performed a Preston score today which was normal at 26/30. I did recommend neuropsych testing in the past however this never did come to fruition. I will attempt to make the referral as her memory has been significantly disrupting her day-to-day life. We did talk about potentially stress playing a major role given that she has had several health conditions arise in the last year and she has a lot of social strain with her family. She does however have a father with vascular dementia and she is concerned about developing other types of dementia. She did have a recent CT and CTA of the head both of which were unrevealing. Unfortunately, she does have pacemaker now and we can not pursue a repeat MRI of the brain at this time. -continue Aimovig 70 mg subcutaneous monthly injection -labs: B12 and TSH level -Preston score performed today -recommending she see neuropsych for further evaluation -follow up in 3 months or sooner if needed Orders: Orders Vitamin B12 Today R41.3 - Other amnesia TSH reflex Free T4 Today R41.3 - Other amnesia Medications: New erenumab-aooe (Aimovig Autoinjector) 70 mg subcut QMONTH 1 mL 5RF Coding Level of Care Code New Pt Level 4 (09623) Diagnoses Memory deficit R41.3 Migraine without aura and without status migrainosus, not intractable G43.009
[2025-04-16 12:48] VITALS: BP 130/80; PULSE 83; RESP 16; O2SAT 96; BMI 34.0
--- OUTSIDE RECORDS SUMMARY | 2025-04-16 14:50 | XMS_ITS | Patient Health Record ---
Author Organization [facility] Address [address] [place] [address] Care Team Providers Care Security Delivery Specialist Name Role Phone PRISCILA SALCEDO M.D. Primary Care Provider Unav ailCorona Maravilla Unavailable [phone] Delaney Heath Unavailable Unavailable Allergies Allergen (clinical drug ingredient) Drug/Non Drug Allergy documented on EMR Reaction Allergy Type Onset Date Status acetaminophen / oxycodone Percocet Unknown Drug Allergy Active oxycodone OxyContin Unknown Drug Allergy Active Results Component Value Reference Range Notes Glucose, Whole Blood Reviewed date:02/13/2025 06:09:46 PM Interpretation: Performing Lab:[facility], [address] [place] [phone] Notes/Report: Glucose, Whole Blood 91 60-115 mg/dL METER # : [id number] Pathology Reviewed date:02/17/2025 10:56:38 PM Interpretation: Performing Lab:[facility], [address] [place] [phone] Notes/Report: FL upper GI w air w Ba Swall ow Reviewed date:02/24/2025 08:36:56 PM Interpretation: Performing Lab: Notes/Report: [address] [address] Fluoroscopy Report Signed Patient: Sara Lora MR#: [id number] 03 : 1975 Acct:[id number] Age/Sex: 49 / F ADM Date: 02/19/25 Loc: [facility] Attending Dr: Corona Hernandez MD Ordering Physician: Corona Hernandez MD Date of Service: 02/19/25 Procedure(s): FL upper GI w air w Ba Swallow Accession Number(s): [id number] cc: Corona Hernandez MD EXAMINATION: XR UPPER [...] 02/19/25 1056 DD/ 1000 TD/TT: 02/19/25 1016 [place] [employer] Supervisor: BON Reason For Referral No Information Medications Medication SIG (Take, Route, Frequency, Duration) Notes Start Date End Date Status busPIRone HCl 10 MG 2 1/2 tablet Orally Twice a day Active Linzess 290 MCG TAKE 1 CAPSULE AT LEAST 30 MINUTES BEFORE THE FIRST MEAL OF THE DAY; Duration: 30 Active Cymbalta 60 MG 1 capsule Orally Once a day; Duration: 30 day(s) Active Bariatric Multivitamins/Iron Active Hyoscyamine Sulfate 0.125 MG 1 or 2 tablets under the tongue and allow to dissolve Sublingual Use every 4 to 6 hours if needed for abdominal pain; Duration: 30 days Please remind patient to stop her Dicyclomine when she starts her Hyoscyamine. Thanks 11/15/2024 Active Dicyclomine HCl 10 MG 1-2 Orally Every 6 hours prn abdominal pain/cramps/disco mfort; Duration: 30 day(s) prn 07/24/2019 Active Magnesium Active Mesalamine 400 MG TAKE TWO CAPSULES BY MOUTH THREE TIMES A DAY; Duration: 30 Active Myrbetriq 50 MG 1 tablet Orally Once a day; Duration: 30 day(s) Active Mounjaro 10 MG/0.5ML INJECT CONTENTS OF 1 PEN UNDER THE SKIN ONCE WEEKLY Subcutaneous; Duration: 28 Active Aspir-Low Active Atorvastatin Calcium 40 MG 1 tablet Orally Once a day Active Isosorbide Dinitrate 5 MG TAKE ONE TABLET BY MOUTH TWICE A DAY Oral; Duration: 30 Active CeleBREX 100 MG 1 capsule with food Orally Once a day; Duration: 30 day(s) Active Farxiga 10 MG TAKE ONE TABLET BY MOUTH EVERY DAY Oral; Duration: 30 Active traZODone HCl 50 MG 1 tablet at bedtime as needed Orally Once a day Active Pregabalin 150 MG Oral; Duration: 30 Not-Taking Wellbutrin XL 300 MG 1 tablet in the morning Orally Once a day Active Zofran 4 MG 1 tablet Orally Q 6 hours prn nausea; Duration: 30 days 11/08/2016 Not-Taking Ondansetron 4 MG 1 tablet on the tongue and allow to dissolve Orally Every 4 to 6 hours if needed for nausea; Duration: 30 days 09/19/2024 Active Omeprazole 40 MG 1 capsule 1/2 to 1 hour before morning meal Orally Once a day; Duration: 30 days Active Immunizations Vaccine Route Administration [...] Status Risk Notes Problem Colon cancer screening (460271701) Colon cancer screening (Z12.11) Active confirmed Problem Esophageal reflux (173604464) Esophageal reflux (K21.9) Active confirmed Problem Epigastric pain (33160826) Epigastric abdominal pain (R10.13) Active confirmed Problem Colitis (13809793) Colitis (K52.9) Active confi rmed Problem Hiatal hernia (51256948) Hiatal hernia (K44.9) Active confirmed Problem Hemorrhage of rectum and anus (531487527) Rectal bleed (K62.5) Active confirmed Problem Rectal pain (19230837) Rectal pain (K62.89) Active confirmed Problem Constipation (34922395) Constipation, unspecified constipation type (K59.00) Active confirmed Problem History of colitis (032053873) History of colitis (Z87.19) Active confirmed Problem Gastroesophageal reflux disease (205056255) GERD (gastroesophage al reflux disease) (K21.9) Active confirmed Problem Irritable bowel syndrome characterized by constipation (913484627) Irritable bowel syndrome with constipation (K58.1) Active confirmed Problem History of adenomatous polyp of colon (665887037) History of adenomatous polyp of colon (Z86.0101) Active confirmed Vital Signs Blood pressure diastolic 00 mm Hg 07/17/2024 Height 63 in 07/17/2024 Blood pressure systolic 00 mm Hg 07/17/2024 Weight 220 lbs 07/17/2024 BMI 38.97 kg/m2 07/17/2024 Procedures Procedure Date Ordered Date Performed Result Body Sit e COLONOSCOPY 11/14/2024 N/A UPPER GI ENDOSCOPY 01/08/2025 N/A Encounters Encounter Location Date Provider Diagnosis [facility] [place] [address] [place] [phone] 02/08/2025 Corona Hernandez [facility] [address] [place] [phone] 07/17/2024 Corona Hernandez Constipation, unspecified constipation type K59.00 ; Colitis K52.9 ; Esophageal reflux K21.9 and Irritable bowel syndrome with constipation K58.1 [facility] [address] [place] [phone] 03/19/2025 Corona Hernandez [facility] [address] [place] [phone] 09/13/2024 Corona Hernandez [facility] [address] [place] [phone] 09/21/2024 Corona Hernandez [facility] [address] [place] [phone] 09/25/2024 Corona Hernandez [facility] [address] [place] [phone] 11/14/2024 Corona Hernandez History of adenomato us polyp of colon Z86.0101 ; Colon cancer screening Z12.11 and History of colitis Z87.19 [facility] [address] [place] [phone] 11/28/2024 Corona Hernandez [facility] [address] [place] [phone] 12/31/2024 Corona Hernandez [facility] [address] [place] [id number] 01/08/2025 Corona Hernandez Epigastric abdominal pain R10.13 and GERD (gastroesophageal reflux disease) K21.9 [facility] [address] [place] [id number] 02/10/2025 Corona Hernandez Epigastric abdominal pain R10.13 [facility] [address] [place] [address] 02/18/2025 Corona Hernandez [facility] [address] [place] [address] 02/19/2025 Corona Hernandez [facility] [address] [place] [address] 03/14/2025 Corona Hernandez [facility] [address] [place] [address] 04/10/2025 Corona Hernandez Assessments Encounter Date Diagnosis (ICD [...] that she can be cleared by her molasses coloring operator for the anesthesia and the procedure. She [...] and we can obtain clearance from her molasses coloring operator, I would then plan to schedule her [...] that she can be cleared by her molasses coloring operator for the anesthesia and the procedure. She [...] and we can obtain clearance from her molasses coloring operator, I would then plan to schedule her [...] that she can be cleared by her molasses coloring operator for the anesthesia and the procedure. She [...] and we can obtain clearance from her molasses coloring operator, I would then plan to schedule her [...] that she can be cleared by her molasses coloring operator for the anesthesia and the procedure. She [...] and we can obtain clearance from her molasses coloring operator, I would then plan to schedule her [...] that she can be cleared by her molasses coloring operator for the anesthesia and the procedure. She [...] and we can obtain clearance from her molasses coloring operator, I would then plan to schedule her [...] Provider Name:Corona Hernandez , 07/31/2025 02:20:00 PM, [address] [place] [address], [address], [place], [address], Insurance Providers Payer Name Payer Address Payer Phone Subscriber Number Group Number Insured Name Patient Relationship to Insured Coverage Start Date Coverage End Date [facility] [address] [place] [address] [id number] SARA LORA Self - patient is the insured Medical (General) History Medical History History ICD Code GERD/HH--did well after refl ux surgery in 2003, but has been on Omeprazole since approx 2010 for reflux; hiatal hernia repaired again during her sleeve gastrectomy surgery in June, Multiple skin cancers, including a melan shavon removed in 2002 NIDDM Denies HI,CVA,Lung disease,renal disease Depression Chest pain--at [facility] in 03/2014--neg. nuc lear ETT and [...] 2019-cardio logist is Dr. Francisco Occipital neuralgia mayra with steroi d injections She reports Ankylosing spondylitis Since 02/2024 heart failure --needed CT, MRI, Cardiac ECHO, Cardiac cath, and a pacemaker--seeing Dr. Canela at [facility] Surgical History Surgery Date(Month/Year) Melanoma removed from scalp 2002 Ovarian cyst removal C5/C6 fusion--Dr. Longoria 04/1010 C6/C7 fusion--Dr. Longoria 07/2011 shoulder [id number] 06/22 12 shoulder surgery-left--impingement x3 2012 Laparoscopic [...]
--- OUTSIDE RECORDS SUMMARY | 2025-04-16 14:50 | XMS_ITS | Encounter Summary ---
Author Organization [facility] Address [address] [place] [address] Care Team Providers Care Quality Process Lead Name Role Phone Andree Yoo MD Primary Care Provider [phone] Encounter Details Date Type Department Care Team (Late st Contact Info) Description 03/15/2025 Lab Requisition [facility] - Main Lab [address] [facility] [place] [address] Elfego Bowie MD [address] [place] [address] Dysuria Social History Tobacco Use Types Packs/Day Years Used Date Smoking Tobacco: Former Cigarettes Smokeless Tobacco: Never Alcohol Use Standard Drinks/Week Comments Not Currently 0 (1 standard drink = 0.6 oz pur e alcohol) Interpersonal Safety Answer Date Record ed Physical Abuse Unrecognized value 03/03/2025 Verbal Abuse Unrecognized value 03/03/2025 Comments Unknown Sex and Gender Information Value Date Recorded Sex Assigned at Not on file Legal Sex Female 7:08 PM EST Gender Identity Not on file Sexual Orientation Not on file documented as of this encounter Functional Status * Are you deaf or do you have serious difficulty hearing? Answer Date of Assessment Author No 10/17/2024 8:07 PM Ruben Rascon RN * Are you blind or do you have serious difficulty seeing, even when wearing glasses? Answer Date of Assessment Author No 10/17/2024 8:07 PM Ruben Rascon RN * Do you have serious difficulty walking or climbing stairs? Answer Date of Assessment Author No 10/17/2024 8:07 PM EDT Ruben Hutson RN * Do you have serious difficulty dressing or bathing? Answer Date of Assessment Author No 10/17/2024 8:07 PM EDT Ruben Hutson RN * Because of a physical, mental, or emotional condition, do you have serious difficulty doing errandsalone such as visiting the doctor? Answer Date of Assessment Author No 10/17/2024 8:07 PM EDT Ruben Hutson RN * Calculated C-SSRS Risk Score (Lifetime/Recent) Answer Date of Assessment Author No Risk Indicated 03/16/2025 7:41 PM EDT Narendra Bain RN * [place] Suicide Severity Rating Scale (Screener/Recent Self-Report) Question Answer Date of Assessment Author 1. Wish to be (Past 1 Month) No 025 7:41 PM EDT Narendra Bain RN 2. Non-Specific Active Suici prakash Thoughts (Past 1 Month) No 03/16/2025 7:41 PM EDT Tucker Bain RN 6. Suicidal Behavior (Lifetime) No 5 7:41 PM EDT Narendra Bain RN documented as of this encounter Mental Status * Because of a physical, mental, or emotional condition, do you have serious difficulty concentrating, remembering, or making decisions? (5 years old or older) Answer Entry Date Author No 10/17/2024 8:07 PM EDT Ruben Hutson RN documented in this encounter Plan of Treatment Not on file documented as of this encounter Procedures Procedure Name Priority Date/Time Associated Diagnosis Comments CULTURE URINE Routine 03/15/2025 3:30 PM EDT Dysuria documented in this encounter Results * (ABNORMAL) Culture urine (03/15/2025 3:30 PM EDT) Culture, Urine >=100,000 CFU/mL Escherichia coli(A) MIKKI 03/17/2025 10:46 AM EDT [facility] Urine Urine specimen obtained by clean catch procedure / Unknown 03/15/2025 3:30 PM EDT 03/15/2025 5:57 PM EDT Narrative Organism Antibiotic Method Susceptibility Escherichia coli Amoxicillin/Clavulanate MIKKI <=2 ug/ml: Susceptible Escherichia coli Ampicillin/Sulbactam MIKKI <=2 ug/ml: Susceptible Escherichia coli Piperacillin/Tazobactam MIKKI <=4 ug/ml: Susceptible Escherichia coli Cefazolin (Urine) MIKKI <=1 ug/ml: Susceptible Escherichia coli Cefoxitin MIKKI <=4 ug/ml: Susceptible Escherichia coli Ceftazidime MIKKI <=0.5 ug/ml: Susceptible Escherichia coli Ceftriaxone MIKKI <=0.25 ug/ml: Susceptible Escherichia coli Cefepime MIKKI <=0.12 ug/ml: Susceptible Escherichia coli Meropenem MIKKI <=0.25 ug/ml: Susceptible Escherichia coli Amikacin MIKKI 2 ug/ml: Susceptible Escherichia coli Gentamicin IMKKI <=1 ug/ml: Susceptible Escherichia coli Ciprofloxacin MIKKI <=0.06 ug/ml: Susceptible Escherichia coli Levofloxacin MIKKI <=0.12 ug/ml: Susceptible Escherichia coli Nitrofurantoin MIKKI <=16 ug/ml: Susceptible Escherichia coli Trimethoprim/Sulfamethoxazole MIKKI <=20 ug/ml: Susceptible us Elfego Bowie MD LAB MICROBIOLOGY - GENERAL ORDER BERTO Final Result [facility] [address] [place] [address], documented in this encounter Visit Diagnoses Diagnosis Dysuria documented in this encounter Care Teams Quality Process Lead Relationship Specialty Start Date End Date Andree Yoo MD [address] [place] [address] PCP - General Internal Medicine 09/25/24 documented as of this encounter
--- OUTSIDE RECORDS SUMMARY | 2025-04-16 14:51 | XMS_ITS | Clinical Summary ---
Author Organization [facility] Address [address] [place] [address] Phone Care Team Providers Care Credit Control Administrator Name Role Phone Andree Yoo MD Primary Care Provider [phone] Allergies Active Allergy Reactions Criticality Noted Date Comments Amlodipine Dizziness,Lightheade dness,Other (See Comments) Low 12/11/2024 Nitroglycerin Headaches,Other (See Comments) High 03/02/2025 patient reports severe headache lasting upto 3 days. Oxycodone 03/18/2025 Other Reaction(s): Unknown Oxycodone-Acetaminophen 03/18/2025 Other Reaction(s): Unknown Medications buPROPion (WELLBUTRIN SR) 150 MG SR 12 hr tablet Take 150 mg by mouth. Active busPIRone (BUSPAR) 10 MG tablet Take 20 mg by mouth 2 (two) times a day. Active atorvastatin (LIPITOR) 40 MG tablet Take 40 mg by mouth. 05/24/20 24 Active LINZESS 290 mcg Cap capsule TAKE 1 CAPSULE BY MOUTH AT LEAST 30 MINUTES BEFORE THE FIRST MEAL OF THE DAY EVERYDAY Active traZODone (DESYREL) 50 MG tablet take one to two tablets by mouth at bedtime Active dapagliflozin propanediol (FARXIGA) 10 mg tablet Take 10 mg by mouth. 02/27/20 24 Active DULoxetine (CYMBALTA) 60 MG capsule take one capsule by mouth daily at bedtime Active DULoxetine (CYMBALTA) 30 MG capsule Take 30 mg by mouth every morning. Active pregabalin (LYRICA) 150 MG capsule Take 150 mg by mouth 2 (two) times a day. Active carvedilol (COREG) 3.125 MG tablet Take 3.125 mg by mouth 2 (two) times a day. Active erenumab-aooe (AIMOVIG AUTOINJECTOR) 140 mg/mL subcutaneous injection Inject 140 mg under the skin every 28 days. Active omeprazole (PRILOSEC) 40 MG capsule Take 40 mg by mouth daily. Active tirzepatide (MOUNJARO SUBQ) Inject under the skin. Active dilTIAZem (CARDIZEM SR) 60 MG 12 hr capsule Take 140 mg by mouth 2 (two) times a day. Active therapeutic multivitamin tablet Take 1 tablet by mouth daily. Bariatric Vitamin Active Medication-Free Text Take 1 capsule by mouth daily. Estroven for hot flashes, OTC Active docusate sodium (COLACE) 100 MG capsule Take 1 capsule (100 mg total) by mouth 2 (two) times a day. 60 capsule 6 03/26/20 25 Active HYDROmorphone (DILAUDID) 2 MG tablet Take 1 tablet (2 mg total) by mouth every 4 (four) hours as needed for pain (specific location in comments). Partial fill ok 20 tablet 03/26/20 Active Additional Information Patient not taking.Reported on 04/09/2025 oxyCODONE 5 MG immediate release tablet TAKE 1 TO 2 TABLETS BY MOUTH EVERY 6 HOURS FOR 7 DAYS NEEDED FOR SEVERE PAIN 04/07/20 25 Active tiZANidine (ZANAFLEX) 4 MG tablet 4 mg. 03/31/20 25 Active aspirin 81 MG EC tablet Take 81 mg by mouth daily. 025 Discontin ued(Stop Taking at Discharge ) Active Problems Problem Noted Date Diagnosed Date Sleep apnea 03/26/2025 Diabetes 03/24/2025 Coronary artery disease 03/24/2025 CHF (congestive heart failure) 03/24/2025 Cardiac dysrhythmia 03/24/2025 Headache 03/24/2025 Pacemaker 03/24/2025 Status post laparoscopic sleeve gastrectomy 03/04 Bariatric surgery status 03/18/2025 Class 1 obesity due to exces s calories with serious comorbidity and body mass index (BMI) of 34.0 to 34.9 in adult 03/18/2025 Hypercholesterolemia 03/18/2025 Primary hypertension 03/18/2025 Epigastric pain 03/18/2025 Assessment & Plan (03/18/2025 11:13 AM EDT): This is a 49-year-old woman with significant cardiac history who now has a pacemaker that was placed almost a year ago in May. She has been having intermittent chest pain that her rigger up is worked up and is not cardiac in nature. Patient underwent a endoscopy that showed a hiatal hernia based on the report and she also underwent a barium swallow which I reviewed the imaging and reading. There appears to be some distention of the lower esophagus and a kinking of the middle to distal portion of the gastric sleeve that is likely the cause of the patient's chest pain. She is likely experiencing pain as the esophagus is distended which is the cause of her pain. I believe that the kinking of the distal gastric sleeve is likely related to scar tissue. The patient has had multiple lumbar surgeries in the past 4 to 5 years and recently had an appendectomy at the beginning of this month. I believe she would benefit from a diagnostic laparoscopy with lysis of adhesions if there is kinking of the gastric sleeve which should help the gastric pouch to empty and prevent distention of the esophagus and rid her of her epigastric or chest pain. We will also be able to evaluate whether the patient has a hiatal hernia and repair this again if it is found. We will perform an endoscopy preoperatively in the operating room on the same day. I discussed the entire procedure including risk benefits and alternatives and the patient would like to proceed. She will need cardiac clearance given her history and will need to hold her baby aspirin for a week prior to the procedure. Once we have this clearance we will schedule her for the above-noted procedure. I have answered all of her questions to her and her satisfaction. Encounters Date Type Department Care Team Description 04/11/2025 Telephone [facility] [address] [place] [address] Moose Loaiza PA-C 04/09/2025 10:00 AM EDT Office Visit [facility] [address] [place] [address] Hellen Giraldo MD History of repair of hiatal hernia (Primary Dx); Postoperative follow-up 04/02/2025 Telephone [facility] [address] [place] [address] Moose Loaiza PA-C 03/27/2025 Telephone [facility] [address] [address] Avelina Rojas, RN post op call 03/26/2025 1:25 PM EDT Anesthesia Event OR Admitting Dept - Virtual Department [address] [place] [address] Juan Ryan MD 03/26/2025 1:22 PM EDT - 03/26/2025 3:38 PM EDT Surgery OR Admitting Dept - Virtual Department [address] [place] [address] Hellen Giraldo MD LAPAROSCOPIC REPAIR HIATAL HERNIA, lysis of adhesions, intraoperative endoscopy 03/26/2025 11:31 AM EDT - 03/26/2025 7:12 PM EDT Hospital Encounter OR Admitting Dept - Virtual Department [address] [place] [address] Hellen Giraldo MD Discharge Disposition: Home or Self Care 03/26/2025 Procedure Pass OR Admitting Dept - Virtual Department [address] [place] [address] 03/25/2025 10:45 AM EDT Pre-Admission Testing Pre Procedure Evaluation [address] [place] [address] Hellen Giraldo MD 03/25/2025 Telephone [facility] [address] [place] [address] Avelina Rojas, business administrator questions 03/18/2025 10:30 AM EDT Office Visit [facility] [address] [place] [address] Hellen Giraldo MD Status post laparoscopic sleeve gastrectomy (Primary Dx); Bariatric surgery status; Class 1 obesity due to excess calories with serious comorbidity and body mass index (BMI) of 34.0 to 34.9 in adult; Hypercholesterolemia; Primary hypertension; Epigastric pain 02/28/2025 Telephone [facility] General Surgical Care [address] [place] [address] Hellen Giraldo MD New Patient from Last 3 Months Family History Medical History Relation Comments Coronary artery disease Father Dementia Father Melanoma Father Breast cancer Sister Glaucoma Sister Relation Status Comments Father Alive Mother Alive Sister Alive Social History Tobacco Use Types Packs/Day Years Used Date Smoking Tobacco: Former Cigarettes Q uit: 1985 Smokeless Tobacco: Never Tobacco Cessation:Counseling Given: Not Answered Comments:Quit 2014 Alcohol Use Standard Drinks/Week Comments Yes 1 (1 standard drink = 0.6 oz pur [...] as food, clothing, or medical care? No 03/26/2025 In the past 12 months have y ou been in a relationship with a person who hurts, threatens, or tries to control you? No 03/26/2025 Are you denied basic needs s uch as food, clothing, or medical care? No 03/26/2025 In the past 12 months have y ou been in a relationship with a person who hurts, threatens, or tries to control you? No 03/26/2025 Comments No Sex and Gender Information Value Date Recorded Sex Assigned at Female 03/20/2024 3:01 PM EDT Legal Sex Female 10:38 PM EDT Gender Identity Female 03/20/2024 3:01 PM EDT Sexual Orientation Straight 03/20/2024 3: 01 PM EDT Last Filed Vital Signs Vital Sign Reading Time Taken Comments Blood Pressure 110/70 04/09/2025 10:00 AM EDT Pulse 93 04/09/2025 10:00 AM EDT Temperature 36.7 C (98 F) 04/09/2025 10:00 AM EDT Respiratory Rate 12 03/26/2025 5:15 PM EDT Oxygen Saturation 98% 04/09/2025 10:00 AM EDT Inhaled Oxygen Concentration - - Weight 91.2 kg (201 lb) 03/25/2025 11:20 AM EDT Height 162.6 cm (5' 4 ) 03/25/2025 11:20 AM EDT Body Mass Index 34.5 03/25/2025 11:20 AM EDT Plan of Treatment Health Maintenance Due Date Last Done Comments DEPRESSION SCREENING 1985 HEPATITIS C SCREENING 1991 HIV ONE-TIME SCREENING (18-65 YEARS) 1991 PAP SMEAR 1994 MAMMOGRAM 2013 COLOGUARD 2018 COLONOSCOPY 2018 COLORECTAL CANCER SCREENING 2018 FIT TEST 2018 FOBT 2018 SIGMOIDOSCOPY 2018 VIRTUAL COLONOSCOPY 2018 Adult Td,Tdap Booster 07/04/2020 07/04/2010, 005 RSV VACCINE (1 - Risk 50-74 years 1-dose series) 2023 ZOSTER VACCINES (1 of 2) 2023 INFLUENZA VACCINE (#1) 2025 , 08/15/2023, 06/05/2022, Additional history exists HEMOGLOBIN A1C 02/14/2025 08/17/2024 COVID-19 VACCINE (3 - season) 2025 10/07/2020, 09/16/2020 DIABETIC EYE EXAM 03/24/2025 URINE MICROALBUMIN/CREATININE RATIO 03/24/2025 BLOOD PRESSURE 10/08/2025 04/09/2025 SMOKING Hx and SMOKELESS TOBACCO SCREENING 04/09/2026 04/09/2025 PNEUMOCOCCAL VACCINES (50+ years) Completed 07/28/2023 HEPATITIS A VACCINES Aged Out No long [...] age to complete this topic Medical Devices Implanted Type Area Restaurant Hostess Device Identifier Shelf Expiration Date Model / Serial / Lot Intrauterine Device Intrauterine Device Nodata NODATA Spine Lumbar Description:L3-S1 rods/screw s Nodata NODATA Spine Cervical Description:C6-C7 stabilizer Pacemaker Pacemaker Screw Screw Bilateral: Foot Procedures Procedure Name Priority Date/Time Associated Diagnosis Comments POCT GLUCOSE Routine 03/26/2025 3:11 PM EDT AIRWAY PLACEMENT Routine 03/26/2025 1:41 PM EDT TX ESOPHAGOGASTRODUODENOSCOP Y TRANSORAL DIAGNOSTIC 03/26/2025 1:25 PM EDT Epigastric pain Special Needs Suction Biomass Production Manager SP TX LAP,DIAGNOSTIC ABDOMEN 2024 1:25 PM EDT Epigastric pain Special Needs Suction Biomass Production Manager SP TX LAP, REPAIR PARAESOPHAGEA L HERNIA, INCL FUNDOPLASTY W/O MESH 03/26/2025 1:25 PM EDT Epigastric pain Special Needs Suction Biomass Production Manager SP from Last 3 Months Results * (ABNORMAL) POCT Glucose (03/26/2025 3:11 PM EDT) Glucose, POCT 160(H) 70 - 100 mg/dL [facility] 03/26/2025 3:11 PM EDT 03/26/2025 3:25 PM EDT us Hellen Giraldo MD POINT OF CARE TEST ORDERAB LES Final Result Performing Organization Address City/State/[facility] Co de Phone Number [address] [address] * ANES ETT DOUBLE LUMEN - AIRWAY LDA (03/26/2025 1:41 PM EDT) Narrative Simon Rojas CRNA - 03/26/2025 1:41 PM EDT Simon Rojas CRNA 03/26/2025 1:44 PM Airway Placement Procedure Note: Patient was not difficult to intubate. Procedure performed by: anesthesiologist Anesthesiologist: Juan Ryan MD Airway procedure initiated at:03/26/2025 1:41 PM and ended at. Personal Protective Equipment: Mask: surgical mask Eye Protection: no eye protection Gloves: gloves Gown: no gown Mask Ventilation: Quality: easy Airway Placement: Technique: video laryngoscopy Details: Blade type: C-Mac Blade size: 3 Direct view: grade 2 (2A) Video Laryngoscopy was: elective Intubation device: stylet. Number of attempts: 1 ETT type: cuffed ETT size: 7.0 ETT depth at teeth: 24 ETT cuff inflation volume: 5 Tube position confirmed by: EtCO2 Outcomes: Evidence of dental injury? no Complications observed? no Juan Ryan MD [place] ANESTHESIA Final Re sult from Last 3 Months Insurance ([employer]) [address] [facility] Advance Directives For more information, please contact: [phone] (9AM - 5PM [facility], Tuesday-Tuesday) * Full Code (Latest Code Status on File) Date Activated Date Inactivated Comments 03/26/2025 11:41 AM Question Answer Comments Code Status Confirmed With: Patient Care Teams Credit Control Administrator Relationship Specialty Start Date End Date Andree Yoo MD [address] [place] [id number] PCP - General Family Medicine 03/20/24 Additional Source Comments The information contained in this document represents components of the legal health record. It is not the complete legal health record.[facility]
--- OUTSIDE RECORDS SUMMARY | 2025-04-16 14:51 | XMS_ITS | Encounter Summary ---
Author Organization [facility] Address [address] [place] [address] Phone Care Team Providers Care Customer Operations Representative Name Role Phone Andree Yoo MD Primary Care Provider [phone] Encounter Details Date Type Department Care Team (Late st Contact Info) Description 04/11/[address] [facility] General Surgical Care [address] [place] [address] Moose Loaiza PA-C [address] [place] [address] [email or web address] Social History Tobacco Use Types Packs/Day Years Used Date Smoking Tobacco: Former Cigarettes Q uit: 1985 Smokeless Tobacco: Never Comments:Quit 2014 Alcohol Use Standard Drinks/Week Comments [...] Orientation Straight 03/20/2024 3: 01 PM EDT documented as of this encounter Progress Notes * Moose Loaiza PA-C - 04/11/2025 9:12 PM EDT Telephone call Contacted by patient overnight. She notes today having some increasing pain to the right upper quadrant. States that she was seen by her cartridge filler who noted the pain to be within the liver area. She describes the pain as similar to the previous discomfort she had initially after surgery but lesssevere. She does note some discomfort with taking a breath in but states it is localized to the abdominal wall. She denies chest pain or shortness of breath. No lower leg swelling or calf pain. No history of blood clots. She does note that as she started to feel better she did start doing more which she believes could have increased her pain. She has taken some of her leftover pain medication with improvement. At this time I have low suspicion for any acute pathology such as acute intra- abdominal process or PE. We discussed concerning symptoms and when to come to the emergency department for emergent evaluation. Moose Loaiza PA-C documented in this encounter Plan of Treatment Not on file documented as of this encounter Visit Diagnoses Not on filedocumented in this encounter Care Teams Customer Operations Representative Relationship Specialty Start Date End Date Andree Yoo MD [address] [place] [address] PCP - General Family Medicine 03/20/24 documented as of this encounter Additional Source Comments The information contained in this document represents components of the legal health record. It is not the complete legal health record.[facility]
--- OUTSIDE RECORDS SUMMARY | 2025-04-16 14:51 | XMS_ITS | Clinical Summary ---
Author Organization [facility] Address [address] [place] [address] Care Team Providers Care Editor Producer Name Role Phone Andree Yoo MD Primary Care Provider [phone] Allergies Active Allergy Reactions Criticality Noted Date [...] Blood Gluc Sensor (FreeStyle Karmen 3 Sensor) [facility] USE TO TEST BLOOD SUGAR CONTINUOUSLY [...] 40 mg under the skin. 4 Active Social History Tobacco Use Types Packs/Day Years [...] 02/01/2025 03/29/2024, , 08/15/2023, Additional history exists Insurance [facility] Care Teams Editor Producer Relationship Specialty Start Date End Date Andree Yoo MD [address] [place] [id number] PCP - General Family Medicine 12/05/24
--- OUTSIDE RECORDS SUMMARY | 2025-04-16 14:51 | XMS_ITS | Patient Health Record ---
Author Organization [facility] Address [address] [facility] [place] [address] Care Team Providers Care Underground Roof Bolter Name Role Phone Spring Costa MD Primary Care Provider Unavail able Skip Alberts Unavailable [phone] Reason For Referral No Information Medications Medication [...] primary osteoarthritis of the ankle and/or foot (248113845) Primary osteoarthritis, right ankle and foot (M19.071) Active confirmed Problem Acquired hallux valgus (79299146) Hallux valgus (acquired), right foot (M20.11) Active confirmed Problem Polyneuropathy due to type 2 diabetes mellitus (463799512) Type 2 diabetes mellitus with diabetic polyneuropathy (E11.42) Active confirmed Plan Of Treatment Pending Test Test Name Order Date X ray : Foot, right 2V 04/21/2016 X ray : Foot, left 3V 05/05/2015 71481-Nack Destruction, -05/25/2013 98500-Atth Destruction, 07-1711/14/2012 10896-Vamm Destruction, 07-1712/12/2012 55317-Dzvh Destruction, 07-1701/16/2013 84051-Hkwv Destruction, 07-1701/19/2013 16111-Uzqo Destruction, 07-1703/23/2013 08249-Nwks Destruction, -04/27/2013 45491-Targhfts Plate 04/27/2013 96460-Phxscwws Plate 05/23/2015 74475-Nznmtcud Plate Each Additional 60180-POU 04/11/2015 70475 I&D ABSCESS- SIMPLE,SINGLE 015 61225 I&D ABSCESS- SIMPLE,SINGLE 015 23404 I&D ABSCESS- SIMPLE,SINGLE 015 45300-RDTW SKIN LESIONS, OVER 4 10/19/19 12 34190-DGGM NAIL(S) 10/19/2011 32881-UKXZ NAIL(S) 11/14/2012 Medical (General) History Medical History History ICD Code Arthritis skin cancer depression 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
--- OUTSIDE RECORDS SUMMARY | 2025-04-16 14:51 | XMS_ITS | Encounter Summary ---
Author Organization [facility] Address [address] [place] [address] Phone Care Team Providers Care Core Driller Name Role Phone Andree Yoo MD Primary Care Provider [phone] Encounter Details Date Type Department Care Team (Late st Contact Info) Description 03/26/2025 Procedure Pass OR Admitting Dept - Virtual Department [address] [place] [address] Social History Tobacco Use Types Packs/Day Years [...] PM EDT documented as of this encounter Plan of Treatment Not on file documented as of this encounter Visit Diagnoses Not on filedocumented in this encounter Care Teams Core Driller Relationship Specialty Start Date End Date Andree Yoo MD [address] [place] [address] PCP - General Family Medicine 03/20/24 documented as of this encounter Additional Source Comments The information contained in this document represents components of the legal health record. It is not the complete legal health record.[facility]
--- OUTSIDE RECORDS SUMMARY | 2025-04-16 14:51 | XMS_ITS | Clinical Summary ---
Author Organization [facility] Address [address] [place] [address] Care Team Providers Care Windows Desktop Support Name Role Phone Andree Yoo MD Primary Care Provider [phone] Allergies Active Allergy Reactions Criticality Noted Date Comments Amlodipine Dizziness Low 12/28/2024 Nitroglycerin Headache High 03/02/2025 patient reports severe headache lasting upto 3 days. Medications aspirin 81 mg chewable tablet Chew [...] 6 HOURS NEEDED FOR NAUSEA 5 Active cyclobenzaprine (FLEXERIL) 10 mg tablet Take 1 tablet (10 mg total) by mouth 3 (three) times a day for 10 days. 30 each 5 Active oxyCODONE (ROXICODONE) 5 mg immediate release tablet Take 1 tablet (5 mg total) by mouth every 6 (six) hours if needed for severe pain. Max Daily Amount: 20 mg 5 tablet 5 Active aluminum-magnesium hydroxide-simethic one (MAALOX) 200-200-20 mg/5 mL suspension Take 15 mL by mouth 4 (four) times a day (before meals and nightly). 354 mL 5 Active dicyclomine (BENTYL) 20 mg tablet Take 1 tablet (20 mg total) by mouth 2 (two) times a day for 10 days. 20 tablet 5 03/26/20 25 phenazopyridine (PYRIDIUM) 200 mg tablet Take 1 tablet (200 mg total) by mouth 3 (three) times a day if needed for bladder spasms for up to 3 days. 6 tablet 5 09/16/20 25 Active Problems Problem Noted Date Diagnosed Date Acute epigastric pain 03/02/2025 RLQ abdominal pain 03/02/2025 Intractable back pain 10/17/2024 Hypertension 09/04/2024 Cervical spondylosis with radiculopathy 09/05/19 Assessment & Plan (10/04/2024 1:55 PM EDT): [...] The MRI of the cervical spine from [facility] dated October 02, 2024 [...] of the cervical spine from today at [facility] show some retrolisthesis of C4 on [...] spine. Presence of permanent cardiac pacemaker 09/03/19 Coronary artery disease invo lving tlingit & ha[place] coronary artery of tlingit & [place] heart without angina pectoris 08/03/2024 Atypical chest pain 08/03/2024 Fibromyalgia 08/03/2024 Irritable bowel syndrome with constipation 08/03 Type 2 diabetes mellitus wit hout complication, without long-term current use of insulin ([facility] V24, [facility] V28) 08/03/2024 Dyslipidemia 08/03/2024 Ulcerative colitis without c omplications ([facility] V24, [facility] V28) 08/03/2024 Chronic tension-type headache, not intractable 0 08/03/2024 CONSTANCE (generalized anxiety disorder) 08/03/2024 History of gastric restrictive surgery Class 2 severe obesity due t o excess calories with serious comorbidity and body mass index (BMI) of 36.0 to 36.9 in adult 08/03/2024 Routine general medical exam ination at a health care facility 08/03/2024 Nutritional deficiency 08/03/2024 Vitamin D deficiency 08/03/2024 Chronic systolic congestive heart failure ([facility] V24, [facility] V28) 08/03/2024 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 ([facility] V24) 08/03/2024 Chronic left SI joint pain [...] Encounters Date Type Department Care Team Description 03/16/2025 9:08 PM EDT - 03/16/2025 11:58 PM EDT Emergency [facility] Emergency [address] [place] [address] Dysuria (Primary Dx); Pelvic pain; Constipation, unspecified constipation type Discharge Disposition: Home or Self Care 03/15/2025 9:00 AM EDT Office Visit General Surgery [facility] [address] [place] [address] Tee Townsend MD RLQ abdominal pain (Primary Dx) 03/15/[address] [facility] Lab [address] [place] [address] Elfego Bowie MD Dysuria 03/06/2025 Telephone General Surgery - [facility] [address] [place] [address] Mary Medina [place] 03/04/2025 8:10 AM EDT Anesthesia Event [facility] Main OR [address] [place] [phone] Simon Miramontes MD 03/04/2025 8:00 AM EDT - 03/04/2025 9:25 AM EDT Surgery [facility] Main OR [address] [place] [address] Tee Townsend MD APPENDECTOMY LAPAROSCOPIC [23057 (CPT )] 03/02/2025 11:12 AM EDT - 03/04/2025 4:54 PM EDT Hospital Encounter [facility] Medical Surgical Unit [address] [place] [address] Ashley Massey DO Damri, MD Emma Feliciano Manikandan, MD Bell, Alistair A, MD Alam, Aroosa, MD Abdominal pain, epigastric (Primary Dx); RLQ abdominal pain Discharge Disposition: Home or Self Care 01/28/2025 8:48 PM EDT - 01/28/2025 11:41 PM EDT Emergency [facility] Emergency [address] [place] [address] Darius Winston MD Chest pain, unspecified type (Primary Dx); Chronic post-operative pain Discharge Disposition: Home or Self Care 01/23/2025 Telephone [facility] [address] [place] [address] Andree Yoo MD 01/22/2025 Telephone [facility] [address] [place] [address] Andree Yoo MD 01/21/2025 Telephone [facility] [address] [place] [address] Andree Yoo MD from Last 3 Months Immunizations Immunization Administration Dates Next Due H1N1 Inj Preservative [...] HISTORICAL CHOLECYSTECTOMY OTHER SURGICAL HISTORY 04/20/2009 PROCEDURE: IA ARTHRD ANT INTERBODY MIN DSC CRV BELOW [...] BIOPSY 08/01/2023 PROCEDURE:SKIN BIOPSY;COMMENT:Facial PACEMAKER 1 HR APPENDECTOMY Medical History Medical History Date Comments Polycystic ovaries 04/13/2006 DX:Polycystic ovaries Esophageal reflux 04/13/2006 DX:Esophageal reflux Historical Medical DX 04/13/2006 DX:Other a nd 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] Sign Reading Time Taken Comments Blood Pressure 132/76 03/16/2025 10:48 PM EDT Pulse 80 03/16/2025 10:48 PM EDT Temperature 36.5 C (97.7 F) 03/16/2025 10:48 PM EDT Respiratory Rate 18 03/16/2025 10:48 PM EDT Oxygen Saturation 100% 03/16/2025 10:49 PM EDT Inhaled Oxygen Concentration - - Weight 89.8 kg (198 lb) 03/16/2025 7:43 PM EDT Height 162.6 cm (5' 4 ) 03/16/2025 7:43 PM EDT Body Mass Index 33.99 03/16/2025 7:43 PM EDT Plan of Treatment Health Maintenance [...] Diabetes: Annual Urine Albumin-Creatinine Ratio (uACR) 06/18/2022 RSV Immunization Adult Patients (1 - Risk 50-74 years 1-dose series) 2023 Zoster Vaccines (1 of 2) 2023 Depression Screening 07/04/2024 Diabetes: Blood Sugar Control Test (HGBA1C) 02/14/2025 08/17/2024 COVID-19 Vaccine ( - 2024- season) 2025 10/07/2020, 09/16/2020 Influenza Vaccine (#1) 2025 , 08/15/2023, 05/24/2023, Additional history exists Diabetes: Annual GFR (Glomerular Filtration Rate) 03/16/2026 03/16/2025, 03/04/2025, 03/03/2025, Additional history exists Hypertension/CHF/CAD Annual BMP Blood Test 03/16/2026 03/16/2025, 03/04/2025, 03/03/2025, Additional history exists Colorectal Cancer Screening: Colonoscopy [...] Procedure Name Priority Date/Time Associated Diagnosis Comments CT ABDOMEN PELVIS W CONTRAST STAT 03/16/2025 10:13 PM EDT FIGUEROA URINE CULTURE TUBE STAT 03/16/2025 8:26 PM EDT URINALYSIS WITH REFLEX MICROSCOPIC AND CULTURE STAT 03/16/2025 8:26 PM EDT URINALYSIS WITH REFLEX MICROSCOPIC AND CULTURE STAT 03/16/2025 8:26 PM EDT LIPASE STAT 03/16/2025 8:24 PM EDT COMPREHENSIVE METABOLIC PANEL STAT 03/16/2025 8:24 PM EDT CBC WITH AUTO DIFFERENTIAL STAT 03/16/2025 8:24 PM EDT CBC AND DIFFERENTIAL STAT 03/16/2025 8:24 PM EDT CULTURE URINE Routine 03/15/2025 3:30 PM EDT Dysuria ECG ANNOTATED 03/05/2025 POCT GLUCOSE BLOOD Routine 03/04/2025 11 :14 AM EDT OXYGEN THERAPY, ADULT Routine 03/04/2025 9:10 AM EDT OXYGEN THERAPY, ADULT Routine 03/04/2025 9:10 AM EDT TISSUE EXAM Routine 03/04/2025 8:40 AM EDT RLQ abdominal pain TH AN ENDOTRACHEAL(NO CHARGE) Routine 03/04/2025 8:30 AM EDT IA LAPAROSCOPY SURGICAL APPENDECTOMY 03/04/2025 8:10 AM EDT RLQ abdominal pain POCT GLUCOSE BLOOD Routine 03/04/2025 6: 49 AM EDT CBC WITH AUTO DIFFERENTIAL Routine 03/04/2025 6:23 AM EDT PROTHROMBIN TIME WITH INR Routine 03/04/2025 6:23 AM EDT PHOSPHORUS Routine 03/04/2025 6:23 AM EDT MAGNESIUM Routine 03/04/2025 6:23 AM EDT CBC AND DIFFERENTIAL Routine 03/04/2025 6:23 AM EDT BASIC METABOLIC PANEL Routine 03/04/2025 6:23 AM EDT POCT GLUCOSE BLOOD Routine 03/03/2025 7: 42 PM EDT POCT GLUCOSE BLOOD Routine 03/03/2025 3: 22 PM EDT HCG QUALITATIVE, URINE STAT 1:39 PM EDT POCT GLUCOSE BLOOD Routine 03/03/2025 11 :10 AM EDT POCT GLUCOSE BLOOD Routine 03/03/2025 7: 44 AM EDT COMPLETE BLOOD COUNT Routine 03/03/2025 6:21 AM EDT PHOSPHORUS Routine 03/03/2025 6:21 AM EDT MAGNESIUM Routine 03/03/2025 6:21 AM EDT COMPREHENSIVE METABOLIC PANEL Routine 03/03/2025 6:21 AM EDT US PELVIS NON OB COMPLETE W TRANSVAGINAL STAT 03/02/2025 11:36 PM EDT LACTATE STAT 03/02/2025 5:[address] ABDOMEN PELVIS W CONTRAST STAT 03/02/2025 5:34 PM EDT ECG 12-LEAD STAT 03/02/2025 11:43 AM EDT TROPONIN I HIGH SENSITIVITY STAT 03/02/2025 11:28 AM EDT CBC WITH AUTO DIFFERENTIAL STAT 03/02/2025 11:28 AM EDT LIPASE STAT 03/02/2025 11:28 AM EDT COMPREHENSIVE METABOLIC PANEL STAT 03/02/2025 11:28 AM EDT CBC AND DIFFERENTIAL STAT 03/02/2025 11:28 AM EDT ECG ANNOTATED 01/29/2025 CT ANGIO CHEST WO [...] ECG 12-LEAD STAT 01/28/2025 5:03 PM EDT HEMOGLOBIN A1C Routine 08/17/2024 10:04 AM EST Type 2 diabetes mellitus without complication, without long-term current use of insulin ([facility] V24, [facility] V28) Routine general medical examination at a [facility] care facility COLONOSCOPY Routine 08/30/2018 2:38 PM EST from Last 3 Months or Most Recently Relevant to Health Maintenance Results * CT Abdomen Pelvis w Contrast (03/16/2025 10:13 PM EDT) Only the most recent of2 resultswithin the time period is included. Anatomical Region Laterality Modality Body Computed Tomogra phy 03/16/2025 10:4 7 PM EDT Impressions 03/16/2025 10:47 PM EDT Impression: 1. No renal or ureteral calculi. No urinary obstruction. No CT evidence for pyelonephritis. 2. No urinary bladder wall thickening to suggest cystitis. No bladder stones. 3. Moderate to large colonic fecal load may indicate constipation. No colitis or diverticulitis. This document has been electronically signed by: Gaby Allen MD on 03/16/2025 22:47:59 Narrative 03/16/2025 10:47 PM EDT INDICATION: Flank pain, kidney stone suspected Exam: CT Abdomen and Pelvis with contrast Comparison: 03/02/2025 Clinical history: Flank pain kidney stone suspected Findings: Prior gastric surgery The liver, spleen and pancreas do not demonstrate any acute process. Prior cholecystectomy No choledocholithiasis or biliary obstruction. Normal adrenal glands. No renal calculi or hydronephrosis. Symmetric enhancement of the kidneys bilaterally. No renal lesions. No abdominal aortic aneurysm. No small bowel obstruction Appendix is normal in caliber No colitis or diverticulitis. Iwkvuyec-hv-rmans colonic fecal load may indicate constipation Urinary bladder does not demonstrate stones or wall thickening. IUD normally positioned within the uterus. Adnexa have a normal appearance for CT No free fluid Prior posterior fusion at L3-S1 Procedure Note Gaby Allen MD - 03/16/2025 INDICATION: Flank pain, kidney stone suspected Exam: CT Abdomen and Pelvis with contrast Comparison: 03/02/2025 Clinical history: Flank pain kidney stone suspected Findings: Prior gastric surgery The liver, spleen and pancreas do not demonstrate any acute process. Prior cholecystectomy No choledocholithiasis or biliary obstruction. Normal adrenal glands. No renal calculi or hydronephrosis. Symmetric enhancement of the kidneys bilaterally. No renal lesions. No abdominal aortic aneurysm. No small bowel obstruction Appendix is normal in caliber No colitis or diverticulitis. Knmkbman-su-jifat colonic fecal load may indicate constipation Urinary bladder does not demonstrate stones or wall thickening. IUD normally positioned within the uterus. Adnexa have a normalappearance for CT No free fluid Prior posterior fusion at L3-S1 IMPRESSION: Impression: 1. No renal or ureteral calculi. No urinary obstruction. No CT evidence for pyelonephritis. 2. No urinary bladder wall thickening to suggest cystitis. No bladder stones. 3. Moderate to large colonic fecal load may indicate constipation. No colitis or diverticulitis. This document has been electronically signed by: Gaby Allen MD on 03/16/2025 22:47:[address] [facility] [address] PROCEDURES Final Res ult * (ABNORMAL) Urinalysis with reflex microscopic and culture (03/16/2025 8:26 PM EDT) Specific [place] Urine 1.026 1.003 - 1.030 LAB URINALYSIS - AUTOMATED METHOD 03/16/2025 8:49 PM [facility] pH, Urine 6.5 5.0 - 8.0 pH LAB URINALYSIS - AUTOMATED METHOD 03/16/2025 8:49 PM [facility] Leukocytes, Urine Negative Negative LAB URINALYSIS - AUTOMATED METHOD 03/16/2025 8:49 PM [facility] Nitrite, Urine Negative Negative LAB URINALYSIS - AUTOMATED METHOD 03/16/2025 8:49 PM [facility] Protein, Urine Negative <=Trace mg/dL LAB URINALYSIS - AUTOMATED METHOD 03/16/2025 8:49 PM [facility] Glucose, Urine >=1000(A) Negative mg/dL LAB URINALYSIS - AUTOMATED METHOD 03/16/2025 8:49 PM EDT [facility] Ketones, Urine Negative Negative mg/dL LAB URINALYSIS - AUTOMATED METHOD 03/16/2025 8:49 PM EDT [facility] Urobilinogen , Urine 0.2 0.2 - 1.0 mg/dL LAB URINALYSIS - AUTOMATED METHOD 03/16/2025 8:49 PM EDT [facility] Bilirubin, Urine Negative Negative LAB URINALYSIS - AUTOMATED METHOD 03/16/2025 8:49 PM EDT [facility] Blood, Urine Negative Negative LAB URINALYSIS - AUTOMATED METHOD 03/16/2025 8:49 PM EDT [facility] Urine Urine specimen obtained by clean catch procedure / Unknown Non-blood Collection / Unknown 03/16/2025 8:26 PM EDT 03/16/2025 8:41 PM EDT [facility] URINE ORDERABLES Final Result [facility] [address] [place] [address], [place] [phone] * Figueroa urine culture tube (03/16/2025 8:26 PM EDT) Extra Tube Hold for add-ons. 03/16/2025 10:02 PM EDT [facility] Comment:Auto resulted. Urine Urine specimen obtained by clean catch procedure / Unknown Non-blood Collection / Unknown 03/16/2025 8:26 PM EDT 03/16/2025 8:41 PM EDT us [facility] LAB URINE ORDERABLES Final Result Performing Organization Address [facility]/ZIP Co de Phone Number [facility] [address] [place] [address], * (ABNORMAL) CBC auto differential (03/16/2025 8:24 PM EDT) Only the most recent of4 resultswithin the time period is included. [facility] Signature WBC 11.6(H) 4.8 - 10.8 K/mcL LAB HEMETOLOGY METHOD 03/16/2025 8:48 PM EDT [facility] RBC 4.20 3.80 - 4.80 M/mcL LAB HEMETOLOGY METHOD 03/16/2025 8:48 PM EDT [facility] Hemoglobin 12.6 11.5 - 16.0 g/dL LAB HEMETOLOGY METHOD 03/16/2025 8:48 PM EDT [facility] Hematocrit 39.4 35.0 - 47.0 % LAB HEMETOLOGY METHOD 03/16/2025 8:48 PM EDT [facility] MCV 93.6 79.0 - 98.0 FL LAB HEMETOLOGY METHOD 03/16/2025 8:48 PM EDT [facility] MCH 29.9 27.0 - 32.0 pcg LAB HEMETOLOGY METHOD 03/16/2025 8:48 PM EDT [facility] MCHC 32.0 32.0 - 37.0 g/dL LAB HEMETOLOGY METHOD 03/16/2025 8:48 PM EDT [facility] RDW 12.9 11.0 - 15.0 % LAB HEMETOLOGY METHOD 03/16/2025 8:48 PM EDT [facility] Platelets 391 130 - 400 K/mcL LAB HEMETOLOGY METHOD 03/16/2025 8:48 PM EDT [facility] MPV 10.0 7.0 - 11.0 FL LAB HEMETOLOGY METHOD 03/16/2025 8:48 PM EDT [facility] NRBC 0.0 <1.0 % LAB HEMETOLOGY METHOD 03/16/2025 8:48 PM EDT [facility] NRBC Absolute 0.00 <0.10 K/mcL LAB HEMETOLOGY METHOD 03/16/2025 8:48 PM EDT [facility] Neutrophils Relative 61.9 % LAB HEMETOLOGY METHOD 03/16/2025 8:48 PM EDT [facility] Lymphocytes Relative 28.2 % LAB HEMETOLOGY METHOD 03/16/2025 8:48 PM EDT [facility] Monocytes Relative 6.6 % LAB HEMETOLOGY METHOD 03/16/2025 8:48 PM EDT [facility] Eosinophils Relative 2.1 % LAB [facility]ETOLOGY [facility] Basophils Relative 0.7 % LAB HEMETOLOGY METHOD 03/16/2025 8:48 PM EDT [facility] Immature Granulocytes Relative 0.5 % LAB HEMETOLOGY METHOD [facility]/16[facility] Neutrophils Absolute 7.17(H) 1.50 - 7.00 K/mcL LAB HEMETOLOGY METHOD 03/16/2025 8:48 PM EDT [facility] Lymphocytes Absolute 3.26 1.00 - 5.00 K/mcL LAB HEMETOLOGY METHOD 03/16/2025 8:48 PM EDT [facility] Monocytes Absolute 0.76 0.20 - 1.00 K/mcL LAB HEMETOLOGY METHOD 03/16/2025 8:48 PM EDT [facility] Eosinophils Absolute 0.24 0.00 - 0.50 K/mcL LAB HEMETOLOGY METHOD 03/16[facility]2025 [facility] Basophils Absolute 0.08 0.00 - 0.20 K/mcL LAB HEMETOLOGY METHOD 03/16/2025 8:48 PM EDT [facility] Immature Granulocytes Absolute 0.06(H) 0.00 - 0.03 K/mcL LAB HEMETOLOGY METHOD 03/16/2025 8:48 PM EDT [facility] Blood Venous blood specimen / Unknown Venipuncture / Unknown 03/16/2025 8:24 PM EDT 03/16/2025 8:41 PM EDT [facility] BLOOD ORDERABLES Final Result Performing Organization Address City/[facility]/ZIP Co de Phone Number [facility] [address] [place] [address], [place] [phone] * Lipase (03/16/2025 8:24 PM EDT) Only the most recent of3 resultswithin the time period is included. Lipase 45 13 - 75 unit/L LAB CHEMISTRY METHOD 03/16/2025 9:12 PM EDT [facility] Blood Venous blood specimen / Unknown Venipuncture / Unknown 03/16/2025 8:24 PM EDT 03/16/2025 8:41 PM EDT [facility] BLOOD ORDERABLES Final Result Performing Organization Address [facility]/ZIP Co de Phone Number [facility] [address] [place] [address], [place] [phone] * (ABNORMAL) Comprehensive Metabolic Panel (CMP) (03/16/2025 8:24 PM EDT) Only the most recent of4 resultswithin the time period is included. Sodium 141 133 - 145 mmol/L LAB CHEMISTRY METHOD 03/16/2025 9:12 PM EDT [facility] Potassium 4.3 3.5 - 5.5 mmol/L LAB CHEMISTRY METHOD 03/16/2025 9:12 PM EDT [facility] Chloride 107 96 - 110 mmol/L LAB CHEMISTRY METHOD 03/16/2025 9:12 PM [facility] CO2 30 21 - 32 mmol/L LAB CHEMISTRY METHOD 03/16/2025 9:12 PM [facility] Anion Gap 4 3 - 11 LAB CHEMISTRY METHOD 03/16/2025 9:12 PM [facility] Glucose 109(H) 70 - 100 mg/dL LAB CHEMISTRY METHOD 03/16/2025 9:12 PM [facility] BUN 16 5 - 25 mg/dL LAB CHEMISTRY METHOD 03/16/2025 9:12 PM [facility] Creatinine 0.76 0.50 - 1.10 mg/dL LAB CHEMISTRY METHOD 03/16/2025 9:12 PM [facility] eGFR 95 >=60 mL/min/1. 73m2 LAB CHEMISTRY METHOD 03/16/2025 9:12 PM [facility] Comment:Calculation based on the Chronic Kidney Disease Epidemiology Collaboration (CKD-EPI) equation refit without adjustment for race. BUN/Creatinine Ratio 21.1 LAB CHEMISTRY METHOD 03/16/2025 9:12 PM [facility] Calcium 8.9 8.5 - 10.5 mg/dL LAB CHEMISTRY METHOD 03/16/2025 9:12 PM [facility] AST (SGOT) 17 10 - 42 unit/L LAB CHEMISTRY METHOD 03/16/2025 9:12 PM [facility] ALT (SGPT) 29 10 - 60 unit/L LAB CHEMISTRY METHOD 03/16/2025 9:12 PM [facility] Alkaline Phosphatase 109 42 - 121 unit/L LAB CHEMISTRY METHOD 03/16/2025 9:12 PM [facility] Total Protein 6.4 6.0 - 8.0 g/dL LAB CHEMISTRY METHOD 03/16/2025 9:12 PM [facility] Albumin 3.6 3.2 - 5.0 g/dL LAB CHEMISTRY METHOD 03/16/2025 9:12 PM EDT [facility] Total Bilirubin 0.2 0.0 - 1.4 mg/dL LAB CHEMISTRY METHOD 03/16/2025 9:12 PM EDT [facility] Blood Venous blood specimen / Unknown Venipuncture / Unknown 03/16/2025 8:24 PM EDT 03/16/2025 8:41 PM EDT us [facility] LAB BLOOD ORDERABLES Final Result [facility] [address] [place] [address], * (ABNORMAL) Culture urine (03/15/2025 3:30 PM EDT) Culture, Urine >=100,000 CFU/mL Escherichia coli(A) MIKKI 03/17/2025 10:46 AM EDT [facility] Urine Urine specimen obtained by clean [...] MIKKI 2 ug/ml: Susceptible Escherichia coli Gentamicin MIKKI <=1 ug/ml: Susceptible Escherichia coli Ciprofloxacin MIKKI <=0.06 ug/ml: Susceptible Escherichia coli Levofloxacin MIKKI <=0.12 ug/ml: Susceptible Escherichia coli Nitrofurantoin MIKKI <=16 ug/ml: Susceptible Escherichia coli Trimethoprim/Sulfamethoxazole MIKKI <=20 ug/ml: Susceptible Elfego Bowie MD LAB MICROBIOLOGY - GENERAL ORDER BERTO Final Result Performing Organization Address [facility] Co de Phone Number [facility] [address] [place] [address], * ECG-Annotated (03/05/2025) Only the most recent of2 resultswithin the time period is included. Provider Onbase ECG ORDERABLES Final Result * (ABNORMAL) POCT Glucose, blood (03/04/2025 11:14 AM EDT) Only the most recent of6 resultswithin the time period is included. Glucose POCT 121(H) 70 - 100 mg/dL 03/04/2025 11:14 AM EDT [facility] Blood Capillary blood specimen / Unknown 03/04/2025 11:14 AM EDT 03/04/2025 11:15 AM EDT Xi Cross MD LAB POINT OF CARE TE ST DOCKED DEVICE UNSOLICITED RESULTS Final Result Performing Organization Address [facility] de Phone Number [facility] [address] [place] [address], * Tissue exam (03/04/2025 8:40 AM EDT) Final Diagnosis Vermiform appendix, appendectomy: - Appendix with mucosa showing focal active inflammation and abundant reactive-appearin g lymphoid follicles. (See note.) - Fibrous obliteration of the distal appendix is noted. Note: The entire appendix has been submitted for histologic evaluation. Although there is focal active inflammation in the appendiceal mucosa (scattered crypts with intraepithelial neutrophils), there is no significant neutrophilic infiltrate in the muscularis propria, precluding a diagnosis of acute appendicitis. Clinical correlation and follow-up is recommended. 03/06/2025 12:38 PM EDT [facility] Gross Description A. Large Intestine, Appendix, : Labeled appendix . Received in formalin is a 4.7 cm in length and up to 0.9 cm in diameter appendix, with a moderate amount of mesoappendix. The serosa is dusky figueroa-purple. The lumen is dilated, measuring 0.6 cm in diameter. The lumen contains semisolid fecal material. A fecalith is not identified. The mucosa is badillo-pink. The proximal margin is cauterized. The appendix is entirely submitted as follows: 1, en face margin and bisected tip, three pieces 2-4, remainder of appendix, multiple pieces each. PETE 03/06/2025 12:38 PM EDT [facility] Disclaimer Unless otherwise specified, all tissue is 10% NB formalin fixed and paraffin embedded. 03/06/2025 12:38 PM EDT [facility] Tissue Appendix structure / Unknown 03/04/2025 8:40 AM EDT 03/05/2025 6:59 AM EDT us Tee Townsend MD LAB PATHOLOGY ORDERABLES Fi nal Result [facility] [address] [place] [address], * TH AN ENDOTRACHEAL(NO CHARGE) (03/04/2025 8:30 AM EDT) Narrative Cortez Serrano CRNA - 03/04/2025 8:30 AM EDT Cortez Serrano CRNA 03/04/2025 8:32 AM General Information and Staff Patient location during procedure: OR Performed: resident/WINDOWS SERVER SUPPORT TECHNICIAN/CAA Performed by: Cortez Serrano CRNA Authorized by: Simon Miramontes MD Intubation Airway not difficult Urgency: elective Final Airway Details Successful airway: ETT Cuffed: yes Successful intubation technique: direct laryngoscopy Endotracheal tube insertion site: oral Blade: Fahad Blade size: #3 ETT size (mm): 7.0 Cormack-Lehane Classification: grade IIa - partial view of glottis Placement verified by: chest auscultation, capnometry and palpation of cuff Cuff volume (mL): 7 Measured from: gums ETT to gums (cm): 21 Number of attempts at approach: 1Final airway type: endotracheal airway Indications and Patient Condition Indications for airway management: anesthesia and airway protection Spontaneous ventilation: present Sedation level: Yes Preoxygenated: yes Soft Tissue Damage: No Dentition Unchanged: Yes Patient position: neutral Mask difficulty assessment: 1 - vent by mask us Simon Miramontes MD ANESTHESIA ORDERABLES Final Re sult * Prothrombin time with INR (03/04/2025 6:23 AM EDT) Protime 12.0 10.6 - 13.9 sec LAB COAGULATION METHOD 03/04/2025 7:06 AM EDT [facility] INR 1.0 LAB COAGULATION METHOD 03/04/2025 7:06 AM EDT [facility] Blood Venous blood specimen / Unknown Venipuncture / Unknown 03/04/2025 6:23 AM EDT 03/04/2025 6:49 AM EDT us Wei FATIMA LAB BLOOD ORDERABLES Final Res ult [facility] [address] [place] [address], [place] [phone] * Phosphorus (03/04/2025 6:23 AM EDT) Only the most recent of2 resultswithin the time period is included. Phosphorus 3.9 2.5 - 4.5 mg/dL LAB CHEMISTRY METHOD 03/04/2025 7:14 AM EDT [facility] Blood Venous blood specimen / Unknown Venipuncture / Unknown 03/04/2025 6:23 AM EDT 03/04/2025 6:49 AM EDT us Monica FATIMA LAB BLOOD ORDERABLES Final Res ult Performing Organization Address [facility]/ZIP Co de Phone Number [facility] [address] [place] [address], [place] [phone] * Magnesium (03/04/2025 6:23 AM EDT) Only the most recent of2 resultswithin the time period is included. Magnesium 2.1 1.9 - 2.6 mg/dL LAB CHEMISTRY METHOD 03/04/2025 7:14 AM EDT [facility] Blood Venous blood specimen / Unknown Venipuncture / Unknown 03/04/2025 6:23 AM EDT 03/04/2025 6:49 AM EDT Monica FATIMA LAB BLOOD ORDERABLES Final Res ult Performing Organization Address [facility]/ZIP Co de Phone Number [facility] [address] [place] [address], [place] [phone] * Basic metabolic panel (03/04/2025 6:23 AM EDT) Sodium 142 133 - 145 mmol/L LAB CHEMISTRY METHOD 03/04/2025 7:14 AM [facility] Potassium 3.9 3.5 - 5.5 mmol/L LAB CHEMISTRY METHOD 03/04/2025 7:14 AM [facility] Chloride 108 96 - 110 mmol/L LAB CHEMISTRY METHOD 03/04/2025 7:14 AM [facility] CO2 31 21 - 32 mmol/L LAB CHEMISTRY METHOD 03/04/2025 7:14 AM [facility] Anion Gap 3 3 - 11 LAB CHEMISTRY METHOD 03/04/2025 7:14 AM [facility] Glucose 89 70 - 100 mg/dL LAB CHEMISTRY METHOD 03/04/2025 7:14 AM [facility] BUN 12 5 - 25 mg/dL LAB CHEMISTRY METHOD 03/04/2025 7:14 AM EDT [facility] Creatinine 0.88 0.50 - 1.10 mg/dL LAB CHEMISTRY METHOD 03/04/2025 7:14 AM EDT [facility] eGFR 80 >=60 mL/min/1. 73m2 LAB CHEMISTRY METHOD 03/04/2025 7:14 AM EDT [facility] Comment:Calculation based on the Chronic Kidney Disease Epidemiology Collaboration (CKD-EPI) equation refit without adjustment for race. BUN/Creatinine Ratio 13.6 LAB CHEMISTRY METHOD 03/04/2025 7:14 AM EDT [facility] Calcium 8.8 8.5 - 10.5 mg/dL LAB CHEMISTRY METHOD 03/04/2025 7:14 AM EDT [facility] Blood Venous blood specimen / Unknown Venipuncture / Unknown 03/04/2025 6:23 AM EDT 03/04/2025 6:49 AM EDT us Monica R Isatu PA LAB BLOOD ORDERABLES Final Res ult Performing Organization Address City/[facility]/ZIP Co de Phone Number [facility] [address] [place] [address], [place] [phone] * HCG qualitative, urine (03/03/2025 1:39 PM EDT) Preg Test, Ur Negative Negative 03/03/2025 2:01 PM EDT [facility] Urine Urine specimen obtained by clean catch procedure / Unknown Non-blood Collection / Unknown 03/03/2025 1:39 PM EDT 03/03/2025 1:53 PM EDT us Monica R Isatu PA LAB URINE ORDERABLES Final Res ult [facility] [address] [place] [address], [place] [phone] * Complete blood count (03/03/2025 6:21 AM EDT) [facility] WBC 8.0 4.8 - 10.8 K/mcL LAB HEMETOLOGY METHOD 03/03/2025 7:25 AM [facility] RBC 4.30 3.80 - 4.80 M/mcL LAB HEMETOLOGY METHOD 03/03/2025 7:25 AM [facility] Hemoglobin 13.1 11.5 - 16.0 g/dL LAB HEMETOLOGY METHOD 03/03/2025 7:25 AM [facility] Hematocrit 40.2 35.0 - 47.0 % LAB HEMETOLOGY METHOD 03/03/2025 7:25 AM [facility] MCV 93.1 79.0 - 98.0 FL LAB HEMETOLOGY METHOD 03/03/2025 7:25 AM [facility] MCH 30.3 27.0 - 32.0 pcg LAB HEMETOLOGY METHOD 03/03/2025 7:25 AM [facility] MCHC 32.6 32.0 - 37.0 g/dL LAB HEMETOLOGY METHOD 03/03/2025 7:25 AM [facility] RDW 12.8 11.0 - 15.0 % LAB HEMETOLOGY METHOD 03/03/2025 7:25 AM [facility] Platelets 219 130 - 400 K/mcL LAB HEMETOLOGY METHOD 03/03/2025 7:25 AM [facility] MPV 10.9 7.0 - 11.0 FL LAB HEMETOLOGY METHOD 03/03/2025 7:25 AM [facility] NRBC 0.0 <1.0 % LAB HEMETOLOGY METHOD 03/03/2025 7:25 AM [facility] NRBC Absolute 0.00 <0.10 K/mcL LAB HEMETOLOGY METHOD 03/03/2025 7:25 AM EDT [facility] Blood Venous blood specimen / Unknown Venipuncture / Unknown 03/03/2025 6:21 AM EDT 03/03/2025 6:27 AM EDT us Ricky Carter MD LAB BLOOD ORDERABLES Fi nal Result [facility] [address] [place] [address], [place] [phone] * US Pelvis Non OB Complete w Transvaginal (03/02/2025 11:36 PM EDT) Anatomical Region Laterality Modality Body, Pelvis Ultrasound 03/03/2025 12:3 1 AM EDT Impressions 03/03/2025 12:31 AM EDT 1. Intrauterine device (IUD) appropriately positioned. No acute pelvic findings. This document has been electronically signed by: Papo Gamez MD on 03/03/2025 00:31:02 Narrative 03/03/2025 12:31 AM EDT INDICATION: acute abd pain US pelvis transabdominal and transvaginal with Doppler Comparison: CT - CT ABD PEL W CONTRAST - 03/02/25 17:31 EDT Findings: Transabdominal scanning performed for overall anatomy. Transvaginal scanning performed for additional detail. Anteverted uterus is 6.7 cm length. Normal myometrium. No endometrial lesion, 3 mm thickness. An IUD is noted, appropriately positioned Right ovary 5.5 x 2.9 x 2.1 cm. Left ovary 4.2 x 3.0 x 3.2 cm. Normal color Doppler with arterial/venous spectral tracing of both ovaries. No free fluid. Procedure Note Papo Gamez - 03/03/2025 INDICATION: acute abd pain US pelvis transabdominal and transvaginal with Doppler Comparison: CT - CT ABD PEL W CONTRAST - 03/02/25 17:31 EDT Findings: Transabdominal scanning performed for overall anatomy. Transvaginal scanning performed for additional detail. Anteverted uterus is 6.7 cm length. Normal myometrium. No endometrial lesion, 3 mm thickness. An IUD is noted, appropriately positioned Right ovary 5.5 x 2.9 x 2.1 cm. Left ovary 4.2 x 3.0 x 3.2 cm. Normal color Doppler with arterial/venous spectral tracing of both ovaries. No free fluid. IMPRESSION: 1. Intrauterine device (IUD) appropriately positioned. No acute pelvic findings. This document has been electronically signed by: Papo Gamez MD on 03/03/2025 00:31:02 Ricky Carter MD IMG US PROCEDURES Final Result * Lactate (03/02/2025 5:46 PM EDT) Only the most recent of2 resultswithin the time period is included. [facility] Lactate 0.5 0.4 - 2.0 mmol/L LAB CHEMISTRY METHOD 03/02/2025 7:08 PM EDT [facility] Blood Venous blood specimen / Unknown Venipuncture / Unknown 03/02/2025 5:46 PM EDT 03/02/2025 6:37 PM EDT Ashley Massey DO LAB BLOOD ORDERABLES Final Re sult [facility] [address] [place] [address], * ECG 12 lead (03/02/2025 11:43 AM EDT) Only the most recent of2 resultswithin the time period is included. [facility] Ventricular Rate ECG 90 BPM GEMUSE Atrial Rate 90 BPM GEMUSE P-R Interval 146 ms GEMUSE QRS Duration 140 ms GEMUSE Q-T Interval 412 ms GEMUSE QTc 504 ms GEMUSE P Wave [place] 53 degrees GEMUSE R [place] -41 degrees GEMUSE T [place] 57 degrees GEMUSE ECG Interpretation Atrial-sense d ventricular- paced rhythm Abnormal ECG When compared with ECG of 28-JAN-2025 17:03, Vent. rate has increased BY 2 BPM Confirmed by Marcelo SAMUEL JAMES ([id number]) on 03/03/2025 3:29:30 PM GEMUSE 03/02/2025 11:4 3 AM EDT 03/03/2025 3:29 PM EDT Roxana Ryan MD ECG ORDERABLES Final Result GEMUSE * Troponin I high sensitivity (03/02/2025 11:28 AM EDT) Only the most recent of2 resultswithin the time period is included. High Sensitivity Troponin I 3 <=54 ng/L LAB CHEMISTRY METHOD 03/02/2025 12:19 PM EDT [facility] Blood Venous blood specimen / Unknown Venipuncture / Unknown 03/02/2025 11:28 AM EDT 03/02/2025 11:53 AM EDT Narrative [facility] - 03/02/2025 12:19 PM EDT High levels of biotin in samples may falsely decrease hsTroponin values. Use caution when interpreting hsTroponin results in patients taking biotin who exhibit renal impairment (eGFR <60) or in patients taking more than 20 mg/day of biotin. Roxana Ryan MD LAB BLOOD ORDERABLES Final Res ult Performing Organization Address City/[facility]/ZIP Co de Phone Number [facility] [address] [place] [address], * CT Angio Chest wo and/or w [...] MD IMG CT PROCEDURES Final Result * C-reactive protein (01/28/2025 5:24 PM EDT) C-Reactive Protein <0.29 <=0.50 mg/dL LAB CHEMISTRY METHOD 01/28/2025 6:38 PM EDT [facility] Blood Venous blood specimen / Unknown Venipuncture / Unknown 01/28/2025 5:24 PM EDT 01/28/2025 5:59 PM EDT us Darius Winston MD LAB BLOOD ORDERABLES Final Resul t [facility] [address] [place] [address], [place] [phone] * B-Type Natriuretic Peptide (BNP) (01/28/2025 5:24 PM EDT) BNP 21 <=100 pcg/mL LAB CHEMISTRY METHOD 01/28/2025 6:42 PM EDT [facility] Blood Venous blood specimen / Unknown Venipuncture / Unknown 01/28/2025 5:24 PM EDT 01/28/2025 5:59 PM EDT Darius Winston MD LAB BLOOD ORDERABLES Final Resul t Performing Organization Address City/[facility]/ZIP Co de Phone Number [facility] [address] [place] [address], [place] [phone] * (ABNORMAL) Hemoglobin A1c (08/17/2024 10:04 AM EST) Hemoglobin A1C 6.2(H) <5.7 % of total Hgb [employer] Comment: For someone without known diabetes, a [...] EST 08/17/2024 10:08 AM EST Narrative [facility] ([facility]) - 08/23/2024 2:28 PM EST FASTING:NO PATIENT NOT FASTING; ADVISED TO RETURN FOR COLLECTION. FASTING: NO Samanta Arciniega MD LAB BLOOD ORDERABLES Final Res ult [facility] ([facility]) [employer] [address] [place] [phone] * COLONOSCOPY (08/30/2018 2:38 PM EST) Anatomical Region Laterality Modality Endoscopy Corona Hernandez MD GI~PROCEDURE ORDERABLES Final Re sult from Last 3 Months or Most Recently Relevant to Health Maintenance Insurance [facility] Advance Directives * Full Code - Default (Latest Code Status on File) Date Activated Date Inactivated Comments 03/02/2025 10:54 PM 03/04/2025 7:19 PM This is orde r is used when code status has not been discussed with the patient, or code status is otherwise unknown/unconfirmed To update the patient's code status, place a code status order. Do not modify or discontinue any currently active code status orders. * Full Code - Default Date Activated Date Inactivated Comments 10/18/2024 12:46 AM 10/19/2024 3:13 PM This is ord er is used when code status has not been discussed with the patient, or code status is otherwise unknown/unconfirmed To update the patient's code status, place a code status order. Do not modify or discontinue any currently active code status orders. Care Teams Windows Desktop Support Relationship Specialty Start Date End Date Andree Yoo MD [address] [place] [address] PCP - General Internal Medicine 09/25/24
--- OUTSIDE RECORDS SUMMARY | 2025-04-16 14:51 | XMS_ITS | Clinical Summary ---
Author Organization [facility] Address [address] [place] [address] Care Team Providers Care Mine Engineer Name Role Phone Andree Yoo MD Primary Care Provider [phone] Medications Medication Sig Dispensed Refills Start Date [...] Gluc Sensor (FreeStyle Karmen 14 Day Sensor) [facility] USE TO TEST GLUCOSE DIRECTED AND CHANGE [...] of 2) 2023 COVID-19 Vaccine ( season) 2025 10/07/2020, 09/16/2020 Influenza Vaccine (#1) 2025 , 07/13/2019, 07/09/2018, Additional history exists Pneumococcal Vaccine Aged Out 10/13/2012 No long er eligible based on patient's age to complete this topic RSV Ped < 20 months Aged Out No longe r eligible based on patient's age to complete this topic Care Teams Mine Engineer Relationship Specialty Start Date End Date Andree Yoo MD [address] [place] [phone] PCP - General Family Medicine 12/29/20
== END 2025-04-16 13:21 | disposition home or self-care (01) ==
LOC: HO.HSM 12:10
PROVIDERS: Visit Provider Nurse Practitioner
DX: R41.3 Other amnesia (principal); G43.009 Migraine without aura, not intractable, without status migrainosus
CPT/HCPCS: 99204

== ENCOUNTER 2025-04-16 12:09 | Outpatient (REF) | payer OTHER, SELFPAY ==
[2025-04-16 15:42] LABS: Vitamin B12 578 pg/mL (200-900)
== END 2025-04-16 12:10 | disposition home or self-care (01) ==
LOC: HO.LAB 12:09
PROVIDERS: PCP Family Medicine; Visit Provider Nurse Practitioner
DX: G43.009 Migraine without aura, not intractable, without status migrainosus (principal); R41.3 Other amnesia; Z79.620 Long term (current) use of immunosuppressive biologic
CPT/HCPCS: 36415; 82607; 84443